=== PATIENT | male | born 1930 | race Caucasian/White ===

== ENCOUNTER 2018-01-04 09:12 | Emergency (ER) | payer OTHER ==
[2018-01-04] MEDS ORDERED: HYDROCODONE/APAP 5/325 MG TAB ONE (09:48)
[2018-01-04] MEDS ORDERED: ONDANSETRON 4 MG/2 ML VIAL ONE (09:59)
--- NOTE | 2018-01-04 10:09 | ER ---
Nurse's Notes [facility] Name: Ronny Burgess Age: 87 yrs Sex: Male : 1930 Arrival Date: 01/04/2018 Time: 09:15 Bed 15 Private MD: Diagnosis: Fall due to bumping against object;Pain in left elbow;Displaced fracture of head of left radius;Fracture of head of radius Presentation: 01/04 09:30 Presenting complaint: Patient states: was picking up sticks in the yard yesterday, fell iw forward onto outstretched left arm, now has pain to left elbow. Transition of care: patient was not received from another setting of care. Onset of symptoms was January 04, 2018. Risk Assessment: Do you want to hurt yourself or someone else? Patient reports no desire to harm self or others. Initial Sepsis Screen: Does the patient meet any 2 criteria? No. Patient's initial sepsis screen is negative. Does the patient have a suspected source of infection? No. Patient's initial sepsis screen is negative. Care prior to arrival: None. 09:30 Method Of Arrival: Ambulatory iw 09:30 Acuity: BERNARDA 4 iw Triage Assessment: 09:59 General: Appears in no apparent distress. uncomfortable, Behavior is calm, cooperative, hj appropriate for age. Pain: Denies pain. Historical: - Allergies: 09:36 isosorbide dinitrate; iw - Home Meds: 09:36 atorvastatin 80 mg oral tab 1 tab once daily [Active]; clopidogrel 75 mg oral tab 1 tab iw once daily [Active]; metoprolol succinate 50 mg oral Tb24 twice a day [Active]; nitroglycerin 0.4 mg SL subl 1 tab every 5 minutes [Active]; tamsulosin 0.4 mg oral cp24 2 caps once daily [Active]; clotrimazole 1 % topical crea 2 times per day [Active]; - PMHx: 09:36 Myocardial infarction; iw - PSHx: 09:36 Heart Surgery; knee replacement - left; iw - Immunization history:: Adult Immunizations up to date. - Social history:: Smoking status: Patient/guardian denies using tobacco. - Family history:: not pertinent. - Ebola Screening: : Patient negative for fever greater than or equal to 101.5 degrees Fahrenheit, and additional compatible Ebola Virus Disease symptoms Patient denies exposure to infectious person Patient denies travel to an Ebola-affected area in the 21 days before illness onset No symptoms or risks identified at this time. Screenin:59 Abuse screen: Denies threats or abuse. Denies injuries from another. Nutritional hj screening: No deficits noted. Tuberculosis screening: No symptoms or risk factors identified. Fall Risk None identified. Assessment: 09:35 Pain: Complains of pain in left arm and left antecubital area. iw 01/05 07:57 General: Appears in no apparent distress. Behavior is calm, cooperative. Neuro: Level iw of Consciousness is awake, alert, obeys commands, Oriented to person, place, time, situation, Moves all extremities. Full function. Cardiovascular: Patient's skin is warm and dry. Respiratory: Respiratory effort is even, unlabored, Respiratory pattern is regular. GI: No signs and/or symptoms were reported involving the gastrointestinal system. Derm: Skin is intact, is healthy with good turgor. Musculoskeletal: Range of motion: limited in left elbow Reports pain in left antecubital area. Vital Signs: 01/04 09:32 BP 180 / 69; Pulse 69; Resp 16; Temp 98.2; Pulse Ox 95% on R/A; Weight 90.72 kg; Height iw 5 ft. 9 in. (175.26 cm); Pain 5/10; 09:32 Body Mass Index 29.53 (90.72 kg, 175.26 cm) iw ED Course: 09:15 Patient arrived in ED. mr 09:27 Felix Goncalves MD is Attending Physician. yady 09:29 Anne Marie Estrada RN is Primary Nurse. iw 09:31 Triage completed. iw 09:32 Arm band placed on. iw 10:00 Patient has correct armband on for positive identification. Placed in gown. Bed in low hj position. Call light in reach. Side rails up X 1. 10:03 Elbow Left 3 View XRAY In Process Unspecified. EDMS 10:08 Raf Rodriguez MD is Referral Physician. yady 10:17 No provider procedures requiring assistance completed. Patient did not have IV access iw during this emergency room visit. Administered Medications: 09:45 Drug: Alexander 5 mg-325 mg 1 tabs Route: PO; iw 09:50 Follow up: Response: No adverse reaction hj Outcome: 10:08 Discharge ordered by . yady 10:17 Discharged to home ambulatory, with family. iw 10:17 Condition: good 10:17 Discharge instructions given to patient, family, Instructed on discharge instructions, follow up and referral plans. medication usage, Demonstrated understanding of instructions, follow-up care, medications, Prescriptions given X 1. 10:18 Patient left the ED. hj Signatures: Dispatcher [employer] EDGA Felix Goncalves MD MD cha Rivera, Reshma mr Anne Marie Estrada RN RN Feliberto Negrete RN RN hj Corrections: (The following items were deleted from the chart) 09:38 09:32 BP 180 / 69; Pulse 69bpm; Resp 16bpm; Pulse Ox 95% RA; Temp 98.2F; iw iw 01/05 07:58 01/04 10:17 Discharge instructions given to patient, family, Instructed on discharge iw instructions, follow up and referral plans. medication usage, Demonstrated understanding of instructions, follow-up care, medications, iw 01/05 07:58 01/04 09:35 Pain: Complains of pain in left arm and left antecubital area iw iw
--- NOTE | 2018-01-04 10:09 | EDPHYS ---
Physician Documentation [facility] Name: Ronny Burgess Age: 87 yrs Sex: Male : 1930 Arrival Date: 01/04/2018 Time: 09:15 Bed 15 Private MD: ED Physician Felix Goncalves HPI: 01/04 09:29 This 87 yrs old Male presents to ER via Unassigned with complaints of Fall yady Injury, Arm Injury. 09:29 Details of fall: The patient fell from an upright position, while walking. Onset: The yady symptoms/episode began/occurred yesterday. Associated injuries: The patient sustained left antecubital area, decreased range of motion. Severity of symptoms: At their worst the symptoms were moderate, in the emergency department the symptoms are unchanged. The patient has not experienced similar symptoms in the past. Historical: - Allergies: 09:36 isosorbide dinitrate; iw - Home Meds: 09:36 atorvastatin 80 mg oral tab 1 tab once daily [Active]; clopidogrel 75 mg oral tab 1 tab iw once daily [Active]; metoprolol succinate 50 mg oral Tb24 twice a day [Active]; nitroglycerin 0.4 mg SL subl 1 tab every 5 minutes [Active]; tamsulosin 0.4 mg oral cp24 2 caps once daily [Active]; clotrimazole 1 % topical crea 2 times per day [Active]; - PMHx: 09:36 Myocardial infarction; iw - PSHx: 09:36 Heart Surgery; knee replacement - left; iw - Immunization history:: Adult Immunizations up to date. - Social history:: Smoking status: Patient/guardian denies using tobacco. - Family history:: not pertinent. - Ebola Screening: : Patient negative for fever greater than or equal to 101.5 degrees Fahrenheit, and additional compatible Ebola Virus Disease symptoms Patient denies exposure to infectious person Patient denies travel to an Ebola-affected area in the 21 days before illness onset No symptoms or risks identified at this time. ROS: 09:29 Constitutional: Negative for fever, chills, and weight loss, Eyes: Negative for injury, yady pain, redness, and discharge, ENT: Negative for injury, pain, and discharge, Neck: Negative for injury, pain, and swelling, Cardiovascular: Negative for chest pain, palpitations, and edema, Respiratory: Negative for shortness of breath, cough, wheezing, and pleuritic chest pain, Abdomen/GI: Negative for abdominal pain, nausea, vomiting, diarrhea, and constipation, Back: Negative for injury and pain, : Negative for injury, bleeding, discharge, and swelling, Skin: Negative for injury, rash, and discoloration, Neuro: Negative for headache, weakness, numbness, tingling, and seizure, Psych: Negative for depression, anxiety, suicide ideation, homicidal ideation, and hallucinations, Allergy/Immunology: Negative for hives, rash, and allergies, Endocrine: Negative for neck swelling, polydipsia, polyuria, polyphagia, and marked weight changes, Hematologic/Lymphatic: Negative for swollen nodes, abnormal bleeding, and unusual bruising. 09:29 MS/extremity: Positive for injury or acute deformity, pain, swelling, tenderness, of the left antecubital area. Exam: 09:29 Constitutional: This is a well developed, well nourished patient who is awake, alert, yady and in no acute distress. Head/Face: Normocephalic, atraumatic. Eyes: Pupils equal round and reactive to light, extra-ocular motions intact. Lids and lashes normal. Conjunctiva and sclera are non-icteric and not injected. Cornea within normal limits. Periorbital areas with no swelling, redness, or edema. ENT: Nares patent. No nasal discharge, no septal abnormalities noted. Tympanic membranes are normal and external auditory canals are clear. Oropharynx with no redness, swelling, or masses, exudates, or evidence of obstruction, uvula midline. Mucous membranes moist. Neck: Trachea midline, no thyromegaly or masses palpated, and no cervical lymphadenopathy. Supple, full range of motion without nuchal rigidity, or vertebral point tenderness. No Meningismus. Chest/axilla: Normal chest wall appearance and motion. Nontender with no deformity. No lesions are appreciated. Cardiovascular: Regular rate and rhythm with a normal S1 and S2. No gallops, murmurs, or rubs. Normal PMI, no JVD. No pulse deficits. Respiratory: Lungs have equal breath sounds bilaterally, clear to auscultation and percussion. No rales, rhonchi or wheezes noted. No increased work of breathing, no retractions or nasal flaring. Abdomen/GI: Soft, non-tender, with normal bowel sounds. No distension or tympany. No guarding or rebound. No evidence of tenderness throughout. Back: No spinal tenderness. No costovertebral tenderness. Full range of motion. Male : Normal genitalia with no discharge or lesions. Skin: Warm, dry with normal turgor. Normal color with no rashes, no lesions, and no evidence of cellulitis. Neuro: Awake and alert, GCS 15, oriented to person, place, time, and situation. Cranial nerves II-XII grossly intact. Motor strength 5/5 in all extremities. Sensory grossly intact. Cerebellar exam normal. Normal gait. Psych: Awake, alert, with orientation to person, place and time. Behavior, mood, and affect are within normal limits. 09:29 Musculoskeletal/extremity: Extremities: noted in the left antecubital area: decreased ROM, pain. 09:29 Neuro: Orientation: is normal, appropriate for stated age, no acute changes, Mentation: is normal, appropriate for stated age, no acute changes, Memory: is normal, appropriate for stated age, no acute changes, Gait: not tested. Vital Signs: 09:32 BP 180 / 69; Pulse 69; Resp 16; Temp 98.2; Pulse Ox 95% on R/A; Weight 90.72 kg; Height iw 5 ft. 9 in. (175.26 cm); Pain 5/10; 09:32 Body Mass Index 29.53 (90.72 kg, 175.26 cm) MDM: 09:27 Patient medically screened. [facility] 09:32 Data reviewed: vital signs, nurses notes, radiologic studies, plain films. [facility] 01/04 09:29 Order name: Elbow Left 3 View XRAY [facility] 01/04 09:29 Order name: Ice pack; Complete Time: 10:18 [facility] 01/04 09:29 Order name: Splint - Elbow - Posterior; Complete Time: 10:18 [facility] 01/04 09:29 Order name: Sling; Complete Time: 10:18 [facility] Administered Medications: 09:45 Drug: Aurelia 5 mg-325 mg 1 tabs Route: PO; iw 09:50 Follow up: Response: No adverse reaction hj Disposition: 01/04/18 10:08 Discharged to Home. Impression: Fall due to bumping against object, Pain in left elbow, Displaced fracture of head of left radius, Fracture of head of radius. - Condition is Stable. - Discharge Instructions: Joint Pain, Fall Prevention in the Home, Joint Pain, [id number]. - Prescriptions for Tylenol- Codeine #3 300-30 mg Oral Tablet - take 2 tablets by ORAL route every 6 hours As needed; 26 tablet. - Medication Reconciliation Form, Thank You Letter, Antibiotic Education, Prescription Opioid Use form. - Follow up: Private Physician; When: 2 - 3 days; Reason: Recheck today's complaints, Continuance of care, Re-evaluation by your physician. Follow up: Raf Rodriguez MD; When: 2 - 3 days; Reason: Recheck today's complaints, Continuance of care, Re-evaluation by your physician. - Problem is new. - Symptoms have improved. Signatures: Dispatcher [employer] EDFelix Michelle MD MD cha Williams, Irene, RN RN Feliberto Negrete RN RN Corrections: (The following items were deleted from the chart) 10:08 10:08 01/04/2018 10:08 Discharged to Home. Impression: Fall due to bumping against yady object; Pain in left elbow; Displaced fracture of head of left radius; Fracture of head of radius. Condition is Stable. Discharge Instructions: Joint Pain, Fall Prevention in the Home, Joint Pain, [id number]. Prescriptions for Tylenol-Codeine #3 300-30 mg Oral Tablet - take 2 tablets by ORAL route every 6 hours As needed; 26 tablet. and Forms are Medication Reconciliation Form, Thank You Letter, Antibiotic Education, Prescription Opioid Use. Follow up: Private Physician; When: 2 - 3 days; Reason: Recheck today's complaints, Continuance of care, Re-evaluation by your physician. Problem is new. Symptoms have improved. [facility] 10:18 10:08 01/04/2018 10:08 Discharged to Home. Impression: Fall due to bumping against hj object; Pain in left elbow; Displaced fracture of head of left radius; Fracture of head of radius. Condition is Stable. Discharge Instructions: Joint Pain, Fall Prevention in the Home, Joint Pain, Eovy-ns-Acnu. Prescriptions for Tylenol-Codeine #3 300-30 mg Oral Tablet - take 2 tablets by ORAL route every 6 hours As needed; 26 tablet. and Forms are Medication Reconciliation Form, Thank You Letter, Antibiotic Education, Prescription Opioid Use. Follow up: Private Physician; When: 2 - 3 days; Reason: Recheck today's complaints, Continuance of care, Re-evaluation by your physician. Follow up: Dr. Raf Rodriguez; When: 2 - 3 days; Reason: Recheck today's complaints, Continuance of care, Re-evaluation by your physician. Problem is new. Symptoms have improved. yady
[2018-01-04 10:35] VITALS: BP 180/69; TEMP 98.2; O2SAT 95
--- NOTE | 2018-01-04 13:04 | RAD REPORT ---
EXAM DESCRIPTION: RAD - Elbow Left 3 View - 01/04/2018 10:02 am CLINICAL HISTORY: PAIN History of fall with pain COMPARISON: No comparisons FINDINGS: Moderate arthritic changes affect the elbow. A small olecranon spur is present. Mild poste rior soft tissue swelling is seen. No fracture or dislocation is evident.
== END 2018-01-04 10:18 | disposition home or self-care (01) ==
LOC: ER 09:12
DX: M25.522 Pain in left elbow (principal); W18.00XA Striking against unspecified object with subsequent fall, initial encounter; I25.2 Old myocardial infarction; Z79.899 Other long term (current) drug therapy; M79.9 Soft tissue disorder, unspecified; M77.8 Other enthesopathies, not elsewhere classified
CPT/HCPCS: 73080; 99283; J2405

== ENCOUNTER 2019-01-26 06:47 | Day surgery (SDC) | payer OTHER ==
[2019-01-22 12:07] LABS: Absolute Lymphocytes (CBC) 1.3 K/uL (0.7-4.9); Basophils % 0.6 % (0-1.3); Hematocrit 37.8 % (39.6-49.0); Lymphocytes % 20.5 % (15.3-44.8); MPV 7.5 fL (7.6-11.3); RBC Red Blood Cell Count 4.24 M/uL (4.33-5.43)
[2019-01-22 12:16] LABS: BUN Blood Urea Nitrogen 13 mg/dL (7-18); Bicarbonate 30 mmol/L (21-32); Glucose Level 106 mg/dL (74-106); Potassium 4.2 mmol/L (3.5-5.1); Protime INR 1.11; Sodium Level 141 mmol/L (136-145)
--- NOTE | 2019-01-22 12:16 | RAD REPORT ---
EXAM DESCRIPTION: RAD - Chest Pa And Lat (2 Views) - 01/22/2019 12:02 pm CLINICAL HISTORY: pre-op for heart cath COMPARISON: September 2016 chest exam TECHNIQUE: PA and lateral views of the chest were obtained. FINDINGS: The lungs are clear of an acute mass or focal infiltrate. Interstitial pattern is similar to comparison. CABG surgical changes are noted. Heart size is normal and central vasculature is wit hin normal limits. No pleural effusion or pneumothorax seen. No acute bony finding noted. Aortic c alcifications and mild tortuosity noted. No significant change from the comparison. IMPRESSION: No acute cardiopulmonary process. No significant change from comparison.
--- NOTE | 2019-01-22 15:32 | EKG ---
Test Date: 2019-01-22 Test Time: 13:02:22 Fruit Stuffer: BHAVANA MEASUREMENT RESULTS: Intervals: Rate: 60 WA: 292 QRSD: 168 QT: 478 QTc: 478 [place]: P: 67 WA: 292 QRS: -71 T: 69 INTERPRETIVE STATEMENTS: Sinus rhythm with 1st degree AV block Possible Left atrial enlargement Right bundle branch block Left anterior fascicular block Bifascicular block Left ventricular hypertrophy with repolarization abnormality Abnormal ECG Compared to ECG 12/18/2016 08:55:23 Left anterior fascicular block now present Bifascicular block now present Left ventricular hypertrophy now present Early repolarization now present Ventricular premature complex(es) no longer present Left-axis deviation no longer present Electronically Signed On 01-22-19 15:30:52 TEAM CDL DRIVER by Daniel Carrillo
[2019-01-26] MEDS ORDERED: LIDOCAINE 1% MPF 30 ML VIAL ONE (06:51)
[2019-01-26] MEDS ORDERED: HEPA 1000U/500MLS 1,000 UNIT/500 ML BAG IV ONE ×2 (06:51→07:24)
[2019-01-26] MEDS ORDERED: MIDAZOLAM HCL 2 MG/2 ML INJ ONE (06:52)
[2019-01-26] MEDS ORDERED: FENTANYL CITR 100 MCG/2 ML ONE (06:53)
[2019-01-26] MEDS ORDERED: NA CHLORIDE 0.9% 0 ML IV ONE (06:53)
[2019-01-26] MEDS ORDERED: ATROPINE SULF 1 MG/10 ML SYR IV ONE (06:53)
[2019-01-26] MEDS ORDERED: NA CHLORIDE 0.9% 500 ML ONE (06:56)
[2019-01-26] MEDS ORDERED: NA CHLORIDE 0.9% 0 ML ONE (07:35)
[2019-01-26 10:18] VITALS: BP 172/85; TEMP 97.2
[2019-01-26 10:19] VITALS: O2SAT 0
--- NOTE | 2019-01-26 18:22 | OP ---
Date of Procedure: 01/26/2019 Surgeon: Daniel Carrillo MD Supervisor [employer]: Sharon Marshall. He was admitted for left heart catheterization selective vein graft injection and LAZCANO injection. Indication: CAD and unstable angina. History Of Present Illness: Mr. Burgess is 88, had bypass surgery in 1993 with a vein graft to the OM, RCA and LAZCANO to the LAD. Had a classic unstable angina symptoms. Admitted today for catheterizatio n. Procedure In Detail: He prepped and draped in the routine sterile fashion. Given 2 mg of Versed for sedation. A 6-Chinese sheath introduced in the right common femoral artery successfully. Angio-Seal was used to close the case. A JL-4 was introduced into the left main injections. There showed comp lete occlusion of the left main distally. The RCA [place] was also occluded 100%. A JR4 catheter was used to cannulate the graft to the RCA, OM as well as the LAZCANO. The LAZCANO was widely open with good distal flow post anastomosis. The vein graft to the OM had multiple sequential lesion, the most is 5 0%, that went in OM with poor distal flow small vessel. RCA graft also had sequential lesion proxima lly was 90% very tortuous, very ectatic and distally it was completely occluded. There were no compl ications. Blood Loss: 5 mL. Postoperative Diagnosis: Severe CAD. I will plan to continue medical therapy. I am going to add Imdur to his regimen. Anesthesia: Total conscious sedation was 45 minutes. The patient will go home today and I will see him in the office in about 2 weeks. DERRELL/USHA Voice ID: [id number] Report ID: [id number]
== END 2019-01-26 10:10 | disposition home health service (06) ==
LOC: CCL 06:47
PROC: B203YZZ Plain Radiography of Multiple Coronary Artery Bypass Grafts using Other Contrast (ICD-10-PCS; principal; 2019-01-26)
PROC: B208YZZ Plain Radiography of Left Internal Mammary Bypass Graft using Other Contrast (ICD-10-PCS; 2019-01-26)
PROC: B201YZZ Plain Radiography of Multiple Coronary Arteries using Other Contrast (ICD-10-PCS; 2019-01-26)
DX: I25.110 Atherosclerotic heart disease of native coronary artery with unstable angina pectoris (principal); I25.700 Atherosclerosis of coronary artery bypass graft(s), unspecified, with unstable angina pectoris; I25.82 Chronic total occlusion of coronary artery; I65.23 Occlusion and stenosis of bilateral carotid arteries; I70.203 Unspecified atherosclerosis of native arteries of extremities, bilateral legs; I10 Essential (primary) hypertension; E78.5 Hyperlipidemia, unspecified; E11.9 Type 2 diabetes mellitus without complications; E78.6 Lipoprotein deficiency; Z95.1 Presence of aortocoronary bypass graft; Z79.82 Long term (current) use of aspirin; Z79.02 Long term (current) use of antithrombotics/antiplatelets; Z82.49 Family history of ischemic heart disease and other diseases of the circulatory system
CPT/HCPCS: 93005; 85025; 80048; 36415; 85610; 82947; 85730; 71046; 93455; C1893; C1760; J2250; J3010; J7040; 93459; J0583

== ENCOUNTER 2019-06-29 16:44 | Emergency (ER) | payer OTHER ==
--- NOTE | 2019-06-29 17:32 | RAD REPORT ---
EXAM DESCRIPTION: CT - [id number] - 06/29/2019 5:20 pm CLINICAL HISTORY: Trauma, head and neck injury. fall, head injury, no LOC;Pain COMPARISON: No comparisons TECHNIQUE: Axial 5 mm thick images of the head were obtained. Axial 2 mm thick images of the cervical spine were obtained with sagittal and coronal reconstruction images generated and reviewed. All CT scans are performed using dose optimization technique as appropriate and may include automated exposure control or mA/KV adjustment according to patient size. FINDINGS: CT HEAD WITHOUT CONTRAST: Acute subdural hematoma is seen along the right convexity measuring up to 5 mm. Acute blood is seen t o extend along the right tentorium and along the falx.Moderate atrophy is present. There is no signif icant right to left midline shift. Heavy atherosclerosis of the vertebral arteries noted. The paranasal sinuses and mastoids are clear.The calvarium is intact. CT CERVICAL SPINE WITHOUT CONTRAST: No fracture or subluxation.Mild lower cervical spondylosis.No prevertebral soft tissues swelling is i dentified. Carotid atherosclerosis. IMPRESSION: Acute right-sided subdural hematoma as detailed above. No hydrocephalus or right to midl ine shift. The findings were discussed with Dr. Yee On 06/29/2019 at 5:25 p.m. by telephone.
--- NOTE | 2019-06-29 17:43 | ER ---
Nurse's Notes [facility] Name: Ronny Burgess Age: 88 yrs Sex: Male : 1930 Arrival Date: 06/29/2019 Time: 16:46 Bed 19 Private MD: Diagnosis: Traumatic subdural hemorrhage-No LOC Presentation: 06/28 17:11 Chief complaint: Patient states: " I fell over a short brick wall and hit the back of my head." Pt denies LOC, does take Plavix, also c/o pain in R upper back near scapula, denies N/V. Coronavirus screen: Patient denies a cough. Patient denies shortness of breath or difficulty breathing. Patient denies measured and/or subjective temperature greater than 100.4F prior to today's visit. Patient denies travel on a cruise ship or to a country the [facility] currently lists as an affected area. Patient denies contact with known and/or suspected case of COVID-19. Ebola Screen: No symptoms or risks identified at this time. Initial Sepsis Screen: Does the patient meet any 2 criteria? No. Patient's initial sepsis screen is negative. Does the patient have a suspected source of infection? No. Patient's initial sepsis screen is negative. Risk Assessment: Do you want to hurt yourself or someone else? Patient reports no desire to harm self or others. Onset of symptoms was June 29, 2019. 17:11 Method Of Arrival: Ambulatory 17:11 Acuity: BERNARDA 2 ph 17:12 Care prior to arrival: None. Mechanism of Injury: Fall from standing position. Trauma hb event details: Injury occurred in the [facility], Injury occurred: at home. Injury occurred: June 29, 2019. Trauma Activation: Alert Physician: ED Physician; Name: ; Notified At: ; Arrived At: Physician: General Surgeon; Name: ; Notified At: ; Arrived At: Physician: Radiology; Name: ; Notified At: ; Arrived At: Physician: Respiratory; Name: ; Notified At: ; Arrived At: Physician: Lab; Name: ; Notified At: ; Arrived At: Historical: - Allergies: 17:14 Isosorbide Dinitrate; ph - Home Meds: 17:14 clopidogrel 75 mg Oral tab 1 tab once daily [Active]; tamsulosin 0.4 mg Oral cp24 2 ph caps once daily [Active]; nitroglycerin 0.4 mg SL subl 1 tab every 5 minutes [Active]; metoprolol succinate 50 mg Oral Tb24 twice a day [Active]; 18:19 atorvastatin 40 mg oral tab [Active]; cholecalciferol (vitamin D3) 400 unit oral cap tw2 [Active]; lisinopril 5 mg Oral tab 1 tab once daily [Active]; metformin 500 mg Oral tab 1 tab 2 times per day [Active]; - PMHx: 17:14 Myocardial infarction; Diabetes - NIDDM; Hyperlipidemia; ph - PSHx: 17:14 Heart Surgery; knee replacement - left; ph - Immunization history:: Adult Immunizations unknown. - Social history:: Smoking status: Patient denies any tobacco usage or history of. - Immunization history: Last tetanus immunization: < 10 years ago Last tetanus immunization: unknown. Screenin:50 Abuse screen: Denies threats or abuse. Denies injuries from another. Nutritional hb screening: No deficits noted. Tuberculosis screening: No symptoms or risk factors identified. Fall Risk Total Howard Fall Scale indicates Low Risk Score (25-44 pts). Fall prevention measures have been instituted. Side Rails Up X 2 Frequent Obs/Assesments occuring As available Patient and Family Educated on Fall Prevention Program and strategies. Primary Survey: 17:00 NO uncontrolled hemorrhage observed. A: The patient is alert. Airway: patent, Patient tw2 intubated prior to arrival. Breathing/Chest: Respiratory pattern: regular, Respiratory effort: spontaneous, unlabored, Breath sounds: clear, bilaterally. Chest inspection: symmetrical rise and fall of the chest. Circulation: Cardiac rhythm: Heart tones present. Pulses: palpable right radial artery and left radial artery. Skin color: pink, Skin temperature: warm, dry. Disability Alert. Exposure/Environment: All clothing and personal items were removed. Forensic evidence collection is not deemed to be indicated at this time. Items placed in patient belonging bag. There is no evidence of uncontrolled external bleeding. Obvious injury(ies) are noted at this time: pt c/o RIGHT shoulder pain A warming method has been applied: A warm blanket has been provided to the patient. 18:17 Reassessment Airway Airway Patent Breathing/Chest Respiratory pattern Regular tw2 Respiratory effort Spontaneous Unlabored Breath sounds Clear Chest inspection Symmetrical Circulation Heart tones Color [place] Temperature Warm Dry Disability Alert. Secondary Survey: 18:05 HEENT: No deficits noted. Gastrointestinal: Abdomen is soft, non-distended, Bowel tw2 sounds present in all quadrants. : No signs and/or symptoms were reported regarding the genitourinary system. Musculoskeletal: Range of motion: intact in all extremities, Reports pain in right shoulder. Assessment: 17:11 General: Appears in no apparent distress. well groomed, Behavior is calm, cooperative, tw2 appropriate for age. Pain: Complains of pain in right arm and posterior aspect of right shoulder and anterior aspect of right shoulder. Neuro: Level of Consciousness is awake, alert, obeys commands, Oriented to person, place, time, situation. EENT: No signs and/or symptoms were reported regarding the EENT system. Cardiovascular: Heart tones S1 S2 Patient's skin is warm and dry. Respiratory: Airway is patent Respiratory effort is even, unlabored, Respiratory pattern is regular, symmetrical, Breath sounds are clear bilaterally. GI: No signs and/or symptoms were reported involving the gastrointestinal system. Abdomen is round non-distended, Bowel sounds present X 4 quads. : No signs and/or symptoms were reported regarding the genitourinary system. Derm: No signs and/or symptoms reported regarding the dermatologic system. Skin is healthy with good turgor. Musculoskeletal: Circulation, motion, and sensation intact. Range of motion: limited in right shoulder. 17:45 Reassessment: Patient appears in no apparent distress at this time. No changes from tw2 previously documented assessment. Patient and/or family updated on plan of care and expected duration. Pain level reassessed. Patient is alert, oriented x 3, equal unlabored respirations, skin warm/dry/pink. 17:48 Reassessment: BP 201/76, Dr. Yee notified, Lopressor administered as ordered. hb 18:33 Reassessment: Patient appears in no apparent distress at this time. No changes from tw2 previously documented assessment. Patient and/or family updated on plan of care and expected duration. Pain level reassessed. Patient is alert, oriented x 3, equal unlabored respirations, skin warm/dry/pink. spouse is at bedside at this time, ph# of /C ER given to spouse at this time, spouse states "our daughter will come get me and cant come until about 8 tonight", encouraged pts spouse to call before they drive to [place] to check visitor policy. 18:49 Reassessment: Patient appears in no apparent distress at this time. No changes from tw2 previously documented assessment. Patient and/or family updated on plan of care and expected duration. Pain level reassessed. Patient is alert, oriented x 3, equal unlabored respirations, skin warm/dry/pink. Vital Signs: 17:11 BP 178 / 83; Pulse 66; Resp 18; Temp 97.9; Pulse Ox 97% on R/A; Weight 88.9 kg; Height ph 5 ft. 9 in. (175.26 cm); 17:45 BP 201 / 86; Pulse 77; hb 18:03 BP 171 / 90; Pulse 67; Resp 20; Temp 98.8(TE); Pulse Ox 100% on R/A; Pain 0/10; tw2 18:32 BP 168 / 85; Pulse 62; Resp 16; Pulse Ox 100% on R/A; tw2 17:11 Body Mass Index 28.94 (88.90 kg, 175.26 cm) ph 18:32 spouse at bedside at this time. tw2 Omar Coma Score: 17:00 Eye Response: spontaneous(4). Verbal Response: oriented(5). Motor Response: obeys hb commands(6). Total: 15. 18:03 Eye Response: spontaneous(4). Verbal Response: oriented(5). Motor Response: obeys tw2 commands(6). Total: 15. 18:32 Eye Response: spontaneous(4). Verbal Response: oriented(5). Motor Response: obeys tw2 commands(6). Total: 15. Trauma Score (Adult): 17:00 Eye Response: spontaneous(1); Verbal Response: oriented(1); Motor Response: obeys hb commands(2); Systolic BP: > 89 mm Hg(4); Respiratory Rate: 10 to 29 per min(4); Omar Score: 15; Trauma Score: 12 17:45 Eye Response: spontaneous(1); Verbal Response: oriented(1); Motor Response: obeys hb commands(2); Systolic BP: > 89 mm Hg(4); Respiratory Rate: 10 to 29 per min(4); [place] Score: 15; Trauma Score: 12 18:03 Eye Response: spontaneous(1); Verbal Response: oriented(1); Motor Response: obeys tw2 commands(2); Systolic BP: > 89 mm Hg(4); Respiratory Rate: 10 to 29 per min(4); [place] Score: 15; Trauma Score: 12 18:32 Eye Response: spontaneous(1); Verbal Response: oriented(1); Motor Response: obeys tw2 commands(2); Systolic BP: > 89 mm Hg(4); Respiratory Rate: 10 to 29 per min(4); [place] Score: 15; Trauma Score: 12 ED Course: 16:46 Patient arrived in ED. ag5 16:48 Chivo Yee MD is Attending Physician. kdr 17:02 Sapna Olivarez RN is Primary Nurse. tw2 17:13 Triage completed. ph 17:15 Arm band placed on Patient placed in an exam room. ph 17:21 CT Head C Spine In Process Unspecified. EDMS 17:42 Inserted saline lock: 20 gauge in left wrist, using aseptic technique. hb 17:45 Inserted saline lock: 20 gauge in right wrist, using aseptic technique. Blood collected.tw2 17:50 Patient has correct armband on for positive identification. Placed in gown. Bed in low hb position. Call light in reach. 17:50 Patient maintains SpO2 saturation greater than 95% on room air. Thermoregulation: warm hb blanket given to patient. 18:15 Shoulder Right (2 View) XRAY In Process Unspecified. EDMS 18:16 Report given to GERMAINE Virgen at [facility] ER. tw2 18:35 No provider procedures requiring assistance completed. Patient transferred, IV remains tw2 in place. Administered Medications: 17:47 Drug: Lopressor 2.5 mg Route: IVP; Site: right wrist; hb 18:35 Follow up: Response: No adverse reaction; Blood pressure is lowered tw2 Intake: 17:00 PO: 0ml; Total: 0ml. hb Output: 17:00 Urine: 0ml; Total: 0ml. hb Outcome: 17:41 ER care complete, transfer ordered by . kdr 18:49 Patient left the ED. hb 18:49 Transferred by helicopter to [facility]. tw2 18:49 critical 18:49 Instructed on the need for transfer. 18:49 Patient's length of stay was not longer than 2 hours. tw2 Signatures: Dispatcher [employer] EDMS Solo Yeein, MD MD kdr Galo, Madelyn, RN RN ph Zulma Lujan RN RN Sapna Olivarez RN RN tw2 Juliette Saleem [facility]
--- NOTE | 2019-06-29 17:44 | EDPHYS ---
Physician Documentation [facility] Name: Ronny Burgess Age: 88 yrs Sex: Male : 1930 Arrival Date: 06/29/2019 Time: 16:46 Bed 19 Private MD: ED Physician Chivo Yee HPI: 06/28 17:42 This 88 yrs old Male presents to ER via Ambulatory with complaints of Fall kdr Injury, Head Injury-Adult, Shoulder Pain. 17:42 Details of fall: The patient fell from seated position, out of a chair. Onset: The kdr symptoms/episode began/occurred suddenly, just prior to arrival. Associated injuries: The patient sustained injury to the head, abrasion, contusion, anterior aspect of right shoulder and posterior aspect of right shoulder. Severity of symptoms: At their worst the symptoms were mild, in the emergency department the symptoms are unchanged. The patient has not experienced similar symptoms in the past. The patient has not recently seen a physician. Sitting in a chair when the right arm gave way and he fell backwards hitting his right shoulder and head. he denies LOC. Historical: - Allergies: 17:14 Isosorbide Dinitrate; ph - Home Meds: 17:14 clopidogrel 75 mg Oral tab 1 tab once daily [Active]; tamsulosin 0.4 mg Oral cp24 2 ph caps once daily [Active]; nitroglycerin 0.4 mg SL subl 1 tab every 5 minutes [Active]; metoprolol succinate 50 mg Oral Tb24 twice a day [Active]; 18:19 atorvastatin 40 mg oral tab [Active]; cholecalciferol (vitamin D3) 400 unit oral cap tw2 [Active]; lisinopril 5 mg Oral tab 1 tab once daily [Active]; metformin 500 mg Oral tab 1 tab 2 times per day [Active]; - PMHx: 17:14 Myocardial infarction; Diabetes - NIDDM; Hyperlipidemia; ph - PSHx: 17:14 Heart Surgery; knee replacement - left; ph - Immunization history:: Adult Immunizations unknown. - Social history:: Smoking status: Patient denies any tobacco usage or history of. - Immunization history: Last tetanus immunization: < 10 years ago Last tetanus immunization: unknown. ROS: 17:42 Constitutional: Negative for fever, chills, and weight loss, Eyes: Negative for injury, kdr pain, redness, and discharge, ENT: Negative for injury, pain, and discharge, Neck: Negative for injury, pain, and swelling, Cardiovascular: Negative for chest pain, palpitations, and edema, Respiratory: Negative for shortness of breath, cough, wheezing, and pleuritic chest pain, Abdomen/GI: Negative for abdominal pain, nausea, vomiting, diarrhea, and constipation, Back: Negative for injury and pain, : Negative for injury, bleeding, discharge, and swelling, Skin: Negative for injury, rash, and discoloration, Neuro: Negative for headache, weakness, numbness, tingling, and seizure activity. Psych: Negative for depression, anxiety, suicide ideation, homicidal ideation, and hallucinations, Allergy/Immunology: Negative for hives, rash, and allergies. 17:42 MS/extremity: Positive for injury or acute deformity, decreased range of motion, pain, tenderness, of the anterior aspect of right shoulder, posterior aspect of right shoulder and right axilla. Exam: 17:42 Constitutional: This is a well developed, well nourished patient who is awake, alert, kdr and in no acute distress. Head/Face: Normocephalic, atraumatic. Eyes: Pupils equal round and reactive to light, extra-ocular motions intact. Lids and lashes normal. Conjunctiva and sclera are non-icteric and not injected. Cornea within normal limits. Periorbital areas with no swelling, redness, or edema. Neck: Trachea midline, no thyromegaly or masses palpated, and no cervical lymphadenopathy. Supple, full range of motion without nuchal rigidity, or vertebral point tenderness. No Meningismus. Chest/axilla: Normal chest wall appearance and motion. Nontender with no deformity. No lesions are appreciated. Cardiovascular: Regular rate and rhythm with a normal S1 and S2. No gallops, murmurs, or rubs. Normal PMI, no JVD. No pulse deficits. Respiratory: Lungs have equal breath sounds bilaterally, clear to auscultation and percussion. No rales, rhonchi or wheezes noted. No increased work of breathing, no retractions or nasal flaring. Abdomen/GI: Soft, non-tender, with normal bowel sounds. No distension or tympany. No guarding or rebound. No evidence of tenderness throughout. Back: No spinal tenderness. No costovertebral tenderness. Full range of motion. Skin: Warm, dry with normal turgor. Normal color with no rashes, no lesions, and no evidence of cellulitis. Neuro: Awake and alert, GCS 15, oriented to person, place, time, and situation. Cranial nerves II-XII grossly intact. Motor strength 5/5 in all extremities. Sensory grossly intact. Cerebellar exam normal. Normal gait. Psych: Awake, alert, with orientation to person, place and time. Behavior, mood, and affect are within normal limits. 17:42 Musculoskeletal/extremity: Extremities: grossly normal except: noted in the right scapular area, posterior aspect of right shoulder and right axilla: ROM: limited active range of motion, limited passive range of motion, in the right arm, The patient is n/v intact distal to the right shoulder. , Circulation is intact in all extremities. Sensation intact. Vital Signs: 17:11 BP 178 / 83; Pulse 66; Resp 18; Temp 97.9; Pulse Ox 97% on R/A; Weight 88.9 kg; Height ph 5 ft. 9 in. (175.26 cm); 17:45 BP 201 / 86; Pulse 77; hb 18:03 BP 171 / 90; Pulse 67; Resp 20; Temp 98.8(TE); Pulse Ox 100% on R/A; Pain 0/10; tw2 18:32 BP 168 / 85; Pulse 62; Resp 16; Pulse Ox 100% on R/A; tw2 17:11 Body Mass Index 28.94 (88.90 kg, 175.26 cm) ph 18:32 spouse at bedside at this time. tw2 [place] Coma Score: 17:00 Eye Response: spontaneous(4). Verbal Response: oriented(5). Motor Response: obeys hb commands(6). Total: 15. 18:03 Eye Response: spontaneous(4). Verbal Response: oriented(5). Motor Response: obeys tw2 commands(6). Total: 15. 18:32 Eye Response: spontaneous(4). Verbal Response: oriented(5). Motor Response: obeys tw2 commands(6). Total: 15. Trauma Score (Adult): 17:00 Eye Response: spontaneous(1); Verbal Response: oriented(1); Motor Response: obeys hb commands(2); Systolic BP: > 89 mm Hg(4); Respiratory Rate: 10 to 29 per min(4); Omar Score: 15; Trauma Score: 12 17:45 Eye Response: spontaneous(1); Verbal Response: oriented(1); Motor Response: obeys hb commands(2); Systolic BP: > 89 mm Hg(4); Respiratory Rate: 10 to 29 per min(4); Omar Score: 15; Trauma Score: 12 18:03 Eye Response: spontaneous(1); Verbal Response: oriented(1); Motor Response: obeys tw2 commands(2); Systolic BP: > 89 mm Hg(4); Respiratory Rate: 10 to 29 per min(4); Omar Score: 15; Trauma Score: 12 18:32 Eye Response: spontaneous(1); Verbal Response: oriented(1); Motor Response: obeys tw2 commands(2); Systolic BP: > 89 mm Hg(4); Respiratory Rate: 10 to 29 per min(4); Omar Score: 15; Trauma Score: 12 MDM: 17:41 Patient medically screened. kdr 17:49 Data reviewed: vital signs, nurses notes, lab test result(s), radiologic studies. kdr Counseling: I had a detailed discussion with the patient and/or guardian regarding: the historical points, exam findings, and any diagnostic results supporting the discharge/admit diagnosis, lab results, radiology results, the need to transfer to another facility. 06/28 17:36 Order name: CBC with Diff kdr 06/28 17:36 Order name: Chem 7 kdr 06/28 17:14 Order name: CT Head C Spine; Complete Time: 17:36 [facility] 06/28 17:36 Order name: Shoulder Right (2 View) XRAY kdr 06/28 17:36 Order name: PT-INR kdr Administered Medications: 17:47 Drug: Lopressor 2.5 mg Route: IVP; Site: right wrist; hb 18:35 Follow up: Response: No adverse reaction; Blood pressure is lowered tw2 Disposition: 06/29/19 17:41 Transfer ordered to [facility]. Diagnosis is Traumatic subdural hemorrhage - No LOC. - Reason for transfer: Higher level of care. - Accepting physician is H. - Condition is Serious. - Problem is new. - Symptoms are unchanged. Signatures: Dispatcher [employer] EDChivo Carter MD MD kdr Madelyn Galo, RN RN Zulma Lujan RN RN Sapna Olivarez RN RN tw2 Corrections: (The following items were deleted from the chart) 18:49 17:41 06/29/2019 17:41 Transfer ordered to [facility]. Diagnosis is hb Traumatic subdural hemorrhage - No LOC. Reason for transfer: Higher level of care. Accepting physician is . Condition is Serious. Problem is new. Symptoms are unchanged. kdr
[2019-06-29] MEDS ORDERED: METOPROLOL TARTRATE 5 MG/5 ML INJ IV ONE (17:51)
[2019-06-29 17:55] LABS: Basophils % 0.6 % (0-1.3); Hematocrit 38.7 % (39.6-49.0); Lymphocytes % 14.9 % (15.3-44.8); RBC Red Blood Cell Count 4.31 M/uL (4.33-5.43)
[2019-06-29 18:10] LABS: Potassium 4.6 mmol/L (3.5-5.1)
--- NOTE | 2019-06-29 18:27 | RAD REPORT ---
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 No fracture, dislocati on or aggressive bone lesion.
[2019-06-29 18:43] LABS: Protime INR 1.11
[2019-06-29 18:56] VITALS: TEMP 98.8; O2SAT 100
[2019-06-29 18:57] VITALS: BP 168/85
== END 2019-06-29 18:49 | disposition short-term general hospital (02) ==
LOC: ER 16:44
DX: S06.5X0A Traumatic subdural hemorrhage without loss of consciousness, initial encounter (principal); W07.XXXA Fall from chair, initial encounter; Y93.89 Activity, other specified; Y92.9 Unspecified place or not applicable; E11.9 Type 2 diabetes mellitus without complications; I25.2 Old myocardial infarction; E78.5 Hyperlipidemia, unspecified; Z88.8 Allergy status to other drugs, medicaments and biological substances
CPT/HCPCS: 36415; 70450; 72125; 80048; 85025; 85610; 96374; 99285

== ENCOUNTER 2019-12-22 13:59 | Inpatient (IN) | payer OTHER ==
--- OUTSIDE RECORDS SUMMARY | 2019-12-22 14:08 | XMS REPORT | Continuity of Care Document ---
:1930 Author Organization [email or web address] Care Team Providers Name Role Phone [email or web address] Unavailable Un available Problems Problem Status Onset Classification Date Comments Sourc e Date Reported S06.5X0A - Active [facility]ID TRAUM SUBDR [facility] HEM W/O LOSS OF C SDH Active [address] LIFE FLIGHT Active [facility] TRANSFER [address] [place] [address] TRAUM SUBDR Active [facility] HEM W LOC OF Medical UNSP Center DURATION, Medications Medication Details Route Status Patient Ordering Order Source Instructions Provider Date Levetiracetam 500 500 mg = 1 Active [facility] MG Oral Tablet tab, PO, Q12H, 2019 Co dical # 10 tab, 0 Center Refill(s) heparin Notes: porcine Inactive [facility] heparin [address] [place] [address] atorvastatin Notes: (Same No Longer [place] as: Lipitor) Active 2019 [facility] Flomax Notes: (Same No Longer [facility] As: Flomax) Active [address] [place] [address] "Do Not Crush" Center Levetiracetam 500 Notes: (Same No Longer [facility] MG Oral Tablet as:Keppra) 2019 Medica l [place] metoprolol 50 mg, 1 tab, [place] extended release Route: PO, Active 2019 Medi ann Drug form: Center ERTAB, Q12H, Start date: 06/30/19 9:00:00 CDT, Duration: 30 day, Stop date: 07/29/19 21:00:00 CDT, 0 Lisinopril Notes: (Same No Longer [facility] as as: Prinivil, 2019 [facility] Zestril) [place] Levetiracetam Notes: Same as Inactive [facility] Keppra Mix 2020 Medical with 100 mL Center NS, LR or D5W MEDICATION WASTE Product Size: 500 mg Product Wasted: ___ mg Docusate Notes: (Same No Longer [place] as: Colace) Active 2020 Medical (Do Not Crush) Center sennosides, CORRECTION Notes: (Same No Longer [place] as: Senokot) Active 2020 [facility] Center Lidocaine 0.05 Notes: Apply Inactive [place] MG/MG Transdermal only once for 2020 Medical Patch up to 12 hours Center in a 24-hour period (12 hours on and 12 hours off). (Same as: Lidoderm) "Remove old patch before application of new patch" Saline Flush 0.9% Notes: Same Inactive H [place] as: BD 2019 Medical Posiflush Center Sterile metoprolol 50 mg 50 mg = 1 tab, Active [facility] oral tablet, PO, Q12H 2019 Medical extended release Center Tamsulosin 0.4 mg = 1 Active [facility] hydrochloride 0.4 cap, PO, Daily 2019 Medical MG Oral Capsule Center [Flomax] Metformin 500 mg, PO, Active [facility] BID 2020 Medical Center atorvastatin 40 40 mg = 1 tab, Active [place] mg oral tablet PO, Bedtime 2019 Medic al Center cholecalciferol 400 IntlUnit = Active [place] 400 intl units 1 tab, PO, 2019 Medica l oral tablet Daily Center Nitroglycerin 0.4 0.4 mg = 1 Active [facility] MG Sublingual tab, SL, 2019 Medical Tablet Q5Min, PRN Center Chest pain, Give up to 3 doses. Call 911 if pain persists. clopidogrel 75 mg 75 mg = 1 tab, No Longer 06/29 [facility] oral tablet PO, Daily Active 2019 [facility] Nystatin 100 Notes: (Same [place] Longer [place] UNT/MG Topical as:Mycostatin, Active 2019 Me dical Powder Nilstat) For Center external use only. Saline Flush 0.9% Notes: Same No Longer [facility] as: Active 2019 Medical Posiflush Center Sterile Potassium Notes: (Same Inactive [facility] Chloride as: KCL) 2020 Medical Infuse no Center faster than 10 mEq/hr if given peripherally. sodium phosphate Notes: Infuse Inactive [facility] over 4 hour. 2020 Medical Do not infuse Center phosphorous concurrently in the same line as TPN or IVF that contains calcium. For double lumen central lines, phosphorous may be infused in a separate lumen from TPN. potassium Notes: (Same Inactive [place] phosphate as: K 2019 Medical Phosphate.) Center Do not infuse phosphorous concurrently in the same line as TPN or IVF that contains calcium. For double lumen central lines, phosphorous may be infused in a separate lumen from TPN. 1 mMol phoshate has 1.47 mEq potassium Infuse over 4 hours potassium Notes: (Same Inactive [place] phosphate-sodium as: Phos-NaK) 2019 M edical phosphate 250 Each 1.5 gm Center mg-280 mg-160 mg pkt has 250mg oral powder for phosphorous. reconstitution Mix w/2.5oz water and stir. Magnesium Sulfate Notes: WASTE: Inactive [place] F/P - Sink; E 2019 [facility] Trash Bin Magnesium Oxide Notes: (Same Inactive [place] as: Mag-Ox 2020 Medical 400) Magnesium Center oxide 195pc=927kg elemental magnesium Dose=____mg magnesium oxide (___mg elemental magnesium) Calcium Gluconate Notes: WASTE: Inactive [facility] F/P - Sink; E 2019 [facility] Trash Bin Calcium Carbonate Notes: (Same Inactive [place] 500 MG Chewable As: Tums) 2019 Medica l Tablet Calcium Center Carbonate 500 mg = 200 mg elemental calcium Dose = mg calcium carbonate ( mg elemental calcium) Sodium Chloride 1,000 mL, No Longer [place] 0.9% IV 1,000 mL Rate: 50 Active 2019 Medica l ml/hr, Infuse Center over: 20 hr, Route: IV, Dosing Weight 89.091 kg, Total Volume: 1,000, Start date: 06/29/19 21:52:00 CDT, Duration: 30 day, Stop date: 07/29/19 21:51:00 CDT, 2.1, m2, 0 Acetaminophen Notes: Do not No Longer [facility] exceed 4 Active 2020 Medical gm/day. (Same Center as: Tylenol) Levetiracetam 1,000 mg, [place]active [place] Route: IVPB, 2019 Medical ONCE, Dosing Center Weight 89.091, kg, Start date: 06/29/19 21:52:00 CDT, Stop date: 06/29/19 21:52:00 CDT Bisacodyl Notes: (Same No Longer s As: Dulcolax, 2019 Medical Bisco-Lax) Center Ondansetron Notes: (Same No Longer [facility] [place] as: Zofran) 2019 Medical MEDICATION Center WASTE Product Size: 4 mg Product Wasted: ___ mg Hydralazine Notes: (Same [place] as: 2019 Medical Apresoline) Center Push over 5 minutes Labetalol 10 mg, 2 mL, No Longer [facility] Route: IVP, 2019 Medical Drug form: Center INJ, Q15Min, Dosing Weight 89.091, kg, PRN Hypertension, Start date: 06/29/19 21:52:00 CDT, Duration: 30 day, Stop date: 07/29/19 21:51:00 CDT, 0 Saline Flush 0.9% Notes: Same No Longer [facility] as: BD 2019 Medical Posiflush Center Sterile Cardene 40 mg in Notes: (Same No Longer [facility] NS 200 mL as: Cardene) 2019 Medical (Titrate.) IV 40 Center mg Keppra Notes: Inactive [facility] MEDICATION 2019 Medical WASTE Center Product Size: 500 mg Product Wasted: ___ mg Acetaminophen 650 mg, 2 tab, Inactive [facility] Route: PO, 2019 Medical Drug form: Center TAB, ONCE, kg, Priority: STAT, Start date: 06/29/19 19:24:00 CDT, Stop date: 06/29/19 19:24:00 CDT, 0 Allergies, Adverse Reactions, Alerts No Known Medication Allergies Immunizations No Data Provided for This Section Results Order Name Results Value Reference Date Interpretation Comments Sakina rce Range CHEM PANEL Glucose Lvl 123 70 - 99 06/30 [facility] [address] [place] [address] CHEM PANEL BUN 19 7 - 22 06/[address] CHEM PANEL Creatinine 0.74 0.50 - 06/30 [facility] Lvl 1.40 [facility] CHEM PANEL Sodium Lvl 138 135 - 145 06/30 [facility] CHEM PANEL Potassium 4.0 3.5 - 5.1 06/30 [facility] CHEM PANEL Chloride Lvl 106 95 - 109 06/30 [facility] s [facility] CHEM PANEL CO2 24 24 - 32 06/30 [facility] CHEM PANEL Calcium Lvl 8.7 8.5 - 10.5 06/30 [facility] CHEM PANEL AGAP 12.0 10.0 - 06/30 [facility] 20.0 [facility] CHEM PANEL eGFR 82 06/30 [facility] Comment: The Medical eGFR is Center calculated using the CKD-EPI formula. In most young, healthy individuals the eGFR will be >90 mL/min/1.73m2 . The eGFR declines with age. An eGFR of 60-89 may be normal in some populations, particularly the elderly, for whom the CKD-EPI formula has not been extensively validated. Use of the eGFR is not recommended in the following populations:< br/>
Sheri viduals with unstable creatinine concentration s, including patients and those with serious co-morbid conditions.<b r/>
Patie nts with extremes in muscle mass or diet.

The data above are obtained from the National Kidney Disease Education Program (NKDEP) which additionally recommends that when the eGFR is used in patients with extremes of body mass index for purposes of drug dosing, the eGFR should be multiplied by the estimated BMI. CHEM PANEL Phosphorus 4.3 2.5 - 4.5 06/30 [facility] CHEM PANEL Magnesium 2.3 1.8 - 2.4 06/30 [facility] HEMATOLOGY WBC 5.6 3.7 - 10.4 06/30 2019 [facility] HEMATOLOGY RBC 3.94 4.70 - 06/30 [place] 6.10 [facility] HEMATOLOGY Hgb 11.8 14.0 - 06/30 [facility] 18.0 [facility] HEMATOLOGY Hct 35.4 42.0 - 06/30 [place] 54.0 [facility] HEMATOLOGY MCV 89.8 80.0 - 06/30 [place] 94.0 [facility] HEMATOLOGY MCH 30.0 27.0 - 06/30 [facility] 31.0 [facility] HEMATOLOGY MCHC 33.4 32.0 - 06/30 [facility] 36.0 [facility] HEMATOLOGY RDW 13.9 11.5 - 06/30 [facility] 14.5 [facility] HEMATOLOGY Platelet 131 133 - 450 06/[address] HEMATOLOGY MPV 8.1 7.4 - 10.4 06/[address] HEMATOLOGY RBC Morph Normal Normal 06/30 [facility] (07/01/19 4:43 AM) /2019 [facility] HEMATOLOGY Plt Morph Normal Normal 06/30 [facility] (07/01/19 4:43 AM) /2019 [facility] HEMATOLOGY Segs 62.1 45.0 - 06/30 [facility] 75.0 [facility] HEMATOLOGY Lymphocytes 24.3 20.0 - 06/30 [facility] 40.0 [facility] HEMATOLOGY Monocytes 11.1 2.0 - 12.0 06/[address] HEMATOLOGY Eosinophils 2.1 0.0 - 4.0 06/30 [facility] /2019 [facility] HEMATOLOGY Basophils 0.4 0.0 - 1.0 06/[address] HEMATOLOGY Neutrophils 3.5 1.5 - 8.1 06/30 [facility] HEMATOLOGY Lymphocytes 1.4 1.0 - 5.5 06/30 [facility] /[address] [place] [address] HEMATOLOGY Monocytes # 0.6 0.0 - 0.8 06/30 [facility] /[address] [place] [address] HEMATOLOGY Eosinophils 0.1 0.0 - 0.5 06/30 [facility] [address] [place] [address] PARATHYROID Ca Ion WB 1.16 1.05 - 06/30 [place] PROFILE 1. [facility] PARATHYROID Ca Norm WB 1.16 1.05 - 06/30 [facility] PROFILE 1. [facility] CARDIAC Troponin-I 0.02 0.00 - 06/29 [facility] ENZYMES 0.40 [facility] BACTERIAL - MRSA by PCR Negative 06/29 [facility] SEROLOGY (06/30/19 1:24 AM) /2019 [facility] CHEM PANEL Glucose Lvl 124 70 - 99 06/[address] CHEM PANEL BUN 13 7 - 22 06/[address] CHEM PANEL Creatinine 0.69 0.50 - 06/29 [facility] Lvl 1.40 [facility] CHEM PANEL Sodium Lvl 141 135 - 145 06/29 2019 [facility] CHEM PANEL Potassium 4.0 3.5 - 5.1 06/29 [facility] Lvl [facility] CHEM PANEL Chloride Lvl 106 95 - 109 06/29 [facility] CHEM PANEL CO2 26 24 - 32 06/29 /2019 [facility] CHEM PANEL Calcium Lvl 8.7 8.5 - 10.5 06/29 [facility] CHEM PANEL AGAP 13.0 10.0 - 06/29 [place] 20.0 [facility] CHEM PANEL eGFR 85 06/29 [facility] Comment: The Medical eGFR is Center calculated using the CKD-EPI formula. In most young, healthy individuals the eGFR will be >90 mL/min/1.73m2 . The eGFR declines with age. An eGFR of 60-89 may be normal in some populations, particularly the elderly, for whom the CKD-EPI formula has not been extensively validated. Use of the eGFR is not recommended in the following populations:< br/>
Sheri viduals with unstable creatinine concentration s, including patients and those with serious co-morbid conditions.<b r/>
Patie nts with extremes in muscle mass or diet.

The data above are obtained from the National Kidney Disease Education Program (NKDEP) which additionally recommends that when the eGFR is used in patients with extremes of body mass index for purposes of drug dosing, the eGFR should be multiplied by the estimated BMI. CHEM PANEL Magnesium 2.4 1.8 - 2.4 06/29 [facility] Lvl [facility] CHEM PANEL Phosphorus 3.4 2.5 - 4.5 06/29 [facility] HEMATOLOGY WBC 6.8 3.7 - 10.4 06/29 /2019 [facility] HEMATOLOGY RBC 3.95 4.70 - 06/29 [place] 6.10 [facility] HEMATOLOGY Hgb 11.9 14.0 - 06/29 [facility] 18.0 [facility] HEMATOLOGY Hct 35.7 42.0 - 06/29 [place] 54.0 [facility] HEMATOLOGY MCV 90.3 80.0 - 06/29 [place] 94.0 [facility] HEMATOLOGY MCH 30.2 27.0 - 06/29 [place] 31.0 [facility] HEMATOLOGY MCHC 33.5 32.0 - 06/29 [place] 36.0 [facility] HEMATOLOGY RDW 14.4 11.5 - 06/29 [place] 14.5 /2019 [facility] HEMATOLOGY Platelet 151 133 - 450 06/[address] HEMATOLOGY MPV 8.0 7.4 - 10.4 06/29 [place] /[address] [place] [address] HEMATOLOGY Segs 68.0 45.0 - 06/29 [place] 75.0 [facility] HEMATOLOGY Lymphocytes 21.0 20.0 - 06/29 [place] 40.0 [facility] HEMATOLOGY Monocytes 9.6 2.0 - 12.0 06/29 [facility] /[address] [place] [address] HEMATOLOGY Eosinophils 0.8 0.0 - 4.0 06/29 [place] /2019 [facility] HEMATOLOGY Basophils 0.6 0.0 - 1.0 06/[address] HEMATOLOGY Neutrophils 4.6 1.5 - 8.1 06/29 [place] # /2019 [facility] HEMATOLOGY Lymphocytes 1.4 1.0 - 5.5 06/29 [place] # /2020 [facility] HEMATOLOGY Monocytes # 0.7 0.0 - 0.8 06/29 [facility] HEMATOLOGY Eosinophils 0.1 0.0 - 0.5 06/29 [facility] /2020 [facility] PARATHYROID Ca Ion WB 1.15 1.05 - 06/29 [place] PROFILE 1. [facility] PARATHYROID Ca Norm WB 1.13 1.05 - 06/29 [facility] PROFILE 1.25 [facility] BLOOD BANK ABO/Rh O POS 06/29 [facility] RESULTS /2019 [facility] BLOOD BANK Antibody Negative 06/29 [facility] RESULTS Scrn (06/29/19 11:21 PM) /2019 [facility] CARDIAC Troponin-I 0.02 0.00 - 06/29 [facility] ENZYMES 0.40 [facility] HEMATOLOGY Plav Effect 190 06/29 [facility] Plt /2019 [facility] CARDIAC Troponin-I <0.02 0.00 - 06/29 [facility] ENZYMES 0.40 [facility] CHEM PANEL Glucose Lvl 131 70 - 99 06/[address] [place] [address] CHEM PANEL BUN 13 7 - 22 06/[address] [place] [address] CHEM PANEL Creatinine 0.81 0.50 - 06/29 [facility] Lvl 1.40 [facility] CHEM PANEL Sodium Lvl 138 135 - 145 06/29 [facility] CHEM PANEL Potassium 4.1 3.5 - 5.1 06/29 [facility] l [facility] CHEM PANEL Chloride Lvl 107 95 - 109 06/29 [facility] CHEM PANEL CO2 27 24 - 32 06/29 [facility] CHEM PANEL Calcium Lvl 8.9 8.5 - 10.5 06/29 as [facility] CHEM PANEL AGAP 8.1 10.0 - 06/29 [facility] 20.0 [facility] CHEM PANEL eGFR 79 06/29 [facility] Comment: The Medical eGFR is Center calculated using the CKD-EPI formula. In most young, healthy individuals the eGFR will be >90 mL/min/1.73m2 . The eGFR declines with age. An eGFR of 60-89 may be normal in some populations, particularly the elderly, for whom the CKD-EPI formula has not been extensively validated. Use of the eGFR is not recommended in the following populations:< br/>
Sheri viduals with unstable creatinine concentration s, including patients and those with serious co-morbid conditions.<b r/>
Patie nts with extremes in muscle mass or diet.

The data above are obtained from the National Kidney Disease Education Program (NKDEP) which additionally recommends that when the eGFR is used in patients with extremes of body mass index for purposes of drug dosing, the eGFR should be multiplied by the estimated BMI. CHEM PANEL Lactic Acid 1.6 0.5 - 2.2 06/29 [facility] HEMATOLOGY WBC X 10x3 6.7 3.7 - 10.4 06/29 [facility] HEMATOLOGY RBC X 10x6 4.15 4.70 - 06/29 [facility] 6.10 [facility] HEMATOLOGY Hgb 12.5 14.0 - 06/29 [facility] 18.0 [facility] HEMATOLOGY Hct 37.5 42.0 - 06/29 [facility] 54.0 [facility] HEMATOLOGY MCV 90.4 80.0 - 06/29 [place] 94.0 [facility] HEMATOLOGY MCH 30.1 27.0 - 06/29 [facility] 31.0 [facility] HEMATOLOGY MCHC 33.2 32.0 - 06/29 [facility] 36.0 [facility] HEMATOLOGY RDW 14.0 11.5 - 06/29 [facility] 14.5 [facility] HEMATOLOGY Platelet 151 133 - 450 06/[address] HEMATOLOGY MPV 7.2 7.4 - 10.4 06/[address] HEMATOLOGY ACT (TEG) 105 86 - 118 06/29 [facility] HEMATOLOGY [place] 0.5 06/29 [facility] HEMATOLOGY R-time Rapid 0.6 0.4 - 0.7 06/29 [facility] /2019 [facility] HEMATOLOGY K-time Rapid 1.0 0.6 - 2.3 06/[address] HEMATOLOGY Angle Rapid 78 64 - 80 06/[address] HEMATOLOGY Max 67 52 - 71 06/29 [facility]2019 [facility] HEMATOLOGY G-value 10.2 5.0 - 11.6 06/[address] HEMATOLOGY Estimated % 1.2 0.0 - 7.5 06/29 [facility] s [facility] /2019 [facility] HEMATOLOGY Segs 76.9 45.0 - 06/29 [facility] 75.0 [facility] HEMATOLOGY Lymphocytes 14.0 20.0 - 06/29 [facility] 40.0 [facility] HEMATOLOGY Monocytes 8.1 2.0 - 12.0 06/[address] HEMATOLOGY Eosinophils 0.5 0.0 - 4.0 06/29 [facility] s /2020 [facility] HEMATOLOGY Basophils 0.5 0.0 - 1.0 06/[address] HEMATOLOGY Neutrophils 5.2 1.5 - 8.1 06/29 [facility] s # /2019 [facility] HEMATOLOGY Lymphocytes 0.9 1.0 - 5.5 06/29 [place] # /2020 [facility] HEMATOLOGY Monocytes # 0.5 0.0 - 0.8 06/29 [facility] s /2020 [facility] Pathology Reports No Data Provided for This Section Diagnostic Reports Report Value Date Source Brain wo contrast CT Radiation Dose CTDIVOL = 0 (mGy): DLP = 564.57 (mGy-cm) 07/14/2019 MATTIE Rodriguez PROCEDURE INFORMATION: Exam: CT Head Without Contrast Exam date and time: 07/14/2019 10:06 AM Age: 88 years old Clinical indication: Traumatic subdural hemorrha ge without loss of consciousness, initial encou nter; Additional info: /[id number] traumatic subdural hemorrhage without loss of consciousness, initia l encounter TECHNIQUE: Imaging protocol: Computed tomography of the hea d without contrast. Radiation optimization: All CT scans at this facility use at least one of these dose optimization techniques: automated exposure control; mA and/or kV adjustment per patient size (includes targeted e xams where dose is matched to clinical indication); or iterative reconstructio n. COMPARISON: BRAIN WO CONTRAST CT 06/29/2019 10:16 PM RADIATION DOSE METRICS: Total DLP: 564.57 mGy-cm FINDINGS: Brain: Interval near complete resolution of righ t parasagittal subdural hematoma. Interval decrease in size and density of the subdural hemorrhage in the right frontal convexity, a residual subacute to chronic collection noted on the current study measuring 7 mm. Stable moderate volume loss and chronic small vessel ischemic changes. Ventricles: Unremarkable for age Bones/joints: Unremarkable. No acute fracture. Sinuses: Visualized sinuses are unremarkable. No fluid levels. Mastoid air cells: Visualized mastoid air cells are well aerated. Soft tissues: Unremarkable. IMPRESSION: 1. Interval near complete resolution of right pa rafalcine subdural hematoma. 2. A small subacute to chronic right frontal sub dural hematoma, decreased in size and density compared to prior study. 3. Stable moderate volume loss and chronic smal l vessel ischemic changes. COMMENTS: If there is a persistent concern for acute intra cranial process, further assessment with MRI or CTA is recommended. Denisa Seo MD On 07/15/2019 16:15 :43; [id number] Brain wo contrast CT EXAM: CT BRAIN WITHOUT CONTRAST 06/29/2019 [facility] DATE: 06/29/2019 at 2216 hours Ce nter INDICATION: Headache, fall; hemorrhage, follow-u p COMPARISON: Outside head CT 06/29/2019 1722 hour s TECHNIQUE: Axial CT images o f the brain were obtained. Sagittal and coronal reformats. IV contrast: None DLP: 975 mGy-cm FINDINGS: Subdural hematoma is again s een along the falx cerebri and right tentorial leaflet, unchanged in volume from the prior exam. Right frontotemporal convexity subdural hematoma measures up to 4 mm in thick ness, unchanged. No new focus of intracranial he morrhage is identified. There is no significant mass effect, midline felix ft, or herniation. The ventricles, sulci, and b gustavo cisterns are prominent. There are patchy white matter changes of microangiopathy. There is no fracture of the skull, skull base, o r visible facial bones. IMPRESSION: Subdural hemato ma along the right cerebral convexity, falx, and right tentorium appears unchanged from prior exam. No new hemorrhage identified [place] SECTION: Neuro Shoulder series DX EXAM: XR RIGHT SHOULDER 3 VIEWS 06/29/2019 [facility] DATE: 06/29/2019 20:16 CDT Center INDICATION: - severe R shoulder pain S/P fall COMPARISON: None. [place] SECTION: ER TECHNIQUE: AP views in inter nal and external rotation, and an axillary view of the shoulder FINDINGS: No acute fracture or malalignment is identified. There are degenerative changes of the glenohumeral and acromial clavicular joints. No soft tissue abnormality is identified. IMPRESSION: No acute abnormality. Torso-Outside Consult EXAM: CT CERVICAL SPINE WITHOUT CONTRAST 0 06/29/2019 [facility] CT DATE: 06/29/2019 19:58 CDT Center INDICATION: Fall and pain, second interpretation requested COMPARISON: None available TECHNIQUE: Noncontrast CT im ages of the cervical spine, obtained at [facility] . Axial, sagittal and coronal images provided. [place] SECTION: ER FINDINGS: The spine is image d from the skull base to the level of T1-T2. There is no skull base fracture. The visualized paranasal sinuses and mastoid air cells are clear. No acute fracture or malalig nment is identified. 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 Degenerative changes include multilevel facet arthropathy. Right cerebral convexity sub dural hematoma is partially imaged, better seen on head CT. IMPRESSION: 1. No acute abnormality of the cervical spine. 2. Intracranial hemorrhage better evaluated on head CT. Agree with outside report. Chest 1view DX EXAM: XR CHEST 1 VIEW 06/29/2019 [facility] edical DATE: 06/29/2019 19:24 CDT Center INDICATION: - fall, right shoulder pain COMPARISON: None. TECHNIQUE: AP chest. FINDINGS: Lines, tubes and hardware: P ostsurgical changes of CABG. Median sternotomy wires x4. Lungs and pleura: Prominent pulmonary vasculature and interstitial opacities are present. Slight blunting of the left costophrenic sulci is present. Heart and mediastinum: The h eart size is enlarged. Vascular calcifications are present at the aortic arch. Bones, soft tissues: No acute abnormality. IMPRESSION: 1. Mild cardiomegaly and pr ominent pulmonary vasculature and interstitial opacities favoring pulmonary edema. Superimposed infection is not excluded. Consultation Notes No Data Provided for This Section Discharge Summaries No Data Provided for This Section History and Physicals No Data Provided for This Section Vital Signs Vital Sign Value Date Comments Source Temperature Oral (F) 98.4 F 07/01/2019 [facility] Heart Rate 62 07/01/2019 [facility] Resp[facility] Rate 18 07/01/2019 [facility] Systolic (mm Hg) 120 07/01/2019 [facility] Diastolic (mm Hg) 60 07/01/2019 [facility] Temperature Oral (F) 98.3 F 07/01/2019 [facility] Heart Rate 65 07/01/2019 [facility] Respitory Rate 18 07/01/2019 [facility] Systolic (mm Hg) 121 07/01/2019 [facility] Diastolic (mm Hg) 64 07/01/2019 [facility] Temperature Oral (F) 98 F 07/01/2019 [facility] Respitory Rate 18 07/01/2019 [facility] Systolic (mm Hg) 112 07/01/2019 [facility] Diastolic (mm Hg) 67 07/01/2019 [facility] Heart Rate 60 07/01/2019 [facility] Height 175.26 cm 06/30/2019 [facility] Weight 89.1 06/30/2019 [facility] BMI Calculated 29.01 06/30/2019 [facility] Height 175.26 cm 06/30/2019 [facility] BMI Calculated 29 06/30/2019 [facility] Weight 89.091 06/30/2019 [facility] Encounters Location Location Encounter Encounter Reason Attending ADM [place] Source Details Type Number For Provider Date Date Visit [facility] [id number] Yang 06/29 06/30 [facility] Edi Aguirre /2019 [facility] Procedures No Data Provided for This Section Assessment and Plan No Data Provided for This Section Plan of Care No Data Provided for This Section Social History Social History Date Source Social History TypeResponse 06/30/2019 [facility] Smoking Status Never smoker; Exposure to Tobacco Smoke None; Cigarette Smoking Last 365 Days No; Reg Smoking Cessation Counseling No entered on: 06/29/19 Family History No Data Provided for This Section Advance Directives No Data Provided for This Section Functional Status No Data Provided for This Section
[2019-12-22 15:06] LABS: Absolute Lymphocytes (CBC) 0.9 K/uL (0.7-4.9); Basophils % 0.6 % (0-1.3); Hematocrit 37.7 % (39.6-49.0); Lymphocytes % 18.5 % (15.3-44.8); RBC Red Blood Cell Count 4.17 M/uL (4.33-5.43)
[2019-12-22 15:13] LABS: Protime INR 1.08
[2019-12-22 15:28] LABS: Albumin 3.6 g/dL (3.4-5.0); Bilirubin Direct 0.1 mg/dL (0-0.2); Bilirubin Total 0.5 mg/dL (0.2-1.0); Magnesium 2.3 mg/dL (1.8-2.4); Potassium 4.5 mmol/L (3.5-5.1); Protein, Total 7.3 g/dL (6.4-8.2); Troponin (Emerg Dept Use Only) 0.1 ng/mL (0.0-0.045)
--- NOTE | 2019-12-22 15:28 | RAD REPORT ---
EXAM DESCRIPTION: CT - [id number] - 12/22/2019 3:20 pm CLINICAL HISTORY: PAIN COMPARISON: Head C Spine Mpr Wo Con dated 06/29/2019 TECHNIQUE: Axial 5 mm thick images of the head were obtained. Axial 2 mm thick images of the cervic al spine were obtained with sagittal and coronal reconstruction images generated and reviewed. All CT scans are performed using dose optimization technique as appropriate and may include automated exposure control or mA/KV adjustment according to patient size. FINDINGS: No intracranial hemorrhage, mass, edema or acute intracranial finding. The right-side subd ural hematoma seen June 2019 has fully resolved. No suspicion for acute infarction. No extra-axial flu id collections. Mastoid air cells and paranasal sinuses are clear. No globe or orbit abnormality seen . Moderate severity atrophy and chronic ischemic changes are present. Ventricles remain in proportion to the volume loss. Dense arterial tree calcifications seen. Cervical body height and alignment are normal. No disk space narrowing. No fracture or acute bony abn ormality. Patient has prominent facet joint degenerative change. Central canal detail is inherently l imited. No paraspinal mass or hematoma. Dense calcifications of the carotid vasculature are present. IMPRESSION: Moderate atrophy and chronic ischemic changes are present with no acute intracranial fin ding. Subdural hematoma seen June 2019 has fully resolved. Prominent cervical spine degenerative change similar to comparison. No acute finding.
--- NOTE | 2019-12-22 15:29 | RAD REPORT ---
EXAM DESCRIPTION: RAD - Pelvis - 12/22/2019 3:19 pm CLINICAL HISTORY: PAIN COMPARISON: No comparisons TECHNIQUE: AP imaging of the pelvis was obtained. FINDINGS: No fracture of the bony pelvis seen. Lower lumbar degenerative change seen along with SI j oint degenerative change. Sacral ala appear intact. Bilateral hip joint degenerative change seen with out an acute component seen at the joint. Vascular calcifications are present. IMPRESSION: No fracture or acute pelvis finding. Right hip findings are separately detailed.
--- NOTE | 2019-12-22 15:31 | RAD REPORT ---
EXAM DESCRIPTION: RAD - Femur Right - 12/22/2019 3:19 pm CLINICAL HISTORY: PAINfall COMPARISON: No comparisons FINDINGS: Fracture changes are present in the greater trochanter extending into the intertrochanteri c region. Lesser trochanter remains intact. No fracture of the femoral neck. No acute femoral head fi nding. Hip joint degenerative changes are present. Remainder the femur shows no acute finding. Right knee prosthesis in place. The femoral component maya ws no loosening. Tibial component is not adequately visualized. Dense arterial tree calcifications are present. No air or foreign body in the soft tissues. IMPRESSION: Right femur intertrochanteric fracture without distraction or angulation deformity.
--- NOTE | 2019-12-22 15:32 | RAD REPORT ---
EXAM DESCRIPTION: RAD - Hip Right 2 View - 12/22/2019 3:19 pm CLINICAL HISTORY: PAIN, fall COMPARISON: No comparisons FINDINGS: AP and frog-leg views of the right hip were obtained. Fracture lines traverse the greater trochanter extending into the intertrochanteric region. Lesser tr ochanter remains intact. No femoral neck fractures seen. Degenerative change seen at the hip joint wi th no AVN or focal femoral head abnormality. Imaged portions of the right hemipelvis show degenerativ e change but no fracture. No suspicious soft tissue finding. Arterial tree calcifications are present . IMPRESSION: Right femur intertrochanteric fracture.
--- NOTE | 2019-12-22 15:34 | RAD REPORT ---
EXAM DESCRIPTION: RAD - Chest Single View - 12/22/2019 3:20 pm CLINICAL HISTORY: COUGH, hip fracture COMPARISON: January 2019 TECHNIQUE: AP portable chest image was obtained 12/22/2019 3:20 pm . FINDINGS: Lung volumes are low accentuating the interstitial pattern accentuating heart size. CABG s urgical changes are noted. Heart size is prominent but no significant failure or volume overload. No measurable pleural effusion and no pneumothorax. No acute bony abnormality seen. No acute aortic find ings suspected. IMPRESSION: No acute cardiopulmonary process. No significant change from comparison.
[2019-12-22] MEDS ORDERED: NA CHLORIDE 0.9% 1,000 ML ONE ×2 (15:43→22:21)
--- NOTE | 2019-12-22 15:43 | EDPHYS ---
Physician Documentation [facility] Name: Ronny Burgess Age: 89 yrs Sex: Male : 1930 Arrival Date: 12/22/2019 Time: 14:08 Bed 5 Private MD: ED Physician Felix Goncalves HPI: 12/21 14:35 This 89 yrs old Male presents to ER via EMS with complaints of Hip Pain. yady 14:35 The patient or guardian reports decreased range of motion, pain. that occurred at home, yady sustained from a fall. The complaints affect the right hip. Onset: The symptoms/episode began/occurred just prior to arrival. Modifying factors: The symptoms are alleviated by remaining still, the symptoms are aggravated by any movement, weight bearing. Associated signs and symptoms: Loss of consciousness: the patient experienced no loss of consciousness. Severity of symptoms: At their worst the symptoms were mild, in the emergency department the symptoms are unchanged. The patient has not experienced similar symptoms in the past. Historical: - Allergies: 14:27 Isosorbide Dinitrate; zb - Home Meds: 14:27 atorvastatin 80 mg oral tab 1 tab once daily [Active]; cholecalciferol (vitamin D3) 400 zb unit Oral cap [Active]; nitroglycerin 0.4 mg SL subl 1 tab every 5 minutes [Active]; tamsulosin 0.4 mg Oral cp24 2 caps once daily [Active]; metoprolol succinate 50 mg Oral Tb24 1 tab twice a day [Active]; Multiple Vitamins oral tab twice a day [Active]; metformin 500 mg Oral tab 1 tab 2 times per day [Active]; aspirin 81 mg Oral chew 1 tab once daily [Active]; - PMHx: 14:27 Diabetes - NIDDM; Hyperlipidemia; Myocardial infarction; zb - Immunization history:: Adult Immunizations unknown. - Social history:: Smoking status: unknown. - Family history:: not pertinent. ROS: 14:35 Constitutional: Negative for fever, chills, and weight loss, Eyes: Negative for injury, yady pain, redness, and discharge, ENT: Negative for injury, pain, and discharge, Neck: Negative for injury, pain, and swelling, Cardiovascular: Negative for chest pain, palpitations, and edema, Respiratory: Negative for shortness of breath, cough, wheezing, and pleuritic chest pain, Abdomen/GI: Negative for abdominal pain, nausea, vomiting, diarrhea, and constipation, Back: Negative for injury and pain, : Negative for injury, bleeding, discharge, and swelling, Skin: Negative for injury, rash, and discoloration, Neuro: Negative for headache, weakness, numbness, tingling, and seizure, Psych: Negative for depression, anxiety, suicide ideation, homicidal ideation, and hallucinations, Allergy/Immunology: Negative for hives, rash, and allergies, Endocrine: Negative for neck swelling, polydipsia, polyuria, polyphagia, and marked weight changes, Hematologic/Lymphatic: Negative for swollen nodes, abnormal bleeding, and unusual bruising. 14:35 MS/extremity: Positive for decreased range of motion, pain, tenderness, of the right hip. Exam: 14:35 Constitutional: This is a well developed, well nourished patient who is awake, alert, yady and in no acute distress. Head/Face: Normocephalic, atraumatic. Eyes: Pupils equal round and reactive to light, extra-ocular motions intact. Lids and lashes normal. Conjunctiva and sclera are non-icteric and not injected. Cornea within normal limits. Periorbital areas with no swelling, redness, or edema. ENT: Nares patent. No nasal discharge, no septal abnormalities noted. Tympanic membranes are normal and external auditory canals are clear. Oropharynx with no redness, swelling, or masses, exudates, or evidence of obstruction, uvula midline. Mucous membranes moist. Neck: Trachea midline, no thyromegaly or masses palpated, and no cervical lymphadenopathy. Supple, full range of motion without nuchal rigidity, or vertebral point tenderness. No Meningismus. Chest/axilla: Normal chest wall appearance and motion. Nontender with no deformity. No lesions are appreciated. Cardiovascular: Regular rate and rhythm with a normal S1 and S2. No gallops, murmurs, or rubs. Normal PMI, no JVD. No pulse deficits. Respiratory: Lungs have equal breath sounds bilaterally, clear to auscultation and percussion. No rales, rhonchi or wheezes noted. No increased work of breathing, no retractions or nasal flaring. Abdomen/GI: Soft, non-tender, with normal bowel sounds. No distension or tympany. No guarding or rebound. No evidence of tenderness throughout. Back: No spinal tenderness. No costovertebral tenderness. Full range of motion. Skin: Warm, dry with normal turgor. Normal color with no rashes, no lesions, and no evidence of cellulitis. Neuro: Awake and alert, GCS 15, oriented to person, place, time, and situation. Cranial nerves II-XII grossly intact. Motor strength 5/5 in all extremities. Sensory grossly intact. Cerebellar exam normal. Normal gait. Psych: Awake, alert, with orientation to person, place and time. Behavior, mood, and affect are within normal limits. 14:35 Musculoskeletal/extremity: ROM: limited active range of motion due to pain, limited passive range of motion due to pain, Circulation is intact in all extremities. Sensation intact. Compartment Syndrome exam of affected extremity: is normal. DVT Exam: negative Homans' sign noted on exam, no appreciated bluish discoloration, no erythema, no increased warmth, pain, swelling, tenderness. 15:47 ECG was reviewed by the Attending Physician. [facility] Vital Signs: 14:18 BP 158 / 84; Pulse 69; Resp 16; Temp 97.9(O); Pulse Ox 98% on R/A; Weight 87.09 kg; zb Height 5 ft. 9 in. (175.26 cm); 16:10 BP 156 / 74; Pulse 71; Resp 18; Pulse Ox 100% on R/A; ph 17:10 BP 149 / 80; Pulse 76; Resp 18; Pulse Ox 100% on R/A; Pain 0/10; zb 18:10 BP 150 / 85; Pulse 74; Resp 16; Pulse Ox 100% on R/A; Pain 8/10; zb 14:18 Body Mass Index 28.35 (87.09 kg, 175.26 cm) zb MDM: 14:10 Patient medically screened. yady 14:42 Differential diagnosis: hip fracture, intertrochanteric fracture, femoral neck yady fracture, femoral shaft fracture, bursitis, arthritis, strain. Data reviewed: vital signs, nurses notes, lab test result(s), EKG, radiologic studies, plain films. Data interpreted: monitoring and evaluation advisor: rate is 69 beats/min, rhythm is Pulse oximetry: on room air is 98 %. Test interpretation: by ED physician or midlevel provider: ECG, plain radiologic studies. Counseling: I had a detailed discussion with the patient and/or guardian regarding: the historical points, exam findings, and any diagnostic results supporting the discharge/admit diagnosis, lab results, radiology results. 15:40 Physician consultation: Stevie Maynard MD. [facility] 12/21 14:35 Order name: Basic Metabolic Panel [facility] 12/21 14:35 Order name: CBC with Diff [facility] 12/21 14:35 Order name: LFT's [facility] 12/21 14:35 Order name: Magnesium [facility] 12/21 14:35 Order name: NT PRO-BNP [facility] 12/21 14:35 Order name: PT-INR [facility] 12/21 14:35 Order name: Pelvis XRAY [facility] 12/21 14:35 Order name: Hip Right 2 View XRAY [facility] 12/21 14:35 Order name: Femur Right XRAY [facility] 12/21 14:35 Order name: CT Head C Spine [facility] 12/21 14:35 Order name: Troponin (emerg Dept Use Only) [facility] 12/21 14:35 Order name: XRAY Chest (1 view) [facility] 12/21 15:22 Order name: Hip Right Wo Con EDPA 12/21 14:35 Order name: EKG; Complete Time: 14:36 [facility] 12/21 14:35 Order name: Cardiac monitoring; Complete Time: 15:09 [facility] 12/21 14:35 Order name: EKG - Nurse/Tech; Complete Time: 16:05 [facility] 12/21 14:35 Order name: IV Saline Lock; Complete Time: 14:53 [facility] 12/21 14:35 Order name: Labs collected and sent; Complete Time: 14:53 [facility] 12/21 14:35 Order name: O2 Per Protocol; Complete Time: 14:53 [facility] 12/21 14:35 Order name: O2 Sat Monitoring; Complete Time: 14:53 [facility] EC:47 Rate is 70 beats/min. Rhythm is regular. QRS [place] is Normal. LA interval is normal. QRS yady interval is normal. QT interval is normal. No Q waves. T waves are Normal. No ST changes noted. Clinical impression: NSR w/ Non-specific ST/T Changes and No evidence of ischemia. Interpreted by me. Reviewed by me. Administered Medications: 15:00 Drug: morphine 2 mg Route: IVP; Site: right forearm; ph 16:15 Follow up: Response: No adverse reaction; RASS: Alert and Calm (0) ph 15:00 Drug: Zofran (Ondansetron) 4 mg Route: IVP; Site: right forearm; ph 16:14 Follow up: Response: No adverse reaction ph 15:31 Drug: NS 0.9% 500 ml Route: IV; Rate: bolus; Site: right forearm; zb 15:45 Follow up: Response: No adverse reaction; IV Status: Completed infusion; IV Intake: ph 500ml 15:31 Drug: NS 0.9% 1000 ml Route: IV; Rate: 125 ml/hr; Site: right forearm; zb 19:38 Follow up: Response: No adverse reaction; IV Status: Infusion continued upon admission zb 18:00 Drug: morphine 2 mg Route: IVP; Site: right forearm; zb 18:51 Follow up: Response: No adverse reaction; Pain is decreased; RASS: Alert and Calm (0) zb Disposition: 12/22/19 15:43 Hospitalization ordered by Kar Main for Inpatient Admission. Preliminary diagnosis are Fall due to bumping against object, Pain in right hip, Nondisplaced intertrochanteric fracture of right femur, Type 2 diabetes mellitus. - Bed requested for Telemetry/MedSurg (Inpatient). - Status is Inpatient Admission. bb - Condition is Stable. - Problem is new. - Symptoms have improved. Signatures: Dispatcher [employer] EDMS Felix Goncalves MD MD cha Ballard, Brenda, RN RN Madelyn Greene RN RN ph Brown, Zipporah, RN RN zsergio Corrections: (The following items were deleted from the chart) 19:53 15:43 Hospitalization Ordered by Kar Main DO for Inpatient Admission. Preliminary bb diagnosis is Fall due to bumping against object; Pain in right hip; Nondisplaced intertrochanteric fracture of right femur; Type 2 diabetes mellitus. Bed requested for Telemetry/MedSurg (Inpatient). Status is Inpatient Admission. Condition is Stable. Problem is new. Symptoms have improved. yady
--- NOTE | 2019-12-22 15:43 | ER ---
Nurse's Notes [facility] Name: Ronny Burgess Age: 89 yrs Sex: Male : 1930 Arrival Date: 12/22/2019 Time: 14:08 Bed 5 Private MD: Diagnosis: Fall due to bumping against object;Pain in right hip;Nondisplaced intertrochanteric fracture of right femur;Type 2 diabetes mellitus Presentation: 12/21 14:18 Chief complaint: EMS states: patient fell on his left hip attempting to get out of zb truck. negative LOC, he was able to ambulated to pouch but reports pain and discomfort. Coronavirus screen: Client denies travel out of the [place] in the last 14 days. At this time, the client does not indicate any symptoms associated with coronavirus-19. Ebola Screen: No symptoms or risks identified at this time. Initial Sepsis Screen: Does the patient meet any 2 criteria? No. Patient's initial sepsis screen is negative. Does the patient have a suspected source of infection? No. Patient's initial sepsis screen is negative. Risk Assessment: Do you want to hurt yourself or someone else? Patient reports no desire to harm self or others. Onset of symptoms was December 22, 2019. 14:18 Method Of Arrival: EMS: [facility] zb 14:18 Acuity: BERNARDA 3 zb Triage Assessment: 14:27 General: Appears in no apparent distress. uncomfortable, obese, Behavior is calm, zb cooperative, appropriate for age. Pain: Complains of pain in right hip Pain does not radiate. Pain currently is 0 out of 10 on a pain scale. Quality of pain is described as aching, sharp, Pain began suddenly, 1 hour ago. Is intermittent, Alleviated by rest, Aggravated by weight bearing. EENT: No signs and/or symptoms were reported regarding the EENT system. Neuro: Level of Consciousness is awake, alert, obeys commands, Oriented to person, place, time, Freight Elevator Operator are equal bilaterally. Cardiovascular: Capillary refill < 3 seconds in bilateral. Respiratory: Airway is patent Trachea midline Respiratory effort is even, unlabored. GI: Abdomen is round non-distended, obese. : No signs and/or symptoms were reported regarding the genitourinary system. Derm: Skin is intact, is healthy with good turgor. Musculoskeletal: Swelling present in right hip Tenderness present in right hip. Historical: - Allergies: 14:27 Isosorbide Dinitrate; zb - Home Meds: 14:27 atorvastatin 80 mg oral tab 1 tab once daily [Active]; cholecalciferol (vitamin D3) 400 zb unit Oral cap [Active]; nitroglycerin 0.4 mg SL subl 1 tab every 5 minutes [Active]; tamsulosin 0.4 mg Oral cp24 2 caps once daily [Active]; metoprolol succinate 50 mg Oral Tb24 1 tab twice a day [Active]; Multiple Vitamins oral tab twice a day [Active]; metformin 500 mg Oral tab 1 tab 2 times per day [Active]; aspirin 81 mg Oral chew 1 tab once daily [Active]; - PMHx: 14:27 Diabetes - NIDDM; Hyperlipidemia; Myocardial infarction; zb - Immunization history:: Adult Immunizations unknown. - Social history:: Smoking status: unknown. - Family history:: not pertinent. Screenin:31 Abuse screen: Denies threats or abuse. Denies injuries from another. Nutritional zb screening: No deficits noted. Tuberculosis screening: No symptoms or risk factors identified. Fall Risk Fall in past 12 months (25 points). Secondary diagnosis (15 points) CVA, IV access (20 points). Ambulatory Aid- None/Bed Rest/Nurse Assist (0 pts). Gait- Impaired (20 pts.). Mental Status- Oriented to own ability (0 pts). Total Howard Fall Scale indicates High Risk Score (45 or more points). Fall prevention measures have been instituted. Side Rails Up X 2 Placed Close to Nursing Station Frequent Obs/Assessments Occuring Family Present and informed to notify staff if the need to leave the bedside As available patient and family educated on Fall Prevention Program and Strategies. Assessment: 14:30 General: See triage note . ph 15:30 Reassessment: Patient appears in no apparent distress at this time. Patient and/or ph family updated on plan of care and expected duration. Pain level reassessed. Patient is alert, oriented x 3, equal unlabored respirations, skin warm/dry/pink. Patient denies pain at this time. 16:30 Reassessment: Patient appears in no apparent distress at this time. Patient and/or zb family updated on plan of care and expected duration. Pain level reassessed. Patient is alert, oriented x 3, equal unlabored respirations, skin warm/dry/pink. 17:30 Reassessment: Patient appears in no apparent distress at this time. Patient and/or zb family updated on plan of care and expected duration. Pain level reassessed. Patient is alert, oriented x 3, equal unlabored respirations, skin warm/dry/pink. 18:50 Reassessment: PA at bedside to discuss POC with patient. Reassessment: Patient appears zb in no apparent distress at this time. Patient and/or family updated on plan of care and expected duration. Pain level reassessed. Patient is alert, oriented x 3, equal unlabored respirations, skin warm/dry/pink. Vital Signs: 14:18 BP 158 / 84; Pulse 69; Resp 16; Temp 97.9(O); Pulse Ox 98% on R/A; Weight 87.09 kg; zb Height 5 ft. 9 in. (175.26 cm); 16:10 BP 156 / 74; Pulse 71; Resp 18; Pulse Ox 100% on R/A; ph 17:10 BP 149 / 80; Pulse 76; Resp 18; Pulse Ox 100% on R/A; Pain 0/10; zb 18:10 BP 150 / 85; Pulse 74; Resp 16; Pulse Ox 100% on R/A; Pain 8/10; zb 14:18 Body Mass Index 28.35 (87.09 kg, 175.26 cm) zb ED Course: 14:08 Patient arrived in ED. ds1 14:10 Felix Goncalves MD is Attending Physician. yady 14:18 Charmaine Evans RN is Primary Nurse. zb 14:22 Triage completed. zb 14:30 No provider procedures requiring assistance completed. Inserted saline lock: 20 gauge ph in right forearm, using aseptic technique. 14:32 Arm band placed on left wrist. zb 14:32 Patient has correct armband on for positive identification. Bed in low position. Call zb light in reach. Side rails up X 1. front desk monitor on. Pulse ox on. NIBP on. Door closed. Noise minimized. Warm blanket given. 15:22 Pelvis XRAY In Process Unspecified. EDMS 15:22 Hip Right 2 View XRAY In Process Unspecified. EDMS 15:22 Femur Right XRAY In Process Unspecified. EDMS 15:22 CT Head C Spine In Process Unspecified. EDMS 15:22 XRAY Chest (1 view) In Process Unspecified. EDMS 15:41 Kar Main DO is Hospitalizing Provider. yady Administered Medications: 15:00 Drug: morphine 2 mg Route: IVP; Site: right forearm; ph 16:15 Follow up: Response: No adverse reaction; RASS: Alert and Calm (0) ph 15:00 Drug: Zofran (Ondansetron) 4 mg Route: IVP; Site: right forearm; ph 16:14 Follow up: Response: No adverse reaction ph 15:31 Drug: NS 0.9% 500 ml Route: IV; Rate: bolus; Site: right forearm; zb 15:45 Follow up: Response: No adverse reaction; IV Status: Completed infusion; IV Intake: ph 500ml 15:31 Drug: NS 0.9% 1000 ml Route: IV; Rate: 125 ml/hr; Site: right forearm; zb 19:38 Follow up: Response: No adverse reaction; IV Status: Infusion continued upon admission zb 18:00 Drug: morphine 2 mg Route: IVP; Site: right forearm; zb 18:51 Follow up: Response: No adverse reaction; Pain is decreased; RASS: Alert and Calm (0) zb Intake: 15:45 IV: 500ml; Total: 500ml. ph Outcome: 15:43 Decision to Hospitalize by Provider. [facility] 19:53 Patient left the ED. bb Signatures: Dispatcher [employer] [facility] Felix Goncalves MD MD cha Sanford, Demi ds1 Glo Galan RN RN bb Madelyn Galo RN RN ph Brown, Zipporah, RN RN zb
[2019-12-22] MEDS ORDERED: NA CHLORIDE 0.9% 500 ML ONE (15:44)
[2019-12-22] MEDS ORDERED: MORPHINE 2 MG/ML SYR ONE ×2 (15:50→18:27)
[2019-12-22] MEDS ORDERED: ONDANSETRON 4 MG/2 ML VIAL ONE (15:51)
--- NOTE | 2019-12-22 16:06 | P.HP ---
Certification for Inpatient Patient admitted to: Inpatient With expected LOS: >2 Midnights Patient will require the following post-hospital care: Rehabilitation Practitioner: I am a practitioner with admitting privileges, knowledge of patient current condition, hospital course, and medical plan of care. Services: Services provided to patient in accordance with Admission requirements found in Title 42 Section 412.3 of the Code of Federal Regulations Patient History Date of Service: 12/22/19 [facility]; [facility]-Dr. Carrillo; Orthopedics-Dr. Taylor Reason for admission: Fall History of Present Illness: 89-year-old male with history of hypertension, hyperlipidemia, CAD with prior CABG. Patient presented after a fall. This occurred after he was getting out of his truck. Patient had pain to the right hip region. He denied any syncope, chest pain, shortness of breath. Patient came to the ER for further evaluation. In the ER patient was found to have a right intertrochanteric femur fracture. CT head shows no acute bleed. Previous subdural hematoma seen June 2019 resolved. White count 5.0, hemoglobin 12.5. Sodium 144, potassium 4.5. BUN of 21, creatinine 1.04 with a GFR 67. Blood sugar 160. Troponin 0.1. BNP 853. Patient stable at this time. Patient admitted for further evaluation and treat. When I saw the patient ER, at bedside. Pain under control. Allergies No Known Allergies Allergy (Unverified 12/17/16 10:52) Home medications list reviewed: Yes Home Medications: Clopidogrel Bisulfate [Plavix*] 75 mg PO DAILY 10/16/13 Metoprolol Succinate [Toprol Xl*] 0.5 tab PO DAILY 10/16/13 Multivitamin [Multivitamins] 1 tab PO DAILY 10/16/13 Nitroglycerin 1 tab SL PRN PRN 10/16/13 Aspirin [Aspirin EC 81 MG] 1 tab PO DAILY 12/17/16 Atorvastatin Calcium [Lipitor] 80 mg PO BEDTIME 12/17/16 Cholecalciferol (Vitamin D3) [Vitamin D3] 1,000 unit PO DAILY 12/17/16 Cyanocobalamin (Vitamin B-12) [Vitamin B-12] 1 tab PO DAILY 12/17/16 Tamsulosin [Flomax*] 0.4 mg PO BEDTIME 12/17/16 - Past Medical/Surgical History Diabetic: No -: Hypertension -: Hyperlipidemia -: CAD with prior CABG -: BPH -: Diabetes mellitus type 2 [id number] -: History of subdural hematoma -: BYPASS -: HEART CATH Psychosocial/ Personal History: Patient is - Family History Family History: Reviewed- Non-Contributory - Social History Smoking Status: Never smoker Alcohol use: Yes CD- Drugs: No Caffeine use: Yes Place of Residence: Home Review of Systems General: As per HPI Eyes: Unremarkable ENT: Unremarkable Respiratory: Unremarkable Cardiovascular: Unremarkable Gastrointestinal: Unremarkable Genitourinary: Unremarkable Musculoskeletal: As per HPI Integumentary: Unremarkable Neurological: Unremarkable Lymphatics: Unremarkable Physical Examination - Physical Exam General: Alert, In no apparent distress, Oriented x3, Cooperative HEENT: Atraumatic, Normocephalic, Mucous membr. moist/pink Neck: Supple Respiratory: Clear to auscultation bilaterally, Normal air movement Cardiovascular: Normal pulses, Regular rate/rhythm Gastrointestinal: Normal bowel sounds, Soft and benign, Non-distended, No tenderness, No masses, No rebound, No guarding Musculoskeletal: No warmth, Tenderness (Pain to the right hip) Integumentary: No tenderness/swelling, No erythema, No warmth, No cyanosis Neurological: Normal speech, Normal strength at 5/5 x4 extr, Normal tone, Normal affect - Studies Laboratory Data (last 24 hrs) 12/22/19 14:50: PT 12.7 H, INR 1.08 12/22/19 14:50: WBC 5.0, Hgb 12.5 L, Hct 37.7 L, Plt Count 152 12/22/19 14:50: Sodium 144, Potassium 4.5, BUN 21 H, Creatinine 1.04, Glucose 160 H, Magnesium 2.3, Total Bilirubin 0.5, AST 27, ALT 33, Alkaline Phosphatase 102 Assessment and Plan - Plan Impression: Fall now with right intertrochanteric femur fracture Hypertension CAD with prior CABG Hyperlipidemia BPH Diabetes mellitus type 2 [id number] Plan: Fall now with right intertrochanteric femur fracture: Patient will be admitted for further evaluation and treatment. Will place on DVT prophylaxis. Continue home medications including aspirin, Lipitor, and metoprolol. Patient with underlying diabetes. Will provide insulin sliding scale and Accu-Cheks. Case discussed with Cardiology in preparation for surgery by orthopedics. Cardiology reports patient had been recently seen. Prior studies reviewed. Cardiology recommends to proceed with surgery. Patient medically stable for surgery. Will discuss with Orthopedics. Keep the patient NPO after midnight in preparation for surgery. Will provide medication for pain. Will provide some IV fluids. Will continue to monitor and reassess. Will consider rehab after surgery. Advanced care planning address in detail-30 min. Will need to consider rehab after surgery. Patient full code. Hypertension: Continue metoprolol. CAD with prior CABG: Continue aspirin. Patient takes nitroglycerin for chest pain as needed. Hyperlipidemia: Continue Lipitor BPH: Continue Flomax Diabetes mellitus type 2 [id number]-[id number]: Continue with Accu-Cheks and sliding scale. Hold metformin at this time. Discharge Plan: Other (Inpatient rehab) Plan to discharge in: Greater than 2 days - Advance Directives Does patient have a Living Will: No Does patient have a Durable POA for Healthcare: Yes - Code Status/Comfort Care Code Status Assessed: Yes (Patient is full code.) Time Spent Managing Pts Care (In Minutes): 55
--- NOTE | 2019-12-22 16:43 | RAD REPORT ---
EXAM DESCRIPTION: CT - Hip Right Wo Con - 12/22/2019 4:22 pm CLINICAL HISTORY: fall, right hip pain COMPARISON: Hip Right 2 View dated 12/22/2019; Pelvis dated 12/22/2019 TECHNIQUE: Axial 2 millimeter noncontrast images of the right hip were obtained. Sagittal and mendosa l reformatted images were generated and reviewed. The CT scan was performed using dose optimization techniques as appropriate to a performed exam incl uding one or more of the following: Automated exposure control, adjustment of the mA and/or kV accord ing to patient size (this includes techniques or standardized protocols for targeted exams where dose is matched to indication/reason for exam) and use of iterative reconstruction technique. FINDINGS: Fracture lines are present traversing the superior to posterior aspects of the greater tro chanter. Fracture lines do not extend deeper into the intertrochanteric trabecula. No femoral neck in volvement. Lesser trochanter and medial cortical margin of the proximal femur remain intact. No patho logic component seen. The superior posterior greater trochanter fracture fragments are distracted elisha roximately 2 mm. No AVN or focal femoral head abnormality. Hip joint degenerative changes are mild for age. Right sacr al ala and right hemipelvis are intact. Minimal hemorrhagic change present at the superior margin of the greater trochanter. No significant s keletal muscle abnormality. Fat only right inguinal hernia is present. Dense arterial tree calcifications are present. IMPRESSION: Patient has a fracture involving the superior-posterior aspect of the greater trochanter with 2 mm of distraction. Fracture does not extend into the intertrochanteric region and does not involve the right femoral nec k.
[2019-12-22] MEDS ORDERED: MORPHINE 2 MG/ML SYR IV PRN (20:17)
[2019-12-22] MEDS ORDERED: ACETAMINOPHEN 500 MG TAB PO PRN (20:17)
[2019-12-22] MEDS ORDERED: ONDANSETRON 4 MG/2 ML VIAL IV PRN (20:17)
[2019-12-22] MEDS ORDERED: NA CHLORIDE 0.9% 1,000 ML IV SCH (20:17)
[2019-12-22] MEDS ORDERED: HYDROCODONE/APAP 7.5/325 MG TAB PO PRN (20:17)
[2019-12-22] MEDS: INSULIN -REGULAR HUMAN 50 UNIT/0.5 ML ML SQ SCH ×2 (20:17→21:00)
[2019-12-22] MEDS ORDERED: NITROGLYCERIN 0.4 MG/TAB SL PRN (20:17)
[2019-12-22] MEDS ORDERED: TRAMADOL HCL 50 MG TAB PO PRN (20:17)
[2019-12-22] MEDS ORDERED: ATORVASTATIN 80 MG TAB PO SCH (21:00)
[2019-12-22] MEDS ORDERED: METOPROLOL XL 50 MG TAB PO ONE (22:00)
[2019-12-22] MEDS ORDERED: TAMSULOSIN 0.4 MG SR CAP ONE (22:01)
[2019-12-22] MEDS ORDERED: ATORVASTATIN 20 MG TAB ONE (22:01)
[2019-12-22] MEDS: METOPROLOL XL 50 MG TAB PO SCH (22:04)
[2019-12-22] MEDS: TAMSULOSIN 0.4 MG SR CAP PO SCH (22:06)
[2019-12-23 02:29] VITALS: BMI 28.3
[2019-12-23 03:47] LABS: Basophils % 0.3 % (0-1.3); Hematocrit 32.8 % (39.6-49.0); Lymphocytes % 17.2 % (15.3-44.8); MPV 7.9 fL (7.6-11.3); RBC Red Blood Cell Count 3.66 M/uL (4.33-5.43)
[2019-12-23 03:56] LABS: BUN Blood Urea Nitrogen 17 mg/dL (7-18); Bicarbonate 31 mmol/L (21-32); Glucose Level 121 mg/dL (74-106); Magnesium 2.1 mg/dL (1.8-2.4); Potassium 4.6 mmol/L (3.5-5.1); Sodium Level 145 mmol/L (136-145)
[2019-12-23] MEDS: METOPROLOL XL 50 MG TAB PO SCH ×2 (06:39→18:00)
[2019-12-23] MEDS ORDERED: METOPROLOL XL 50 MG TAB PO ONE (06:47)
[2019-12-23] MEDS: INSULIN -REGULAR HUMAN 50 UNIT/0.5 ML ML SQ SCH ×4 (07:30→21:00)
[2019-12-23] MEDS: ASPIRIN EC 81 MG TAB PO SCH (07:50)
--- NOTE | 2019-12-23 08:59 | P.PN ---
Subjective Date of Service: 12/23/19 Primary Care Provider[facility]; Cardiology-Dr. Carrillo; Orthopedics-Dr. Taylor Chief Complaint: Fall Subjective: Doing well Physical Examination - Vital Signs Temperature: 98.4 F Blood Pressure: 144/86 Pulse: 66 Respirations: 18 Pulse Ox (%): 94 - Physical Exam General: Alert, In no apparent distress, Oriented x3, Cooperative HEENT: Atraumatic Neck: Supple Respiratory: Clear to auscultation bilaterally, Normal air movement Cardiovascular: Normal pulses, Regular rate/rhythm Gastrointestinal: Normal bowel sounds, No tenderness, No masses, No rebound, No guarding Musculoskeletal: No erythema, No tenderness, No warmth Integumentary: No erythema, No warmth, No cyanosis Neurological: Normal speech, Normal strength at 5/5 x4 extr, Normal tone, Normal affect - Studies Laboratory Data (last 24 hrs) 12/22/19 14:50: PT 12.7 H, INR 1.08 12/22/19 14:50: WBC 5.0, Hgb 12.5 L, Hct 37.7 L, Plt Count 152 12/22/19 14:50: Sodium 144, Potassium 4.5, BUN 21 H, Creatinine 1.04, Glucose 160 H, Magnesium 2.3, Total Bilirubin 0.5, AST 27, ALT 33, Alkaline Phosphatase 102 Medications List Reviewed: Yes Assessment & Plan Discharge Plan: Other (Inpatient rehab) Plan to discharge in: Greater than 2 days Physician Review Additional Text: Impression: Fall now with right intertrochanteric femur fracture Hypertension CAD with prior CABG Hyperlipidemia BPH Diabetes mellitus type 2 [id number]-yldnihrif Plan: Fall now with right intertrochanteric femur fracture: Patient doing well this time. Continue with home medications. Patient seen and evaluated by Card iology. Patient is cleared by Cardiology to proceed with surgery. Await Orthopedics. Patient NPO in preparation for surgery. Continue to provide medication for pain. Anticipate possible rehab after surgery. Will discuss with patient, family and social services director. Hypertension: Continue metoprolol. CAD with prior CABG: Continue aspirin. Patient takes nitroglycerin for chest pain as needed. Hyperlipidemia: Continue Lipitor BPH: Continue Flomax Diabetes mellitus type 2 [id number]: Continue with Accu-Cheks and sliding scale. Hold metformin at this time. Time Spent Managing Pts Care (In Minutes): 55
[2019-12-23] MEDS ORDERED: ENOXAPARIN 40 MG/0.4 ML SQ SCH (09:00)
[2019-12-23] MEDS ORDERED: TRANEXAMIC ACID 1,000 MG in NA CHLORIDE 0.9% 50 ML IV ONE (10:00)
--- NOTE | 2019-12-23 11:39 | P.CNS ---
Date of Consult: 12/22/19 Reason for Consult: hip pain Primary Care Provider: [facility]; Cardiology-Dr. Carrillo; Orthopedics-Dr. Taylor Chief Complaint: Fall History of Present Illness: s/p fall 12/22/2019, right hip pain, seen in ED. he is not able to bare any weight in his right leg. admitted to hospitalist. cleared for surgery by Dr. Pratt cardiology Allergies No Known Allergies Allergy (Unverified 12/17/16 10:52) Home Medications: Metoprolol Succinate [Toprol Xl*] 0.5 tab PO BID 10/16/13 Nitroglycerin 1 tab SL PRN PRN 10/16/13 Atorvastatin Calcium [Lipitor] 80 mg PO BEDTIME 12/17/16 Cholecalciferol (Vitamin D3) [Vitamin D3] 1,000 unit PO DAILY 12/17/16 Tamsulosin [Flomax*] 0.4 mg PO BEDTIME 12/17/16 Metformin HCl [Glucophage*] 250 mg PO BIDWM 12/22/19 - Past Medical/Surgical History Diabetic: Yes -: Hypertension -: Hyperlipidemia -: CAD with prior CABG -: BPH -: Diabetes mellitus type 2 [id number] -: History of subdural hematoma -: BYPASS -: HEART CATH Psychosocial/ Personal History: Patient is - Social History Smoking Status: Unknown if ever smoked Alcohol use: Yes CD- Drugs: No Caffeine use: Yes Place of Residence: Home Review of Systems 10-point ROS is otherwise unremarkable Physical Examination Temp Pulse Resp BP Pulse Ox 98.4 F 66 18 144/86 H 94 12/23/19 08:59 12/23/19 08:59 12/23/19 08:59 12/23/19 08:59 12/23/19 08:59 General: In no apparent distress, Oriented x3, Cooperative HEENT: Normocephalic Neck: Supple Respiratory: Normal air movement Musculoskeletal: Tenderness (localizes pain to right hip) Laboratory Data (last 24 hrs) 12/22/19 14:50: PT 12.7 H, INR 1.08 12/22/19 14:50: WBC 5.0, Hgb 12.5 L, Hct 37.7 L, Plt Count 152 12/22/19 14:50: Sodium 144, Potassium 4.5, BUN 21 H, Creatinine 1.04, Glucose 160 H, Magnesium 2.3, Total Bilirubin 0.5, AST 27, ALT 33, Alkaline Phosphatase 102 - Problems (1) Intertrochanteric fracture of right hip Onset Date: ~12/22/19 Current Visit: Yes Status: Acute Plan: he will have a right hip intramedullary rodding today. risks and benefits discussed, touchdown weight baring only for 6 weeks post op. Qualifiers: Encounter type: initial encounter Fracture type: closed Fracture alignment: nondisplaced Qualified Code(s): S72.144A - Nondisplaced intertrochanteric fracture of right femur, initial encounter for closed fracture
[2019-12-23] MEDS ORDERED: NA CHLORIDE 0.9% 1,000 ML ONE (11:42)
[2019-12-23] MEDS ORDERED: CEFAZOLIN/SWI 1gm 1 GM/10 ML SYR ONE (11:53)
[2019-12-23] MEDS ORDERED: FENTANYL CITR 100 MCG/2 ML ONE (12:05)
[2019-12-23] MEDS ORDERED: propofoL 200 MG/20 ML VIAL IV ONE (12:05)
[2019-12-23] MEDS ORDERED: LIDOCAINE 1% MPF 5 ML VIAL ONE (12:06)
[2019-12-23] MEDS: CEFAZOLIN/SWI 1gm 1 GM/10 ML SYR ONE ×2 (12:15→12:30)
[2019-12-23] MEDS ORDERED: NS 0.9% VIAL 10 ML ONE (12:37)
[2019-12-23] MEDS ORDERED: EPHEDRINE SULF 50 MG/ML VIAL ONE (12:37)
[2019-12-23] MEDS ORDERED: ONDANSETRON 4 MG/2 ML VIAL ONE (13:09)
[2019-12-23] MEDS ORDERED: KETOROLAC 30 MG/ML INJ ONE (13:10)
--- NOTE | 2019-12-23 13:15 | RAD REPORT ---
EXAM DESCRIPTION: RAD - Hip In Or - 12/23/2019 1:05 pm CLINICAL HISTORY: Femoral fracture FINDINGS: Fluoroscopy time 1 minutes. Thirty-seven fluoroscopic spot images obtained Surgery performed by Dr. Taylor Compression screw and intramedullary arianne affix a femoral fracture
--- NOTE | 2019-12-23 13:25 | OP ---
Surgeon: Stevie Taylor MD Preoperative Diagnosis: Nondisplaced right intertrochanteric hip fracture. Postoperative Diagnosis: Nondisplaced right intertrochanteric hip fracture. Procedure Performed: IM rodding right hip fracture. Infection Control Nurse: Lacey. Complications: None. Estimated Blood Loss: 60 cc. Disposition: To recovery in stable. Operative Report In Detail: The patient was taken to the operative suite, placed in supine position, induced anesthesia. Right hip was prepped and draped in usual sterile fashion after suspending on t he fracture table. Biplane radiography revealed the anatomic reduction. The fracture line was visua lized exiting the medial cortex. A single stage entry portal created. A guidewire passed. A 12 x 1 25 nail was then passed. A 95 lag screw was then measured and then tapped and drilled. A 34 distal interlock screw was placed. A layered closure was performed and the patient is being reversed anesth esia at this time. GUALBERTO/USHA Voice ID: [id number] Report ID: [id number]
[2019-12-23] MEDS ORDERED: HYDROCODONE/APAP 5/325 MG TAB PO PRN ×2 (14:03→14:04)
[2019-12-23] MEDS ORDERED: MORPHINE 2 MG/ML SYR IV PRN (14:07)
[2019-12-23] MEDS ORDERED: NACHLORIDE 0.45% 1,000 ML IV ONE (14:19)
--- NOTE | 2019-12-23 14:50 | RAD REPORT ---
EXAM DESCRIPTION: RAD - Pelvis - 12/23/2019 2:05 pm CLINICAL HISTORY: Right femoral fracture FINDINGS: Compression screw and intramedullary arianne affix a femoral fracture in good alignment
[2019-12-23] MEDS: NACHLORIDE 0.45% 1,000 ML IV SCH (15:00)
[2019-12-23] MEDS: TAMSULOSIN 0.4 MG SR CAP PO SCH (21:57)
[2019-12-23] MEDS: ATORVASTATIN 20 MG TAB PO SCH (21:58)
[2019-12-23] MEDS: CEFAZOLIN/SWI 1gm 1 GM/10 ML SYR IV SCH (22:01)
[2019-12-24] MEDS: NACHLORIDE 0.45% 1,000 ML IV SCH ×2 (02:46→16:22)
[2019-12-24 04:58] LABS: Absolute Lymphocytes (CBC) 0.9 K/uL (0.7-4.9); Basophils % 0.3 % (0-1.3); Hematocrit 28.6 % (39.6-49.0); Lymphocytes % 10.8 % (15.3-44.8); MPV 8.3 fL (7.6-11.3)
[2019-12-24] MEDS: CEFAZOLIN/SWI 1gm 1 GM/10 ML SYR IV SCH (05:02)
[2019-12-24 05:09] LABS: BUN Blood Urea Nitrogen 17 mg/dL (7-18); Bicarbonate 27 mmol/L (21-32); Glucose Level 133 mg/dL (74-106); Magnesium 2.1 mg/dL (1.8-2.4); Potassium 4.3 mmol/L (3.5-5.1); Sodium Level 141 mmol/L (136-145)
[2019-12-24] MEDS: METOPROLOL XL 50 MG TAB PO SCH ×2 (05:22→16:22)
[2019-12-24] MEDS: INSULIN -REGULAR HUMAN 50 UNIT/0.5 ML ML SQ SCH ×5 (07:30→20:22)
[2019-12-24] MEDS: ENOXAPARIN 30 MG/0.3 ML SQ SCH ×2 (08:31→20:13)
[2019-12-24] MEDS: ASPIRIN EC 81 MG TAB PO SCH (08:31)
[2019-12-24] MEDS ORDERED: VITAMIN D 1000 UNIT TAB PO SCH (09:00)
--- NOTE | 2019-12-24 09:08 | P.PN ---
Subjective Date of Service: 12/24/19 Primary Care Provider: [facility]; Cardiology-Dr. Carrillo; Orthopedics-Dr. Taylor Chief Complaint: Fall Subjective: Improving Physical Examination - Vital Signs Temperature: 98.1 F Blood Pressure: 133/78 Pulse: 89 Respirations: 18 Pulse Ox (%): 96 - Physical Exam General: Alert, In no apparent distress, Oriented x3, Cooperative HEENT: Atraumatic Neck: Supple Respiratory: Clear to auscultation bilaterally, Normal air movement Cardiovascular: Normal pulses, Regular rate/rhythm Gastrointestinal: Normal bowel sounds, Soft and benign, Non-distended, No tenderness, No masses, No rebound, No guarding Musculoskeletal: No erythema, No tenderness, No warmth Integumentary: No tenderness/swelling, No erythema, No warmth, No cyanosis Neurological: Normal speech, Normal strength at 5/5 x4 extr, Normal tone, Normal affect - Studies Medications List Reviewed: Yes Assessment & Plan Discharge Plan: Other (Inpatient rehab) Plan to discharge in: 72 Hours Physician Review Additional Text: Impression: Fall now with right intertrochanteric femur fracture status post IM rodding of fracture Hypertension CAD with prior CABG Hyperlipidemia BPH Diabetes mellitus type 2 asz-[id number]-mpqazeiyb Postoperative anemia Plan: Fall now with right intertrochanteric femur fracture status post IM rodding of fracture: Patient doing well post operatively. Pain under control. Physical therapy to assess ambulation. Continue DVT prophylaxis. Will provide medication for pain. Anticipate possible discharge to inpatient rehab after recommendation by physical therapy. Patient in agreement to go to inpatient rehab if available. Hypertension: Continue metoprolol. CAD with prior CABG: Continue aspirin. Patient takes nitroglycerin for chest pain as needed. Hyperlipidemia: Continue Lipitor BPH: Continue Flomax Diabetes mellitus type 2 mwq-fxtresf-vprjooypz: Continue with Accu-Cheks and sliding scale. Hold metformin at this time. Postoperative anemia: Overall stable. Will monitor this closely. Time Spent Managing Pts Care (In Minutes): 55
--- NOTE | 2019-12-24 09:12 | P.PN ---
Subjective Date of Service: 12/24/19 Primary Care Provider: [facility]; Cardiology-Dr. Carrillo; Orthopedics-Dr. Taylor Chief Complaint: Fall Subjective: Other (Rapid response called for the patient. Patient apparently was choking on food. By the time I arrived patient was stable.) Physical Examination - Vital Signs Temperature: 98.1 F Blood Pressure: 133/78 Pulse: 89 Respirations: 18 Pulse Ox (%): 96 - Physical Exam General: Alert, In no apparent distress, Oriented x3, Cooperative HEENT: Atraumatic, Other (Poor dentition) Neck: Supple Respiratory: Clear to auscultation bilaterally, Normal air movement Cardiovascular: Normal pulses, Regular rate/rhythm Gastrointestinal: Normal bowel sounds, Soft and benign, Non-distended, No lilliam s, No rebound, No guarding Integumentary: No erythema, No warmth, No cyanosis Neurological: Normal speech, Normal strength at 5/5 x4 extr, Normal tone, Normal affect - Studies Medications List Reviewed: Yes Assessment & Plan Discharge Plan: Other (Inpatient rehab) Plan to discharge in: 72 Hours Physician Review Additional Text: Rapid response due to choking on food Patient was eating breakfast this morning. He apparently choked on some sausage that he was eating. Episode resolved. Patient with poor dentition. Patient was assessed. Patient breathing appropriately. Spoke with patient in detail concerning the importance of showing his food for at least 30 seconds. Also adjusted patient in his bed. Patient will need to remain upright for at least 30 min when the eating and after eating. Will continue to monitor closely. If this persists will need to have speech evaluate for dysphagia. Patient with reflux. Will continue with his medication. This was also address with family who was present. Critical care 30 min. Time Spent Managing Pts Care (In Minutes): 30 (Critical care/rapid response)
--- NOTE | 2019-12-24 15:02 | P.DS ---
Admission Date: 12/22/19 Discharge Date: 12/24/19 Primary Care Provider: [facility]; Cardiology-Dr. Carrillo; Orthopedics-Dr. Taylor Disposition: TRANSFER TO INPATIENT REHAB Discharge Condition: GOOD Reason for Admission: Fall Consultations: Orthopedics-Dr. Taylor Procedures: Surgery: Surgeon: Stevie Taylor MD Preoperative Diagnosis: Nondisplaced right intertrochanteric hip fracture. Postoperative Diagnosis: Nondisplaced right intertrochanteric hip fracture. Procedure Performed: IM rodding right hip fracture. Mds Rn: Lacey. Complications: None. Estimated Blood Loss: 60 cc. Medical Problem List: Fall now with right intertrochanteric femur fracture status post IM rodding of fracture Hypertension CAD with prior CABG Hyperlipidemia BPH Diabetes mellitus type 2 [id number] Postoperative anemia Brief History of Present Illness: 89-year-old male with history of hypertension, hyperlipidemia, CAD with prior CABG. Patient presented after a fall. This occurred after he was getting out of his truck. Patient had pain to the right hip region. He denied any syncope, chest pain, shortness of breath. Patient came to the ER for further evaluation. In the ER patient was found to have a right intertrochanteric femur fracture. CT head shows no acute bleed. Previous subdural hematoma seen June 2019 resolved. White count 5.0, hemoglobin 12.5. Sodium 144, potassium 4.5. BUN of 21, creatinine 1.04 with a GFR 67. Blood sugar 160. Troponin 0.1. BNP 853. Patient stable at this time. Patient admitted for further evaluation and treat. When I saw the patient ER, at bedside. Pain under control. Hospital Course: Patient suffered a fall with subsequent right intertrochanteric femur fracture. Patient was admitted for further evaluation and treatment. Patient was seen by Cardiology and cleared for surgery. Orthopedics performed IM rodding of the fracture. Patient has done well post operatively. Patient was seen and evaluated by physical therapy. Patient has been approved to go to inpatient rehab. Patient will continue with physical therapy at inpatient rehab. Patient will continue with DVT prophylaxis-Lovenox. Continue with pain control. Fall precautions in place. Continue with orthopedic recommendations and follow up. Patient with hypertension. This is remained stable. At discharge he will continue with his current medication. Patient with CAD and prior CABG. This has remained stable. At discharge she will continue with aspirin. Patient with hyperlipidemia. At discharge patient will continue with Lipitor. Patient with BPH. This has remained stable. Patient will continue with Flomax. Patient with diabetes mellitus type 2 non-insulin dependent. This has remained stable. At discharge patient will continue with metformin. Patient with mild postoperative anemia. This appears stable this time. This can be recheck in 1 week. Patient had an episode of choking on sausage. Recommend to chew food for at least 30 seconds. Recommend to remain upright for at least 30 min before and after eating. This can be monitored in rehab. Vital Signs/Physical Exam: Temp Pulse Resp BP Pulse Ox 99.6 F 70 18 123/59 L 97 12/24/19 11:46 12/24/19 11:46 12/24/19 11:46 12/24/19 11:46 12/24/19 11:46 General: Alert, In no apparent distress, Oriented x3, Cooperative HEENT: Atraumatic Neck: Supple Respiratory: Clear to auscultation bilaterally, Normal air movement Cardiovascular: Normal pulses, Regular rate/rhythm Gastrointestinal: Normal bowel sounds, Soft and benign, Non-distended, No tenderness, No masses, No rebound, No guarding Musculoskeletal: No erythema, No tenderness, No warmth Integumentary: No erythema, No warmth, No cyanosis Neurological: Normal speech, Normal strength at 5/5 x4 extr, Normal tone, Normal affect Laboratory Data at Discharge: WBC 7.9 K/uL (4.3-10.9) D 12/24/19 04:29 Hgb 9.6 g/dL (13.6-17.9) L 12/24/19 04:29 Hct 28.6 % (39.6-49.0) L 12/24/19 04:29 Plt Count 122 K/uL (152-406) L 12/24/19 04:29 PT 12.7 SECONDS (9.5-12.5) H 12/22/19 14:50 INR 1.08 12/22/19 14:50 Sodium 141 mmol/L (136-145) 12/24/19 04:29 Potassium 4.3 mmol/L (3.5-5.1) 12/24/19 04:29 BUN 17 mg/dL (7-18) 12/24/19 04:29 Creatinine 0.76 mg/dL (0.55-1.3) 12/24/19 04:29 Glucose 133 mg/dL (74-106) H 12/24/19 04:29 Magnesium 2.1 mg/dL (1.8-2.4) 12/24/19 04:29 Total Bilirubin 0.5 mg/dL (0.2-1.0) 12/22/19 14:50 AST 27 U/L (15-37) 12/22/19 14:50 ALT 33 U/L (12-78) 12/22/19 14:50 Alkaline Phosphatase 102 U/L (45-117) 12/22/19 14:50 Home Medications: Metoprolol Succinate [Toprol Xl*] 0.5 tab PO BID 10/16/13 Nitroglycerin 1 tab SL PRN PRN 10/16/13 Atorvastatin Calcium [Lipitor] 80 mg PO BEDTIME 12/17/16 Cholecalciferol (Vitamin D3) [Vitamin D3] 1,000 unit PO DAILY 12/17/16 Tamsulosin [Flomax*] 0.4 mg PO BEDTIME 12/17/16 Metformin HCl [Glucophage*] 250 mg PO BIDWM 12/22/19 Patient Discharge Instructions: 1. Patient will be transferred to inpatient rehab to continue therapy. 2. Patient suffered a fall with subsequent right intertrochanteric femur fracture. Patient was admitted for further evaluation and treatment. Patient was seen by Cardiology and cleared for surgery. Orthopedics performed IM rodding of the fracture. Patient has done well post operatively. Patient was seen and evaluated by physical therapy. Patient has been approved to go to inpatient rehab. Patient will continue with physical therapy at inpatient rehab. Patient will continue with DVT prophylaxis-Lovenox. Continue with pain control. Fall precautions in place. Continue with orthopedic recommendations and follow up. 3. Patient with hypertension. This is remained stable. At discharge he will continue with his current medication. 4. Patient with CAD and prior CABG. This has remained stable. At discharge she will continue with aspirin. 5. Patient with hyperlipidemia. At discharge patient will continue with Lipitor. 6. Patient with BPH. This has remained stable. Patient will continue with Flomax. 7. Patient with diabetes mellitus type 2 non-insulin dependent. This has remained stable. At discharge patient will continue with metformin. 8. Patient with mild postoperative anemia. This appears stable this time. This can be recheck in 1 week. 9. Patient had an episode of choking on sausage. Recommend to chew food for at least 30 seconds. Recommend to remain upright for at least 30 min before and after eating. This can be monitored in rehab. Diet: ADA Activity: Fall precautions Followup: YISSEL DEY [Primary Care Provider] - Time spent managing pt's care (in minutes): 55
[2019-12-24 16:24] VITALS: BP 128/69
[2019-12-24 16:54] VITALS: TEMP 98.8
[2019-12-24] MEDS: ATORVASTATIN 20 MG TAB PO SCH (20:13)
[2019-12-24] MEDS: TAMSULOSIN 0.4 MG SR CAP PO SCH (20:13)
[2019-12-24 20:37] VITALS: O2SAT 92
--- NOTE | 2019-12-25 22:54 | CON ---
Date of Consultation: 12/22/2019 Reason For Consultation: Cardiac clearance for hip surgery. History Of Present Illness: Mr. Burgess is an 89-year-old male. He is known to me from many years of hospital and office visits and followup. He has a history of diabetes, hypertension, and CAD as well as dyslipidemia. He has a history of benign prostatic hypertrophy. He has done very well from a ca rdiovascular standpoint with recent cardiac workup in the office that was negative. He denied any ch est pain, shortness of breath, nausea, vomiting, diaphoresis, PND, orthopnea, pedal edema, palpitatio ns, or syncope. He tripped and fell, and broke his hip. Past Medical History: Otherwise as stated above. Allergies: HE IS ALLERGIC TO ISOSORBIDE DINITRATE. Review of Systems: Negative. Social History: Negative. Family History: Noncontributory. Medications: At home include Lipitor, Flomax, metoprolol, metformin, and aspirin. Physical Examination: Vital Signs: Stable. He is afebrile. HEENT: Negative. Neck: Supple. No bruit. Chest: Clear to auscultation and percussion. Cardiac: Regular rhythm and rate. No murmurs, gallops, or rubs. Abdomen: Benign. Extremities: No clubbing, cyanosis, or edema. Diagnostic Data: Unremarkable. EKG was normal. Chest x-ray was negative. Troponin was negative. Impression And Plan: I think Mr. Burgess despite his history of coronary artery disease, hypertension, diabetes, and dyslipidemia is very stable. He does not have any cardiac symptoms. His EKG, chest x -ray, troponin, and BNP are unremarkable. I think he is at low risk for perioperative mortality. I will continue to follow him. Continue his home medication as is for now. DERRELL/USHA Voice ID: [id number] Report ID: [id number]
--- NOTE | 2019-12-26 | PN ---
Date of Progress Note: 12/23/2019 Subjective: Mr. Burgess is an 89-year-old male with history of CAD, hypertension, dyslipidemia, and di abetes, who broke his hip, underwent surgery yesterday without any difficulties. We had been asked t o follow him for cardiac clearance. The patient tolerated the procedure well. There was no arrhythm ia. No congestive heart failure. No chest pain. Objective: Vital Signs: Stable. Chest: Clear. Cardiac: Normal. Diagnostic Data: Unremarkable except for an anemia with a hemoglobin of 9. His creatinine is stable . His troponin remained stable. Plan: We will continue his present regimen including Lipitor, metoprolol, aspirin, and metformin. W e will be available for questions if the need arises. DERRELL/USHA Voice ID: [id number] Report ID: [id number]
--- NOTE | 2019-12-26 07:54 | EKG ---
Test Date: 2019-12-22 Test Time: 15:45:02 Aircraft Structural Fitter: ESTRELLA MEASUREMENT RESULTS: Intervals: Rate: 70 LA: 286 QRSD: 166 QT: 454 QTc: 490 [place]: P: 63 LA: 286 QRS: -64 T: 96 INTERPRETIVE STATEMENTS: Sinus rhythm with 1st degree AV block Right bundle branch block Left anterior fascicular block Bifascicular block Left ventricular hypertrophy with repolarization abnormality Abnormal ECG Compared to ECG 01/22/2019 13:02:22 No significant changes Electronically Signed On 12-26-19 07:42:41 BEVERAGE SALES CONSULTANT by Daniel Carrillo
== END 2019-12-24 22:34 | DRG 482 ==
LOC: ER 13:59 → ERHOLD 16:15 → 4TH 12-23 10:54
PROVIDERS: ATTEND Family Medicine
PROC: 0QS Lower Bones, Reposition (ICD-10-PCS; principal; 2019-12-23 12:00)
DX: S72.144A Nondisplaced intertrochanteric fracture of right femur, initial encounter for closed fracture (principal); E78.5 Hyperlipidemia, unspecified; E11.9 Type 2 diabetes mellitus without complications; I25.10 Atherosclerotic heart disease of native coronary artery without angina pectoris; N40.0 Benign prostatic hyperplasia without lower urinary tract symptoms; I10 Essential (primary) hypertension; K21.9 Gastro-esophageal reflux disease without esophagitis; D64.9 Anemia, unspecified; R13.10 Dysphagia, unspecified; I25.2 Old myocardial infarction; W18.00XA Striking against unspecified object with subsequent fall, initial encounter; Z88.8 Allergy status to other drugs, medicaments and biological substances; Z79.84 Long term (current) use of oral hypoglycemic drugs; Z79.82 Long term (current) use of aspirin; Z79.899 Other long term (current) drug therapy; Z79.02 Long term (current) use of antithrombotics/antiplatelets; Z95.1 Presence of aortocoronary bypass graft; Z20.828 Contact with and (suspected) exposure to other viral communicable diseases
CPT/HCPCS: 36415; 70450; 71045; 72125; 72170; 73530; 73700; 80048; 80076; 82947; 83735; 83880; 84484; 85025; 85610; 93005; 96361; 96374; 96375; 97110; 97116; 97161; 97530; 99284; J0690; J1650; J2270; J2405; J2704; J3010; J7030; J7040; U0002; U0003

== ENCOUNTER 2019-12-24 08:41 | Inpatient (IN) | payer OTHER ==
--- NOTE | 2019-12-24 15:28 | R.PREADM ---
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 ACUTE KENNEL STAFF MEMBER/DC BUSINESS OBJECTS CONSULTANT Leslie ATTENDING PHYSICIAN REFERRING PHYSICIAN REHAB FACILITY [facility] CLINICAL LIAISON Sahara Latif PHYSICIAN REVIEWER Dr. Gordon David M.D. MR# [id number] NAME SHABNAM GAYLEPH ADDRESS [address] [facility] [address] PH[address] [facility] [id number] DATE OF 1930 AGE 89 SSN# [id number] GENDER male MARITAL STATUS RACE unknown race ADMIT FROM 02 - [facility] PRE-HOSPITAL LIVING SETTING 01 - Home (private home/apt. board/care, assisted living, fci, transitional living) HOME TYPE AND DETAILS Type of home: single family house # of levels in the residence: 1 # of steps within the residence: 0 # of steps to enter the residence: 0 PRE-HOSPITAL LIVING WITH Family/Relatives FAMILY SUPPORT Yes PRIMARY FAMILY CONTACT NAME FACUNDO GAYLE PRIMARY FAMILY CONTACT PHONE PRIMARY FAMILY CONTACT RELATIONSHIP Spouse PHONE PRIMARY FAMILY CONTACT ON ADM.? no IS PRIMARY FAMILY CONTACT AUTH. REP.? no 1ST EMERGENCY CONTACT FACUNDO GYALE 1ST CONTACT PHONE 1ST CONTACT RELATIONSHIP Spouse PHONE 1ST CONTACT ON ADM. no IS 1ST CONTACT AUTH. REP.? no PHONE 2ND CONTACT ON ADM.? no PATIENT EMPLOYMENT STATUS Retired (for age) PATIENT EMPLOYER No Employer PAYOR INFORMATION: 1ST PAYOR NAME MEDICARE 1ST PAYOR PHONE 1ST PAYOR INJURY/ILLNESS DUE TO ACCIDENT? No ANOTHER [employer] RESPONSIBLE? No PRIMARY REHAB/ACUTE DIAGNOSIS: RIGHT FEMUR FRACTURE ONSET DATE 12/22/2019 REHAB IMPAIRMENT CATEGORY (JAVIER): 07 Fracture of LE (FracLE) MEETS 60% rule AFFECTED EXTREMITIES: RLE PRIMARY DIAGNOSIS-RELATED SURGERIES: SUMMARY OF ACUTE HOSPITALIZATION: Pt. is a 89 yo Right-handed male of unknown race. On 12/22/2019 he was admitted to [facility] with diagnosis RIGHT FEMUR FRACTURE. His impairment category is Orthopaedic Disorders 08 - Unilateral Hip Fracture (08.11). Pre-morbidly, Pt. was independent/mod-I in Endurance, Communication, Safety Awareness, Balance, Trans fers Control, and Self-Care; and he had good Social Cognition. Currently, he has deficits of Locomotion, Balance, Transfers Control, Self-Care, Sphincter Control, a nd Endurance. Pt. is now referred to [facility] for acute in-patient rehabilitation in order to maximize patient's functional independence in activities of daily living, strength, ROM, and mobi lity. Patient has realistic goal of being discharged at assistance level 7-Ind to reside at Home with Fami ly/Relatives. MEDICATION ALLERGIES: No Known Drug Allergies (NKDA) ENVIRONMENTAL ALLERGIES: - Substance Allergies None Known - Other Allergies None Known CODE STATUS: Full code WEIGHT/HEIGHT/BMI: WEIGHT 192 lbs HEIGHT 5' 9" BMI 28.4 DIET: - Diet Type Regular - Diet - Solid Texture Regular - Diet - Liquid Texture Regular - Tube Feed N/A REVIEW OF SYSTEMS: - Gen Alert and awake Lying in bed No apparent distress Oriented to: person, time, and place - Vital Signs Temperature: 98.1 F SBP/DBP: 133/78 Pulse: 89 Resp: 18 Vital signs stable, afebrile - CVS RRR VITAL SIGNS Temperature: 98.1 F SBP/DBP: 133/78 Pulse: 89 Resp: 18 Vital signs stable, afebrile MEDICATIONS/TREATMENT: Other- See attached MAR (Medication Administration Record). CURRENT SPHINCTER CONTROL: Pre-hospital bladder status: unspecified # of bladder accidents in the last 7 days prior to screenin Pre-hospital bowel status: unspecified # of bowel accidents in the last 7 days prior to screenin Last Bowel Movement Date: 12/24/2019 CURRENT LOCOMOTION STATUS: distance walked 3 feet DETAILED CURRENT FUNCTIONAL STATUS: - Bladder accident frequency: Ind - No accidents in the past 7 days - Bowel accident frequency: Ind - No accidents in the past 7 days - Walking score based on distance walked: 0(N/A) - Wheelchair score based on distance traveled: 0(N/A) QI SCORES: - Self-Care A. Eating 04-Supervision or touching assistance B. Oral hygiene 04-Supervision or touching assistance C. Toileting hygiene 02-Substantial/maximal assistance E. Shower/bathe self 02-Substantial/maximal assistance F. Upper body dressing 03-Partial/moderate assistance G. Lower body dressing 02-Substantial/maximal assistance H. Putting on/taking off footwear 88-Not attempted due to medical condition or safety concerns - Mobility A. Roll left and right 03-Partial/moderate assistance B. Sit to lying 02-Substantial/maximal assistance C. Lying to sitting on side of bed 02-Substantial/maximal assistance D. Sit to stand 02-Substantial/maximal assistance E. Chair/mfu-rz-vadnr transfer 02-Substantial/maximal assistance F. Toilet transfer 02-Substantial/maximal assistance G. Car transfer 88-Not attempted due to medical condition or safety concerns I. Walk 10 feet 88-Not attempted due to medical condition or safety concerns J. Walk 50 feet with two turns 88-Not attempted due to medical condition or safety concerns K. Walk 150 feet 88-Not attempted due to medical condition or safety concerns L. Walking 10 feet on uneven surfaces 88-Not attempted due to medical condition or safety concerns M. 1 step (curb) 88-Not attempted due to medical condition or safety concerns N. 4 steps 88-Not attempted due to medical condition or safety concerns O. 12 steps 88-Not attempted due to medical condition or safety concerns P. Picking up object 88-Not attempted due to medical condition or safety concerns R. Wheel 50 feet with two turns 88-Not attempted due to medical condition or safety concerns S. Wheel 150 feet 88-Not attempted due to medical condition or safety concerns - Bladder and Bowel Bladder continence Bowel continence - Endurance Poor - Balance Poor - Safety Awareness Fair CURRENT FUNC. DEFICITS: Self-Care, Mobility, Endurance, Balance, and Safety Awareness HISTORY OF FALLS. HAS THE PATIENT HAD TWO OR MORE FALLS IN THE PAST YEAR OR ANY FALL WITH INJURY IN T HE PAST YEAR?: No PRIOR SURGERY. DID THE PATIENT HAVE MAJOR SURGERY DURING THE 100 DAYS PRIOR TO ADMISSION?: No THERAPY NOTES FROM ACUTE CARE: Attached. SPECIAL NEEDS: - Safety Concerns Skin breakdown precautions needed due to skin breakdown risk PATIENT NEEDS ACTIVE AND ONGOING THERAPEUTIC INTERVENTION OF MULTIPLE THERAPY DISCIPLINES, INCLUDING: - Dietary and Nutrition Adequate Nutrition. Nutritional Education. Nutritional Supplements. PATIENT NEEDS CLOSE MEDICAL SUPERVISION BY A REHABILITATION PHYSICIAN FOR: Coordination of Treatment Team PATIENT REQUIRES 24X7 REHAB NURSING FOR MEDICAL AND FUNCTIONAL MGT. OF THE FOLLOWING DEFICITS: Disease Management Medication Management Patient/Family Education Providing Safe Environment PATIENT REQUIRES INTENSIVE, COORDINATED INTERDISCIPLINARY APPROACH TO REHAB: Arranging Home Equipment/Services Discharge Planning Family Intervention/Training Economic Forecaster/Case Management PATIENT REHAB POTENTIAL: Roe GAYLE is able and expected to receive 3 hours of individualized therapy daily on at least 5 of elza ry 7 days Roe VELASCOs prognosis for significant practical improvement within a reasonable period of time appears Good Expected level of measurable improvement will be of a practical value to Roe GAYLE's functional capaci ty or adaptations to impairments Has a viable Discharge Plan Medically appropriate; condition is sufficiently stable to participate in intensive rehab program DISCHARGE PLAN: - Estimated Length of Stay (days) 14. - Consensus on plan Discharge plan has been discussed with primary caregiver. Patient/Family is in agreement with the jacquelyn n. Primary caregiver is in agreement with the plan. - Patient/Family Goals Return home independently. - Planned Living Setting Upon Discharge Home, to live with Family/Relatives. Transitional Living. RECOMMENDED CARE LEVEL: IRF RECOMMENDATION DETAILS: Recommended Admission to Comprehensive Rehabilitation Program to Increase Functional [place] SCREENER'S COMPLETENESS CONFIRMATION: - Screening Confirmation The patient data collection on this preadmission screening form is finished PHYSICIANS REVIEW AND ADMISSION DETERMINATION Admit - Based on my review of the Pre-Admission Screening results, in my medical judgment and experie nce, I concur with the findings and recommend admission to [facility], as this patient requires an IRF level of care. SIGNATURE PANEL: Rf Test Technician - [electronically] signed by Sahara Latif on 12/24/2019 at 14:59 (SWITCHBOARD OPERATOR SUPERVISOR) Rf Test Technician - [electronically] signed by Jayme Orantes PT on 12/24/2019 at 15:05 (SWITCHBOARD OPERATOR SUPERVISOR) Physician Reviewer - [electronically] signed by Dr. Gordon David M.D. on 12/24/2019 at 15:28 (SWITCHBOARD OPERATOR SUPERVISOR )
--- OUTSIDE RECORDS SUMMARY | 2019-12-24 21:36 | XMS REPORT | Continuity of Care Document ---
:1930 Author Organization [employer] Information Travel Appeal Care Team Providers Name Role Phone [employer] Unavailable Un available Problems Problem Status Onset Classification Date Comments Sourc e Date Reported S06.5X0A - Active [facility]ID TRAUM SUBDR 0 [facility] HEM W/O LOSS OF C SDH Active [address] LIFE FLIGHT Active [facility] TRANSFER [address] [place] [address] TRAUM SUBDR Active [facility] HEM W LOC OF Medical UNSP Center DURATION, Medications Medication Details Route Status Patient Ordering Order Source Instructions Provider Date Levetiracetam 500 500 mg = 1 Active [facility] MG Oral Tablet tab, PO, Q12H, 2019 Ma dical # 10 tab, 0 Center Refill(s) heparin Notes: porcine Inactive [facility] heparin [address] [place] [address] atorvastatin Notes: (Same No Longer [place] as: Lipitor) Active 2019 [facility] Flomax Notes: (Same No Longer [facility] As: Flomax) Active [address] [place] [address] "Do Not Crush" Center Levetiracetam 500 Notes: (Same No Longer [facility] MG Oral Tablet as:Keppra) 2019 Medica l [place] metoprolol 50 mg, 1 tab, [place] extended release Route: PO, Active 2019 Medi ann Drug form: Center ERTAB, Q12H, Start date: 06/30/19 9:00:00 CDT, Duration: 30 day, Stop date: 07/29/19 21:00:00 CDT, 0 Lisinopril Notes: (Same No Longer [facility] as as: Prinivil, 2019 [facility] Zestril) [place] Levetiracetam Notes: Same as Inactive [facility] Keppra Mix 2020 Medical with 100 mL Center NS, LR or D5W MEDICATION WASTE Product Size: 500 mg Product Wasted: ___ mg Docusate Notes: (Same No Longer [place] as: Colace) Active 2020 Medical (Do Not Crush) Center sennosides, SHELTER Notes: (Same No Longer [place] as: Senokot) [...] mg 50 mg = 1 tab, Active [facility] oral tablet, PO, Q12H 2019 Medical extended release Center Tamsulosin 0.4 mg = 1 Active [facility] hydrochloride 0.4 cap, PO, Daily 2019 Medical MG Oral Capsule Center [Flomax] Metformin 500 mg, PO, Active [facility] BID 2020 Medical Center atorvastatin 40 40 mg = 1 tab, Active [place] mg oral tablet PO, Bedtime 2019 Medic al Center cholecalciferol 400 IntlUnit = Active [place] 400 intl units 1 tab, PO, 2019 Medica l oral tablet Daily Center Nitroglycerin 0.4 0.4 mg = 1 Active [facility] MG Sublingual tab, SL, 2019 Medical Tablet Q5Min, PRN Center Chest pain, Give up to 3 doses. Call 911 if pain persists. clopidogrel 75 mg 75 mg = 1 tab, No Longer 06/29 [facility] oral tablet PO, Daily Active 2019 [facility] Nystatin 100 Notes: (Same [place] Longer [place] UNT/MG Topical as:Mycostatin, Active 2019 Me dical Powder Nilstat) For Center external use only. Saline Flush 0.9% Notes: Same No Longer [facility] as: Active 2019 Medical Posiflush Center Sterile Potassium Notes: (Same Inactive [facility] Chloride as: KCL) 2020 Medical Infuse no Center faster than 10 mEq/hr if given peripherally. sodium phosphate Notes: Infuse Inactive [facility] over 4 hour. 2020 Medical Do not infuse Center phosphorous concurrently in the same line as TPN or IVF that contains calcium. For double lumen central lines, phosphorous may be infused in a separate lumen from TPN. potassium Notes: (Same Inactive [place] phosphate as: K 2019 Medical Phosphate.) Center Do not infuse phosphorous concurrently in the same line as TPN or IVF that contains calcium. For double lumen central lines, phosphorous may be infused in a separate lumen from TPN. 1 mMol phoshate has 1.47 mEq potassium Infuse over 4 hours potassium Notes: (Same Inactive [place] phosphate-sodium as: Phos-NaK) 2019 M edical phosphate 250 Each 1.5 gm Center mg-280 mg-160 mg pkt has 250mg oral powder for phosphorous. reconstitution Mix w/2.5oz water and stir. Magnesium Sulfate Notes: WASTE: Inactive [place] F/P - Sink; E 2019 [facility] Trash Bin Magnesium Oxide Notes: (Same Inactive [place] as: Mag-Ox 2020 Medical 400) Magnesium Center oxide [id number] elemental magnesium Dose=____mg magnesium oxide (___mg elemental magnesium) Calcium Gluconate Notes: WASTE: Inactive [facility] F/P - Sink; E 2019 [facility] Trash Bin Calcium Carbonate Notes: (Same Inactive [place] 500 MG Chewable As: Tums) 2019 Medica [...] 0 Acetaminophen Notes: Do not No Longer [facility] exceed 4 Active 2020 Medical gm/day. (Same Center as: Tylenol) Levetiracetam 1,000 mg, [place] Route: IVPB, 2019 Medical ONCE, Dosing Center Weight 89.091, kg, Start date: 06/29/19 21:52:00 CDT, Stop date: 06/29/19 21:52:00 CDT Bisacodyl Notes: (Same No Longer s As: Dulcolax, 2019 Medical Bisco-Lax) Center Ondansetron Notes: (Same No Longer [facility] [place] as: Zofran) 2019 Medical MEDICATION Center WASTE Product Size: 4 mg Product Wasted: ___ mg Hydralazine Notes: ([place] as: 2019 Medical Apresoline) Center Push over 5 minutes Labetalol 10 mg, 2 mL, No Longer [facility] Route: IVP, 2019 Medical Drug form: Center INJ, Q15Min, Dosing Weight 89.091, kg, PRN Hypertension, Start date: 06/29/19 21:52:00 CDT, Duration: 30 day, Stop date: 07/29/19 21:51:00 CDT, 0 Saline Flush 0.9% Notes: Same No Longer [facility] as: BD 2019 Medical Posiflush Center Sterile Cardene 40 mg in Notes: (Same No Longer [facility] NS 200 mL as: Cardene) 2019 Medical (Titrate.) IV 40 Center mg Keppra Notes: Inactive [facility] MEDICATION 2019 Medical WASTE Center Product Size: 500 mg Product Wasted: ___ mg Acetaminophen 650 mg, 2 tab, Inactive [facility] Route: PO, 2019 Medical Drug form: Center TAB, ONCE, kg, Priority: STAT, Start date: 06/29/19 19:24:00 CDT, Stop date: 06/29/19 19:24:00 CDT, 0 Allergies, Adverse Reactions, Alerts No Known Medication Allergies Immunizations No Data Provided for This Section Results Order Name Results Value Reference Date Interpretation Comments Sakina rce Range CHEM PANEL Glucose Lvl 123 70 - 99 06/30 [facility] [address] [place] [address] CHEM PANEL BUN 19 7 - 22 06/[address] CHEM PANEL Creatinine 0.74 0.50 - 06/30 [facility] Lvl 1.40 [facility] CHEM PANEL Sodium Lvl 138 135 - 145 06/30 [facility] CHEM PANEL Potassium 4.0 3.5 - 5.1 06/30 [facility] CHEM PANEL Chloride Lvl 106 95 - 109 06/30 [facility] s [facility] CHEM PANEL CO2 24 24 - 32 06/30 [facility] CHEM PANEL Calcium Lvl 8.7 8.5 - 10.5 06/30 [facility] CHEM PANEL AGAP 12.0 10.0 - 06/30 [facility] 20.0 [facility] CHEM PANEL eGFR 82 06/30 [facility] Comment: The Medical eGFR is Center [...] PANEL Phosphorus 4.3 2.5 - 4.5 06/30 [facility] CHEM PANEL Magnesium 2.3 1.8 - 2.4 06/30 [facility] HEMATOLOGY WBC 5.6 3.7 - 10.4 06/30 2019 [facility] HEMATOLOGY RBC 3.94 4.70 - 06/30 [place] 6.10 [facility] HEMATOLOGY Hgb 11.8 14.0 - 06/30 [facility] 18.0 [facility] HEMATOLOGY Hct 35.4 42.0 - 06/30 [place] 54.0 [facility] HEMATOLOGY MCV 89.8 80.0 - 06/30 [place] 94.0 [facility] HEMATOLOGY MCH 30.0 27.0 - 06/30 [facility] 31.0 [facility] HEMATOLOGY MCHC 33.4 32.0 - 06/30 [facility] 36.0 [facility] HEMATOLOGY RDW 13.9 11.5 - 06/30 [facility] 14.5 [facility] HEMATOLOGY Platelet 131 133 - 450 06/[address] HEMATOLOGY MPV 8.1 7.4 - 10.4 06/[address] HEMATOLOGY RBC Morph Normal Normal 06/30 [facility] (07/01/19 4:43 AM) /2019 [facility] HEMATOLOGY Plt Morph Normal Normal 06/30 [facility] (07/01/19 4:43 AM) /2019 [facility] HEMATOLOGY Segs 62.1 45.0 - 06/30 [facility] 75.0 [facility] HEMATOLOGY Lymphocytes 24.3 20.0 - 06/30 [facility] 40.0 [facility] HEMATOLOGY Monocytes 11.1 2.0 - 12.0 06/[address] HEMATOLOGY Eosinophils 2.1 0.0 - 4.0 06/30 [facility] /2019 [facility] HEMATOLOGY Basophils 0.4 0.0 - 1.0 06/[address] HEMATOLOGY Neutrophils 3.5 1.5 - 8.1 06/[address] [facility] HEMATOLOGY Lymphocytes 1.4 1.0 - 5.5 06/[address] [facility] /[address] [place] [address] HEMATOLOGY Monocytes # 0.6 0.0 - 0.8 06/30 [facility] /[address] [place] [address] HEMATOLOGY Eosinophils 0.1 0.0 - 0.5 06/[address] [facility] [address] [place] [address] PARATHYROID Ca Ion WB 1.16 1.05 - 06/30 [place] PROFILE 1. [facility] PARATHYROID Ca Norm WB 1.16 1.05 - 06/30 [facility] PROFILE 1. [facility] CARDIAC Troponin-I 0.02 0.00 - 06/29 [facility] ENZYMES 0.40 [facility] BACTERIAL - MRSA by PCR Negative 06/29 [facility] SEROLOGY (06/30/19 1:24 AM) /2019 [facility] CHEM PANEL Glucose Lvl 124 70 - 99 06/[address] CHEM PANEL BUN 13 7 - 22 06/[address] CHEM PANEL Creatinine 0.69 0.50 - 06/29 [facility] Lvl 1.40 [facility] CHEM PANEL Sodium Lvl 141 135 - 145 06/29 2019 [facility] CHEM PANEL Potassium 4.0 3.5 - 5.1 06/29 [facility] Lvl [facility] CHEM PANEL Chloride Lvl 106 95 - 109 06/29 [facility] CHEM PANEL CO2 26 24 - 32 06/29 /2019 [facility] CHEM PANEL Calcium Lvl 8.7 8.5 - 10.5 06/29 [facility] CHEM PANEL AGAP 13.0 10.0 - 06/29 [place] 20.0 [facility] CHEM PANEL eGFR 85 06/29 [facility] Comment: The Medical eGFR is Center [...] PANEL Magnesium 2.4 1.8 - 2.4 06/29 [facility] Lvl [facility] CHEM PANEL Phosphorus 3.4 2.5 - 4.5 06/29 [facility] HEMATOLOGY WBC 6.8 3.7 - 10.4 06/29 /2019 [facility] HEMATOLOGY RBC 3.95 4.70 - 06/29 [place] 6.10 [facility] HEMATOLOGY Hgb 11.9 14.0 - 06/29 [facility] 18.0 [facility] HEMATOLOGY Hct 35.7 42.0 - 06/29 [place] 54.0 [facility] HEMATOLOGY MCV 90.3 80.0 - 06/29 [place] 94.0 [facility] HEMATOLOGY MCH 30.2 27.0 - 06/29 [place] 31.0 [facility] HEMATOLOGY MCHC 33.5 32.0 - 06/29 [place] 36.0 [facility] HEMATOLOGY RDW 14.4 11.5 - 06/29 [place] 14.5 /2019 [facility] HEMATOLOGY Platelet 151 133 - 450 06/[address] HEMATOLOGY MPV 8.0 7.4 - 10.4 06/29 [place] /[address] [place] [address] HEMATOLOGY Segs 68.0 45.0 - 06/29 [place] 75.0 [facility] HEMATOLOGY Lymphocytes 21.0 20.0 - 06/29 [place] 40.0 [facility] HEMATOLOGY Monocytes 9.6 2.0 - 12.0 06/29 [facility] /[address] [place] [address] HEMATOLOGY Eosinophils 0.8 0.0 - 4.0 06/[place] /2019 [facility] HEMATOLOGY Basophils 0.6 0.0 - 1.0 06/[address] HEMATOLOGY Neutrophils 4.6 1.5 - 8.1 06/[place] # /2019 [facility] HEMATOLOGY Lymphocytes 1.4 1.0 - 5.5 06/29 [place] # /2020 [facility] HEMATOLOGY Monocytes # 0.7 0.0 - 0.8 06/29 [facility] /[facility] HEMATOLOGY Eosinophils 0.1 0.0 - 0.5 06/[address] [facility] /2020 [facility] PARATHYROID Ca Ion WB 1.15 1.05 - 06/29 [place] PROFILE 1. [facility] PARATHYROID Ca Norm WB 1.13 1.05 - 06/29 [facility] PROFILE 1.25 [facility] BLOOD BANK ABO/Rh O POS 06/29 [facility] RESULTS /2019 [facility] BLOOD BANK Antibody Negative 06/29 [facility] RESULTS Scrn (06/29/19 11:21 PM) /2019 [facility] Center CARDIAC Troponin-I 0.02 0.00 - 06/29 [facility] ENZYMES 0.40 [facility] HEMATOLOGY Plav Effect 190 06/29 [facility] Plt /2019 [facility] CARDIAC Troponin-I <0.02 0.00 - 06/29 [facility] ENZYMES 0.40 [facility] CHEM PANEL Glucose Lvl 131 70 - 99 06/[address] [place] [address] CHEM PANEL BUN 13 7 - 22 06/[address] [place] [address] CHEM PANEL Creatinine 0.81 0.50 - 06/29 [facility] Lvl 1.40 [facility] CHEM PANEL Sodium Lvl 138 135 - 145 06/29 [facility] CHEM PANEL Potassium 4.1 3.5 - 5.1 06/29 [facility] l [facility] CHEM PANEL Chloride Lvl 107 95 - 109 06/29 [facility] CHEM PANEL CO2 27 24 - 32 06/29 [facility] CHEM PANEL Calcium Lvl 8.9 8.5 - 10.5 06/29 as [facility] CHEM PANEL AGAP 8.1 10.0 - 06/29 [facility] 20.0 [facility] CHEM PANEL eGFR 79 06/29 [facility] Comment: The Medical eGFR is Center [...] Lactic Acid 1.6 0.5 - 2.2 06/29 [facility] s [facility] HEMATOLOGY WBC X 10x3 6.7 3.7 - 10.4 06/29 [facility] s [facility] HEMATOLOGY RBC X 10x6 4.15 4.70 - 06/29 [facility] 6.10 [facility] HEMATOLOGY Hgb 12.5 14.0 - 06/29 [facility] 18.0 [facility] HEMATOLOGY Hct 37.5 42.0 - 06/29 [facility] 54.0 [facility] HEMATOLOGY MCV 90.4 80.0 - 06/29 [place] 94.0 [facility] HEMATOLOGY MCH 30.1 27.0 - 06/29 [facility] 31.0 [facility] HEMATOLOGY MCHC 33.2 32.0 - 06/29 [facility] 36.0 [facility] HEMATOLOGY RDW 14.0 11.5 - 06/29 [facility] 14.5 [facility] HEMATOLOGY Platelet 151 133 - 450 06/[address] HEMATOLOGY MPV 7.2 7.4 - 10.4 06/[address] HEMATOLOGY ACT (TEG) 105 86 - 118 06/29 [facility]2020 [facility] HEMATOLOGY [place] 0.5 06/29 [facility]2020 [facility] HEMATOLOGY R-time Rapid 0.6 0.4 - 0.7 06/29 [facility] /2019 [facility] HEMATOLOGY K-time Rapid 1.0 0.6 - 2.3 06/[address] HEMATOLOGY Angle Rapid 78 64 - 80 06/[address] HEMATOLOGY Max 67 52 - 71 06/29 [facility]2019 [facility] HEMATOLOGY G-value 10.2 5.0 - 11.6 06/[address] HEMATOLOGY Estimated % 1.2 0.0 - 7.5 06/29 [facility] Lysis Rapid /2019 [facility] HEMATOLOGY Segs 76.9 45.0 - 06/29 [facility] 75.0 [facility] HEMATOLOGY Lymphocytes 14.0 20.0 - 06/29 [facility] 40.0 [facility] HEMATOLOGY Monocytes 8.1 2.0 - 12.0 06/[address] HEMATOLOGY Eosinophils 0.5 0.0 - 4.0 06/29 [facility] s /2020 [facility] HEMATOLOGY Basophils 0.5 0.0 - 1.0 06/[address] HEMATOLOGY Neutrophils 5.2 1.5 - 8.1 06/29 [facility] s # /2019 [facility] Center HEMATOLOGY Lymphocytes 0.9 1.0 - 5.5 06[place] # /2020 [facility] Center HEMATOLOGY Monocytes # 0.5 0.0 - 0.8 06/29 [facility] s /2020 [facility] Pathology Reports No Data Provided for This [...] Denisa Seo MD On 07/15/2019 16:15 :43; [id number] Brain wo contrast CT EXAM: CT BRAIN WITHOUT CONTRAST 06/29/2019 [facility] [place] [facility] DATE: 06/29/2019 at 2216 hours Ce nter [...] EXAM: XR RIGHT SHOULDER 3 VIEWS 06/29/2019 [facility] [place] [facility] DATE: 06/29/2019 20:16 CDT Center INDICATION: - [...] CT CERVICAL SPINE WITHOUT CONTRAST 0 06/29/2019 [facility] [place] [facility] CT DATE: 06/29/2019 19:58 CDT Center INDICATION: Fall and pain, second interpretation requested COMPARISON: None available TECHNIQUE: Noncontrast CT im ages of the cervical spine, obtained at [facility] . Axial, sagittal and coronal images provided. [...] DX EXAM: XR CHEST 1 VIEW 06/29/2019 [facility] edical DATE: 06/29/2019 19:24 CDT Center INDICATION: [...] Source Temperature Oral (F) 98.4 F 07/01/2019 [facility] Heart Rate 62 07/01/2019 [facility] Respitory Rate 18 07/01/2019 [facility] ann Center Systolic (mm Hg) 120 07/01/2019 [facility] dical Center Diastolic (mm Hg) 60 07/01/2019 [facility] Temperature Oral (F) 98.3 F 07/01/2019 [facility] Heart Rate 65 07/01/2019 [facility] Respitory Rate 18 07/01/2019 [facility] ann Center Systolic (mm Hg) 121 07/01/2019 [facility] dical Center Diastolic (mm Hg) 64 07/01/2019 [facility] Temperature Oral (F) 98 F 07/01/2019 [facility] Respitory Rate 18 07/01/2019 [facility] ann Center Systolic (mm Hg) 112 07/01/2019 [facility] dical Center Diastolic (mm Hg) 67 07/01/2019 [facility] Heart Rate 60 07/01/2019 [facility] Height 175.26 cm 06/30/2019 [facility] Weight 89.1 06/30/2019 [facility] BMI Calculated 29.01 06/30/2019 [facility] ann Center Height 175.26 cm 06/30/2019 [facility] BMI Calculated 29 06/30/2019 [facility] ann Center Weight 89.091 06/30/2019 [facility] Encounters Location Location Encounter Encounter Reason Attending ADM CT Stat us Source Details Type Number For Provider Date Date Visit [facility] [id number] Yang 06/29 06/30 [facility] Edi Aguirre /2019 [facility] Procedures No Data Provided for This Section Assessment and Plan No Data Provided for This Section Plan of Care No Data Provided for This Section Social History Social History Date Source Social History TypeResponse 06/30/2019 [facility] Smoking Status Never smoker; Exposure to Tobacco Smoke None; Cigarette Smoking Last 365 Days No; Reg Smoking Cessation Counseling No entered on: 06/29/19 Family History No Data Provided for This Section Advance Directives No Data Provided for This Section Functional Status No Data Provided for This Section
[2019-12-24] MEDS ORDERED: NITROGLYCERIN 0.4 MG/TAB SL PRN (22:37)
[2019-12-24] MEDS ORDERED: ACETAMINOPHEN 325 MG TABLET PO PRN (22:39)
[2019-12-24 23:33] VITALS: BMI 29.1
[2019-12-25] MEDS ORDERED: D50W 25 GM/50 ML SYRINGE IV PRN (00:34)
[2019-12-25] MEDS ORDERED: GLUCAGON 1 MG/VIAL IM PRN (00:34)
[2019-12-25 01:19] LABS: Urine Appearance CLEAR; Urine Bilirubin NEGATIVE (NEG); Urine Blood 1+ (NEG); Urine Color YELLOW; Urine Glucose NEGATIVE (NEG); Urine Protein TRACE (NEG)
[2019-12-25 01:25] LABS: Urine Bacteria 20-50 /HPF (NONE SEEN); Urine Mucus 2+ /HPF (NONE SEEN)
[2019-12-25] MEDS: METOPROLOL XL 50 MG TAB PO SCH ×2 (05:07→17:18)
[2019-12-25 06:31] LABS: Absolute Lymphocytes (CBC) 0.8 K/uL (0.7-4.9); Basophils % 0.4 % (0-1.3); Hematocrit 26.6 % (39.6-49.0); Lymphocytes % 13.2 % (15.3-44.8); MPV 7.8 fL (7.6-11.3)
[2019-12-25] MEDS ORDERED: ACETAMINOPHEN 325 MG TABLET PO PRN (06:46)
[2019-12-25 06:54] LABS: Albumin 2.8 g/dL (3.4-5.0); BUN Blood Urea Nitrogen 11 mg/dL (7-18); Bicarbonate 28 mmol/L (21-32); Glucose Level 136 mg/dL (74-106); Magnesium 2.2 mg/dL (1.8-2.4); Potassium 3.9 mmol/L (3.5-5.1); Prealbumin 11.4 mg/dL (20-40); Sodium Level 140 mmol/L (136-145)
[2019-12-25] MEDS: INSULIN -REGULAR HUMAN 50 UNIT/0.5 ML ML SQ SCH ×4 (07:30→21:00)
[2019-12-25] MEDS: ENOXAPARIN 40 MG/0.4 ML SQ SCH ×3 (08:00→21:32)
[2019-12-25] MEDS ORDERED: PROMOD 30 ML DOSE PO SCH (08:00)
[2019-12-25] MEDS: FE SULF/FA/VIT B COMP & C TAB PO SCH (08:54)
[2019-12-25] MEDS: VITAMIN D 1000 UNIT TAB PO SCH (08:54)
[2019-12-25] MEDS: FERROUS SULFATE 325 MG TAB PO SCH (08:54)
[2019-12-25] MEDS: METFORMIN HCL 500 MG TAB PO SCH ×2 (08:55→17:19)
--- NOTE | 2019-12-25 16:57 | R.HP ---
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 board/care, assisted living, care home, transitional living) PRE-HOSPITAL LIVING WITH Family/Relatives ENCOUNTER PHYSICIAN: Dr. Gordon David M.D. 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 is a 89 yo Right-handed male of unknown race. On 12/22/2019 he was admitted to [facility] with diagnosis RIGHT FEMUR FRACTURE. His impairment category is Orthopaedic Disorders 08 - Unilateral Hip Fracture (08.11). Pre-morbidly, Pt. was independent/mod-I in Endurance, Communication, Safety Awareness, Balance, Trans fers Control, and Self-Care; and he had good Social Cognition. Currently, he has deficits of Locomotion, Balance, Transfers Control, Self-Care, Sphincter Control, a nd Endurance. Pt. is now referred to [facility] for acute in-patient rehabilitation in order to maximize patient's functional independence in activities of daily living, strength, ROM, and mobi lity. Patient has realistic goal of being discharged at assistance level 7-Ind to reside at Home with Fami ly/Relatives. MEDICATION ALLERGIES: No Known Drug Allergies (NKDA) ENVIRONMENTAL ALLERGIES: - Substance Allergies None Known - Other Allergies None Known SOCIAL HISTORY: - Home Living Family/Relatives REVIEW OF SYSTEMS: - Gen No Chills Fatigue No Fever - Eyes No Double Vision No itchiness - ENMT No Difficulty Swallowing - CVS Chest Discomfort No Chest Pain Fatigue No Weight Gain - Resp No Cough No Shortness of Breath - GI Continent No Abdominal Pain No Constipation No Diarrhea - Continent No Kidney Pain No Painful Urination No Urinary Urgency - MSK Joint Pain Muscle Cramps No Stiffness - Skin No Itching No Rash No Suspicious Lesions - Neuro No Coordination Difficulty No Difficulty with Concentration No Memory Loss No Seizures Weakness - Psych No Anxiety No Depression No HIV Exposure No Persistent Infections No Seasonal Allergies - Endo No Cold/Heat Intolerance No Excessive Hunger No Excessive Thirst No Excessive Urination PHYSICAL EXAM - Gen Alert and awake Lying in bed No apparent distress Oriented to: person, time, and place - Skin No skin breakdown. Normacephalic - Eyes No abnormalities - ENMT No abnormalities - Neck No abnormalities No cervical adenopathy - CVS RRR - Chest Clear - Resp No wheezing - Abd Soft - GI nondistended Deferred - No abnormalities - Ext Right hip surgical site has good hemostasis. - MSK 4+/5 weakness in right lower extremity - Neuro 4/5 strength right lower extremity. - Psych No abnormalities VITAL SIGNS Temperature: 98.1 F SBP/DBP: 135/82 Pulse: 85 Resp: 16 NURSING: - Shower allowing shower - Skin care per protocol PRECAUTIONS: - Anterior Hip Precaution No abduction No active extension No adduction across midline No external rotation No hip flexion >90 degrees No internal rotation - Posterior Hip Precaution No adduction across midline No external rotation No hip flexion >90 degrees No internal rotation No wheel chair propulsion - Weight Bearing Precaution TTWB right LE ACTIVITIES OOB only with supervision QI SCORES: - Self-Care A. Eating 04-Supervision or touching assistance B. Oral hygiene 04-Supervision or touching assistance C. Toileting hygiene 02-Substantial/maximal assistance E. Shower/bathe self 02-Substantial/maximal assistance F. Upper body dressing 03-Partial/moderate assistance G. Lower body dressing 02-Substantial/maximal assistance H. Putting on/taking off footwear 88-Not attempted due to medical condition or safety concerns - Mobility A. Roll left and right 03-Partial/moderate assistance B. Sit to lying 02-Substantial/maximal assistance C. Lying to sitting on side of bed 02-Substantial/maximal assistance D. Sit to stand 02-Substantial/maximal assistance E. Chair/rnz-ks-ophpr transfer 02-Substantial/maximal assistance F. Toilet transfer 02-Substantial/maximal assistance G. Car transfer 88-Not attempted due to medical condition or safety concerns I. Walk 10 feet 88-Not attempted due to medical condition or safety concerns J. Walk 50 feet with two turns 88-Not attempted due to medical condition or safety concerns K. Walk 150 feet 88-Not attempted due to medical condition or safety concerns L. Walking 10 feet on uneven surfaces 88-Not attempted due to medical condition or safety concerns M. 1 step (curb) 88-Not attempted due to medical condition or safety concerns N. 4 steps 88-Not attempted due to medical condition or safety concerns O. 12 steps 88-Not attempted due to medical condition or safety concerns P. Picking up object 88-Not attempted due to medical condition or safety concerns R. Wheel 50 feet with two turns 88-Not attempted due to medical condition or safety concerns S. Wheel 150 feet 88-Not attempted due to medical condition or safety concerns - Bladder and Bowel Bladder continence Bowel continence - Endurance Poor - Balance Poor - Safety Awareness Fair CURRENT FUNC. DEFICITS: Self-Care, Mobility, Endurance, Balance, and Safety Awareness MEDICATIONS: - Other See attached MAR (Medication Administration Record) ASSESSMENT: Pt. is a 89 yo Right-handed male of unknown race.On 12/22/2019 he was admitted to [facility] with diagnosis RIGHT FEMUR FRACTURE.His impairment category is Orthopaedic Disorders 08 - Unila teral Hip Fracture (09.20).Pre-morbidly, Pt. was independent/mod-I in Endurance, Communication, Safet y Awareness, Balance, Transfers Control, and Self-Care; and he had good Social Cognition.Currently, h angel luis has deficits of Locomotion, Balance, Transfers Control, Self-Care, Sphincter Control, and Endurance .Pt. is now referred to [facility] for acute in-patient rehabilitation in [facility] to maximize patient's functional independence in activities of daily living, strength, ROM, and mob ility.- Rehab Goal Patient has realistic goal of being discharged at assistance level 7-Ind to reside at Home with Fami ly/Relatives. - Physical Therapy Decreased range of motion - to improve, our physical therapists will perform initial evaluation of pt 's status upon admission and devise an individualized program for increasing patient's Range of Motio n. Gait dysfunction - to improve, our physical therapists will perform initial evaluation of pt's status upon admission and devise an individualized program for Gait Training, and Wheel Chair mobility Inability to transfer - to improve, our physical therapists will perform initial evaluation of pt's s tatus upon admission and devise an individualized program for Bed mobility Need for home safety evaluation - to improve, our physical therapists will perform initial evaluation of pt's status upon admission and devise an individualized program for Home Evaluation Need in caregiver upon discharge - to improve, our physical therapists will perform initial evaluatio n of pt's status upon admission and devise an individualized program for Caregiver Training New precaution - to improve, our physical therapists will perform initial evaluation of pt's status u victorina admission and devise an individualized program for Patient precaution education Poor balance - to improve, our physical therapists will perform initial evaluation of pt's status upo n admission and devise an individualized program for Balance Training Poor endurance - to improve, our physical therapists will perform initial evaluation of pt's status u victorina admission and devise an individualized program for Endurance Training Weakness - to improve, our physical therapists will perform initial evaluation of pt's status upon ad mission and devise an individualized program for Aquatic Therapy, Neuromuscular Reeducation, and Stre ngthening Achieving independence - to improve, our physical therapists will perform initial evaluation of pt's status upon admission and devise an individualized program for Community Reintegration Activities - Occupational Therapy ADL deficits - to improve, our occupation therapists will perform initial evaluation of pt's status u victorina admission and devise an individualized program for Bathing, Bed mobility, Community Reintegration , Cooking, Dressing, Eating, Fine Motor Skills, Grooming, Homemaking, Kitchen Mobility, Laundry, Christal ent Education, Safety Awareness, Splinting - Positioning, Transfers(Toilet, Tub, Shower), and Wheel C hair Management Need for gericare aide teacher - to improve, our occupation therapists will perform initial evaluation of pt's s tatus upon admission and devise an individualized program for Caregiver Training Weakness - to improve, our occupation therapists will perform initial evaluation of pt's status upon admission and devise an individualized program for Aquatic Therapy, Balance, Endurance, UE ROM, and U E strengthening MEDICAL PLAN: - Anterior Hip Precaution No abduction No active extension No adduction across midline No external rotation No hip flexion >90 degrees No internal rotation - Diet - Liquid Texture Start Regular - Tube Feed Start N/A - Diet Type Start Regular - Posterior Hip Precaution No adduction across midline No external rotation No hip flexion >90 degrees No internal rotation No wheel chair propulsion - Weight Bearing Precaution TTWB right LE - Skin care per protocol - Other See attached MAR (Medication Administration Record) - Diet - Solid Texture Regular - Shower shower DISCHARGE PLAN: - Estimated Length of Stay (days) 14. - Consensus on plan Discharge plan has been discussed with primary caregiver. Patient/Family is in agreement with the jacquelyn n. Primary caregiver is in agreement with the plan. - Patient/Family Goals Return home independently. - Planned Living Setting Upon Discharge Home, to live with Family/Relatives. Transitional Living. 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
--- NOTE | 2019-12-25 16:59 | PAPE ---
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 Gordon David M.D. ADMISSION DIAGNOSIS: RIGHT FEMUR FRACTURE ONSET DATE 12/22/2019 POST-ADMISSION FUNCTIONAL/MEDICAL STATUS: - Bladder Same accident frequency: Ind - No accidents in the past 7 days - Bowel Same accident frequency: Ind - No accidents in the past 7 days - Walking Same score based on distance walked: 0(N/A) - Wheelchair Same score based on distance traveled: 0(N/A) STATUS CHANGE EVALUATION: No change in Functional or Medical Status is identified compared with Pre-Admission screening. PATIENT NEEDS CLOSE MEDICAL SUPERVISION BY A REHABILITATION PHYSICIAN FOR: Coordination of Treatment Team PATIENT REQUIRES 24X7 REHAB NURSING FOR MEDICAL AND FUNCTIONAL MGT. OF THE FOLLOWING DEFICITS: Disease Management Medication Management Patient/Family Education Providing Safe Environment PATIENT REQUIRES INTENSIVE, COORDINATED INTERDISCIPLINARY APPROACH TO REHAB: Arranging Home Equipment/Services Discharge Planning Family Intervention/Training Mill Work/Case Management LIST OF IDENTIFIED AND POTENTIAL PROBLEMS: Alteration in leisure activities Bladder, Incontinence Bowel, Incontinence Infection, Actual or Potential Mobility Impaired Pain, Alteration in Comfort Self Care Deficit Skin Integrity, Actual or Potential Urinary Tract Infection (UTI), Actual or Potential PATIENT COULD BE AT RISK FOR COMPLICATIONS FROM ADVERSE MEDICAL CONDITIONS DUE TO HIS/HER COMORBIDITI ES AND THE RIGORS OF THE INTENSIVE REHABILLITATION PROGRAM. METHODS OR INTERVENTIONS TO AVOID COMPLIC ATIONS INCLUDE: - Infection Clinical staff to assess and manage the signs and symptoms of infection including fever, redness, war mth, etc. - Urinary Tract Infection - Falls Patient will be evaluated for Fall Precautions and will be placed on Fall Precautions as indicated pe r protocol. - Skin Breakdown Nursing will assess skin daily using assessment tool and will place on Skin Breakdown Precautions as indicated per protocol. - Pain Clinical staff may employ non-medication methods such as massage, distraction, decrease stimulus, etc . as needed. Clinical staff will assess patient's pain level every shift per protocol to assess and e nsure pain management effectiveness. Medications will be given and the pain level re-assessed. PRELIMINARY PLAN OF CARE: - Physical Therapy Patient needs Physical Therapy for a daily minimum of 1.5 hours at least 5 out of 7 days, to improve: Mobility, Strengthening, Transfers, Stretching, ROM, Endurance, Ability to manage stairs, Gait, and Balance. - Speech Therapy Patient needs Speech Therapy for a daily minimum of 0.5 hours at least 5 out of 7 days, to improve: S wallowing, Cognition, Language Skills, and Compensatory Strategies. - Rehabilitation Nursing Patient requires 24x7 Rehabilitation Nursing for: Pain Issues, Identifying and preventing risk factor s, Monitoring and reporting current medical conditions, Assisting with ambulation and transfer, Alex ting with all ADL-s, Teaching patients about disease process and medications, Family teaching, Provid ing safe environment, Bowel and Bladder Issues, Skin Integrity, and Medication Management. Patient needs Mill Work and/or Case Management for: Discharge Planning, Arranging Home Equipmen t or Services, and Family Interventions. - Dietary and Nutrition Services Patient needs Dietary and Nutrition Services for: Adequate Nutrition, Nutritional Supplements, and Nu tritional Education. - Occupational Therapy Patient needs Occupational Therapy for a daily minimum of 1.5 hours at least 5 out of 7 days, to impr ove Activities of Daily Living, including: Eating, Grooming, Bathing, Dressing, Toileting, Toilet Tra nsfers, Community Reintegration, Higher functional activities, Adaptive Equipment, Splinting, Househo ld Tasks, and Other activities as determined. QI SCORES: - Self-Care A. Eating 04-Supervision or touching assistance B. Oral hygiene 04-Supervision or touching assistance C. Toileting hygiene 02-Substantial/maximal assistance E. Shower/bathe self 02-Substantial/maximal assistance F. Upper body dressing 03-Partial/moderate assistance G. Lower body dressing 02-Substantial/maximal assistance H. Putting on/taking off footwear 88-Not attempted due to medical condition or safety concerns - Mobility A. Roll left and right 03-Partial/moderate assistance B. Sit to lying 02-Substantial/maximal assistance C. Lying to sitting on side of bed 02-Substantial/maximal assistance D. Sit to stand 02-Substantial/maximal assistance E. Chair/zay-dq-lqlyd transfer 02-Substantial/maximal assistance F. Toilet transfer 02-Substantial/maximal assistance G. Car transfer 88-Not attempted due to medical condition or safety concerns I. Walk 10 feet 88-Not attempted due to medical condition or safety concerns J. Walk 50 feet with two turns 88-Not attempted due to medical condition or safety concerns K. Walk 150 feet 88-Not attempted due to medical condition or safety concerns L. Walking 10 feet on uneven surfaces 88-Not attempted due to medical condition or safety concerns M. 1 step (curb) 88-Not attempted due to medical condition or safety concerns N. 4 steps 88-Not attempted due to medical condition or safety concerns O. 12 steps 88-Not attempted due to medical condition or safety concerns P. Picking up object 88-Not attempted due to medical condition or safety concerns R. Wheel 50 feet with two turns 88-Not attempted due to medical condition or safety concerns S. Wheel 150 feet 88-Not attempted due to medical condition or safety concerns - Bladder and Bowel Bladder continence Bowel continence - Endurance Poor - Balance Poor - Safety Awareness Fair POTENTIAL FUNCTIONAL GOALS FOR PATIENT TO ACHIEVE BY DISCHARGE: - Safety Precaution Patient will remain free from falls or injury at time of discharge. - Bed Mobility Patient will perform bed mobility at 4-Aviva level of assistance. - Transfers Patient will complete transfers from bed to chair at 4-Aviva level of assistance. - Mobility Patient will ambulate 150 ft with 4-Aviva level of assistance with RW. PATIENT REHAB POTENTIAL Roe GAYLE is able and expected to receive 3 hours of individualized therapy daily on at least 5 of elza ry 7 days Roe VELASCOs prognosis for significant practical improvement within a reasonable period of time appears Good Expected level of measurable improvement will be of a practical value to Roe GAYLE's functional capaci ty or adaptations to impairments Has a viable Discharge Plan Medically appropriate; condition is sufficiently stable to participate in intensive rehab program DISCHARGE PLAN: - Estimated Length of Stay (days) 14. - Consensus on plan Discharge plan has been discussed with primary caregiver. Patient/Family is in agreement with the jacquelyn n. Primary caregiver is in agreement with the plan. - Patient/Family Goals Return home independently. - Planned Living Setting Upon Discharge Home, to live with Family/Relatives. Transitional Living. CONCLUSION ON REHABILITATION NECESSITY: I have evaluated patient's pre-admission functional status and, comparing it to the patient's post-ad mission functional status now, I conclude that the pre-admission assessment was accurate. Patient's c ondition on admission supports the medical necessity of admission to IR[facility]. It is safe to proceed with patient's therapy program. 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
[2019-12-25] MEDS: JUVEN PACKET PO SCH (20:00)
[2019-12-25] MEDS: CRANBERRY FRUIT EXTRACT 200 MG CAP PO SCH (21:32)
[2019-12-25] MEDS: ATORVASTATIN 80 MG TAB PO SCH (21:32)
[2019-12-25] MEDS: TAMSULOSIN 0.4 MG SR CAP PO SCH (21:32)
[2019-12-25] MEDS: MELATONIN 3 MG TABLET PO PRN (23:21)
[2019-12-26] MEDS: METOPROLOL XL 50 MG TAB PO SCH ×2 (05:06→17:23)
[2019-12-26] MEDS: INSULIN -REGULAR HUMAN 50 UNIT/0.5 ML ML SQ SCH ×4 (07:30→19:51)
[2019-12-26] MEDS: CRANBERRY FRUIT EXTRACT 200 MG CAP PO SCH ×2 (08:21→19:51)
[2019-12-26] MEDS: VITAMIN D 1000 UNIT TAB PO SCH (08:21)
[2019-12-26] MEDS: METFORMIN HCL 500 MG TAB PO SCH ×2 (08:22→17:23)
[2019-12-26] MEDS: FE SULF/FA/VIT B COMP & C TAB PO SCH (08:23)
[2019-12-26] MEDS: FERROUS SULFATE 325 MG TAB PO SCH (08:25)
[2019-12-26] MEDS: LIDOCAINE 4% PATCH TOP SCH (08:27)
[2019-12-26] MEDS: JUVEN PACKET PO SCH ×2 (08:27→19:51)
[2019-12-26] MEDS: ACETAMINOPHEN 500 MG TAB PO PRN (13:00)
[2019-12-26] MEDS: ENOXAPARIN 40 MG/0.4 ML SQ SCH (19:50)
[2019-12-26] MEDS: ATORVASTATIN 80 MG TAB PO SCH (19:51)
[2019-12-26] MEDS: TAMSULOSIN 0.4 MG SR CAP PO SCH (19:51)
[2019-12-26] MEDS: MELATONIN 3 MG TABLET PO PRN (19:52)
[2019-12-27] MEDS: METOPROLOL XL 50 MG TAB PO SCH ×2 (05:10→17:15)
[2019-12-27] MEDS: INSULIN -REGULAR HUMAN 50 UNIT/0.5 ML ML SQ SCH ×4 (07:30→20:05)
[2019-12-27] MEDS: ACETAMINOPHEN 500 MG TAB PO PRN ×2 (07:56→12:11)
[2019-12-27] MEDS: LIDOCAINE 4% PATCH TOP SCH (07:56)
[2019-12-27] MEDS: VITAMIN D 1000 UNIT TAB PO SCH (07:57)
[2019-12-27] MEDS: FERROUS SULFATE 325 MG TAB PO SCH (07:57)
[2019-12-27] MEDS: CRANBERRY FRUIT EXTRACT 200 MG CAP PO SCH ×2 (07:57→20:04)
[2019-12-27] MEDS: FE SULF/FA/VIT B COMP & C TAB PO SCH (07:57)
[2019-12-27] MEDS: JUVEN PACKET PO SCH ×2 (07:58→20:04)
[2019-12-27] MEDS: METFORMIN HCL 500 MG TAB PO SCH ×2 (07:58→17:16)
[2019-12-27 09:11] LABS: Absolute Lymphocytes (CBC) 1.1 K/uL (0.7-4.9); Basophils % 0.6 % (0-1.3); Hematocrit 28.7 % (39.6-49.0); Lymphocytes % 18.5 % (15.3-44.8); MPV 8.4 fL (7.6-11.3); RBC Red Blood Cell Count 3.22 M/uL (4.33-5.43)
--- NOTE | 2019-12-27 19:11 | R.PN ---
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 SUBJECTIVE: Pt denied any Shortness of Breath. Pt denied any depression. WBC 6.1, Hgb 9.6, glucose 114 to 136, creatinine 0.71, prealbumin 11.4, UA 1+ esterase, bacteria 20-5 0, WBC 10-20. Posterior propelled wheelchair 250' with minimum assistance. VITAL SIGNS Temperature: 99.2 F SBP/DBP: 134/67 Pulse: 69 Resp: 16 MEDICATION ALLERGIES: No Known Drug Allergies (NKDA) ENVIRONMENTAL ALLERGIES: - Substance Allergies None Known - Other Allergies None Known NURSING: - Shower allowing shower - Skin care per protocol PRECAUTIONS: - Anterior Hip Precaution No abduction No active extension No adduction across midline No external rotation No hip flexion >90 degrees No internal rotation - Posterior Hip Precaution No adduction across midline No external rotation No hip flexion >90 degrees No internal rotation No wheel chair propulsion - Weight Bearing Precaution TTWB right LE ACTIVITIES OOB only with supervision THERAPIES: - Dietary and Nutrition Adequate Nutrition. Nutritional Education. Nutritional Supplements. PHYSICAL EXAM - Gen Alert and awake Lying in bed No apparent distress Oriented to: person, time, and place - Skin No skin breakdown. Normacephalic - Eyes No abnormalities - ENMT No abnormalities - Neck No abnormalities No cervical adenopathy - CVS RRR - Chest Clear - Resp No wheezing - Abd Soft - GI nondistended Deferred - No abnormalities - Ext Right hip surgical site has good hemostasis. - MSK 4+/5 weakness in right lower extremity - Neuro 4/5 strength right lower extremity. - Psych No abnormalities ASSESSMENT: Pt. is a 89 yo Right-handed male of unknown race.On 12/22/2019 he was admitted to [facility] with diagnosis RIGHT FEMUR FRACTURE.His impairment category is Orthopaedic Disorders 08 - Unila teral Hip Fracture (09.20).Pre-morbidly, Pt. was independent/mod-I in Endurance, Communication, Safet y Awareness, Balance, Transfers Control, and Self-Care; and he had good Social Cognition.Currently, h e has deficits of Locomotion, Balance, Transfers Control, Self-Care, Sphincter Control, and Endurance .Pt. is now referred to [facility] for acute in-patient rehabilitation in [facility] r to maximize patient's functional independence in activities of daily living, strength, ROM, and mob ility.- Rehab Goal Patient has realistic goal of being discharged at assistance level 7-Ind to reside at Home with Fami ly/Relatives. MDM/PLAN: - Physical Therapy Decreased range of motion - to improve, our physical therapists will perform initial evaluation of p t's status upon admission and devise an individualized program for increasing patient's Range of Wade on. Gait dysfunction - to improve, our physical therapists will perform initial evaluation of pt's statu s upon admission and devise an individualized program for Gait Training, and Wheel Chair mobility Inability to transfer - to improve, our physical therapists will perform initial evaluation of pt's status upon admission and devise an individualized program for Bed mobility Need for home safety evaluation - to improve, our physical therapists will perform initial evaluatio n of pt's status upon admission and devise an individualized program for Home Evaluation Need in caregiver upon discharge - to improve, our physical therapists will perform initial evaluati on of pt's status upon admission and devise an individualized program for Caregiver Training New precaution - to improve, our physical therapists will perform initial evaluation of pt's status upon admission and devise an individualized program for Patient precaution education Poor balance - to improve, our physical therapists will perform initial evaluation of pt's status up on admission and devise an individualized program for Balance Training Poor endurance - to improve, our physical therapists will perform initial evaluation of pt's status upon admission and devise an individualized program for Endurance Training Weakness - to improve, our physical therapists will perform initial evaluation of pt's status upon a dmission and devise an individualized program for Aquatic Therapy, Neuromuscular Reeducation, and Str engthening Achieving independence - to improve, our physical therapists will perform initial evaluation of pt's status upon admission and devise an individualized program for Community Reintegration Activities - Occupational Therapy ADL deficits - to improve, our occupation therapists will perform initial evaluation of pt's status upon admission and devise an individualized program for Bathing, Bed mobility, Community Reintegratio n, Cooking, Dressing, Eating, Fine Motor Skills, Grooming, Homemaking, Kitchen Mobility, Laundry, Pat ient Education, Safety Awareness, Splinting - Positioning, Transfers(Toilet, Tub, Shower), and Wheel Chair Management Need for child care provider - to improve, our occupation therapists will perform initial evaluation of pt's status upon admission and devise an individualized program for Caregiver Training Weakness - to improve, our occupation therapists will perform initial evaluation of pt's status upon admission and devise an individualized program for Aquatic Therapy, Balance, Endurance, UE ROM, and UE strengthening - Other See attached MAR (Medication Administration Record) - Anterior Hip Precaution No abduction No active extension No adduction across midline No external rotation No hip flexion >90 degrees No internal rotation - Diet - Liquid Texture Continue Regular - Tube Feed Continue N/A - Diet Type Continue Regular - Posterior Hip Precaution No adduction across midline No external rotation No hip flexion >90 degrees No internal rotation No wheel chair propulsion - Weight Bearing Precaution TTWB right LE - Skin care per protocol - Diet - Solid Texture Continue Regular - Shower allowing shower FUNCTIONAL STATUS: UPDATED AT WEEKLY TEAM CONFERENCE - Bladder Same accident frequency: 7-Ind - No accidents in the past 7 days - Bowel Same accident frequency: 7-Ind - No accidents in the past 7 days - Walking Same score based on distance walked: 0(N/A) - Wheelchair Same score based on distance traveled: 0(N/A) FUNCTIONAL STATUS: - Self-Care A. Eating Paola B. Grooming Paola C. Bathing modA D. Dressing - Upper Aviva E. Dressing - Lower modA F. Toileting Aviva - Sphincter Control G. Bladder control Aviva H. Bowel control Aviva - Transfers Control I. Bed/Chair/Wheelchair Aviva J. Toilet Aviva K. Tub/Shower modA - Locomotion L. Walk/Wheelchair (B) sup M. Stairs ADNO - Communication N. Comprehension (B) Paola O. Expression (B) Paola - Social Cognition P. Social Interaction Paola Q. Problem Solving Paola R. Memory Paola - Endurance Fair - Balance Fair - Safety Awareness Fair QI SCORES: - Self-Care A. Eating 04-Supervision or touching assistance B. Oral hygiene 04-Supervision or touching assistance C. Toileting hygiene 02-Substantial/maximal assistance E. Shower/bathe self 02-Substantial/maximal assistance F. Upper body dressing 03-Partial/moderate assistance G. Lower body dressing 02-Substantial/maximal assistance H. Putting on/taking off footwear 88-Not attempted due to medical condition or safety concerns - Mobility A. Roll left and right 03-Partial/moderate assistance B. Sit to lying 02-Substantial/maximal assistance C. Lying to sitting on side of bed 02-Substantial/maximal assistance D. Sit to stand 02-Substantial/maximal assistance E. Chair/[id number] transfer 02-Substantial/maximal assistance F. Toilet transfer 02-Substantial/maximal assistance G. Car transfer 88-Not attempted due to medical condition or safety concerns I. Walk 10 feet 88-Not attempted due to medical condition or safety concerns J. Walk 50 feet with two turns 88-Not attempted due to medical condition or safety concerns K. Walk 150 feet 88-Not attempted due to medical condition or safety concerns L. Walking 10 feet on uneven surfaces 88-Not attempted due to medical condition or safety concerns M. 1 step (curb) 88-Not attempted due to medical condition or safety concerns N. 4 steps 88-Not attempted due to medical condition or safety concerns O. 12 steps 88-Not attempted due to medical condition or safety concerns P. Picking up object 88-Not attempted due to medical condition or safety concerns R. Wheel 50 feet with two turns 88-Not attempted due to medical condition or safety concerns S. Wheel 150 feet 88-Not attempted due to medical condition or safety concerns - Bladder and Bowel Bladder continence Bowel continence - Endurance Poor - Balance Poor - Safety Awareness Fair CURRENT FUNC. 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
[2019-12-27] MEDS: TAMSULOSIN 0.4 MG SR CAP PO SCH (20:04)
[2019-12-27] MEDS: ENOXAPARIN 40 MG/0.4 ML SQ SCH (20:04)
[2019-12-27] MEDS: ATORVASTATIN 80 MG TAB PO SCH (20:04)
[2019-12-27] MEDS: MELATONIN 3 MG TABLET PO PRN (20:05)
[2019-12-27] MEDS: DOCUSATE NA/SENNA CONC 1 TAB PO PRN (20:05)
--- NOTE | 2019-12-28 02:05 | FAST ---
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 Gordon David M.D. ADMISSION DIAGNOSIS: - Orthopaedic Disorders 08 - Unilateral Hip Fracture (08.11) RIGHT FEMUR FRACTURE. EATING: Not assessed/no information CODE: - ORAL HYGIENE: Not attempted due to medical condition or safety concerns CODE: 88 TOILETING HYGIENE: TOILETING HYGIENE - STEP 1: Does the patient complete the activity by him/herself with no assistance (physical, verbal/nonverbal cueing, setup/clean-up)? No. TOILETING HYGIENE - STEP 2: Does the patient need only setup/clean-up assistance from one helper? No. TOILETING HYGIENE - STEP 3: Does the patient need only verbal/nonverbal cueing or touching/steadying/contact guard assistance fro m one helper? Yes. 1. [id number] ADMISSION PERFORMANCE: Supervision or touching assistance CODE: 04 BATHING: Not assessed/no information CODE: - DRESSING - UPPER BODY: Not assessed/no information CODE: - DRESSING - LOWER BODY: Not assessed/no information CODE: - PUTTING ON/TAKING OFF FOOTWEAR: Not assessed/no information CODE: - ROLL LEFT AND RIGHT: ROLL LEFT AND RIGHT - STEP 1: Does the patient complete the activity by him/herself with no assistance (physical, verbal/nonverbal cueing, setup/clean-up)? No. ROLL LEFT AND RIGHT - STEP 2: Does the patient need only setup/clean-up assistance from one helper? No. ROLL LEFT AND RIGHT - STEP 3: Does the patient need only verbal/nonverbal cueing or touching/steadying/contact guard assistance fro m one helper? Yes. 1. [id number] ADMISSION PERFORMANCE: Supervision or touching assistance CODE: 04 SIT TO LYING: Not assessed/no information CODE: - LYING TO SITTING: Not assessed/no information CODE: - SIT TO STAND: Not assessed/no information CODE: - TRANSFERS: BED, CHAIR: Not assessed/no information CODE: - TRANSFER TOILET: Not assessed/no information CODE: - TRANSFERS: CAR: Not assessed/no information CODE: - WALK 10 FEET: Not assessed/no information CODE: - 1 STEP (CURB): Not assessed/no information CODE: - PICKING UP OBJECT: Not assessed/no information CODE: - DOES THE PATIENT USE A WHEELCHAIR/SCOOTER? CODE: EXPR WHEEL 50 FEET WITH TWO TURNS: Not assessed/no information CODE: - INDICATE THE TYPE OF WHEELCHAIR/SCOOTER USED: CODE: EXPR WHEEL 150 FEET: Not assessed/no information CODE: - INDICATE THE TYPE OF WHEELCHAIR/SCOOTER USED: CODE: EXPR BLADDER AND BOWEL: H350. BLADDER CONTINENCE (3-DAY ASSESSMENT PERIOD): Always continent (no documented incontinence) CODE: 0 H400. BOWEL CONTINENCE (3-DAY ASSESSMENT PERIOD): Always continent CODE: 0
[2019-12-28] MEDS: METOPROLOL XL 50 MG TAB PO SCH ×2 (05:04→17:30)
[2019-12-28] MEDS: INSULIN -REGULAR HUMAN 50 UNIT/0.5 ML ML SQ SCH ×4 (07:30→20:59)
[2019-12-28] MEDS: METFORMIN HCL 500 MG TAB PO SCH ×2 (07:59→17:30)
[2019-12-28] MEDS: FERROUS SULFATE 325 MG TAB PO SCH (08:00)
[2019-12-28] MEDS: CRANBERRY FRUIT EXTRACT 200 MG CAP PO SCH ×2 (08:00→20:58)
[2019-12-28] MEDS: VITAMIN D 1000 UNIT TAB PO SCH (08:00)
[2019-12-28] MEDS: FE SULF/FA/VIT B COMP & C TAB PO SCH (08:00)
[2019-12-28] MEDS: JUVEN PACKET PO SCH ×2 (08:01→21:02)
[2019-12-28] MEDS: ACETAMINOPHEN 500 MG TAB PO PRN ×2 (08:02→13:02)
[2019-12-28] MEDS: LIDOCAINE 4% PATCH TOP SCH (09:32)
[2019-12-28] MEDS: TRAMADOL HCL 50 MG TAB PO PRN (10:53)
--- NOTE | 2019-12-28 17:23 | R.PN ---
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 SUBJECTIVE: Pt denied any Shortness of Breath. Pt denied any depression. WBC 6.1, Hgb 9.6, glucose 111 to 137, creatinine 0.71, prealbumin 11.4, UA 1+ esterase, bacteria 20-5 0, WBC 10-20. Ambulated 95' with minimum to moderate assistance using a rolling walker. Posterior propelled wheelc hair 250' with standby assistance. VITAL SIGNS Temperature: 98.5 F SBP/DBP: 127/73 Pulse: 78 Resp: 16 MEDICATION ALLERGIES: No Known Drug Allergies (NKDA) ENVIRONMENTAL ALLERGIES: - Substance Allergies None Known - Other Allergies None Known NURSING: - Shower allowing shower - Skin care per protocol PRECAUTIONS: - Anterior Hip Precaution No abduction No active extension No adduction across midline No external rotation No hip flexion >90 degrees No internal rotation - Posterior Hip Precaution No adduction across midline No external rotation No hip flexion >90 degrees No internal rotation No wheel chair propulsion - Weight Bearing Precaution TTWB right LE ACTIVITIES OOB only with supervision THERAPIES: - Dietary and Nutrition Adequate Nutrition. Nutritional Education. Nutritional Supplements. PHYSICAL EXAM - Gen Alert and awake Lying in bed No apparent distress Oriented to: person, time, and place - Skin No skin breakdown. Normacephalic - Eyes No abnormalities - ENMT No abnormalities - Neck No abnormalities No cervical adenopathy - CVS RRR - Chest Clear - Resp No wheezing - Abd Soft - GI nondistended Deferred - No abnormalities - Ext Right hip surgical site has good hemostasis. - MSK 4+/5 weakness in right lower extremity - Neuro 4/5 strength right lower extremity. - Psych No abnormalities ASSESSMENT: Pt. is a 89 yo Right-handed male of unknown race.On 12/22/2019 he was admitted to [facility] with diagnosis RIGHT FEMUR FRACTURE.His impairment category is Orthopaedic Disorders 08 - Unila teral Hip Fracture (09.20).Pre-morbidly, Pt. was independent/mod-I in Endurance, Communication, Safet y Awareness, Balance, Transfers Control, and Self-Care; and he had good Social Cognition.Currently, h e has deficits of Locomotion, Balance, Transfers Control, Self-Care, Sphincter Control, and Endurance .Pt. is now referred to [facility] for acute in-patient rehabilitation in [place] to maximize patient's functional independence in activities of daily living, strength, ROM, and mob ility.- Rehab Goal Patient has realistic goal of being discharged at assistance level 7-Ind to reside at Home with Fami ly/Relatives. MDM/PLAN: - Physical Therapy Decreased range of motion - to improve, our physical therapists will perform initial evaluation of p t's status upon admission and devise an individualized program for increasing patient's Range of Wade on. Gait dysfunction - to improve, our physical therapists will perform initial evaluation of pt's statu s upon admission and devise an individualized program for Gait Training, and Wheel Chair mobility Inability to transfer - to improve, our physical therapists will perform initial evaluation of pt's status upon admission and devise an individualized program for Bed mobility Need for home safety evaluation - to improve, our physical therapists will perform initial evaluatio n of pt's status upon admission and devise an individualized program for Home Evaluation Need in caregiver upon discharge - to improve, our physical therapists will perform initial evaluati on of pt's status upon admission and devise an individualized program for Caregiver Training New precaution - to improve, our physical therapists will perform initial evaluation of pt's status upon admission and devise an individualized program for Patient precaution education Poor balance - to improve, our physical therapists will perform initial evaluation of pt's status up on admission and devise an individualized program for Balance Training Poor endurance - to improve, our physical therapists will perform initial evaluation of pt's status upon admission and devise an individualized program for Endurance Training Weakness - to improve, our physical therapists will perform initial evaluation of pt's status upon a dmission and devise an individualized program for Aquatic Therapy, Neuromuscular Reeducation, and Str engthening Achieving independence - to improve, our physical therapists will perform initial evaluation of pt's status upon admission and devise an individualized program for Community Reintegration Activities - Occupational Therapy ADL deficits - to improve, our occupation therapists will perform initial evaluation of pt's status upon admission and devise an individualized program for Bathing, Bed mobility, Community Reintegratio n, Cooking, Dressing, Eating, Fine Motor Skills, Grooming, Homemaking, Kitchen Mobility, Laundry, Pat ient Education, Safety Awareness, Splinting - Positioning, Transfers(Toilet, Tub, Shower), and Wheel Chair Management Need for animal care service worker - to improve, our occupation therapists will perform initial evaluation of pt's status upon admission and devise an individualized program for Caregiver Training Weakness - to improve, our occupation therapists will perform initial evaluation of pt's status upon admission and devise an individualized program for Aquatic Therapy, Balance, Endurance, UE ROM, and UE strengthening - Other See attached MAR (Medication Administration Record) - Anterior Hip Precaution No abduction No active extension No adduction across midline No external rotation No hip flexion >90 degrees No internal rotation - Diet - Liquid Texture Continue Regular - Tube Feed Continue N/A - Diet Type Continue Regular - Posterior Hip Precaution No adduction across midline No external rotation No hip flexion >90 degrees No internal rotation No wheel chair propulsion - Weight Bearing Precaution TTWB right LE - Skin care per protocol - Diet - Solid Texture Continue Regular - Shower allowing shower FUNCTIONAL STATUS: UPDATED AT WEEKLY TEAM CONFERENCE - Bladder Same accident frequency: 7-Ind - No accidents in the past 7 days - Bowel Same accident frequency: 7-Ind - No accidents in the past 7 days - Walking Same score based on distance walked: 0(N/A) - Wheelchair Same score based on distance traveled: 0(N/A) FUNCTIONAL STATUS: - Self-Care A. Eating Paola B. Grooming Paola C. Bathing modA D. Dressing - Upper Aviva E. Dressing - Lower modA F. Toileting Aviva - Sphincter Control G. Bladder control Aviva H. Bowel control Aviva - Transfers Control I. Bed/Chair/Wheelchair Aviva J. Toilet Aviva K. Tub/Shower modA - Locomotion L. Walk/Wheelchair (B) sup M. Stairs ADNO - Communication N. Comprehension (B) Paola O. Expression (B) Paola - Social Cognition P. Social Interaction Paola Q. Problem Solving Paola R. Memory Paola - Endurance Fair - Balance Fair - Safety Awareness Fair QI SCORES: - Self-Care A. Eating 04-Supervision or touching assistance B. Oral hygiene 04-Supervision or touching assistance C. Toileting hygiene 02-Substantial/maximal assistance E. Shower/bathe self 02-Substantial/maximal assistance F. Upper body dressing 03-Partial/moderate assistance G. Lower body dressing 02-Substantial/maximal assistance H. Putting on/taking off footwear 88-Not attempted due to medical condition or safety concerns - Mobility A. Roll left and right 03-Partial/moderate assistance B. Sit to lying 02-Substantial/maximal assistance C. Lying to sitting on side of bed 02-Substantial/maximal assistance D. Sit to stand 02-Substantial/maximal assistance E. Chair/[id number] transfer 02-Substantial/maximal assistance F. Toilet transfer 02-Substantial/maximal assistance G. Car transfer 88-Not attempted due to medical condition or safety concerns I. Walk 10 feet 88-Not attempted due to medical condition or safety concerns J. Walk 50 feet with two turns 88-Not attempted due to medical condition or safety concerns K. Walk 150 feet 88-Not attempted due to medical condition or safety concerns L. Walking 10 feet on uneven surfaces 88-Not attempted due to medical condition or safety concerns M. 1 step (curb) 88-Not attempted due to medical condition or safety concerns N. 4 steps 88-Not attempted due to medical condition or safety concerns O. 12 steps 88-Not attempted due to medical condition or safety concerns P. Picking up object 88-Not attempted due to medical condition or safety concerns R. Wheel 50 feet with two turns 88-Not attempted due to medical condition or safety concerns S. Wheel 150 feet 88-Not attempted due to medical condition or safety concerns - Bladder and Bowel Bladder continence Bowel continence - Endurance Poor - Balance Poor - Safety Awareness Fair CURRENT FUNC. 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
[2019-12-28] MEDS: ATORVASTATIN 80 MG TAB PO SCH (20:58)
[2019-12-28] MEDS: DOCUSATE NA/SENNA CONC 1 TAB PO PRN (20:58)
[2019-12-28] MEDS: MELATONIN 3 MG TABLET PO PRN (20:59)
[2019-12-28] MEDS: ENOXAPARIN 40 MG/0.4 ML SQ SCH (20:59)
[2019-12-28] MEDS: TAMSULOSIN 0.4 MG SR CAP PO SCH (21:02)
[2019-12-29] MEDS: METOPROLOL XL 50 MG TAB PO SCH ×2 (05:31→16:59)
[2019-12-29] MEDS: INSULIN -REGULAR HUMAN 50 UNIT/0.5 ML ML SQ SCH ×4 (07:30→20:08)
[2019-12-29] MEDS: TRAMADOL HCL 50 MG TAB PO PRN ×2 (08:29→13:08)
[2019-12-29] MEDS: JUVEN PACKET PO SCH ×2 (08:31→20:00)
[2019-12-29] MEDS: FERROUS SULFATE 325 MG TAB PO SCH (08:31)
[2019-12-29] MEDS: CRANBERRY FRUIT EXTRACT 200 MG CAP PO SCH ×2 (08:31→20:07)
[2019-12-29] MEDS: METFORMIN HCL 500 MG TAB PO SCH ×2 (08:31→16:59)
[2019-12-29] MEDS: FE SULF/FA/VIT B COMP & C TAB PO SCH (08:31)
[2019-12-29] MEDS: VITAMIN D 1000 UNIT TAB PO SCH (08:32)
[2019-12-29] MEDS: LIDOCAINE 4% PATCH TOP SCH (09:46)
[2019-12-29] MEDS ORDERED: LIDOCAINE 4% PATCH TOP ONE (13:45)
--- NOTE | 2019-12-29 17:24 | R.PN ---
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 SUBJECTIVE: Pt denied any Shortness of Breath. Pt denied any depression. WBC 6.1, Hgb 9.6, glucose 111 to 137, creatinine 0.71, prealbumin 11.4, UA 1+ esterase, bacteria 20-5 0, WBC 10-20. Ambulated 45' with minimum to moderate assistance using a rolling walker. Posterior propelled wheelc hair 250' with standby assistance. VITAL SIGNS Temperature: 98.0 F SBP/DBP: 128/72 Pulse: 80 Resp: 16 MEDICATION ALLERGIES: No Known Drug Allergies (NKDA) ENVIRONMENTAL ALLERGIES: - Substance Allergies None Known - Other Allergies None Known NURSING: - Shower allowing shower - Skin care per protocol PRECAUTIONS: - Anterior Hip Precaution No abduction No active extension No adduction across midline No external rotation No hip flexion >90 degrees No internal rotation - Posterior Hip Precaution No adduction across midline No external rotation No hip flexion >90 degrees No internal rotation No wheel chair propulsion - Weight Bearing Precaution TTWB right LE ACTIVITIES OOB only with supervision THERAPIES: - Dietary and Nutrition Adequate Nutrition. Nutritional Education. Nutritional Supplements. PHYSICAL EXAM - Gen Alert and awake Lying in bed No apparent distress Oriented to: person, time, and place - Skin No skin breakdown. Normacephalic - Eyes No abnormalities - ENMT No abnormalities - Neck No abnormalities No cervical adenopathy - CVS RRR - Chest Clear - Resp No wheezing - Abd Soft - GI nondistended Deferred - No abnormalities - Ext Right hip surgical site has good hemostasis. - MSK 4+/5 weakness in right lower extremity - Neuro 4/5 strength right lower extremity. - Psych No abnormalities ASSESSMENT: Pt. is a 89 yo Right-handed male of unknown race.On 12/22/2019 he was admitted to [facility] with diagnosis RIGHT FEMUR FRACTURE.His impairment category is Orthopaedic Disorders 08 - Unila teral Hip Fracture (09.20).Pre-morbidly, Pt. was independent/mod-I in Endurance, Communication, Safet y Awareness, Balance, Transfers Control, and Self-Care; and he had good Social Cognition.Currently, h e has deficits of Locomotion, Balance, Transfers Control, Self-Care, Sphincter Control, and Endurance .Pt. is now referred to [facility] for acute in-patient rehabilitation in [place] to maximize patient's functional independence in activities of daily living, strength, ROM, and mob ility.- Rehab Goal Patient has realistic goal of being discharged at assistance level 7-Ind to reside at Home with Fami ly/Relatives. MDM/PLAN: - Physical Therapy Decreased range of motion - to improve, our physical therapists will perform initial evaluation of p t's status upon admission and devise an individualized program for increasing patient's Range of Wade on. Gait dysfunction - to improve, our physical therapists will perform initial evaluation of pt's statu s upon admission and devise an individualized program for Gait Training, and Wheel Chair mobility Inability to transfer - to improve, our physical therapists will perform initial evaluation of pt's status upon admission and devise an individualized program for Bed mobility Need for home safety evaluation - to improve, our physical therapists will perform initial evaluatio n of pt's status upon admission and devise an individualized program for Home Evaluation Need in caregiver upon discharge - to improve, our physical therapists will perform initial evaluati on of pt's status upon admission and devise an individualized program for Caregiver Training New precaution - to improve, our physical therapists will perform initial evaluation of pt's status upon admission and devise an individualized program for Patient precaution education Poor balance - to improve, our physical therapists will perform initial evaluation of pt's status up on admission and devise an individualized program for Balance Training Poor endurance - to improve, our physical therapists will perform initial evaluation of pt's status upon admission and devise an individualized program for Endurance Training Weakness - to improve, our physical therapists will perform initial evaluation of pt's status upon a dmission and devise an individualized program for Aquatic Therapy, Neuromuscular Reeducation, and Str engthening Achieving independence - to improve, our physical therapists will perform initial evaluation of pt's status upon admission and devise an individualized program for Community Reintegration Activities - Occupational Therapy ADL deficits - to improve, our occupation therapists will perform initial evaluation of pt's status upon admission and devise an individualized program for Bathing, Bed mobility, Community Reintegratio n, Cooking, Dressing, Eating, Fine Motor Skills, Grooming, Homemaking, Kitchen Mobility, Laundry, Pat ient Education, Safety Awareness, Splinting - Positioning, Transfers(Toilet, Tub, Shower), and Wheel Chair Management Need for anesthesiologist and critical care - to improve, our occupation therapists will perform initial evaluation of pt's status upon admission and devise an individualized program for Caregiver Training Weakness - to improve, our occupation therapists will perform initial evaluation of pt's status upon admission and devise an individualized program for Aquatic Therapy, Balance, Endurance, UE ROM, and UE strengthening - Other See attached MAR (Medication Administration Record) - Anterior Hip Precaution No abduction No active extension No adduction across midline No external rotation No hip flexion >90 degrees No internal rotation - Diet - Liquid Texture Continue Regular - Tube Feed Continue N/A - Diet Type Continue Regular - Posterior Hip Precaution No adduction across midline No external rotation No hip flexion >90 degrees No internal rotation No wheel chair propulsion - Weight Bearing Precaution TTWB right LE - Skin care per protocol - Diet - Solid Texture Continue Regular - Shower allowing shower FUNCTIONAL STATUS: UPDATED AT WEEKLY TEAM CONFERENCE - Bladder Same accident frequency: 7-Ind - No accidents in the past 7 days - Bowel Same accident frequency: 7-Ind - No accidents in the past 7 days - Walking Same score based on distance walked: 0(N/A) - Wheelchair Same score based on distance traveled: 0(N/A) FUNCTIONAL STATUS: - Self-Care A. Eating Paola B. Grooming Paola C. Bathing modA D. Dressing - Upper Aviva E. Dressing - Lower modA F. Toileting Aviva - Sphincter Control G. Bladder control Aviva H. Bowel control Aviva - Transfers Control I. Bed/Chair/Wheelchair Aviva J. Toilet Aviva K. Tub/Shower modA - Locomotion L. Walk/Wheelchair (B) sup M. Stairs ADNO - Communication N. Comprehension (B) Paola O. Expression (B) Paola - Social Cognition P. Social Interaction Paola Q. Problem Solving Paola R. Memory Paola - Endurance Fair - Balance Fair - Safety Awareness Fair QI SCORES: - Self-Care A. Eating 04-Supervision or touching assistance B. Oral hygiene 04-Supervision or touching assistance C. Toileting hygiene 02-Substantial/maximal assistance E. Shower/bathe self 02-Substantial/maximal assistance F. Upper body dressing 03-Partial/moderate assistance G. Lower body dressing 02-Substantial/maximal assistance H. Putting on/taking off footwear 88-Not attempted due to medical condition or safety concerns - Mobility A. Roll left and right 03-Partial/moderate assistance B. Sit to lying 02-Substantial/maximal assistance C. Lying to sitting on side of bed 02-Substantial/maximal assistance D. Sit to stand 02-Substantial/maximal assistance E. Chair/[id number] transfer 02-Substantial/maximal assistance F. Toilet transfer 02-Substantial/maximal assistance G. Car transfer 88-Not attempted due to medical condition or safety concerns I. Walk 10 feet 88-Not attempted due to medical condition or safety concerns J. Walk 50 feet with two turns 88-Not attempted due to medical condition or safety concerns K. Walk 150 feet 88-Not attempted due to medical condition or safety concerns L. Walking 10 feet on uneven surfaces 88-Not attempted due to medical condition or safety concerns M. 1 step (curb) 88-Not attempted due to medical condition or safety concerns N. 4 steps 88-Not attempted due to medical condition or safety concerns O. 12 steps 88-Not attempted due to medical condition or safety concerns P. Picking up object 88-Not attempted due to medical condition or safety concerns R. Wheel 50 feet with two turns 88-Not attempted due to medical condition or safety concerns S. Wheel 150 feet 88-Not attempted due to medical condition or safety concerns - Bladder and Bowel Bladder continence Bowel continence - Endurance Poor - Balance Poor - Safety Awareness Fair CURRENT FUNC. 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
[2019-12-29] MEDS: ATORVASTATIN 80 MG TAB PO SCH (20:07)
[2019-12-29] MEDS: ENOXAPARIN 40 MG/0.4 ML SQ SCH (20:07)
[2019-12-29] MEDS: MELATONIN 3 MG TABLET PO PRN (20:08)
[2019-12-29] MEDS: TAMSULOSIN 0.4 MG SR CAP PO SCH (20:08)
[2019-12-30] MEDS: METOPROLOL XL 50 MG TAB PO SCH ×2 (05:14→17:50)
[2019-12-30 06:43] LABS: Absolute Lymphocytes (CBC) 0.7 K/uL (0.7-4.9); Basophils % 0.3 % (0-1.3); Hematocrit 25.5 % (39.6-49.0); Lymphocytes % 10.3 % (15.3-44.8); MPV 7.9 fL (7.6-11.3); RBC Red Blood Cell Count 2.89 M/uL (4.33-5.43)
[2019-12-30 06:54] LABS: Albumin 2.6 g/dL (3.4-5.0); Potassium 3.6 mmol/L (3.5-5.1); Prealbumin 10.9 mg/dL (20-40)
[2019-12-30] MEDS: TRAMADOL HCL 50 MG TAB PO PRN (06:55)
[2019-12-30] MEDS: INSULIN -REGULAR HUMAN 50 UNIT/0.5 ML ML SQ SCH ×4 (07:30→20:29)
[2019-12-30] MEDS: LIDOCAINE 4% PATCH TOP SCH (09:18)
[2019-12-30] MEDS: FERROUS SULFATE 325 MG TAB PO SCH (09:19)
[2019-12-30] MEDS: METFORMIN HCL 500 MG TAB PO SCH ×2 (09:19→17:50)
[2019-12-30] MEDS: CRANBERRY FRUIT EXTRACT 200 MG CAP PO SCH ×2 (09:19→20:28)
[2019-12-30] MEDS: JUVEN PACKET PO SCH ×2 (09:20→20:29)
[2019-12-30] MEDS: FE SULF/FA/VIT B COMP & C TAB PO SCH (09:20)
[2019-12-30] MEDS: VITAMIN D 1000 UNIT TAB PO SCH (09:22)
[2019-12-30] MEDS: ENOXAPARIN 40 MG/0.4 ML SQ SCH (20:28)
[2019-12-30] MEDS: ACETAMINOPHEN 500 MG TAB PO PRN (20:28)
[2019-12-30] MEDS: MELATONIN 3 MG TABLET PO PRN (20:29)
[2019-12-30] MEDS: ATORVASTATIN 80 MG TAB PO SCH (20:29)
[2019-12-30] MEDS: TAMSULOSIN 0.4 MG SR CAP PO SCH (20:29)
[2019-12-31] MEDS: METOPROLOL XL 50 MG TAB PO SCH ×2 (05:43→16:53)
[2019-12-31] MEDS: INSULIN -REGULAR HUMAN 50 UNIT/0.5 ML ML SQ SCH ×4 (07:30→20:27)
[2019-12-31] MEDS: JUVEN PACKET PO SCH ×2 (08:34→20:26)
[2019-12-31] MEDS: TRAMADOL HCL 50 MG TAB PO PRN ×2 (08:34→12:48)
[2019-12-31] MEDS: CRANBERRY FRUIT EXTRACT 200 MG CAP PO SCH ×2 (08:35→20:26)
[2019-12-31] MEDS: VITAMIN D 1000 UNIT TAB PO SCH (08:35)
[2019-12-31] MEDS: METFORMIN HCL 500 MG TAB PO SCH ×2 (08:35→16:52)
[2019-12-31] MEDS: FERROUS SULFATE 325 MG TAB PO SCH (08:35)
[2019-12-31] MEDS: FE SULF/FA/VIT B COMP & C TAB PO SCH (08:36)
[2019-12-31] MEDS: LIDOCAINE 4% PATCH TOP SCH (09:56)
--- NOTE | 2019-12-31 10:03 | P.RH.PN ---
Estimated Length of Stay: 16 Expected Discharge Date: 01/08/20 Discharge Disposition Plan: Home Family Support: Yes Detention Goal: Mobility, Transfers, Self Care Vital Signs: Last Vital Signs Temp 98.7 F 12/31/19 07:54 Pulse 70 12/31/19 07:54 Resp 18 12/31/19 08:34 BP 117/66 12/31/19 07:54 Pulse Ox 95 12/31/19 08:34 Laboratory: Laboratory Last Values WBC 6.6 K/uL (4.3-10.9) 12/30/19 06:14 RBC 2.89 M/uL (4.33-5.43) L 12/30/19 06:14 Hgb 8.7 g/dL (13.6-17.9) L 12/30/19 06:14 Hct 25.5 % (39.6-49.0) L 12/30/19 06:14 MCV 88.3 fL (80-100) 12/30/19 06:14 MCH 30.3 pg (27.0-35.0) 12/30/19 06:14 MCHC 34.3 g/dL (32.0-36.0) 12/30/19 06:14 RDW 13.7 % (12.1-15.2) 12/30/19 06:14 Plt Count 178 K/uL (152-406) 12/30/19 06:14 MPV 7.9 fL (7.6-11.3) 12/30/19 06:14 Neutrophils % 79.2 % (41.7-73.7) H 12/30/19 06:14 Lymphocytes % 10.3 % (15.3-44.8) L 12/30/19 06:14 Monocytes % 9.4 % (3.3-12.3) 12/30/19 06:14 Eosinophils % 0.8 % (0-4.4) 12/30/19 06:14 Basophils % 0.3 % (0-1.3) 12/30/19 06:14 Absolute Neutrophils 5.2 K/uL (1.8-8.0) 12/30/19 06:14 Absolute Lymphocytes 0.7 K/uL (0.7-4.9) 12/30/19 06:14 Absolute Monocytes 0.6 K/uL (0.1-1.3) 12/30/19 06:14 Absolute Eosinophils 0.1 K/uL (0-0.5) 12/30/19 06:14 Absolute Basophils 0.0 K/uL (0-0.5) 12/30/19 06:14 Sodium 142 mmol/L (136-145) 12/30/19 06:14 Potassium 3.6 mmol/L (3.5-5.1) 12/30/19 06:14 Chloride 108 mmol/L (98-107) H 12/30/19 06:14 Carbon Dioxide 28 mmol/L (21-32) 12/30/19 06:14 BUN 19 mg/dL (7-18) H 12/30/19 06:14 Creatinine 0.81 mg/dL (0.55-1.3) 12/30/19 06:14 Estimated GFR 90 mL/min (=/>90) 12/30/19 06:14 Glucose 141 mg/dL (74-106) H 12/30/19 06:14 POC Glucose 119 mg/dL (65-120) 12/30/19 19:44 Calcium 8.5 mg/dL (8.5-10.1) 12/30/19 06:14 Magnesium 2.0 mg/dL (1.8-2.4) 12/30/19 06:14 Albumin 2.6 g/dL (3.4-5.0) L 12/30/19 06:14 Prealbumin 10.9 mg/dL (20-40) L 12/30/19 06:14 Urine Color Yellow 12/25/19 00:48 Urine Appearance Clear 12/25/19 00:48 Urine pH 6.0 (5.0-7.0) 12/25/19 00:48 Ur Specific [place] 1.020 (1.005-1.030) 12/25/19 00:48 Glucose (UA)(Auto) Negative (NEG) 12/25/19 00:48 Urine Ketones Negative (NEG) 12/25/19 00:48 Urine Blood 1+ (NEG) H 12/25/19 00:48 Urine Nitrite Negative (NEG) 12/25/19 00:48 Urine Bilirubin Negative (NEG) 12/25/19 00:48 Urine Urobilinogen 1.0 mg/dL (0.2-1.0) 12/25/19 00:48 Ur Leukocyte Esterase 1+ (NEG) H 12/25/19 00:48 Urine RBC 10-20 /HPF (NONE SEEN) H 12/25/19 00:48 Urine WBC 10-20 /HPF (<5) H 12/25/19 00:48 Ur Squamous Epith Cells 5-10 /HPF (NONE SEEN) H 12/25/19 00:48 Urine Bacteria 20-50 /HPF (NONE SEEN) H 12/25/19 00:48 Urine Mucus 2+ /HPF (NONE SEEN) 12/25/19 00:48 Urine Culture Reflexed Not needed 12/25/19 00:48 Urine Total Protein Trace (NEG) 12/25/19 00:48 Weight: 197 lb 4.8 oz Wound Present: No Closed Surgical Incision Present: Yes Negative Pressure Wound Therapy Present: No Physician Update: Labs are stable. He requires reminders to keep his TDWB status. Walking 40' min assistance. Transfers are min to contact guard assistance. Functional Improvement: pt has demonstrated progress throughout the week. He is improving with his tolerance to ambulation; however, he does require close monitoring reharding his ability to maintain TDWB. pt continues to require skilled PT services to enhance his functional ability and overall safety. 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 Please see the Rehabilitation Signature page for all necessary signatures.
[2019-12-31] MEDS: TAMSULOSIN 0.4 MG SR CAP PO SCH (20:26)
[2019-12-31] MEDS: ENOXAPARIN 40 MG/0.4 ML SQ SCH (20:26)
[2019-12-31] MEDS: ATORVASTATIN 80 MG TAB PO SCH (20:26)
[2020-01-01] MEDS: METOPROLOL XL 50 MG TAB PO SCH ×4 (05:07→20:53)
[2020-01-01] MEDS: INSULIN -REGULAR HUMAN 50 UNIT/0.5 ML ML SQ SCH ×4 (07:30→20:53)
[2020-01-01] MEDS: JUVEN PACKET PO SCH ×2 (08:00→20:54)
[2020-01-01] MEDS: LIDOCAINE 4% PATCH TOP SCH (08:49)
[2020-01-01] MEDS: METFORMIN HCL 500 MG TAB PO SCH ×2 (08:50→17:17)
[2020-01-01] MEDS: CRANBERRY FRUIT EXTRACT 200 MG CAP PO SCH ×2 (08:50→20:52)
[2020-01-01] MEDS: FERROUS SULFATE 325 MG TAB PO SCH (08:50)
[2020-01-01] MEDS: VITAMIN D 1000 UNIT TAB PO SCH (08:50)
[2020-01-01] MEDS: FE SULF/FA/VIT B COMP & C TAB PO SCH (08:51)
[2020-01-01] MEDS: ACETAMINOPHEN 500 MG TAB PO PRN (08:54)
--- NOTE | 2020-01-01 10:04 | EKG ---
Test Date: 2020-01-01 Test Time: 07:36:43 [employer] Clerk: DANIA MEASUREMENT RESULTS: Intervals: Rate: 79 NM: QRSD: 158 QT: 450 QTc: 516 Raymond: P: 42 NM: QRS: -79 T: 70 INTERPRETIVE STATEMENTS: Atrial flutter with 4:1 AV conduction Left axis deviation Right bundle branch block Abnormal ECG Compared to ECG 12/22/2019 15:45:02 Left-axis deviation now present Sinus rhythm no longer present First degree AV block no longer present Left anterior fascicular block no longer present Bifascicular block no longer present Left ventricular hypertrophy no longer present Early repolarization no longer present Electronically Signed On 01-01-20 10:03:31 VULCANIZER by Daniel Carrillo
[2020-01-01] MEDS: ISOSORBIDE MONO SR 30 MG TAB PO SCH (10:42)
[2020-01-01] MEDS: DOCUSATE NA/SENNA CONC 1 TAB PO PRN (15:56)
[2020-01-01] MEDS ORDERED: MAGNESIUM HYDROXIDE 8% 30 ML PO PRN (17:34)
[2020-01-01 18:09] LABS: Urine Appearance CLOUDY; Urine Bilirubin NEGATIVE (NEG); Urine Blood NEGATIVE (NEG); Urine Color DK YELLOW; Urine Glucose NEGATIVE (NEG); Urine Protein 1+ (NEG); Urine Specific Gravity 1.025 (1.005-1.030); Urine pH 5.5 (5.0-7.0)
[2020-01-01 18:36] LABS: Urine Microscopic Reflex ORDER UMIC
[2020-01-01 18:55] LABS: Urine Bacteria >50 /HPF (NONE SEEN); Urine RBC <5 /HPF (NONE SEEN)
[2020-01-01] MEDS: ATORVASTATIN 80 MG TAB PO SCH (20:52)
[2020-01-01] MEDS: TAMSULOSIN 0.4 MG SR CAP PO SCH (20:53)
[2020-01-01] MEDS: ENOXAPARIN 40 MG/0.4 ML SQ SCH (20:54)
[2020-01-01] MEDS: MELATONIN 3 MG TABLET PO PRN (20:55)
[2020-01-02] MEDS: INSULIN -REGULAR HUMAN 50 UNIT/0.5 ML ML SQ SCH ×4 (07:30→20:51)
[2020-01-02] MEDS: LIDOCAINE 4% PATCH TOP SCH (08:32)
[2020-01-02] MEDS: CRANBERRY FRUIT EXTRACT 200 MG CAP PO SCH ×2 (08:33→20:57)
[2020-01-02] MEDS: FERROUS SULFATE 325 MG TAB PO SCH (08:33)
[2020-01-02] MEDS: ISOSORBIDE MONO SR 30 MG TAB PO SCH (08:33)
[2020-01-02] MEDS: VITAMIN D 1000 UNIT TAB PO SCH (08:33)
[2020-01-02] MEDS: FE SULF/FA/VIT B COMP & C TAB PO SCH (08:34)
[2020-01-02] MEDS: METFORMIN HCL 500 MG TAB PO SCH ×2 (08:35→17:20)
[2020-01-02] MEDS: ACETAMINOPHEN 500 MG TAB PO PRN (08:37)
--- NOTE | 2020-01-02 09:08 | PN ---
Date of Progress Note: 01/01/2020 Patient was seen on 01/01/2020 because of angina. Mr. Burgess was seen by me on 12/25/2019 initially f or preop clearance for hip surgery after a right femur fracture. He actually did very well periopera tively and has been in rehab on the fifth floor, getting physical therapy and has done well, but llamas adrian, on 01/01/2020, he had some substernal chest pressure relieved with one nitroglycerin. When I sa w him, he did not really have any further symptoms. His troponin did bump up, however, to 2.75. He has had catheterizations in the past. He is really inoperable at this point, and he has been treated with medical therapy. I will start Imdur 30 mg daily. I will increase his metoprolol from 50 b.i.d . to 50 mg 3 times a day. I do not plan to do any further heart catheterization on Mr. Burgess at this point. We will see how he does with this regimen. DERRELL/USHA Voice ID: [id number] Report ID: [id number]
--- NOTE | 2020-01-02 09:47 | PN ---
Date of Progress Note: 01/02/2020 Mr. Burgess is an 89-year-old, came in with hip fracture, underwent surgery, went up to rehab, did well perioperatively yesterday, however, he had some chest pain, relieved with nitroglycerin. Had positi ve troponin. I increased his metoprolol to 50 three times a day. I put him on Imdur 30 mg daily. H e has done better on that regimen. His last vital signs were stable, afebrile, sinus rhythm. No fur ther chest pain. Mr. Burgess has known coronary artery disease. He has had diabetes, hypertension, be nign prostatic hypertrophy. We will see how he does on this regimen. He has done well on the metopr olol and Imdur. His last heart catheterization was in January of 2019. He has had bypass surgery. He was treated medically. No plans for repeat catheterization at this point. I will continue to fo llow as needed. DERRELL/USHA Voice ID: [id number] Report ID: [id number]
[2020-01-02] MEDS: METOPROLOL XL 50 MG TAB PO SCH ×3 (10:30→20:52)
[2020-01-02] MEDS: JUVEN PACKET PO SCH ×2 (10:30→20:00)
--- NOTE | 2020-01-02 10:47 | RAD REPORT ---
EXAM DESCRIPTION: RAD - Chest Single View - 01/02/2020 9:14 am CLINICAL HISTORY: wheezing Chest pain. COMPARISON: Chest Single View dated 12/22/2019; Chest Pa And Lat (2 Views) dated 01/22/2019; Chest P a And Lat (2 Views) dated 09/20/2016; CHEST SINGLE VIEW dated 10/16/2013 FINDINGS: Portable technique limits examination quality. Moderate bilateral pulmonary opacities are present, greatest in the right lung base. The heart is mod erately enlarged in size with changes of a prior CABG seen. Trace pleural fluid bilaterally. IMPRESSION: Mild to moderate CHF pattern suspected. Superimposed infiltrate in the right base is a p ossibility.
[2020-01-02] MEDS: DOCUSATE NA/SENNA CONC 1 TAB PO PRN (20:56)
[2020-01-02] MEDS: MELATONIN 3 MG TABLET PO PRN (20:56)
[2020-01-02] MEDS: ENOXAPARIN 40 MG/0.4 ML SQ SCH (20:57)
[2020-01-02] MEDS: TAMSULOSIN 0.4 MG SR CAP PO SCH (20:57)
[2020-01-02] MEDS: ATORVASTATIN 80 MG TAB PO SCH (20:57)
--- NOTE | 2020-01-03 02:23 | FAST ---
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 Gordon David M.D. ADMISSION DIAGNOSIS: - Orthopaedic Disorders 08 - Unilateral Hip Fracture (08.11) RIGHT FEMUR FRACTURE. EATING: Not assessed/no information CODE: - ORAL HYGIENE: Not assessed/no information CODE: - TOILETING HYGIENE: TOILETING HYGIENE - STEP 1: Does the patient complete the activity by him/herself with no assistance (physical, verbal/nonverbal cueing, setup/clean-up)? No. TOILETING HYGIENE - STEP 2: Does the patient need only setup/clean-up assistance from one helper? No. TOILETING HYGIENE - STEP 3: Does the patient need only verbal/nonverbal cueing or touching/steadying/contact guard assistance fro m one helper? Yes. 1. [id number] ADMISSION PERFORMANCE: Supervision or touching assistance CODE: 04 BATHING: Not assessed/no information CODE: - DRESSING - UPPER BODY: Not assessed/no information CODE: - DRESSING - LOWER BODY: Not assessed/no information CODE: - PUTTING ON/TAKING OFF FOOTWEAR: Not assessed/no information CODE: - ROLL LEFT AND RIGHT: ROLL LEFT AND RIGHT - STEP 1: Does the patient complete the activity by him/herself with no assistance (physical, verbal/nonverbal cueing, setup/clean-up)? No. ROLL LEFT AND RIGHT - STEP 2: Does the patient need only setup/clean-up assistance from one helper? No. ROLL LEFT AND RIGHT - STEP 3: Does the patient need only verbal/nonverbal cueing or touching/steadying/contact guard assistance fro m one helper? Yes. 1. [id number] ADMISSION PERFORMANCE: Supervision or touching assistance CODE: 04 SIT TO LYING: SIT TO LYING - STEP 1: Does the patient complete the activity by him/herself with no assistance (physical, verbal/nonverbal cueing, setup/clean-up)? No. SIT TO LYING - STEP 2: Does the patient need only setup/clean-up assistance from one helper? No. SIT TO LYING - STEP 3: Does the patient need only verbal/nonverbal cueing or touching/steadying/contact guard assistance fro m one helper? Yes. 1. [id number] ADMISSION PERFORMANCE: Supervision or touching assistance CODE: 04 LYING TO SITTING: LYING TO SITTING ON SIDE OF BED - STEP 1: Does the patient complete the activity by him/herself with no assistance (physical, verbal/nonverbal cueing, setup/clean-up)? No. LYING TO SITTING ON SIDE OF BED - STEP 2: Does the patient need only setup/clean-up assistance from one helper? No. LYING TO SITTING ON SIDE OF BED - STEP 3: Does the patient need only verbal/nonverbal cueing or touching/steadying/contact guard assistance fro m one helper? Yes. 1. [id number] ADMISSION PERFORMANCE: Supervision or touching assistance CODE: 04 SIT TO STAND: SIT TO STAND - STEP 1: Does the patient complete the activity by him/herself with no assistance (physical, verbal/nonverbal cueing, setup/clean-up)? No. SIT TO STAND - STEP 2: Does the patient need only setup/clean-up assistance from one helper? No. SIT TO STAND - STEP 3: Does the patient need only verbal/nonverbal cueing or touching/steadying/contact guard assistance fro m one helper? Yes. 1. [id number] ADMISSION PERFORMANCE: Supervision or touching assistance CODE: 04 TRANSFERS: BED, CHAIR: CHAIR/[id number] TRANSFER - STEP 1: Does the patient complete the activity by him/herself with no assistance (physical, verbal/nonverbal cueing, setup/clean-up)? No. CHAIR/[id number] TRANSFER - STEP 2: Does the patient need only setup/clean-up assistance from one helper? No. CHAIR/[id number] TRANSFER - STEP 3: Does the patient need only verbal/nonverbal cueing or touching/steadying/contact guard assistance fro m one helper? No. CHAIR/[id number] TRANSFER - STEP 4: Does the patient need physical assistance - for example lifting or trunk support from one helper - wi th the helper providing less than half of the effort? Yes. 1. [id number] ADMISSION PERFORMANCE: Partial/moderate assistance CODE: 03 TRANSFER TOILET: Not assessed/no information CODE: - TRANSFERS: CAR: Not assessed/no information CODE: - WALK 10 FEET: Not assessed/no information CODE: - 1 STEP (CURB): Not assessed/no information CODE: - PICKING UP OBJECT: Not assessed/no information CODE: - DOES THE PATIENT USE A WHEELCHAIR/SCOOTER? CODE: EXPR WHEEL 50 FEET WITH TWO TURNS: Not assessed/no information CODE: - INDICATE THE TYPE OF WHEELCHAIR/SCOOTER USED: CODE: EXPR WHEEL 150 FEET: Not assessed/no information CODE: - INDICATE THE TYPE OF WHEELCHAIR/SCOOTER USED: CODE: EXPR BLADDER AND BOWEL: H350. BLADDER CONTINENCE (3-DAY ASSESSMENT PERIOD): Always continent (no documented incontinence) CODE: 0 H400. BOWEL CONTINENCE (3-DAY ASSESSMENT PERIOD): Always continent CODE: 0
[2020-01-03] MEDS: INSULIN -REGULAR HUMAN 50 UNIT/0.5 ML ML SQ SCH ×4 (07:30→19:54)
[2020-01-03] MEDS ORDERED: FUROSEMIDE 20 MG TABLET PO SCH ×2 (08:00→13:59)
[2020-01-03] MEDS: TRAMADOL HCL 50 MG TAB PO PRN ×2 (08:31→12:06)
[2020-01-03] MEDS: JUVEN PACKET PO SCH ×2 (08:31→19:46)
[2020-01-03] MEDS: FERROUS SULFATE 325 MG TAB PO SCH (08:33)
[2020-01-03] MEDS: CRANBERRY FRUIT EXTRACT 200 MG CAP PO SCH ×2 (08:33→19:45)
[2020-01-03] MEDS: VITAMIN D 1000 UNIT TAB PO SCH (08:33)
[2020-01-03] MEDS: ISOSORBIDE MONO SR 30 MG TAB PO SCH (08:34)
[2020-01-03] MEDS: FE SULF/FA/VIT B COMP & C TAB PO SCH (08:34)
[2020-01-03] MEDS: METOPROLOL XL 50 MG TAB PO SCH ×3 (08:34→19:44)
[2020-01-03] MEDS: METFORMIN HCL 500 MG TAB PO SCH ×2 (08:34→17:01)
[2020-01-03] MEDS: LIDOCAINE 4% PATCH TOP SCH (10:42)
[2020-01-03] MEDS ORDERED: FUROSEMIDE 20 MG TABLET PO ONE (12:00)
[2020-01-03] MEDS ORDERED: clonazePAM 0.5 MG TAB PO PRN (15:40)
[2020-01-03] MEDS: TAMSULOSIN 0.4 MG SR CAP PO SCH (19:43)
[2020-01-03] MEDS: ATORVASTATIN 80 MG TAB PO SCH (19:44)
[2020-01-03] MEDS: ENOXAPARIN 40 MG/0.4 ML SQ SCH (19:46)
[2020-01-03] MEDS: TRAZODONE 50 MG TABLET PO PRN (19:47)
--- NOTE | 2020-01-04 07:02 | RAD REPORT ---
EXAM DESCRIPTION: RAD - Chest Single View - 01/04/2020 5:10 am CLINICAL HISTORY: to compare with previous xray, wheezing, chest pain COMPARISON: January 01 TECHNIQUE: AP portable chest image was obtained 01/04/2020 5:10 am . FINDINGS: Lungs are slightly underinflated. Bilateral airspace opacification is present slightly imp roved from comparison. Differential is minimal. CABG surgical changes are noted. Heart size is upper normal, accentuated by the exam limitations. No pneumothorax is present. Small pleural effusions are suspected. No acute bony abnormality seen. No acute aortic findings suspected. IMPRESSION: Patient may have slight improvement in the bibasilar lung parenchymal opacification. Dif ferential from January 01 is minimal.
[2020-01-04] MEDS: INSULIN -REGULAR HUMAN 50 UNIT/0.5 ML ML SQ SCH ×4 (07:30→21:00)
[2020-01-04] MEDS: JUVEN PACKET PO SCH ×2 (07:52→21:28)
[2020-01-04] MEDS: TRAMADOL HCL 50 MG TAB PO PRN ×2 (07:52→12:04)
[2020-01-04] MEDS: METFORMIN HCL 500 MG TAB PO SCH ×2 (07:53→16:53)
[2020-01-04] MEDS: ISOSORBIDE MONO SR 30 MG TAB PO SCH (07:53)
[2020-01-04] MEDS: FERROUS SULFATE 325 MG TAB PO SCH (07:53)
[2020-01-04] MEDS: FUROSEMIDE 20 MG TABLET PO SCH (07:53)
[2020-01-04] MEDS: CRANBERRY FRUIT EXTRACT 200 MG CAP PO SCH ×2 (07:54→21:27)
[2020-01-04] MEDS: FE SULF/FA/VIT B COMP & C TAB PO SCH (07:54)
[2020-01-04] MEDS: VITAMIN D 1000 UNIT TAB PO SCH (07:56)
[2020-01-04] MEDS: METOPROLOL XL 50 MG TAB PO SCH ×3 (07:57→21:27)
[2020-01-04] MEDS: LIDOCAINE 4% PATCH TOP SCH (10:01)
[2020-01-04] MEDS: ENOXAPARIN 40 MG/0.4 ML SQ SCH (21:27)
[2020-01-04] MEDS: TAMSULOSIN 0.4 MG SR CAP PO SCH (21:27)
[2020-01-04] MEDS: ATORVASTATIN 80 MG TAB PO SCH (21:27)
[2020-01-04] MEDS: TRAZODONE 50 MG TABLET PO PRN (21:28)
[2020-01-05] MEDS: INSULIN -REGULAR HUMAN 50 UNIT/0.5 ML ML SQ SCH ×4 (07:30→20:19)
[2020-01-05] MEDS: LIDOCAINE 4% PATCH TOP SCH (07:55)
[2020-01-05] MEDS: VITAMIN D 1000 UNIT TAB PO SCH (07:55)
[2020-01-05] MEDS: CRANBERRY FRUIT EXTRACT 200 MG CAP PO SCH ×2 (07:55→20:16)
[2020-01-05] MEDS: METFORMIN HCL 500 MG TAB PO SCH ×2 (07:56→16:28)
[2020-01-05] MEDS: FERROUS SULFATE 325 MG TAB PO SCH (07:56)
[2020-01-05] MEDS: FE SULF/FA/VIT B COMP & C TAB PO SCH (07:56)
[2020-01-05] MEDS: METOPROLOL XL 50 MG TAB PO SCH ×3 (07:56→20:18)
[2020-01-05] MEDS: FUROSEMIDE 20 MG TABLET PO SCH (07:57)
[2020-01-05] MEDS: ACETAMINOPHEN 500 MG TAB PO PRN (07:58)
[2020-01-05] MEDS: JUVEN PACKET PO SCH ×2 (08:00→20:19)
[2020-01-05] MEDS: ISOSORBIDE MONO SR 30 MG TAB PO SCH (08:00)
--- NOTE | 2020-01-05 15:59 | R.PN ---
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 SUBJECTIVE: Pt denied any Shortness of Breath. Pt denied any depression. WBC 6.6. Hgb 8.7, glucose 128 to 170, creatinine 0.71, prealbumin 11.4, UA 1+ esterase, bacteria 20-5 0, WBC 10-20. Ambulated 30' with minimum to moderate assistance using a rolling walker. Self-propelled wheelchair 150' with standby assistance. VITAL SIGNS Temperature: 98.2 F SBP/DBP: 116/65 Pulse: 70 Resp: 16 MEDICATION ALLERGIES: No Known Drug Allergies (NKDA) ENVIRONMENTAL ALLERGIES: - Substance Allergies None Known - Other Allergies None Known NURSING: - Shower allowing shower - Skin care per protocol PRECAUTIONS: - Anterior Hip Precaution No abduction No active extension No adduction across midline No external rotation No hip flexion >90 degrees No internal rotation - Posterior Hip Precaution No adduction across midline No external rotation No hip flexion >90 degrees No internal rotation No wheel chair propulsion - Weight Bearing Precaution TTWB right LE ACTIVITIES OOB only with supervision THERAPIES: - Dietary and Nutrition Adequate Nutrition. Nutritional Education. Nutritional Supplements. PHYSICAL EXAM - Gen Alert and awake Lying in bed No apparent distress Oriented to: person, time, and place - Skin No skin breakdown. Normacephalic - Eyes No abnormalities - ENMT No abnormalities - Neck No abnormalities No cervical adenopathy - CVS RRR - Chest Clear - Resp No wheezing - Abd Soft - GI nondistended Deferred - No abnormalities - Ext Right hip surgical site has good hemostasis. - MSK 4+/5 weakness in right lower extremity - Neuro 4/5 strength right lower extremity. - Psych No abnormalities ASSESSMENT: Pt. is a 89 yo Right-handed male of unknown race.On 12/22/2019 he was admitted to [facility] with diagnosis RIGHT FEMUR FRACTURE.His impairment category is Orthopaedic Disorders 08 - Unila teral Hip Fracture (09.20).Pre-morbidly, Pt. was independent/mod-I in Endurance, Communication, Safet y Awareness, Balance, Transfers Control, and Self-Care; and he had good Social Cognition.Currently, h e has deficits of Locomotion, Balance, Transfers Control, Self-Care, Sphincter Control, and Endurance .Pt. is now referred to [facility] for acute in-patient rehabilitation [place] to maximize patient's functional independence in activities of daily living, strength, ROM, and mob ility.- Rehab Goal Patient has realistic goal of being discharged at assistance level 7-Ind to reside at Home with Fami ly/Relatives. MDM/PLAN: - Physical Therapy Decreased range of motion - to improve, our physical therapists will perform initial evaluation of p t's status upon admission and devise an individualized program for increasing patient's Range of Wade on. Gait dysfunction - to improve, our physical therapists will perform initial evaluation of pt's statu s upon admission and devise an individualized program for Gait Training, and Wheel Chair mobility Inability to transfer - to improve, our physical therapists will perform initial evaluation of pt's status upon admission and devise an individualized program for Bed mobility Need for home safety evaluation - to improve, our physical therapists will perform initial evaluatio n of pt's status upon admission and devise an individualized program for Home Evaluation Need in caregiver upon discharge - to improve, our physical therapists will perform initial evaluati on of pt's status upon admission and devise an individualized program for Caregiver Training New precaution - to improve, our physical therapists will perform initial evaluation of pt's status upon admission and devise an individualized program for Patient precaution education Poor balance - to improve, our physical therapists will perform initial evaluation of pt's status up on admission and devise an individualized program for Balance Training Poor endurance - to improve, our physical therapists will perform initial evaluation of pt's status upon admission and devise an individualized program for Endurance Training Weakness - to improve, our physical therapists will perform initial evaluation of pt's status upon a dmission and devise an individualized program for Aquatic Therapy, Neuromuscular Reeducation, and Str engthening Achieving independence - to improve, our physical therapists will perform initial evaluation of pt's status upon admission and devise an individualized program for Community Reintegration Activities - Occupational Therapy ADL deficits - to improve, our occupation therapists will perform initial evaluation of pt's status upon admission and devise an individualized program for Bathing, Bed mobility, Community Reintegratio n, Cooking, Dressing, Eating, Fine Motor Skills, Grooming, Homemaking, Kitchen Mobility, Laundry, Pat ient Education, Safety Awareness, Splinting - Positioning, Transfers(Toilet, Tub, Shower), and Wheel Chair Management Need for health care consultant - to improve, our occupation therapists will perform initial evaluation of pt's status upon admission and devise an individualized program for Caregiver Training Weakness - to improve, our occupation therapists will perform initial evaluation of pt's status upon admission and devise an individualized program for Aquatic Therapy, Balance, Endurance, UE ROM, and UE strengthening - Other See attached MAR (Medication Administration Record) - Anterior Hip Precaution No abduction No active extension No adduction across midline No external rotation No hip flexion >90 degrees No internal rotation - Diet - Liquid Texture Continue Regular - Tube Feed Continue N/A - Diet Type Continue Regular - Posterior Hip Precaution No adduction across midline No external rotation No hip flexion >90 degrees No internal rotation No wheel chair propulsion - Weight Bearing Precaution TTWB right LE - Skin care per protocol - Diet - Solid Texture Continue Regular - Shower allowing shower FUNCTIONAL STATUS: UPDATED AT WEEKLY TEAM CONFERENCE - Bladder Same accident frequency: 7-Ind - No accidents in the past 7 days - Bowel Same accident frequency: 7-Ind - No accidents in the past 7 days - Walking Same score based on distance walked: 0(N/A) - Wheelchair Same score based on distance traveled: 0(N/A) FUNCTIONAL STATUS: - Self-Care A. Eating Paola B. Grooming Paola C. Bathing modA D. Dressing - Upper Aviva E. Dressing - Lower modA F. Toileting Aviva - Sphincter Control G. Bladder control Aviva H. Bowel control vAiva - Transfers Control I. Bed/Chair/Wheelchair Aviva J. Toilet Aviva K. Tub/Shower modA - Locomotion L. Walk/Wheelchair (B) sup M. Stairs ADNO - Communication N. Comprehension (B) Paola O. Expression (B) Paola - Social Cognition P. Social Interaction Paola Q. Problem Solving Paola R. Memory Paola - Endurance Fair - Balance Fair - Safety Awareness Fair QI SCORES: - Self-Care A. Eating 04-Supervision or touching assistance B. Oral hygiene 04-Supervision or touching assistance C. Toileting hygiene 02-Substantial/maximal assistance E. Shower/bathe self 02-Substantial/maximal assistance F. Upper body dressing 03-Partial/moderate assistance G. Lower body dressing 02-Substantial/maximal assistance H. Putting on/taking off footwear 88-Not attempted due to medical condition or safety concerns - Mobility A. Roll left and right 03-Partial/moderate assistance B. Sit to lying 02-Substantial/maximal assistance C. Lying to sitting on side of bed 02-Substantial/maximal assistance D. Sit to stand 02-Substantial/maximal assistance E. Chair/[id number] transfer 02-Substantial/maximal assistance F. Toilet transfer 02-Substantial/maximal assistance G. Car transfer 88-Not attempted due to medical condition or safety concerns I. Walk 10 feet 88-Not attempted due to medical condition or safety concerns J. Walk 50 feet with two turns 88-Not attempted due to medical condition or safety concerns K. Walk 150 feet 88-Not attempted due to medical condition or safety concerns L. Walking 10 feet on uneven surfaces 88-Not attempted due to medical condition or safety concerns M. 1 step (curb) 88-Not attempted due to medical condition or safety concerns N. 4 steps 88-Not attempted due to medical condition or safety concerns O. 12 steps 88-Not attempted due to medical condition or safety concerns P. Picking up object 88-Not attempted due to medical condition or safety concerns R. Wheel 50 feet with two turns 88-Not attempted due to medical condition or safety concerns S. Wheel 150 feet 88-Not attempted due to medical condition or safety concerns - Bladder and Bowel Bladder continence Bowel continence - Endurance Poor - Balance Poor - Safety Awareness Fair CURRENT FUNC. 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
[2020-01-05] MEDS: ENOXAPARIN 40 MG/0.4 ML SQ SCH (20:16)
[2020-01-05] MEDS: TAMSULOSIN 0.4 MG SR CAP PO SCH (20:17)
[2020-01-05] MEDS: ATORVASTATIN 80 MG TAB PO SCH (20:17)
[2020-01-06] MEDS: TRAZODONE 50 MG TABLET PO PRN ×2 (01:21→20:31)
[2020-01-06] MEDS: MELATONIN 3 MG TABLET PO PRN ×2 (01:22→20:31)
[2020-01-06 06:21] LABS: Basophils % 0.3 % (0-1.3); Hematocrit 28.2 % (39.6-49.0); Lymphocytes % 13.9 % (15.3-44.8); MPV 7.8 fL (7.6-11.3); RBC Red Blood Cell Count 3.14 M/uL (4.33-5.43)
[2020-01-06] MEDS: ACETAMINOPHEN 500 MG TAB PO PRN (06:42)
[2020-01-06 06:43] LABS: Albumin 2.7 g/dL (3.4-5.0); Magnesium 2.4 mg/dL (1.8-2.4); Potassium 4.3 mmol/L (3.5-5.1); Prealbumin 15.2 mg/dL (20-40)
[2020-01-06] MEDS: LIDOCAINE 4% PATCH TOP SCH (06:43)
[2020-01-06] MEDS: INSULIN -REGULAR HUMAN 50 UNIT/0.5 ML ML SQ SCH ×4 (07:30→20:32)
[2020-01-06] MEDS: VITAMIN D 1000 UNIT TAB PO SCH (08:32)
[2020-01-06] MEDS: METOPROLOL XL 50 MG TAB PO SCH ×3 (08:33→20:32)
[2020-01-06] MEDS: FERROUS SULFATE 325 MG TAB PO SCH (08:33)
[2020-01-06] MEDS: CRANBERRY FRUIT EXTRACT 200 MG CAP PO SCH ×2 (08:33→20:32)
[2020-01-06] MEDS: METFORMIN HCL 500 MG TAB PO SCH ×2 (08:34→16:39)
[2020-01-06] MEDS: FE SULF/FA/VIT B COMP & C TAB PO SCH (08:36)
[2020-01-06] MEDS: FUROSEMIDE 20 MG TABLET PO SCH (08:37)
[2020-01-06] MEDS: ISOSORBIDE MONO SR 30 MG TAB PO SCH (08:44)
[2020-01-06] MEDS: JUVEN PACKET PO SCH ×2 (09:49→20:33)
[2020-01-06] MEDS: DOCUSATE NA/SENNA CONC 1 TAB PO PRN (14:30)
[2020-01-06] MEDS ORDERED: DOCUSATE NA 100 MG CAP PO PRN (14:31)
[2020-01-06] MEDS: ENOXAPARIN 40 MG/0.4 ML SQ SCH (20:31)
[2020-01-06] MEDS: TAMSULOSIN 0.4 MG SR CAP PO SCH (20:31)
[2020-01-06] MEDS: ATORVASTATIN 80 MG TAB PO SCH (20:31)
[2020-01-07] MEDS: INSULIN -REGULAR HUMAN 50 UNIT/0.5 ML ML SQ SCH ×4 (07:11→20:26)
[2020-01-07] MEDS: ACETAMINOPHEN 500 MG TAB PO PRN (07:55)
[2020-01-07] MEDS: LIDOCAINE 4% PATCH TOP SCH (07:56)
[2020-01-07] MEDS: CRANBERRY FRUIT EXTRACT 200 MG CAP PO SCH ×2 (07:57→20:22)
[2020-01-07] MEDS: METOPROLOL XL 50 MG TAB PO SCH ×3 (07:58→20:22)
[2020-01-07] MEDS: FE SULF/FA/VIT B COMP & C TAB PO SCH (07:58)
[2020-01-07] MEDS: VITAMIN D 1000 UNIT TAB PO SCH (07:58)
[2020-01-07] MEDS: FUROSEMIDE 20 MG TABLET PO SCH ×2 (07:59→15:32)
[2020-01-07] MEDS: FERROUS SULFATE 325 MG TAB PO SCH (07:59)
[2020-01-07] MEDS: METFORMIN HCL 500 MG TAB PO SCH ×2 (07:59→17:29)
[2020-01-07] MEDS: DOCUSATE NA 100 MG CAP PO SCH (08:00)
[2020-01-07] MEDS: POLYETHYL GLY 3350 17 GM/DOSE PO PRN (08:04)
[2020-01-07] MEDS: ISOSORBIDE MONO SR 30 MG TAB PO SCH (08:04)
[2020-01-07] MEDS: JUVEN PACKET PO SCH ×2 (09:00→20:00)
--- NOTE | 2020-01-07 10:07 | P.RH.PN ---
Estimated Length of Stay: 16 Expected Discharge Date: 01/14/20 Discharge Disposition Plan: Home Family Support: Yes Detention Goal: Mobility, Transfers, Self Care Vital Signs: Last Vital Signs Temp 97.2 F 01/07/20 07:23 Pulse 70 01/07/20 07:59 Resp 16 01/07/20 07:23 BP 125/72 01/07/20 07:59 Pulse Ox 98 01/07/20 07:23 Laboratory: Laboratory Last Values WBC 7.1 K/uL (4.3-10.9) 01/06/20 05:44 RBC 3.14 M/uL (4.33-5.43) L 01/06/20 05:44 Hgb 9.4 g/dL (13.6-17.9) L 01/06/20 05:44 Hct 28.2 % (39.6-49.0) L 01/06/20 05:44 MCV 90.1 fL (80-100) 01/06/20 05:44 MCH 29.9 pg (27.0-35.0) 01/06/20 05:44 MCHC 33.2 g/dL (32.0-36.0) 01/06/20 05:44 RDW 14.5 % (12.1-15.2) 01/06/20 05:44 Plt Count 312 K/uL (152-406) D 01/06/20 05:44 MPV 7.8 fL (7.6-11.3) 01/06/20 05:44 Neutrophils % 76.7 % (41.7-73.7) H 01/06/20 05:44 Lymphocytes % 13.9 % (15.3-44.8) L 01/06/20 05:44 Monocytes % 8.1 % (3.3-12.3) 01/06/20 05:44 Eosinophils % 1.0 % (0-4.4) 01/06/20 05:44 Basophils % 0.3 % (0-1.3) 01/06/20 05:44 Absolute Neutrophils 5.4 K/uL (1.8-8.0) 01/06/20 05:44 Absolute Lymphocytes 1.0 K/uL (0.7-4.9) 01/06/20 05:44 Absolute Monocytes 0.6 K/uL (0.1-1.3) 01/06/20 05:44 Absolute Eosinophils 0.1 K/uL (0-0.5) 01/06/20 05:44 Absolute Basophils 0.0 K/uL (0-0.5) 01/06/20 05:44 Sodium 139 mmol/L (136-145) 01/06/20 05:44 Potassium 4.3 mmol/L (3.5-5.1) 01/06/20 05:44 Chloride 104 mmol/L (98-107) 01/06/20 05:44 Carbon Dioxide 30 mmol/L (21-32) 01/06/20 05:44 BUN 33 mg/dL (7-18) H 01/06/20 05:44 Creatinine 0.95 mg/dL (0.55-1.3) 01/06/20 05:44 Estimated GFR 75 mL/min (=/>90) L 01/06/20 05:44 Glucose 130 mg/dL (74-106) H 01/06/20 05:44 POC Glucose 144 mg/dL (65-120) H 01/07/20 06:26 Calcium 9.0 mg/dL (8.5-10.1) 01/06/20 05:44 Magnesium 2.4 mg/dL (1.8-2.4) 01/06/20 05:44 Creatine Kinase 152 U/L (39-308) 01/01/20 07:44 CK-MB (CK-2) 7.9 ng/mL (0.3-3.6) H 01/01/20 07:44 Troponin I 2.75 ng/mL (0.0-0.045) H* 01/01/20 07:44 Albumin 2.7 g/dL (3.4-5.0) L 01/06/20 05:44 Prealbumin 15.2 mg/dL (20-40) L 01/06/20 05:44 Urine Color Dk yellow 01/01/20 17:00 Urine Appearance Cloudy 01/01/20 17:00 Urine pH 5.5 (5.0-7.0) 01/01/20 17:00 Ur Specific Industry 1.025 (1.005-1.030) 01/01/20 17:00 Glucose (UA)(Auto) Negative (NEG) 01/01/20 17:00 Urine Ketones Negative (NEG) 01/01/20 17:00 Urine Blood Negative (NEG) 01/01/20 17:00 Urine Nitrite Negative (NEG) 01/01/20 17:00 Urine Bilirubin Negative (NEG) 01/01/20 17:00 Urine Urobilinogen 1.0 mg/dL (0.2-1.0) 01/01/20 17:00 Ur Leukocyte Esterase 3+ (NEG) H 01/01/20 17:00 Urine RBC <5 /HPF (NONE SEEN) 01/01/20 17:00 Urine WBC >50 /HPF (<5) H 01/01/20 17:00 Ur Squamous Epith Cells <5 /HPF (NONE SEEN) 01/01/20 17:00 Urine Bacteria >50 /HPF (NONE SEEN) H 01/01/20 17:00 Urine Mucus 2+ /HPF (NONE SEEN) 12/25/19 00:48 Urine Culture Reflexed Not needed 01/01/20 17:00 Urine Total Protein 1+ (NEG) H 01/01/20 17:00 Weight: 205 lb 4 oz Wound Present: No Closed Surgical Incision Present: Yes Negative Pressure Wound Therapy Present: No Physician Update: Labs reviewed and are stable. He is very stressed about chest pain and taking a lot of nitro tabs. His treating plant operator is following. He is making fair progress overall with therapy. Will increase anxiety medication to BID prn. Functional Improvement: pt has demonstrated progress throughout the week. He is improving with his tolerance to ambulation; however, he does require close monitoring reharding his ability to maintain TDWB. pt continues to require skilled PT services to enhance his functional ability and overall safety. Speech Therapy Update: Patient cont. to present with mild (min) cognitive deficits which are further compounded by his hearing and visual deficits. Patient's delayed recall for novel information is approx. 80% for up to 6 items. It appears patient would benefit from contiued speech therapy once discharged. 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 Please see the Rehabilitation Signature page for all necessary signatures.
[2020-01-07] MEDS ORDERED: BISACODYL 10 MG RECTAL SUPP PR PRN (13:23)
[2020-01-07] MEDS: ENOXAPARIN 40 MG/0.4 ML SQ SCH (20:21)
[2020-01-07] MEDS: clonazePAM 0.5 MG TAB PO SCH (20:21)
[2020-01-07] MEDS: TAMSULOSIN 0.4 MG SR CAP PO SCH (20:22)
[2020-01-07] MEDS: ATORVASTATIN 80 MG TAB PO SCH (20:22)
[2020-01-08] MEDS: INSULIN -REGULAR HUMAN 50 UNIT/0.5 ML ML SQ SCH ×4 (07:30→21:00)
[2020-01-08] MEDS: TRAMADOL HCL 50 MG TAB PO PRN (08:38)
[2020-01-08] MEDS: FERROUS SULFATE 325 MG TAB PO SCH (08:39)
[2020-01-08] MEDS: CRANBERRY FRUIT EXTRACT 200 MG CAP PO SCH ×2 (08:39→21:12)
[2020-01-08] MEDS: clonazePAM 0.5 MG TAB PO SCH ×2 (08:39→21:11)
[2020-01-08] MEDS: METOPROLOL XL 50 MG TAB PO SCH ×3 (08:39→21:12)
[2020-01-08] MEDS: ISOSORBIDE MONO SR 30 MG TAB PO SCH (08:40)
[2020-01-08] MEDS: JUVEN PACKET PO SCH ×2 (08:40→21:12)
[2020-01-08] MEDS: VITAMIN D 1000 UNIT TAB PO SCH (08:40)
[2020-01-08] MEDS: METFORMIN HCL 500 MG TAB PO SCH ×2 (08:40→17:07)
[2020-01-08] MEDS: FE SULF/FA/VIT B COMP & C TAB PO SCH (08:41)
[2020-01-08] MEDS: FUROSEMIDE 20 MG TABLET PO SCH ×2 (08:41→17:07)
[2020-01-08] MEDS: DOCUSATE NA 100 MG CAP PO SCH (08:41)
[2020-01-08] MEDS: LIDOCAINE 4% PATCH TOP SCH (08:42)
--- NOTE | 2020-01-08 16:01 | RAD REPORT ---
EXAM DESCRIPTION: RAD - Femur Right - 01/08/2020 3:51 pm CLINICAL HISTORY: TO check if patient can put weight on right leg Pain and swelling COMPARISON: Femur Right dated 12/22/2019 FINDINGS: Hardware is present in the proximal right femur without complication evident. 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 No hardware abnormality. Athe rosclerosis is present.
--- NOTE | 2020-01-08 19:27 | RAD REPORT ---
EXAM DESCRIPTION: US - Extremity Venous Uni Ltd - 01/08/2020 7:03 pm CLINICAL HISTORY: increase swelling Leg swelling and edema. COMPARISON: EXT VENOUS UNI LTD dated 02/28/2015 FINDINGS: Right lower extremity venous system was interrogated with Doppler technique. Normal flow, compressibility and augmentation was noted. There is no DVT present. IMPRESSION: No evidence of right lower extremity deep venous thrombosis.
[2020-01-08] MEDS: ENOXAPARIN 40 MG/0.4 ML SQ SCH (21:11)
[2020-01-08] MEDS: ATORVASTATIN 80 MG TAB PO SCH (21:12)
[2020-01-08] MEDS: TAMSULOSIN 0.4 MG SR CAP PO SCH (21:12)
--- NOTE | 2020-01-08 21:32 | R.PN ---
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 SUBJECTIVE: Pt denied any Shortness of Breath. Pt denied any depression. WBC 7.1 Hgb 9.4, glucose 137 to 160, creatinine 0.95, prealbumin 15.2, UA 3+ esterase, bacteria > 50, WBC > 50. However, cultures X 2 showed enterococcus faecalis. He is on cranberry pills plus extra fl uids. Will give nitrofurantoin for 5 days. Ambulated 20' x 2 with contact guard assistance using a rolling walker. Right femur x-ray show hardware is in place without complication. VITAL SIGNS Temperature: 97.2 F SBP/DBP: 132/74 Pulse: 64 Resp: 16 MEDICATION ALLERGIES: No Known Drug Allergies (NKDA) ENVIRONMENTAL ALLERGIES: - Substance Allergies None Known - Other Allergies None Known NURSING: - Shower allowing shower - Skin care per protocol PRECAUTIONS: - Anterior Hip Precaution No abduction No active extension No adduction across midline No external rotation No hip flexion >90 degrees No internal rotation - Posterior Hip Precaution No adduction across midline No external rotation No hip flexion >90 degrees No internal rotation No wheel chair propulsion - Weight Bearing Precaution TTWB right LE ACTIVITIES OOB only with supervision THERAPIES: - Dietary and Nutrition Adequate Nutrition. Nutritional Education. Nutritional Supplements. PHYSICAL EXAM - Gen Alert and awake Lying in bed No apparent distress Oriented to: person, time, and place - Skin No skin breakdown. Normacephalic - Eyes No abnormalities - ENMT No abnormalities - Neck No abnormalities No cervical adenopathy - CVS RRR - Chest Clear - Resp No wheezing - Abd Soft - GI nondistended Deferred - No abnormalities - Ext Right hip surgical site has good hemostasis. - MSK 4+/5 weakness in right lower extremity - Neuro 4/5 strength right lower extremity. - Psych No abnormalities ASSESSMENT: Pt. is a 89 yo Right-handed male of unknown race.On 12/22/2019 he was admitted to [facility] with diagnosis RIGHT FEMUR FRACTURE.His impairment category is Orthopaedic Disorders 08 - Unila teral Hip Fracture (.11).Pre-morbidly, Pt. was independent/mod-I in Endurance, Communication, Safet y Awareness, Balance, Transfers Control, and Self-Care; and he had good Social Cognition.Currently, mao hein has deficits of Locomotion, Balance, Transfers Control, Self-Care, Sphincter Control, and Endurance .Pt. is now referred [facility] to maximize patient's functional independence in activities of daily living, strength, ROM, and mob ility.- Rehab Goal Patient has realistic goal of being discharged at assistance level 7-Ind to reside at Home with Fami ly/Relatives. MDM/PLAN: - Physical Therapy Decreased range of motion - to improve, our physical therapists will perform initial evaluation of p t's status upon admission and devise an individualized program for increasing patient's Range of Wade on. Gait dysfunction - to improve, our physical therapists will perform initial evaluation of pt's statu s upon admission and devise an individualized program for Gait Training, and Wheel Chair mobility Inability to transfer - to improve, our physical therapists will perform initial evaluation of pt's status upon admission and devise an individualized program for Bed mobility Need for home safety evaluation - to improve, our physical therapists will perform initial evaluatio n of pt's status upon admission and devise an individualized program for Home Evaluation Need in caregiver upon discharge - to improve, our physical therapists will perform initial evaluati on of pt's status upon admission and devise an individualized program for Caregiver Training New precaution - to improve, our physical therapists will perform initial evaluation of pt's status upon admission and devise an individualized program for Patient precaution education Poor balance - to improve, our physical therapists will perform initial evaluation of pt's status up on admission and devise an individualized program for Balance Training Poor endurance - to improve, our physical therapists will perform initial evaluation of pt's status upon admission and devise an individualized program for Endurance Training Weakness - to improve, our physical therapists will perform initial evaluation of pt's status upon a dmission and devise an individualized program for Aquatic Therapy, Neuromuscular Reeducation, and Str engthening Achieving independence - to improve, our physical therapists will perform initial evaluation of pt's status upon admission and devise an individualized program for Community Reintegration Activities - Occupational Therapy ADL deficits - to improve, our occupation therapists will perform initial evaluation of pt's status upon admission and devise an individualized program for Bathing, Bed mobility, Community Reintegratio n, Cooking, Dressing, Eating, Fine Motor Skills, Grooming, Homemaking, Kitchen Mobility, Laundry, Pat ient Education, Safety Awareness, Splinting - Positioning, Transfers(Toilet, Tub, Shower), and Wheel Chair Management Need for health care legal assistant - to improve, our occupation therapists will perform initial evaluation of pt's status upon admission and devise an individualized program for Caregiver Training Weakness - to improve, our occupation therapists will perform initial evaluation of pt's status upon admission and devise an individualized program for Aquatic Therapy, Balance, Endurance, UE ROM, and UE strengthening - Other See attached MAR (Medication Administration Record) - Anterior Hip Precaution No abduction No active extension No adduction across midline No external rotation No hip flexion >90 degrees No internal rotation - Diet - Liquid Texture Continue Regular - Tube Feed Continue N/A - Diet Type Continue Regular - Posterior Hip Precaution No adduction across midline No external rotation No hip flexion >90 degrees No internal rotation No wheel chair propulsion - Weight Bearing Precaution TTWB right LE - Skin care per protocol - Diet - Solid Texture Continue Regular - Shower allowing shower FUNCTIONAL STATUS: UPDATED AT WEEKLY TEAM CONFERENCE - Bladder Same accident frequency: 7-Ind - No accidents in the past 7 days - Bowel Same accident frequency: 7-Ind - No accidents in the past 7 days - Walking Same score based on distance walked: 0(N/A) - Wheelchair Same score based on distance traveled: 0(N/A) FUNCTIONAL STATUS: - Self-Care A. Eating Paola B. Grooming Paola C. Bathing modA D. Dressing - Upper Aviva E. Dressing - Lower modA F. Toileting Aviva - Sphincter Control G. Bladder control Aviva H. Bowel control Aviva - Transfers Control I. Bed/Chair/Wheelchair Aviva J. Toilet Aviva K. Tub/Shower modA - Locomotion L. Walk/Wheelchair (B) sup M. Stairs ADNO - Communication N. Comprehension (B) Paola O. Expression (B) Paola - Social Cognition P. Social Interaction Paola Q. Problem Solving Paola R. Memory Paola - Endurance Fair - Balance Fair - Safety Awareness Fair QI SCORES: - Self-Care A. Eating 04-Supervision or touching assistance B. Oral hygiene 04-Supervision or touching assistance C. Toileting hygiene 02-Substantial/maximal assistance E. Shower/bathe self 02-Substantial/maximal assistance F. Upper body dressing 03-Partial/moderate assistance G. Lower body dressing 02-Substantial/maximal assistance H. Putting on/taking off footwear 88-Not attempted due to medical condition or safety concerns - Mobility A. Roll left and right 03-Partial/moderate assistance B. Sit to lying 02-Substantial/maximal assistance C. Lying to sitting on side of bed 02-Substantial/maximal assistance D. Sit to stand 02-Substantial/maximal assistance E. Chair/[id number] transfer 02-Substantial/maximal assistance F. Toilet transfer 02-Substantial/maximal assistance G. Car transfer 88-Not attempted due to medical condition or safety concerns I. Walk 10 feet 88-Not attempted due to medical condition or safety concerns J. Walk 50 feet with two turns 88-Not attempted due to medical condition or safety concerns K. Walk 150 feet 88-Not attempted due to medical condition or safety concerns L. Walking 10 feet on uneven surfaces 88-Not attempted due to medical condition or safety concerns M. 1 step (curb) 88-Not attempted due to medical condition or safety concerns N. 4 steps 88-Not attempted due to medical condition or safety concerns O. 12 steps 88-Not attempted due to medical condition or safety concerns P. Picking up object 88-Not attempted due to medical condition or safety concerns R. Wheel 50 feet with two turns 88-Not attempted due to medical condition or safety concerns S. Wheel 150 feet 88-Not attempted due to medical condition or safety concerns - Bladder and Bowel Bladder continence Bowel continence - Endurance Poor - Balance Poor - Safety Awareness Fair 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
[2020-01-09] MEDS: INSULIN -REGULAR HUMAN 50 UNIT/0.5 ML ML SQ SCH ×4 (07:30→20:27)
[2020-01-09] MEDS: CRANBERRY FRUIT EXTRACT 200 MG CAP PO SCH ×2 (09:22→20:25)
[2020-01-09] MEDS: LIDOCAINE 4% PATCH TOP SCH (09:22)
[2020-01-09] MEDS: NITROFURAN MACRO 100 MG CAP PO SCH ×2 (09:23→20:25)
[2020-01-09] MEDS: clonazePAM 0.5 MG TAB PO SCH ×2 (09:23→20:25)
[2020-01-09] MEDS: METOPROLOL XL 50 MG TAB PO SCH ×3 (09:24→20:26)
[2020-01-09] MEDS: DOCUSATE NA 100 MG CAP PO SCH (09:24)
[2020-01-09] MEDS: ISOSORBIDE MONO SR 30 MG TAB PO SCH (09:25)
[2020-01-09] MEDS: METFORMIN HCL 500 MG TAB PO SCH ×2 (09:25→16:40)
[2020-01-09] MEDS: FUROSEMIDE 20 MG TABLET PO SCH ×2 (09:25→16:42)
[2020-01-09] MEDS: VITAMIN D 1000 UNIT TAB PO SCH (09:26)
[2020-01-09] MEDS: FERROUS SULFATE 325 MG TAB PO SCH (11:27)
[2020-01-09] MEDS: FE SULF/FA/VIT B COMP & C TAB PO SCH (11:27)
[2020-01-09] MEDS: JUVEN PACKET PO SCH ×2 (11:27→20:00)
[2020-01-09] MEDS: ENOXAPARIN 40 MG/0.4 ML SQ SCH (20:25)
[2020-01-09] MEDS: ATORVASTATIN 80 MG TAB PO SCH (20:26)
[2020-01-09] MEDS: TAMSULOSIN 0.4 MG SR CAP PO SCH (20:26)
[2020-01-10 06:49] LABS: Potassium 4.2 mmol/L (3.5-5.1)
[2020-01-10] MEDS: INSULIN -REGULAR HUMAN 50 UNIT/0.5 ML ML SQ SCH ×4 (07:30→20:01)
[2020-01-10 07:42] LABS: Absolute Lymphocytes (CBC) 0.9 K/uL (0.7-4.9); Basophils % 0.8 % (0-1.3); Hematocrit 31.9 % (39.6-49.0); Lymphocytes % 14.6 % (15.3-44.8); MPV 8.2 fL (7.6-11.3); RBC Red Blood Cell Count 3.49 M/uL (4.33-5.43)
[2020-01-10] MEDS: JUVEN PACKET PO SCH ×3 (08:00→20:00)
[2020-01-10] MEDS: clonazePAM 0.5 MG TAB PO SCH ×5 (08:00→21:00)
[2020-01-10] MEDS: METOPROLOL XL 50 MG TAB PO SCH ×3 (08:46→20:02)
[2020-01-10] MEDS: METFORMIN HCL 500 MG TAB PO SCH ×2 (08:47→17:03)
[2020-01-10] MEDS: DOCUSATE NA 100 MG CAP PO SCH (08:47)
[2020-01-10] MEDS: VITAMIN D 1000 UNIT TAB PO SCH (08:47)
[2020-01-10] MEDS: NITROFURAN MACRO 100 MG CAP PO SCH ×2 (08:47→20:01)
[2020-01-10] MEDS: CRANBERRY FRUIT EXTRACT 200 MG CAP PO SCH ×2 (08:48→20:00)
[2020-01-10] MEDS: FUROSEMIDE 20 MG TABLET PO SCH ×2 (08:48→17:03)
[2020-01-10] MEDS: ISOSORBIDE MONO SR 30 MG TAB PO SCH (08:48)
[2020-01-10] MEDS: LIDOCAINE 4% PATCH TOP SCH (08:48)
[2020-01-10] MEDS: FE SULF/FA/VIT B COMP & C TAB PO SCH (12:00)
[2020-01-10] MEDS: FERROUS SULFATE 325 MG TAB PO SCH (12:25)
--- NOTE | 2020-01-10 18:24 | R.PN ---
PROGRESS NOTES ENCOUNTER DATE AND TIME: 01/10/2020 18:21 (GLOVE FORMER) NAME SHABNAM GAYLE DATE OF : 1930 DATE OF ADMISSION: 12/24/2019 19:33 (GLOVE FORMER) RIGHT FEMUR FRACTURECHIEF COMPLAINT: Right femur fracture. SUBJECTIVE: Pt denied any Shortness of Breath. Pt denied any depression. WBC 6.0 Hgb 10.3, glucose 100 to 132, creatinine 0.97, prealbumin 15.2, UA 3+ esterase, bacteria > 50 , WBC > 50. However, cultures X 2 showed enterococcus faecalis. He is on cranberry pills plus extra f luids. Will give nitrofurantoin for 5 days. Ambulated 200' with standby assistance using a rolling walker. Right femur x-ray show hardware is in place without complication. VITAL SIGNS Temperature: 99.2 F SBP/DBP: 130/78 Pulse: 71 Resp: 15 MEDICATION ALLERGIES: No Known Drug Allergies (NKDA) ENVIRONMENTAL ALLERGIES: - Substance Allergies None Known - Other Allergies None Known NURSING: - Shower allowing shower - Skin care per protocol PRECAUTIONS: - Anterior Hip Precaution No abduction No active extension No adduction across midline No external rotation No hip flexion >90 degrees No internal rotation - Posterior Hip Precaution No adduction across midline No external rotation No hip flexion >90 degrees No internal rotation No wheel chair propulsion - Weight Bearing Precaution TTWB right LE ACTIVITIES OOB only with supervision THERAPIES: - Dietary and Nutrition Adequate Nutrition. Nutritional Education. Nutritional Supplements. PHYSICAL EXAM - Gen Alert and awake Lying in bed No apparent distress Oriented to: person, time, and place - Skin No skin breakdown. Normacephalic - Eyes No abnormalities - ENMT No abnormalities - Neck No abnormalities No cervical adenopathy - CVS RRR - Chest Clear - Resp No wheezing - Abd Soft - GI nondistended Deferred - No abnormalities - Ext Right hip surgical site has good hemostasis. - MSK 4+/5 weakness in right lower extremity - Neuro 4/5 strength right lower extremity. - Psych No abnormalities ASSESSMENT: Pt. is a 89 yo Right-handed male of unknown race.On 12/22/2019 he was admitted to [facility] with diagnosis RIGHT FEMUR FRACTURE.His impairment category is Orthopaedic Disorders 08 - Unila teral Hip Fracture (08.11).Pre-morbidly, Pt. was independent/mod-I in Endurance, Communication, Safet y Awareness, Balance, Transfers Control, and Self-Care; and he had good Social Cognition.Currently, mao hein has deficits of Locomotion, Balance, Transfers Control, Self-Care, Sphincter Control, and Endurance .Pt. is now referred to [facility] for acute in-patient rehabilitation in [facility] to maximize patient's functional independence in activities of daily living, strength, ROM, and mob ility.- Rehab Goal Patient has realistic goal of being discharged at assistance level 7-Ind to reside at Home with Fami ly/Relatives. MDM/PLAN: - Physical Therapy Decreased range of motion - to improve, our physical therapists will perform initial evaluation of p t's status upon admission and devise an individualized program for increasing patient's Range of Wade on. Gait dysfunction - to improve, our physical therapists will perform initial evaluation of pt's statu s upon admission and devise an individualized program for Gait Training, and Wheel Chair mobility Inability to transfer - to improve, our physical therapists will perform initial evaluation of pt's status upon admission and devise an individualized program for Bed mobility Need for home safety evaluation - to improve, our physical therapists will perform initial evaluatio n of pt's status upon admission and devise an individualized program for Home Evaluation Need in caregiver upon discharge - to improve, our physical therapists will perform initial evaluati on of pt's status upon admission and devise an individualized program for Caregiver Training New precaution - to improve, our physical therapists will perform initial evaluation of pt's status upon admission and devise an individualized program for Patient precaution education Poor balance - to improve, our physical therapists will perform initial evaluation of pt's status up on admission and devise an individualized program for Balance Training Poor endurance - to improve, our physical therapists will perform initial evaluation of pt's status upon admission and devise an individualized program for Endurance Training Weakness - to improve, our physical therapists will perform initial evaluation of pt's status upon a dmission and devise an individualized program for Aquatic Therapy, Neuromuscular Reeducation, and Str engthening Achieving independence - to improve, our physical therapists will perform initial evaluation of pt's status upon admission and devise an individualized program for Community Reintegration Activities - Occupational Therapy ADL deficits - to improve, our occupation therapists will perform initial evaluation of pt's status upon admission and devise an individualized program for Bathing, Bed mobility, Community Reintegratio n, Cooking, Dressing, Eating, Fine Motor Skills, Grooming, Homemaking, Kitchen Mobility, Laundry, Pat ient Education, Safety Awareness, Splinting - Positioning, Transfers(Toilet, Tub, Shower), and Wheel Chair Management Need for healthcare business analyst - to improve, our occupation therapists will perform initial evaluation of pt's status upon admission and devise an individualized program for Caregiver Training Weakness - to improve, our occupation therapists will perform initial evaluation of pt's status upon admission and devise an individualized program for Aquatic Therapy, Balance, Endurance, UE ROM, and UE strengthening - Other See attached MAR (Medication Administration Record) - Anterior Hip Precaution No abduction No active extension No adduction across midline No external rotation No hip flexion >90 degrees No internal rotation - Diet - Liquid Texture Continue Regular - Tube Feed Continue N/A - Diet Type Continue Regular - Posterior Hip Precaution No adduction across midline No external rotation No hip flexion >90 degrees No internal rotation No wheel chair propulsion - Weight Bearing Precaution TTWB right LE - Skin care per protocol - Diet - Solid Texture Continue Regular - Shower allowing shower FUNCTIONAL STATUS: UPDATED AT WEEKLY TEAM CONFERENCE - Bladder Same accident frequency: 7-Ind - No accidents in the past 7 days - Bowel Same accident frequency: 7-Ind - No accidents in the past 7 days - Walking Same score based on distance walked: 0(N/A) - Wheelchair Same score based on distance traveled: 0(N/A) FUNCTIONAL STATUS: - Self-Care A. Eating Paola B. Grooming Paola C. Bathing modA D. Dressing - Upper Aviva E. Dressing - Lower modA F. Toileting Aviva - Sphincter Control G. Bladder control Aviva H. Bowel control Aviva - Transfers Control I. Bed/Chair/Wheelchair Aviva J. Toilet Aviva K. Tub/Shower modA - Locomotion L. Walk/Wheelchair (B) sup M. Stairs ADNO - Communication N. Comprehension (B) Paola O. Expression (B) Paola - Social Cognition P. Social Interaction Paola Q. Problem Solving Paola R. Memory Paola - Endurance Fair - Balance Fair - Safety Awareness Fair QI SCORES: - Self-Care A. Eating 04-Supervision or touching assistance B. Oral hygiene 04-Supervision or touching assistance C. Toileting hygiene 02-Substantial/maximal assistance E. Shower/bathe self 02-Substantial/maximal assistance F. Upper body dressing 03-Partial/moderate assistance G. Lower body dressing 02-Substantial/maximal assistance H. Putting on/taking off footwear 88-Not attempted due to medical condition or safety concerns - Mobility A. Roll left and right 03-Partial/moderate assistance B. Sit to lying 02-Substantial/maximal assistance C. Lying to sitting on side of bed 02-Substantial/maximal assistance D. Sit to stand 02-Substantial/maximal assistance E. Chair/[id number] transfer 02-Substantial/maximal assistance F. Toilet transfer 02-Substantial/maximal assistance G. Car transfer 88-Not attempted due to medical condition or safety concerns I. Walk 10 feet 88-Not attempted due to medical condition or safety concerns J. Walk 50 feet with two turns 88-Not attempted due to medical condition or safety concerns K. Walk 150 feet 88-Not attempted due to medical condition or safety concerns L. Walking 10 feet on uneven surfaces 88-Not attempted due to medical condition or safety concerns M. 1 step (curb) 88-Not attempted due to medical condition or safety concerns N. 4 steps 88-Not attempted due to medical condition or safety concerns O. 12 steps 88-Not attempted due to medical condition or safety concerns P. Picking up object 88-Not attempted due to medical condition or safety concerns R. Wheel 50 feet with two turns 88-Not attempted due to medical condition or safety concerns S. Wheel 150 feet 88-Not attempted due to medical condition or safety concerns - Bladder and Bowel Bladder continence Bowel continence - Endurance Poor - Balance Poor - Safety Awareness Fair [facility] DEFICITS: Self-Care, Mobility, Endurance, Balance, and Safety Awareness SIGNATURE PANEL: (GLOVE FORMER)
[2020-01-10] MEDS: ATORVASTATIN 80 MG TAB PO SCH (20:01)
[2020-01-10] MEDS: TAMSULOSIN 0.4 MG SR CAP PO SCH (20:01)
[2020-01-10] MEDS: ENOXAPARIN 40 MG/0.4 ML SQ SCH (20:01)
--- NOTE | 2020-01-11 02:41 | FAST ---
[employer] FORM SHIFT START DATE/TIME: 01/10/2020 19:00 (FITTER ARMAMENT) SHIFT END DATE/TIME: 01/11/2020 07:00 (FITTER ARMAMENT) NAME SHABNAM GAYLE DATE OF : 1930 DATE OF ADMISSION: 12/24/2019 19:33 (FITTER ARMAMENT) PHONE: AGE: 89 N# [id number] GENDER: Male ENCOUNTER PHYSICIAN: Dr. Gordon David M.D. ADMISSION DIAGNOSIS: - Orthopaedic Disorders 08 - Unilateral Hip Fracture (08.11) RIGHT FEMUR FRACTURE. EATING: Not assessed/no information CODE: - ORAL HYGIENE: Not assessed/no information CODE: - TOILETING HYGIENE: TOILETING HYGIENE - STEP 1: Does the patient complete the activity by him/herself with no assistance (physical, verbal/nonverbal cueing, setup/clean-up)? No. TOILETING HYGIENE - STEP 2: Does the patient need only setup/clean-up assistance from one helper? No. TOILETING HYGIENE - STEP 3: Does the patient need only verbal/nonverbal cueing or touching/steadying/contact guard assistance fro m one helper? Yes. 1. [id number] ADMISSION PERFORMANCE: Supervision or touching assistance CODE: 04 BATHING: Not assessed/no information CODE: - DRESSING - UPPER BODY: Not assessed/no information CODE: - DRESSING - LOWER BODY: Not assessed/no information CODE: - PUTTING ON/TAKING OFF FOOTWEAR: Not assessed/no information CODE: - ROLL LEFT AND RIGHT: ROLL LEFT AND RIGHT - STEP 1: Does the patient complete the activity by him/herself with no assistance (physical, verbal/nonverbal cueing, setup/clean-up)? No. ROLL LEFT AND RIGHT - STEP 2: Does the patient need only setup/clean-up assistance from one helper? No. ROLL LEFT AND RIGHT - STEP 3: Does the patient need only verbal/nonverbal cueing or touching/steadying/contact guard assistance fro m one helper? Yes. 1. [id number] ADMISSION PERFORMANCE: Supervision or touching assistance CODE: 04 SIT TO LYING: Not assessed/no information CODE: - LYING TO SITTING: Not assessed/no information CODE: - SIT TO STAND: Not assessed/no information CODE: - TRANSFERS: BED, CHAIR: Not assessed/no information CODE: - TRANSFER TOILET: Not assessed/no information CODE: - TRANSFERS: CAR: Not assessed/no information CODE: - WALK 10 FEET: Not assessed/no information CODE: - 1 STEP (CURB): Not assessed/no information CODE: - PICKING UP OBJECT: Not assessed/no information CODE: - DOES THE PATIENT USE A WHEELCHAIR/SCOOTER? CODE: EXPR WHEEL 50 FEET WITH TWO TURNS: Not assessed/no information CODE: - INDICATE THE TYPE OF WHEELCHAIR/SCOOTER USED: CODE: EXPR WHEEL 150 FEET: Not assessed/no information CODE: - INDICATE THE TYPE OF WHEELCHAIR/SCOOTER USED: CODE: EXPR BLADDER AND BOWEL: H350. BLADDER CONTINENCE (3-DAY ASSESSMENT PERIOD): Always continent (no documented incontinence) CODE: 0 H400. BOWEL CONTINENCE (3-DAY ASSESSMENT PERIOD): Always continent CODE: 0
[2020-01-11] MEDS: TRAMADOL HCL 50 MG TAB PO PRN (03:11)
[2020-01-11] MEDS: INSULIN -REGULAR HUMAN 50 UNIT/0.5 ML ML SQ SCH ×4 (07:30→19:54)
[2020-01-11] MEDS: METOPROLOL XL 50 MG TAB PO SCH ×3 (07:59→19:52)
[2020-01-11] MEDS: FUROSEMIDE 20 MG TABLET PO SCH ×2 (07:59→16:50)
[2020-01-11] MEDS: CRANBERRY FRUIT EXTRACT 200 MG CAP PO SCH ×2 (07:59→19:52)
[2020-01-11] MEDS: METFORMIN HCL 500 MG TAB PO SCH ×2 (07:59→16:50)
[2020-01-11] MEDS: VITAMIN D 1000 UNIT TAB PO SCH (07:59)
[2020-01-11] MEDS: LIDOCAINE 4% PATCH TOP SCH (07:59)
[2020-01-11] MEDS: NITROFURAN MACRO 100 MG CAP PO SCH ×2 (08:00→19:53)
[2020-01-11] MEDS: JUVEN PACKET PO SCH ×2 (08:00→19:54)
[2020-01-11] MEDS: DOCUSATE NA 100 MG CAP PO SCH (08:00)
[2020-01-11] MEDS: ISOSORBIDE MONO SR 30 MG TAB PO SCH (08:00)
[2020-01-11] MEDS: FE SULF/FA/VIT B COMP & C TAB PO SCH (12:00)
[2020-01-11] MEDS: FERROUS SULFATE 325 MG TAB PO SCH (12:18)
[2020-01-11] MEDS: ENOXAPARIN 40 MG/0.4 ML SQ SCH (19:52)
[2020-01-11] MEDS: TAMSULOSIN 0.4 MG SR CAP PO SCH (19:53)
[2020-01-11] MEDS: ATORVASTATIN 80 MG TAB PO SCH (19:53)
[2020-01-11] MEDS: clonazePAM 0.5 MG TAB PO SCH (19:53)
[2020-01-11] MEDS: MELATONIN 3 MG TABLET PO PRN (19:53)
[2020-01-12] MEDS: INSULIN -REGULAR HUMAN 50 UNIT/0.5 ML ML SQ SCH ×4 (07:30→20:11)
[2020-01-12] MEDS: TRAMADOL HCL 50 MG TAB PO PRN ×2 (08:09→11:59)
[2020-01-12] MEDS: CRANBERRY FRUIT EXTRACT 200 MG CAP PO SCH ×2 (08:11→20:11)
[2020-01-12] MEDS: NITROFURAN MACRO 100 MG CAP PO SCH ×2 (08:11→20:10)
[2020-01-12] MEDS: VITAMIN D 1000 UNIT TAB PO SCH (08:11)
[2020-01-12] MEDS: METFORMIN HCL 500 MG TAB PO SCH ×2 (08:12→16:46)
[2020-01-12] MEDS: JUVEN PACKET PO SCH ×2 (08:12→20:00)
[2020-01-12] MEDS: DOCUSATE NA 100 MG CAP PO SCH (08:13)
[2020-01-12] MEDS: METOPROLOL XL 50 MG TAB PO SCH ×3 (08:55→20:12)
[2020-01-12] MEDS: ISOSORBIDE MONO SR 30 MG TAB PO SCH (08:55)
[2020-01-12] MEDS: FUROSEMIDE 20 MG TABLET PO SCH ×2 (08:55→16:46)
[2020-01-12] MEDS: LIDOCAINE 4% PATCH TOP SCH (11:04)
[2020-01-12] MEDS: FE SULF/FA/VIT B COMP & C TAB PO SCH (11:48)
[2020-01-12] MEDS: FERROUS SULFATE 325 MG TAB PO SCH (11:48)
--- NOTE | 2020-01-12 18:05 | R.PN ---
PROGRESS NOTES ENCOUNTER DATE AND TIME: 01/12/2020 18:02 (CHARRER) NAME SHABNAM GAYLE DATE OF : 1930 DATE OF ADMISSION: 12/24/2019 19:33 (CHARRER) RIGHT FEMUR FRACTURECHIEF COMPLAINT: Right femur fracture. SUBJECTIVE: Pt denied any Shortness of Breath. Pt denied any depression. WBC 6.0 Hgb 10.3, glucose 104 to 148, creatinine 0.97, prealbumin 15.2, UA 3+ esterase, bacteria > 50 , WBC > 50. However, cultures X 2 showed enterococcus faecalis. He is on cranberry pills plus extra f luids. Will give nitrofurantoin for 5 days. Ambulated 150'' with standby assistance using a rolling walker. Right femur x-ray show hardware is in place without complication. VITAL SIGNS Temperature: 97.3 F SBP/DBP: 117/64 Pulse: 70 Resp: 15 MEDICATION ALLERGIES: No Known Drug Allergies (NKDA) ENVIRONMENTAL ALLERGIES: - Substance Allergies None Known - Other Allergies None Known NURSING: - Shower allowing shower - Skin care per protocol PRECAUTIONS: - Anterior Hip Precaution No abduction No active extension No adduction across midline No external rotation No hip flexion >90 degrees No internal rotation - Posterior Hip Precaution No adduction across midline No external rotation No hip flexion >90 degrees No internal rotation No wheel chair propulsion - Weight Bearing Precaution TTWB right LE ACTIVITIES OOB only with supervision THERAPIES: - Dietary and Nutrition Adequate Nutrition. Nutritional Education. Nutritional Supplements. PHYSICAL EXAM - Gen Alert and awake Lying in bed No apparent distress Oriented to: person, time, and place - Skin No skin breakdown. Normacephalic - Eyes No abnormalities - ENMT No abnormalities - Neck No abnormalities No cervical adenopathy - CVS RRR - Chest Clear - Resp No wheezing - Abd Soft - GI nondistended Deferred - No abnormalities - Ext Right hip surgical site has good hemostasis. - MSK 4+/5 weakness in right lower extremity - Neuro 4/5 strength right lower extremity. - Psych No abnormalities ASSESSMENT: Pt. is a 89 yo Right-handed male of unknown race.On 12/22/2019 he was admitted to [facility] with diagnosis RIGHT FEMUR FRACTURE.His impairment category is Orthopaedic Disorders 08 - Unila teral Hip Fracture (08.11).Pre-morbidly, Pt. was independent/mod-I in Endurance, Communication, Safet y Awareness, Balance, Transfers Control, and Self-Care; and he had good Social Cognition.Currently, mao hein has deficits of Locomotion, Balance, Transfers Control, Self-Care, Sphincter Control, and Endurance .Pt. is now referred to [facility] for acute in-patient rehabilitation in [facility] to maximize patient's functional independence in activities of daily living, strength, ROM, and mob ility.- Rehab Goal Patient has realistic goal of being discharged at assistance level 7-Ind to reside at Home with Fami ly/Relatives. MDM/PLAN: - Physical Therapy Decreased range of motion - to improve, our physical therapists will perform initial evaluation of p t's status upon admission and devise an individualized program for increasing patient's Range of Wade on. Gait dysfunction - to improve, our physical therapists will perform initial evaluation of pt's statu s upon admission and devise an individualized program for Gait Training, and Wheel Chair mobility Inability to transfer - to improve, our physical therapists will perform initial evaluation of pt's status upon admission and devise an individualized program for Bed mobility Need for home safety evaluation - to improve, our physical therapists will perform initial evaluatio n of pt's status upon admission and devise an individualized program for Home Evaluation Need in caregiver upon discharge - to improve, our physical therapists will perform initial evaluati on of pt's status upon admission and devise an individualized program for Caregiver Training New precaution - to improve, our physical therapists will perform initial evaluation of pt's status upon admission and devise an individualized program for Patient precaution education Poor balance - to improve, our physical therapists will perform initial evaluation of pt's status up on admission and devise an individualized program for Balance Training Poor endurance - to improve, our physical therapists will perform initial evaluation of pt's status upon admission and devise an individualized program for Endurance Training Weakness - to improve, our physical therapists will perform initial evaluation of pt's status upon a dmission and devise an individualized program for Aquatic Therapy, Neuromuscular Reeducation, and Str engthening Achieving independence - to improve, our physical therapists will perform initial evaluation of pt's status upon admission and devise an individualized program for Community Reintegration Activities - Occupational Therapy ADL deficits - to improve, our occupation therapists will perform initial evaluation of pt's status upon admission and devise an individualized program for Bathing, Bed mobility, Community Reintegratio n, Cooking, Dressing, Eating, Fine Motor Skills, Grooming, Homemaking, Kitchen Mobility, Laundry, Pat ient Education, Safety Awareness, Splinting - Positioning, Transfers(Toilet, Tub, Shower), and Wheel Chair Management Need for customer care agent - to improve, our occupation therapists will perform initial evaluation of pt's status upon admission and devise an individualized program for Caregiver Training Weakness - to improve, our occupation therapists will perform initial evaluation of pt's status upon admission and devise an individualized program for Aquatic Therapy, Balance, Endurance, UE ROM, and UE strengthening - Other See attached MAR (Medication Administration Record) - Anterior Hip Precaution No abduction No active extension No adduction across midline No external rotation No hip flexion >90 degrees No internal rotation - Diet - Liquid Texture Continue Regular - Tube Feed Continue N/A - Diet Type Continue Regular - Posterior Hip Precaution No adduction across midline No external rotation No hip flexion >90 degrees No internal rotation No wheel chair propulsion - Weight Bearing Precaution TTWB right LE - Skin care per protocol - Diet - Solid Texture Continue Regular - Shower allowing shower FUNCTIONAL STATUS: UPDATED AT WEEKLY TEAM CONFERENCE - Bladder Same accident frequency: 7-Ind - No accidents in the past 7 days - Bowel Same accident frequency: 7-Ind - No accidents in the past 7 days - Walking Same score based on distance walked: 0(N/A) - Wheelchair Same score based on distance traveled: 0(N/A) FUNCTIONAL STATUS: - Self-Care A. Eating Paola B. Grooming Paola C. Bathing modA D. Dressing - Upper Aviva E. Dressing - Lower modA F. Toileting Aviva - Sphincter Control G. Bladder control Aviva H. Bowel control Aviva - Transfers Control I. Bed/Chair/Wheelchair Aviva J. Toilet Aviva K. Tub/Shower modA - Locomotion L. Walk/Wheelchair (B) sup M. Stairs ADNO - Communication N. Comprehension (B) Paola O. Expression (B) Paola - Social Cognition P. Social Interaction Paola Q. Problem Solving Paola R. Memory Paola - Endurance Fair - Balance Fair - Safety Awareness Fair QI SCORES: - Self-Care A. Eating 04-Supervision or touching assistance B. Oral hygiene 04-Supervision or touching assistance C. Toileting hygiene 02-Substantial/maximal assistance E. Shower/bathe self 02-Substantial/maximal assistance F. Upper body dressing 03-Partial/moderate assistance G. Lower body dressing 02-Substantial/maximal assistance H. Putting on/taking off footwear 88-Not attempted due to medical condition or safety concerns - Mobility A. Roll left and right 03-Partial/moderate assistance B. Sit to lying 02-Substantial/maximal assistance C. Lying to sitting on side of bed 02-Substantial/maximal assistance D. Sit to stand 02-Substantial/maximal assistance E. Chair/[id number] transfer 02-Substantial/maximal assistance F. Toilet transfer 02-Substantial/maximal assistance G. Car transfer 88-Not attempted due to medical condition or safety concerns I. Walk 10 feet 88-Not attempted due to medical condition or safety concerns J. Walk 50 feet with two turns 88-Not attempted due to medical condition or safety concerns K. Walk 150 feet 88-Not attempted due to medical condition or safety concerns L. Walking 10 feet on uneven surfaces 88-Not attempted due to medical condition or safety concerns M. 1 step (curb) 88-Not attempted due to medical condition or safety concerns N. 4 steps 88-Not attempted due to medical condition or safety concerns O. 12 steps 88-Not attempted due to medical condition or safety concerns P. Picking up object 88-Not attempted due to medical condition or safety concerns R. Wheel 50 feet with two turns 88-Not attempted due to medical condition or safety concerns S. Wheel 150 feet 88-Not attempted due to medical condition or safety concerns - Bladder and Bowel Bladder continence Bowel continence - Endurance Poor - Balance Poor - Safety Awareness Fair [facility] DEFICITS: Self-Care, Mobility, Endurance, Balance, and Safety Awareness SIGNATURE PANEL: (CHARRER)
[2020-01-12] MEDS: clonazePAM 0.5 MG TAB PO SCH (20:10)
[2020-01-12] MEDS: ENOXAPARIN 40 MG/0.4 ML SQ SCH (20:10)
[2020-01-12] MEDS: TAMSULOSIN 0.4 MG SR CAP PO SCH (20:11)
[2020-01-12] MEDS: ATORVASTATIN 80 MG TAB PO SCH (20:11)
[2020-01-13] MEDS: TRAMADOL HCL 50 MG TAB PO PRN (03:25)
[2020-01-13 06:44] LABS: Absolute Lymphocytes (CBC) 0.9 K/uL (0.7-4.9); Basophils % 0.8 % (0-1.3); Hematocrit 32.2 % (39.6-49.0); Lymphocytes % 15.1 % (15.3-44.8); MPV 8.1 fL (7.6-11.3); RBC Red Blood Cell Count 3.51 M/uL (4.33-5.43)
[2020-01-13 06:58] LABS: Albumin 2.9 g/dL (3.4-5.0); Magnesium 2.2 mg/dL (1.8-2.4); Potassium 3.5 mmol/L (3.5-5.1); Prealbumin 13.7 mg/dL (20-40)
[2020-01-13] MEDS: INSULIN -REGULAR HUMAN 50 UNIT/0.5 ML ML SQ SCH ×4 (07:30→20:21)
[2020-01-13] MEDS: FUROSEMIDE 20 MG TABLET PO SCH ×2 (08:14→17:48)
[2020-01-13] MEDS: METOPROLOL XL 50 MG TAB PO SCH ×3 (08:14→20:21)
[2020-01-13] MEDS: CRANBERRY FRUIT EXTRACT 200 MG CAP PO SCH ×2 (08:14→20:20)
[2020-01-13] MEDS: VITAMIN D 1000 UNIT TAB PO SCH (08:14)
[2020-01-13] MEDS: DOCUSATE NA 100 MG CAP PO SCH (08:14)
[2020-01-13] MEDS: NITROFURAN MACRO 100 MG CAP PO SCH ×2 (08:14→20:00)
[2020-01-13] MEDS: ISOSORBIDE MONO SR 30 MG TAB PO SCH (08:15)
[2020-01-13] MEDS: METFORMIN HCL 500 MG TAB PO SCH ×2 (08:15→17:49)
[2020-01-13] MEDS: LIDOCAINE 4% PATCH TOP SCH (08:15)
[2020-01-13] MEDS: JUVEN PACKET PO SCH ×2 (08:16→20:00)
[2020-01-13] MEDS: FERROUS SULFATE 325 MG TAB PO SCH (12:44)
[2020-01-13] MEDS: FE SULF/FA/VIT B COMP & C TAB PO SCH (12:44)
[2020-01-13] MEDS: POLYETHYL GLY 3350 17 GM/DOSE PO PRN (14:52)
[2020-01-13] MEDS: clonazePAM 0.5 MG TAB PO SCH (20:20)
[2020-01-13] MEDS: TAMSULOSIN 0.4 MG SR CAP PO SCH (20:20)
[2020-01-13] MEDS: ENOXAPARIN 40 MG/0.4 ML SQ SCH (20:20)
[2020-01-13] MEDS: ATORVASTATIN 80 MG TAB PO SCH (20:20)
[2020-01-13] MEDS: MELATONIN 3 MG TABLET PO PRN (20:57)
[2020-01-14] MEDS: INSULIN -REGULAR HUMAN 50 UNIT/0.5 ML ML SQ SCH ×2 (07:13→11:30)
[2020-01-14] MEDS: JUVEN PACKET PO SCH (07:54)
[2020-01-14] MEDS: METFORMIN HCL 500 MG TAB PO SCH (07:55)
[2020-01-14] MEDS: NITROFURAN MACRO 100 MG CAP PO SCH (07:55)
[2020-01-14 07:56] VITALS: BP 118/70; TEMP 97.9
[2020-01-14] MEDS: DOCUSATE NA 100 MG CAP PO SCH (07:56)
[2020-01-14] MEDS: CRANBERRY FRUIT EXTRACT 200 MG CAP PO SCH (07:56)
[2020-01-14] MEDS: ISOSORBIDE MONO SR 30 MG TAB PO SCH (07:57)
[2020-01-14] MEDS: FUROSEMIDE 20 MG TABLET PO SCH (07:57)
[2020-01-14] MEDS: METOPROLOL XL 50 MG TAB PO SCH (07:57)
[2020-01-14] MEDS: VITAMIN D 1000 UNIT TAB PO SCH (07:57)
[2020-01-14] MEDS: TRAMADOL HCL 50 MG TAB PO PRN ×2 (07:58→12:02)
--- NOTE | 2020-01-14 09:57 | P.RH.PN ---
Estimated Length of Stay: 21 Expected Discharge Date: 01/14/20 Discharge Disposition Plan: Home Family Support: Yes Prison Goal: Mobility, Transfers, Self Care Vital Signs: Last Vital Signs Temp 97.9 F 01/14/20 07:54 Pulse 66 01/14/20 07:57 Resp 18 01/14/20 08:47 BP 118/70 01/14/20 07:57 Pulse Ox 96 01/14/20 08:47 Laboratory: Laboratory Last Values WBC 5.7 K/uL (4.3-10.9) 01/13/20 06:10 RBC 3.51 M/uL (4.33-5.43) L 01/13/20 06:10 Hgb 10.6 g/dL (13.6-17.9) L 01/13/20 06:10 Hct 32.2 % (39.6-49.0) L 01/13/20 06:10 MCV 91.8 fL (80-100) 01/13/20 06:10 MCH 30.3 pg (27.0-35.0) 01/13/20 06:10 MCHC 33.0 g/dL (32.0-36.0) 01/13/20 06:10 RDW 16.2 % (12.1-15.2) H 01/13/20 06:10 Plt Count 219 K/uL (152-406) D 01/13/20 06:10 MPV 8.1 fL (7.6-11.3) 01/13/20 06:10 Neutrophils % 73.5 % (41.7-73.7) 01/13/20 06:10 Lymphocytes % 15.1 % (15.3-44.8) L 01/13/20 06:10 Monocytes % 8.8 % (3.3-12.3) 01/13/20 06:10 Eosinophils % 1.8 % (0-4.4) 01/13/20 06:10 Basophils % 0.8 % (0-1.3) 01/13/20 06:10 Absolute Neutrophils 4.2 K/uL (1.8-8.0) 01/13/20 06:10 Absolute Lymphocytes 0.9 K/uL (0.7-4.9) 01/13/20 06:10 Absolute Monocytes 0.5 K/uL (0.1-1.3) 01/13/20 06:10 Absolute Eosinophils 0.1 K/uL (0-0.5) 01/13/20 06:10 Absolute Basophils 0.0 K/uL (0-0.5) 01/13/20 06:10 Sodium 142 mmol/L (136-145) 01/13/20 06:10 Potassium 3.5 mmol/L (3.5-5.1) 01/13/20 06:10 Chloride 104 mmol/L (98-107) 01/13/20 06:10 Carbon Dioxide 33 mmol/L (21-32) H 01/13/20 06:10 BUN 18 mg/dL (7-18) 01/13/20 06:10 Creatinine 0.94 mg/dL (0.55-1.3) 01/13/20 06:10 Estimated GFR 76 mL/min (=/>90) L 01/13/20 06:10 Glucose 121 mg/dL (74-106) H 01/13/20 06:10 POC Glucose 121 mg/dL (65-120) H 01/14/20 06:59 Calcium 8.6 mg/dL (8.5-10.1) 01/13/20 06:10 Magnesium 2.2 mg/dL (1.8-2.4) 01/13/20 06:10 Creatine Kinase 152 U/L (39-308) 01/01/20 07:44 CK-MB (CK-2) 7.9 ng/mL (0.3-3.6) H 01/01/20 07:44 Troponin I 2.75 ng/mL (0.0-0.045) H* 01/01/20 07:44 Albumin 2.9 g/dL (3.4-5.0) L 01/13/20 06:10 Prealbumin 13.7 mg/dL (20-40) L 01/13/20 06:10 Urine Color Dk yellow 01/01/20 17:00 Urine Appearance Cloudy 01/01/20 17:00 Urine pH 5.5 (5.0-7.0) 01/01/20 17:00 Ur Specific Mitchell 1.025 (1.005-1.030) 01/01/20 17:00 Glucose (UA)(Auto) Negative (NEG) 01/01/20 17:00 Urine Ketones Negative (NEG) 01/01/20 17:00 Urine Blood Negative (NEG) 01/01/20 17:00 Urine Nitrite Negative (NEG) 01/01/20 17:00 Urine Bilirubin Negative (NEG) 01/01/20 17:00 Urine Urobilinogen 1.0 mg/dL (0.2-1.0) 01/01/20 17:00 Ur Leukocyte Esterase 3+ (NEG) H 01/01/20 17:00 Urine RBC <5 /HPF (NONE SEEN) 01/01/20 17:00 Urine WBC >50 /HPF (<5) H 01/01/20 17:00 Ur Squamous Epith Cells <5 /HPF (NONE SEEN) 01/01/20 17:00 Urine Bacteria >50 /HPF (NONE SEEN) H 01/01/20 17:00 Urine Mucus 2+ /HPF (NONE SEEN) 12/25/19 00:48 Urine Culture Reflexed Not needed 01/01/20 17:00 Urine Total Protein 1+ (NEG) H 01/01/20 17:00 Weight: 204 lb 6.4 oz Wound Present: No Closed Surgical Incision Present: Yes Negative Pressure Wound Therapy Present: No Physician Update: Labs reviewed and are stable. He did very well with physical therapy and is ready for discharge home today with home health to continue t herapy. Functional Improvement: pt has demonstrated consistent improvement throughout the week. His anxiety has been diminished and his ability to ambulate further distances is improved. Speech Therapy Update: Patient cont. to present with mild (min) cognitive deficits which are further compounded by his hearing and visual deficits. Patient's delayed recall for novel information is approx. 80% for up to 6 items. It appears patient would benefit from contiued speech therapy once discharged. 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 Please see the Rehabilitation Signature page for all necessary signatures.
[2020-01-14] MEDS: LIDOCAINE 4% PATCH TOP SCH (10:06)
[2020-01-14] MEDS: FERROUS SULFATE 325 MG TAB PO SCH (12:03)
[2020-01-14] MEDS: FE SULF/FA/VIT B COMP & C TAB PO SCH (12:03)
--- NOTE | 2020-02-15 17:58 | R.PN ---
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 SUBJECTIVE: Pt denied any Shortness of Breath. Pt denied any depression. WBC 6.1, Hgb 9.6, glucose 111 to 137, creatinine 0.71, prealbumin 11.4, UA 1+ esterase, bacteria 20-5 0, WBC 10-20. Ambulated 45' with minimum to moderate assistance using a rolling walker. Posterior propelled wheelc hair 250' with standby assistance. VITAL SIGNS Temperature: 98.0 F SBP/DBP: 128/72 Pulse: 80 Resp: 16 MEDICATION ALLERGIES: No Known Drug Allergies (NKDA) ENVIRONMENTAL ALLERGIES: - Substance Allergies None Known - Other Allergies None Known NURSING: - Shower allowing shower - Skin care per protocol PRECAUTIONS: - Anterior Hip Precaution No abduction No active extension No adduction across midline No external rotation No hip flexion >90 degrees No internal rotation - Posterior Hip Precaution No adduction across midline No external rotation No hip flexion >90 degrees No internal rotation No wheel chair propulsion - Weight Bearing Precaution TTWB right LE ACTIVITIES OOB only with supervision THERAPIES: - Dietary and Nutrition Adequate Nutrition. Nutritional Education. Nutritional Supplements. PHYSICAL EXAM - Gen Alert and awake Lying in bed No apparent distress Oriented to: person, time, and place - Skin No skin breakdown. Normacephalic - Eyes No abnormalities - ENMT No abnormalities - Neck No abnormalities No cervical adenopathy - CVS RRR - Chest Clear - Resp No wheezing - Abd Soft - GI nondistended Deferred - No abnormalities - Ext Right hip surgical site has good hemostasis. - MSK 4+/5 weakness in right lower extremity - Neuro 4/5 strength right lower extremity. - Psych No abnormalities ASSESSMENT: Pt. is a 89 yo Right-handed male of unknown race.On 12/22/2019 he was admitted to [facility] with diagnosis RIGHT FEMUR FRACTURE.His impairment category is Orthopaedic Disorders 08 - Unila teral Hip Fracture (09.20).Pre-morbidly, Pt. was independent/mod-I in Endurance, Communication, Safet y Awareness, Balance, Transfers Control, and Self-Care; and he had good Social Cognition.Currently, h e has deficits of Locomotion, Balance, Transfers Control, Self-Care, Sphincter Control, and Endurance .Pt. is now referred to [facility] for acute in-patient rehabilitation [place] to maximize patient's functional independence in activities of daily living, strength, ROM, and mob ility.- Rehab Goal Patient has realistic goal of being discharged at assistance level 7-Ind to reside at Home with Fami ly/Relatives. MDM/PLAN: - Physical Therapy Decreased range of motion - to improve, our physical therapists will perform initial evaluation of p t's status upon admission and devise an individualized program for increasing patient's Range of Wade on. Gait dysfunction - to improve, our physical therapists will perform initial evaluation of pt's statu s upon admission and devise an individualized program for Gait Training, and Wheel Chair mobility Inability to transfer - to improve, our physical therapists will perform initial evaluation of pt's status upon admission and devise an individualized program for Bed mobility Need for home safety evaluation - to improve, our physical therapists will perform initial evaluatio n of pt's status upon admission and devise an individualized program for Home Evaluation Need in caregiver upon discharge - to improve, our physical therapists will perform initial evaluati on of pt's status upon admission and devise an individualized program for Caregiver Training New precaution - to improve, our physical therapists will perform initial evaluation of pt's status upon admission and devise an individualized program for Patient precaution education Poor balance - to improve, our physical therapists will perform initial evaluation of pt's status up on admission and devise an individualized program for Balance Training Poor endurance - to improve, our physical therapists will perform initial evaluation of pt's status upon admission and devise an individualized program for Endurance Training Weakness - to improve, our physical therapists will perform initial evaluation of pt's status upon a dmission and devise an individualized program for Aquatic Therapy, Neuromuscular Reeducation, and Str engthening Achieving independence - to improve, our physical therapists will perform initial evaluation of pt's status upon admission and devise an individualized program for Community Reintegration Activities - Occupational Therapy ADL deficits - to improve, our occupation therapists will perform initial evaluation of pt's status upon admission and devise an individualized program for Bathing, Bed mobility, Community Reintegratio n, Cooking, Dressing, Eating, Fine Motor Skills, Grooming, Homemaking, Kitchen Mobility, Laundry, Pat ient Education, Safety Awareness, Splinting - Positioning, Transfers(Toilet, Tub, Shower), and Wheel Chair Management Need for hourly caregiver - to improve, our occupation therapists will perform initial evaluation of pt's status upon admission and devise an individualized program for Caregiver Training Weakness - to improve, our occupation therapists will perform initial evaluation of pt's status upon admission and devise an individualized program for Aquatic Therapy, Balance, Endurance, UE ROM, and UE strengthening - Other See attached MAR (Medication Administration Record) - Anterior Hip Precaution No abduction No active extension No adduction across midline No external rotation No hip flexion >90 degrees No internal rotation - Diet - Liquid Texture Continue Regular - Tube Feed Continue N/A - Diet Type Continue Regular - Posterior Hip Precaution No adduction across midline No external rotation No hip flexion >90 degrees No internal rotation No wheel chair propulsion - Weight Bearing Precaution TTWB right LE - Skin care per protocol - Diet - Solid Texture Continue Regular - Shower allowing shower FUNCTIONAL STATUS: UPDATED AT WEEKLY TEAM CONFERENCE - Bladder Same accident frequency: 7-Ind - No accidents in the past 7 days - Bowel Same accident frequency: 7-Ind - No accidents in the past 7 days - Walking Same score based on distance walked: 0(N/A) - Wheelchair Same score based on distance traveled: 0(N/A) FUNCTIONAL STATUS: - Self-Care A. Eating Paola B. Grooming Paola C. Bathing modA D. Dressing - Upper Aviva E. Dressing - Lower modA F. Toileting Aviva - Sphincter Control G. Bladder control Aviva H. Bowel control Aviva - Transfers Control I. Bed/Chair/Wheelchair Aviva J. Toilet Aviva K. Tub/Shower modA - Locomotion L. Walk/Wheelchair (B) sup M. Stairs ADNO - Communication N. Comprehension (B) Paola O. Expression (B) Paola - Social Cognition P. Social Interaction Paola Q. Problem Solving Paola R. Memory Paola - Endurance Fair - Balance Fair - Safety Awareness Fair QI SCORES: - Self-Care A. Eating 04-Supervision or touching assistance B. Oral hygiene 04-Supervision or touching assistance C. Toileting hygiene 02-Substantial/maximal assistance E. Shower/bathe self 02-Substantial/maximal assistance F. Upper body dressing 03-Partial/moderate assistance G. Lower body dressing 02-Substantial/maximal assistance H. Putting on/taking off footwear 88-Not attempted due to medical condition or safety concerns - Mobility A. Roll left and right 03-Partial/moderate assistance B. Sit to lying 02-Substantial/maximal assistance C. Lying to sitting on side of bed 02-Substantial/maximal assistance D. Sit to stand 02-Substantial/maximal assistance E. Chair/ffi-ls-kjtwd transfer 02-Substantial/maximal assistance F. Toilet transfer 02-Substantial/maximal assistance G. Car transfer 88-Not attempted due to medical condition or safety concerns I. Walk 10 feet 88-Not attempted due to medical condition or safety concerns J. Walk 50 feet with two turns 88-Not attempted due to medical condition or safety concerns K. Walk 150 feet 88-Not attempted due to medical condition or safety concerns L. Walking 10 feet on uneven surfaces 88-Not attempted due to medical condition or safety concerns M. 1 step (curb) 88-Not attempted due to medical condition or safety concerns N. 4 steps 88-Not attempted due to medical condition or safety concerns O. 12 steps 88-Not attempted due to medical condition or safety concerns P. Picking up object 88-Not attempted due to medical condition or safety concerns R. Wheel 50 feet with two turns 88-Not attempted due to medical condition or safety concerns S. Wheel 150 feet 88-Not attempted due to medical condition or safety concerns - Bladder and Bowel Bladder continence Bowel continence - Endurance Poor - Balance Poor - Safety Awareness Fair CURRENT FUNC. 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
--- NOTE | 2020-02-15 17:59 | R.DS ---
DISCHARGE SUMMARY FACILITY [facility] MR# [id number] NAME SHABNAM GAYLE ADDRESS [address] [facility] [place] [address] PHONE DATE OF 1930 AGE 89 SSN# [id number] GENDER Male DEXTERITY Right-handed MARITAL STATUS RACE Unknown race ENCOUNTER PHYSICIAN Dr. Gordon David M.D. REFERRING DOCTOR REFERRING FACILITY [facility] DISCHARGE DIAGNOSIS: - Orthopaedic Disorders 08 - Unilateral Hip Fracture (08.11) RIGHT FEMUR FRACTURE. 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 NURSING: - Shower allowing shower - Skin care per protocol PRECAUTIONS: - Anterior Hip Precaution No abduction No active extension No adduction across midline No external rotation No hip flexion >90 degrees No internal rotation - Posterior Hip Precaution No adduction across midline No external rotation No hip flexion >90 degrees No internal rotation No wheel chair propulsion - Weight Bearing Precaution TTWB right LE ACTIVITIES OOB only with supervision THERAPIES: - Dietary and Nutrition Adequate Nutrition Nutritional Education Nutritional Supplements HISTORY OF PRESENT ILLNESS: Pt. is a 89 yo Right-handed male of unknown race.On 12/22/2019 he was admitted to [facility] with diagnosis RIGHT FEMUR FRACTURE.His impairment category is Orthopaedic Disorders 08 - Unila teral Hip Fracture (08.11).Pre-morbidly, Pt. was independent/mod-I in Endurance, Communication, Safet y Awareness, Balance, Transfers Control, and Self-Care; and he had good Social Cognition.Currently, h angel luis has deficits of Locomotion, Balance, Transfers Control, Self-Care, Sphincter Control, and Endurance .Pt. is now referred to [facility] for acute in-patient rehabilitation in [place] to maximize patient's functional independence in activities of daily living, strength, ROM, and mob ility.- Rehab Goal Patient has realistic goal of being discharged at assistance level 7-Ind to reside at Home with Fami ly/Relatives. ANTERIOR HIP PRECAUTION: On 12/25/2019 the following precautions were added for the patient: Anterior Hip Precaution - No abdu ction, Anterior Hip Precaution - No active extension, Anterior Hip Precaution - No adduction across m idline, Anterior Hip Precaution - No external rotation, Anterior Hip Precaution - No hip flexion >90 degrees, and Anterior Hip Precaution - No internal rotation. On 12/27/2019 the following precautions were added for the patient: Anterior Hip Precaution - No abd uction, Anterior Hip Precaution - No active extension, Anterior Hip Precaution - No adduction acros s midline, Anterior Hip Precaution - No external rotation, Anterior Hip Precaution - No hip flexion >90 degrees, and Anterior Hip Precaution - No internal rotation. The following precautions were removed for the patient: Anterior Hip Precaution - No abduction, Anter ior Hip Precaution - No active extension, Anterior Hip Precaution - No adduction across midline, Ante rior Hip Precaution - No external rotation, Anterior Hip Precaution - No hip flexion >90 degrees, Ant erior Hip Precaution - No internal rotation, Anterior Hip Precaution - No abduction, Anterior Hip Pr ecaution - No active extension, Anterior Hip Precaution - No adduction across midline, Anterior Hip Precaution - No external rotation, Anterior Hip Precaution - No hip flexion >90 degrees, and Anter ior Hip Precaution - No internal rotation. On 12/25/2019 the following precautions were added for the patient: Posterior Hip Precaution - No add uction across midline, Posterior Hip Precaution - No external rotation, Posterior Hip Precaution - No hip flexion >90 degrees, Posterior Hip Precaution - No internal rotation, and Posterior Hip Precauti on - No wheel chair propulsion. On 12/27/2019 the following precautions were added for the patient: Posterior Hip Precaution - No ad duction across midline, Posterior Hip Precaution - No external rotation, Posterior Hip Precaution - No hip flexion >90 degrees, Posterior Hip Precaution - No internal rotation, and Posterior Hip Prec aution - No wheel chair propulsion. The following precautions were removed for the patient: Posterior Hip Precaution - No adduction acros s midline, Posterior Hip Precaution - No external rotation, Posterior Hip Precaution - No hip flexion >90 degrees, Posterior Hip Precaution - No internal rotation, Posterior Hip Precaution - No wheel ch air propulsion, Posterior Hip Precaution - No adduction across midline, Posterior Hip Precaution - No external rotation, Posterior Hip Precaution - No hip flexion >90 degrees, Posterior Hip Precautio n - No internal rotation, and Posterior Hip Precaution - No wheel chair propulsion. On 12/25/2019 the following precautions were added for the patient: Weight Bearing Precaution - TTWB right LE, and Weight Bearing Precaution - TTWB right LE. On 12/27/2019 the following precautions were removed for the patient: Weight Bearing Precaution - TT WB right LE. On 12/28/2019 the following precautions were added for the patient: Weight Bearing Precaution - TTWB right LE. DIET - LIQUID TEXTURE: On 12/24/2019 Pt was upgraded to Regular Diet - Liquid Texture. DIET - SOLID TEXTURE: On 12/24/2019 Pt was upgraded to Regular Diet - Solid Texture. DIET TYPE: On 12/24/2019 Pt was upgraded to Regular Diet Type. POSTERIOR HIP PRECAUTION: TUBE FEED: On 12/24/2019 Pt was changed to N/A Tube Feed. WEIGHT BEARING PRECAUTION: DISCHARGE PHYSICAL EXAM - Gen Alert and awake Lying in bed No apparent distress Oriented to: person, time, and place - Skin No skin breakdown. Normacephalic - Eyes No abnormalities - ENMT No abnormalities - Neck No abnormalities No cervical adenopathy - CVS RRR - Chest Clear - Resp No wheezing - Abd Soft - GI nondistended Deferred - No abnormalities - Ext Right hip surgical site has good hemostasis. - MSK 4+/5 weakness in right lower extremity - Neuro 4/5 strength right lower extremity. - Psych No abnormalities FUNCTIONAL STATUS: - Self-Care A. Eating 6-Paola B. Grooming 6-Paola C. Bathing 5-sup D. Dressing - Upper 6-Paola E. Dressing - Lower 5-sup F. Toileting 5-sup - Sphincter Control G. Bladder control 6-Paola H. Bowel control 6-Paola - Transfers Control I. Bed/Chair/Wheelchair 6-Paola J. Toilet 6-Paola K. Tub/Shower 3-modA - Locomotion L. Walk/Wheelchair (B) 6-Paola M. Stairs 0-ADNO - Communication N. Comprehension (B) 6-Paola O. Expression (B) 6-Paola - Social Cognition P. Social Interaction 6-Paola Q. Problem Solving 6-Paola R. Memory 6-Paola - Endurance Fair - Balance Fair - Safety Awareness Fair QI SCORES: - Self-Care A. Eating 04-Supervision or touching assistance B. Oral hygiene 04-Supervision or touching assistance C. Toileting hygiene 02-Substantial/maximal assistance E. Shower/bathe self 02-Substantial/maximal assistance F. Upper body dressing 03-Partial/moderate assistance G. Lower body dressing 02-Substantial/maximal assistance H. Putting on/taking off footwear 88-Not attempted due to medical condition or safety concerns - Mobility A. Roll left and right 03-Partial/moderate assistance B. Sit to lying 02-Substantial/maximal assistance C. Lying to sitting on side of bed 02-Substantial/maximal assistance D. Sit to stand 02-Substantial/maximal assistance E. Chair/cef-av-rwlrt transfer 02-Substantial/maximal assistance F. Toilet transfer 02-Substantial/maximal assistance G. Car transfer 88-Not attempted due to medical condition or safety concerns I. Walk 10 feet 88-Not attempted due to medical condition or safety concerns J. Walk 50 feet with two turns 88-Not attempted due to medical condition or safety concerns K. Walk 150 feet 88-Not attempted due to medical condition or safety concerns L. Walking 10 feet on uneven surfaces 88-Not attempted due to medical condition or safety concerns M. 1 step (curb) 88-Not attempted due to medical condition or safety concerns N. 4 steps 88-Not attempted due to medical condition or safety concerns O. 12 steps 88-Not attempted due to medical condition or safety concerns P. Picking up object 88-Not attempted due to medical condition or safety concerns R. Wheel 50 feet with two turns 88-Not attempted due to medical condition or safety concerns S. Wheel 150 feet 88-Not attempted due to medical condition or safety concerns - Bladder and Bowel Bladder continence Bowel continence - Endurance Poor - Balance Poor - Safety Awareness Fair DISCHARGE INSTRUCTIONS: - N/A Eliquis 2.5 mg twice daily and Aspirin 81 mg daily. DISCHARGE PLAN, FOLLOW UP CARE PROVISIONS: - Estimated Length of Stay (days) 14. - Consensus on plan Discharge plan has been discussed with primary caregiver. Patient/Family is in agreement with the jacquelyn n. Primary caregiver is in agreement with the plan. - Patient/Family Goals Return home independently. - Planned Living Setting Upon Discharge Home, to live with Family/Relatives. Transitional Living. 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
== END 2020-01-14 12:50 | disposition home health service (06) | DRG 561 ==
LOC: 5TH 21:33
PROVIDERS: ADMIT Psychiatry & Neurology Neurology with Special Qualifications in Child Neurology; ATTEND Psychiatry & Neurology Neurology with Special Qualifications in Child Neurology
DX: S72.91XD Unspecified fracture of right femur, subsequent encounter for closed fracture with routine healing (principal); I10 Essential (primary) hypertension; I25.119 Atherosclerotic heart disease of native coronary artery with unspecified angina pectoris; B95.2 Enterococcus as the cause of diseases classified elsewhere; Z95.1 Presence of aortocoronary bypass graft; Z20.828 Contact with and (suspected) exposure to other viral communicable diseases
CPT/HCPCS: 36415; 71045; 80048; 81001; 81003; 81015; 82040; 82550; 82553; 82947; 83735; 84134; 84484; 85025; 87077; 87086; 87088; 87186; 92523; 93005; 93971; 94010; 97110; 97116; 97127; 97163; 97530; 97542; J1650; U0002

== ENCOUNTER 2020-01-19 13:02 | Emergency (ER) | payer OTHER ==
--- NOTE | 2020-01-19 15:47 | RAD REPORT ---
EXAM DESCRIPTION: RAD - Chest Single View - 01/19/2020 3:34 pm CLINICAL HISTORY: SOB Chest pain. COMPARISON: Chest Single View dated 01/04/2020; Chest Single View dated 01/02/2020; Chest Single Vie w dated 12/22/2019; Chest Pa And Lat (2 Views) dated 01/22/2019 FINDINGS: Portable technique limits examination quality. Mild to moderate pulmonary edema is seen with small bilateral pleural effusions. The heart is moderat fely enlarged with changes of prior CABG. Sternotomy wires. IMPRESSION: Mild to moderate CHF.
[2020-01-19 15:57] LABS: Absolute Lymphocytes (CBC) 0.9 K/uL (0.7-4.9); Basophils % 0.5 % (0-1.3); Lymphocytes % 16.2 % (15.3-44.8); MPV 8.4 fL (7.6-11.3); Protime INR 1.38
[2020-01-19 16:04] LABS: Albumin 3.1 g/dL (3.4-5.0); Bilirubin Direct 0.3 mg/dL (0-0.2); Bilirubin Total 0.8 mg/dL (0.2-1.0); Potassium 4.3 mmol/L (3.5-5.1)
--- NOTE | 2020-01-19 16:06 | RAD REPORT ---
EXAM DESCRIPTION: CT - Chest For Pe Angio - 01/19/2020 3:52 pm CLINICAL HISTORY: Chest pain. sob, s/p right hip ORIF COMPARISON: Thorax Wo Con dated 09/20/2016 TECHNIQUE: CT angiogram of the pulmonary arteries was performed with MIP. All CT scans are performed using dose optimization technique as appropriate and may include automated exposure control or mA/KV adjustment according to patient size. FINDINGS: No evidence of pulmonary thromboembolism. Aorta is suboptimally visualized and grossly unremarkable. Atherosclerosis is present. Mild interstitial pulmonary edema is seen. Moderate bilateral pleural effusions. No concerning bony finding. IMPRESSION: No evidence of pulmonary thromboembolism. Moderate CHF suspected.
[2020-01-19 16:50] LABS: Magnesium 2.5 mg/dL (1.8-2.4)
--- NOTE | 2020-01-19 17:57 | ER ---
Nurse's Notes [facility] Name: Ronny Burgess Age: 89 yrs Sex: Male : 1930 Arrival Date: 01/19/2020 Time: 13:04 Bed 20 Private MD: Diagnosis: Unspecified systolic (congestive) heart failure-Mild Presentation: 01/18 13:32 Chief complaint: Patient states: SOB on exertion since he was discharged from rehab iw after hip surgery last week, also has difficulty breathing at night , is having to sleep sitting up , noticed that his O2 dropped to 85% on exertion when he was seen by PT today. Ebola Screen: Patient negative for fever greater than or equal to 101.5 degrees Fahrenheit, and additional compatible Ebola Virus Disease symptoms Patient denies exposure to infectious person. Patient denies travel to an Ebola-affected area in the 21 days before illness onset. No symptoms or risks identified at this time. Initial Sepsis Screen: Does the patient meet any 2 criteria? No. Patient's initial sepsis screen is negative. Does the patient have a suspected source of infection? No. Patient's initial sepsis screen is negative. Risk Assessment: Do you want to hurt yourself or someone else? Patient reports no desire to harm self or others. Onset of symptoms was January 15, 2020. 13:32 Method Of Arrival: Wheelchair iw 13:32 Acuity: BERNARDA 3 iw 13:32 Coronavirus screen: At this time, the client does not indicate any symptoms associated iw with coronavirus-19. Historical: - Allergies: 13:36 Isosorbide Dinitrate; iw - Home Meds: 13:36 aspirin 81 mg Oral chew 1 tab once daily [Active]; atorvastatin 80 mg Oral tab 1 tab iw once daily [Active]; cholecalciferol (vitamin D3) 400 unit Oral cap [Active]; metformin 500 mg Oral tab 1 tab 2 times per day [Active]; metoprolol succinate 50 mg Oral Tb24 1 tab twice a day [Active]; Multiple Vitamins Oral tab twice a day [Active]; nitroglycerin 0.4 mg SL subl 1 tab every 5 minutes [Active]; tamsulosin 0.4 mg Oral cp24 2 caps once daily [Active]; Eliquis 2.5 mg oral tab 1 tab 2 times per day [Active]; - PMHx: 13:36 Diabetes - NIDDM; Hyperlipidemia; Myocardial infarction; iw - PSHx: 13:37 CABG; Heart stents; hip; Knee surgery; iw - Immunization history:: Adult Immunizations up to date. - Social history:: Smoking status: Patient denies any tobacco usage or history of. Patient/guardian denies using alcohol, street drugs, The patient lives with family. - Family history:: not pertinent. Screenin:55 Abuse screen: Denies threats or abuse. Denies injuries from another. Nutritional ph screening: No deficits noted. Tuberculosis screening: No symptoms or risk factors identified. Fall Risk No fall in past 12 months (0 pts). Secondary diagnosis (15 points) impaired mobility, IV access (20 points). Ambulatory Aid- Crutches/Cane/Walker (15 pts). Gait- Impaired (20 pts.). Mental Status- Oriented to own ability (0 pts). Total Howard Fall Scale indicates High Risk Score (45 or more points). Fall prevention measures have been instituted. Side Rails Up X 2 Placed Close to Nursing Station Frequent Obs/Assessments Occuring Family Present and informed to notify staff if the need to leave the bedside As available patient and family educated on Fall Prevention Program and Strategies. Assessment: 15:36 General: Appears in no apparent distress. comfortable, well groomed, Behavior is calm, ph cooperative, appropriate for age, Reports chills for fever for. Pain: Denies pain. Neuro: Level of Consciousness is awake, alert, obeys commands, Oriented to person, place, time, situation. Cardiovascular: Reports shortness of breath, Denies chest pain, nausea, palpitations, Capillary refill < 3 seconds in bilateral fingers Patient's skin is warm and dry. Respiratory: Reports shortness of breath on exertion Airway is patent Respiratory effort is even, labored, Respiratory pattern is tachypnea. GI: No signs and/or symptoms were reported involving the gastrointestinal system. Derm: Skin is intact, is healthy with good turgor, Skin is pink, warm \T\ dry. Musculoskeletal: Circulation, motion, and sensation intact. Range of motion: intact in all extremities. 16:30 Reassessment: Patient appears in no apparent distress at this time. Patient and/or ph family updated on plan of care and expected duration. Pain level reassessed. Patient is alert, oriented x 3, equal unlabored respirations, skin warm/dry/pink. 17:30 Reassessment: Patient appears in no apparent distress at this time. Patient and/or ph family updated on plan of care and expected duration. Pain level reassessed. Patient is alert, oriented x 3, equal unlabored respirations, skin warm/dry/pink. Patient denies pain at this time. Vital Signs: 13:32 BP 111 / 67; Pulse 69; Resp 20 S; Temp 97.8; Pulse Ox 96% on R/A; Weight 90.72 kg; iw Height 5 ft. 9 in. (175.26 cm); Pain 0/10; 16:20 BP 122 / 75; Pulse 89; Resp 22; Pulse Ox 99% ; ph 17:30 BP 118 / 78; Pulse 84; Resp 18; Temp 97.8; Pulse Ox 99% on R/A; ph 13:32 Body Mass Index 29.53 (90.72 kg, 175.26 cm) iw ED Course: 13:04 Patient arrived in ED. rg4 13:35 Triage completed. iw 13:37 Arm band placed on. iw 14:54 Madelyn Galo, RN is Primary Nurse. ph 14:56 Patient has correct armband on for positive identification. Placed in gown. Bed in low ph position. Call light in reach. Side rails up X2. Pulse ox on. NIBP on. Door closed. Noise minimized. Warm blanket given. Head of bed elevated. 15:04 Charla Tate MD is Attending Physician. ma2 15:24 EKG done, by ED staff, reviewed by Charla Tate MD. 3 15:32 Initial lab(s) drawn, by me, sent to lab. Inserted saline lock: 20 gauge in right 3 antecubital area, using aseptic technique. Blood collected. 15:34 CXR XRAY In Process Unspecified. EDMS 15:52 CT Chest For PE Angio In Process Unspecified. EDMS 17:23 Repeat lab(s) drawn. by me, sent to lab. 3 18:12 No provider procedures requiring assistance completed. IV discontinued, intact, iw bleeding controlled, No redness/swelling at site. Pressure dressing applied. Administered Medications: 18:05 Drug: Lasix 20 mg Route: IVP; Site: right antecubital; iw 18:12 Follow up: Response: No adverse reaction iw Outcome: 17:56 Discharge ordered by MD. stern 18:12 Discharged to home via wheelchair, with family. iw 18:12 Condition: good 18:12 Discharge instructions given to patient, family, Instructed on discharge instructions, follow up and referral plans. medication usage, Demonstrated understanding of instructions, follow-up care, medications, Prescriptions given X 1. 18:13 Patient left the ED. Signatures: Dispatcher [employer] EDAnne Marie Chanel RN RN Madelyn Galo RN RN Tung, Viri 4 Gauri Dial 3 Charla Tate MD MD ma2 Corrections: (The following items were deleted from the chart) 13:44 13:32 Chief complaint: Patient states: SOB on exertion since he was discharged from rehab after hip surgery last week, also has difficulty breathing at night , is having to sleep sitting up iw
--- NOTE | 2020-01-19 17:57 | EDPHYS ---
Physician Documentation [facility] Name: Ronny Burgess Age: 89 yrs Sex: Male : 1930 Arrival Date: 01/19/2020 Time: 13:04 Bed 20 Private MD: ED Physician Charla Tate HPI: 01/18 17:53 This 89 yrs old Male presents to ER via Wheelchair with complaints of Low O2. ma2 17:53 The patient has shortness of breath at rest. Onset: The symptoms/episode began/occurred ma2 gradually, 2 day(s) ago. Associated signs and symptoms: Pertinent negatives: non-productive cough, hemoptysis, nausea, numbness in extremities. Severity of symptoms: At their worst the symptoms were mild in the emergency department the symptoms are unchanged. The patient has not experienced similar symptoms in the past. s/p hip ORIF, here with sob on exertion, no chest pain now no sob, no le edema . Historical: - Allergies: 13:36 Isosorbide Dinitrate; iw - Home Meds: 13:36 aspirin 81 mg Oral chew 1 tab once daily [Active]; atorvastatin 80 mg Oral tab 1 tab iw once daily [Active]; cholecalciferol (vitamin D3) 400 unit Oral cap [Active]; metformin 500 mg Oral tab 1 tab 2 times per day [Active]; metoprolol succinate 50 mg Oral Tb24 1 tab twice a day [Active]; Multiple Vitamins Oral tab twice a day [Active]; nitroglycerin 0.4 mg SL subl 1 tab every 5 minutes [Active]; tamsulosin 0.4 mg Oral cp24 2 caps once daily [Active]; Eliquis 2.5 mg oral tab 1 tab 2 times per day [Active]; - PMHx: 13:36 Diabetes - NIDDM; Hyperlipidemia; Myocardial infarction; iw - PSHx: 13:37 CABG; Heart stents; hip; Knee surgery; iw - Immunization history:: Adult Immunizations up to date. - Social history:: Smoking status: Patient denies any tobacco usage or history of. Patient/guardian denies using alcohol, street drugs, The patient lives with family. - Family history:: not pertinent. ROS: 17:53 Constitutional: Negative for fever, chills, and weight loss. ma2 17:53 All other systems are negative. Exam: 17:53 Constitutional: This is a well developed, well nourished patient who is awake, alert, ma2 and in no acute distress. Head/Face: Normocephalic, atraumatic. Eyes: Pupils equal round and reactive to light, extra-ocular motions intact. Lids and lashes normal. Conjunctiva and sclera are non-icteric and not injected. Cornea within normal limits. Periorbital areas with no swelling, redness, or edema. ENT: Nares patent. No nasal discharge, no septal abnormalities noted. Tympanic membranes are normal and external auditory canals are clear. Oropharynx with no redness, swelling, or masses, exudates, or evidence of obstruction, uvula midline. Mucous membranes moist. Neck: Trachea midline, no thyromegaly or masses palpated, and no cervical lymphadenopathy. Supple, full range of motion without nuchal rigidity, or vertebral point tenderness. No Meningismus. Chest/axilla: Normal chest wall appearance and motion. Nontender with no deformity. No lesions are appreciated. Cardiovascular: Regular rate and rhythm with a normal S1 and S2. No gallops, murmurs, or rubs. Normal PMI, no JVD. No pulse deficits. Respiratory: Lungs have equal breath sounds bilaterally, clear to auscultation and percussion. No rales, rhonchi or wheezes noted. No increased work of breathing, no retractions or nasal flaring. Abdomen/GI: Soft, non-tender, with normal bowel sounds. No distension or tympany. No guarding or rebound. No evidence of tenderness throughout. Back: No spinal tenderness. No costovertebral tenderness. Full range of motion. Skin: Warm, dry with normal turgor. Normal color with no rashes, no lesions, and no evidence of cellulitis. MS/ Extremity: Pulses equal, no cyanosis. Neurovascular intact. Full, normal range of motion. Neuro: Awake and alert, GCS 15, oriented to person, place, time, and situation. Cranial nerves II-XII grossly intact. Motor strength 5/5 in all extremities. Sensory grossly intact. Cerebellar exam normal. Normal gait. Psych: Awake, alert, with orientation to person, place and time. Behavior, mood, and affect are within normal limits. Vital Signs: 13:32 BP 111 / 67; Pulse 69; Resp 20 S; Temp 97.8; Pulse Ox 96% on R/A; Weight 90.72 kg; iw Height 5 ft. 9 in. (175.26 cm); Pain 0/10; 16:20 BP 122 / 75; Pulse 89; Resp 22; Pulse Ox 99% ; ph 17:30 BP 118 / 78; Pulse 84; Resp 18; Temp 97.8; Pulse Ox 99% on R/A; ph 13:32 Body Mass Index 29.53 (90.72 kg, 175.26 cm) iw MDM: 15:04 Patient medically screened. ma2 17:53 Differential diagnosis: Anemia Pneumothorax pulmonary edema, Pulmonary Embolism. Data ma2 reviewed: vital signs, nurses notes. Counseling: I had a detailed discussion with the patient and/or guardian regarding: the historical points, exam findings, and any diagnostic results supporting the discharge/admit diagnosis, the presence of at least one elevated blood pressure reading (>120/80) during this emergency department visit, the need for outpatient follow up. ED course: troponin is not changed from baseline, patient has mild chf, however he want to go home, i discussed with dr. swift an dhe agrees with discharge home and he will see him in the clinic on Friday morning. patient did not had any chest pain, i gave him return precaution. . 01/18 15:06 Order name: Basic Metabolic Panel; Complete Time: 16:26 [facility] 01/18 15:06 Order name: CBC with Diff; Complete Time: 17:50 [facility] 01/18 15:06 Order name: Hepatic Function [facility] 01/18 15:06 Order name: Magnesium [facility] 01/18 15:06 Order name: NT PRO-BNP [facility] 01/18 15:06 Order name: Protime (+inr) [facility] 01/18 15:06 Order name: Troponin (emerg Dept Use Only) [facility] 01/18 16:04 Order name: Liver (Hepatic) Function; Complete Time: 16:26 EDMS 01/18 16:36 Order name: Protime (+INR); Complete Time: 16:46 EDMS 01/18 16:42 Order name: Troponin (Emerg Dept Use Only); Complete Time: 16:46 EDMS 01/18 16:50 Order name: NT PRO-BNP; Complete Time: 16:59 EDMS 01/18 16:50 Order name: Magnesium; Complete Time: 16:59 EDMS 01/18 17:02 Order name: Troponin I ma2 01/18 17:53 Order name: Troponin I; Complete Time: 17:58 EDMS 01/18 13:44 Order name: CXR XRAY; Complete Time: 16:02 iw 01/18 15:06 Order name: EKG; Complete Time: 15:07 ma2 01/18 15:06 Order name: Cardiac monitoring; Complete Time: 15:43 ma2 01/18 15:06 Order name: EKG - Nurse/Tech; Complete Time: 15:43 ma2 01/18 15:06 Order name: IV Saline Lock; Complete Time: 15:43 ma2 01/18 15:06 Order name: Labs collected and sent; Complete Time: 15:43 ma2 01/18 15:06 Order name: O2 Per Protocol; Complete Time: 15:43 ma2 01/18 15:06 Order name: O2 Sat Monitoring; Complete Time: 15:43 ma2 01/18 15:15 Order name: CT Chest For PE Angio; Complete Time: 16:26 ma2 Administered Medications: 18:05 Drug: Lasix 20 mg Route: IVP; Site: right antecubital; iw 18:12 Follow up: Response: No adverse reaction iw Disposition: 01/19/20 17:56 Discharged to Home. Impression: Unspecified systolic (congestive) heart failure - Mild. - Condition is Stable. - Discharge Instructions: Heart Failure, [id number]. - Prescriptions for Lasix 20 mg Oral Tablet - take 1 tablet by ORAL route once daily; 20 tablet. - Medication Reconciliation Form, Thank You Letter, Antibiotic Education, Prescription Opioid Use form. - Follow up: Private Physician; When: Tomorrow; Reason: Continuance of care. Signatures: Dispatcher [employer] Anne Marie Natarajan RN RN iw Charla Tate MD MD ma2 Corrections: (The following items were deleted from the chart) 17:56 17:56 01/19/2020 17:56 Discharged to Home. Impression: Unspecified systolic ma2 (congestive) heart failure. Condition is Stable. Prescriptions for Lasix 20 mg Oral Tablet - take 1 tablet by ORAL route once daily; 20 tablet. and Forms are Medication Reconciliation Form, Thank You Letter, Antibiotic Education, Prescription Opioid Use. Follow up: Private Physician; When: Tomorrow; Reason: Continuance of care. ma2 18:13 17:56 01/19/2020 17:56 Discharged to Home. Impression: Unspecified systolic iw (congestive) heart failure - Mild. Condition is Stable. Prescriptions for Lasix 20 mg Oral Tablet - take 1 tablet by ORAL route once daily; 20 tablet. and Forms are Medication Reconciliation Form, Thank You Letter, Antibiotic Education, Prescription Opioid Use. Follow up: Private Physician; When: Tomorrow; Reason: Continuance of care. ma2
[2020-01-19] MEDS ORDERED: FUROSEMIDE 20 MG/ 2ML VIAL ONE (18:20)
--- OUTSIDE RECORDS SUMMARY | 2020-01-19 20:13 | XMS REPORT | Continuity of Care Document ---
:1930 Author Organization [facility] Care Team Providers Name Role Phone [facility] Unavailable Un available Problems Problem Status Onset Classification Date Comments Sourc e Date Reported S06.5X0A - Active [facility] TRAUM SUBDR 0 [place] HEM W/O LOSS OF C SDH Active [address] LIFE FLIGHT Active [facility] TRANSFER [address] [place] [address] TRAUM SUBDR Active [facility] HEM W LOC OF Medical UNSP Center DURATION, Medications Medication Details Route Status Patient Ordering Order Source Instructions Provider Date Levetiracetam 500 500 mg = 1 Active [facility] MG Oral Tablet tab, PO, Q12H, 2019 Ms dical # 10 tab, 0 Center Refill(s) heparin Notes: porcine Inactive [facility] heparin [address] [place] [address] atorvastatin Notes: (Same No Longer [place] as: Lipitor) Active 2019 [facility] Flomax Notes: (Same No Longer [facility] As: Flomax) Active [address] [place] [address] "Do Not Crush" Center Levetiracetam 500 Notes: (Same No Longer [facility] MG Oral Tablet as:Keppra) 2019 Medica [place] metoprolol 50 mg, 1 tab, [place] Long[place] extended release Route: PO, Active 2019 Medi ann Drug form: Center ERTAB, Q12H, Start date: 06/30/19 9:00:00 CDT, Duration: 30 day, Stop date: 07/29/19 21:00:00 CDT, 0 Lisinopril Notes: (Same No Longer [facility] as as: Prinivil, 2019 [facility] Zestril) [place] Levetiracetam Notes: Same as Inactive [facility] Keppra Mix 2020 Medical with 100 mL Center NS, LR or D5W MEDICATION WASTE Product Size: 500 mg Product Wasted: ___ mg Docusate Notes: (Same No Longer [place] as: Colace) Active 2020 Medical (Do Not Crush) Center sennosides, ALF Notes: (Same No Longer [place] as: Senokot) [...] mg 50 mg = 1 tab, Active [facility] oral tablet, PO, Q12H 2019 Medical extended release Center Tamsulosin 0.4 mg = 1 Active [facility] hydrochloride 0.4 cap, PO, Daily 2019 Medical MG Oral Capsule Center [Flomax] Metformin 500 mg, PO, Active [facility] BID 2020 Medical Center atorvastatin 40 40 mg = 1 tab, Active [place] mg oral tablet PO, Bedtime 2019 Medic al Center cholecalciferol 400 IntlUnit = Active [place] 400 intl units 1 tab, PO, 2019 Medica l oral tablet Daily Center Nitroglycerin 0.4 0.4 mg = 1 Active [facility] MG Sublingual tab, SL, 2019 Medical Tablet Q5Min, PRN Center Chest pain, Give up to 3 doses. Call 911 if pain persists. clopidogrel 75 mg 75 mg = 1 tab, No Longer 06/29 [facility] oral tablet PO, Daily Active 2019 [facility] Nystatin 100 Notes: (Same No Longer [place] UNT/MG Topical as:Mycostatin, Active 2019 Me dical Powder Nilstat) For Center external use only. Saline Flush 0.9% Notes: Same No Longer [facility] as: Active 2019 Medical Posiflush Center Sterile Potassium Notes: (Same Inactive [facility] Chloride as: KCL) 2020 Medical Infuse no Center faster than 10 mEq/hr if given peripherally. sodium phosphate Notes: Infuse Inactive [facility] over 4 hour. 2020 Medical Do not infuse Center phosphorous concurrently in the same line as TPN or IVF that contains calcium. For double lumen central lines, phosphorous may be infused in a separate lumen from TPN. potassium Notes: (Same Inactive [place] phosphate as: K 2019 Medical Phosphate.) Center Do not infuse phosphorous concurrently in the same line as TPN or IVF that contains calcium. For double lumen central lines, phosphorous may be infused in a separate lumen from TPN. 1 mMol phoshate has 1.47 mEq potassium Infuse over 4 hours potassium Notes: (Same Inactive [place] phosphate-sodium as: Phos-NaK) 2019 M edical phosphate 250 Each 1.5 gm Center mg-280 mg-160 mg pkt has 250mg oral powder for phosphorous. reconstitution Mix w/2.5oz water and stir. Magnesium Sulfate Notes: WASTE: Inactive [place] F/P - Sink; E 2019 [facility] Trash Bin Magnesium Oxide Notes: (Same Inactive [place] as: Mag-Ox 2020 Medical 400) Magnesium Center oxide [id number] elemental magnesium Dose=____mg magnesium oxide (___mg elemental magnesium) Calcium Gluconate Notes: WASTE: Inactive [facility] F/P - Sink; E 2019 [facility] Trash Bin Calcium Carbonate Notes: (Same Inactive [place] 500 MG Chewable As: Tums) 2019 Medica [...] 0 Acetaminophen Notes: Do not No Longer [facility] exceed 4 Active 2020 Medical gm/day. (Same Center as: Tylenol) Levetiracetam 1,000 mg, [place] Route: IVPB, 2019 Medical ONCE, Dosing Center Weight 89.091, kg, Start date: 06/29/19 21:52:00 CDT, Stop date: 06/29/19 21:52:00 CDT Bisacodyl Notes: (Same No Longer s As: Dulcolax, 2019 Medical Bisco-Lax) Center Ondansetron Notes: (Same No Longer [facility] [place] as: Zofran) 2019 Medical MEDICATION Center WASTE Product Size: 4 mg Product Wasted: ___ mg Hydralazine Notes: (Same [place] Long[place] as: 2019 Medical Apresoline) Center Push over 5 minutes Labetalol 10 mg, 2 mL, No Longer [facility] Route: IVP, 2019 Medical Drug form: Center INJ, Q15Min, Dosing Weight 89.091, kg, PRN Hypertension, Start date: 06/29/19 21:52:00 CDT, Duration: 30 day, Stop date: 07/29/19 21:51:00 CDT, 0 Saline Flush 0.9% Notes: Same No Longer [facility] as: BD 2019 Medical Posiflush Center Sterile Cardene 40 mg in Notes: (Same No Longer [facility] NS 200 mL as: Cardene) 2019 Medical (Titrate.) IV 40 Center mg Keppra Notes: Inactive [facility] MEDICATION 2019 Medical WASTE Center Product Size: 500 mg Product Wasted: ___ mg Acetaminophen 650 mg, 2 tab, Inactive [facility] Route: PO, 2019 Medical Drug form: Center TAB, ONCE, kg, Priority: STAT, Start date: 06/29/19 19:24:00 CDT, Stop date: 06/29/19 19:24:00 CDT, 0 Allergies, Adverse Reactions, Alerts No Known Medication Allergies Immunizations No Data Provided for This Section Results Order Name Results Value Reference Date Interpretation Comments Sakina rce Range CHEM PANEL Glucose Lvl 123 70 - 99 06/30 [facility] [address] [place] [address] CHEM PANEL BUN 19 7 - 22 06/[address] CHEM PANEL Creatinine 0.74 0.50 - 06/30 [facility] Lvl 1.40 [facility] CHEM PANEL Sodium Lvl 138 135 - 145 06/30 [facility] CHEM PANEL Potassium 4.0 3.5 - 5.1 06/30 [facility] CHEM PANEL Chloride Lvl 106 95 - 109 06/30 [facility] CHEM PANEL CO2 24 24 - 32 06/30 [facility] CHEM PANEL Calcium Lvl 8.7 8.5 - 10.5 06/30 [place] as [facility] CHEM PANEL AGAP 12.0 10.0 - 06/30 [facility] 20.0 [facility] CHEM PANEL eGFR 82 06/30 [facility] Comment: The Medical eGFR is Center calculated [...] PANEL Phosphorus 4.3 2.5 - 4.5 06/30 [facility] CHEM PANEL Magnesium 2.3 1.8 - 2.4 06/30 [facility] HEMATOLOGY WBC 5.6 3.7 - 10.4 06/30 2019 [facility] HEMATOLOGY RBC 3.94 4.70 - 06/30 [place] 6.10 [facility] HEMATOLOGY Hgb 11.8 14.0 - 06/30 [facility] 18.0 [facility] HEMATOLOGY Hct 35.4 42.0 - 06/30 [place] 54.0 [facility] HEMATOLOGY MCV 89.8 80.0 - 06/30 [place] 94.0 [facility] HEMATOLOGY MCH 30.0 27.0 - 06/30 [facility] 31.0 [facility] HEMATOLOGY MCHC 33.4 32.0 - 06/30 [facility] 36.0 [facility] HEMATOLOGY RDW 13.9 11.5 - 06/30 [facility] 14.5 [facility] HEMATOLOGY Platelet 131 133 - 450 06/[address] HEMATOLOGY MPV 8.1 7.4 - 10.4 06/[address] HEMATOLOGY RBC Morph Normal Normal 06/30 [facility] (07/01/19 4:43 AM) /2019 [facility] HEMATOLOGY Plt Morph Normal Normal 06/30 [facility] (07/01/19 4:43 AM) /2019 [facility] HEMATOLOGY Segs 62.1 45.0 - 06/30 [facility] 75.0 [facility] HEMATOLOGY Lymphocytes 24.3 20.0 - 06/30 [facility] 40.0 [facility] HEMATOLOGY Monocytes 11.1 2.0 - 12.0 06/[address] HEMATOLOGY Eosinophils 2.1 0.0 - 4.0 06/30 [facility] /2019 [facility] HEMATOLOGY Basophils 0.4 0.0 - 1.0 06/[address] HEMATOLOGY Neutrophils 3.5 1.5 - 8.1 06/30 [facility] HEMATOLOGY Lymphocytes 1.4 1.0 - 5.5 06/30 [facility] /[address] [place] [address] HEMATOLOGY Monocytes # 0.6 0.0 - 0.8 06/30 [facility] /[address] [place] [address] HEMATOLOGY Eosinophils 0.1 0.0 - 0.5 06/30 [facility] [address] [place] [address] PARATHYROID Ca Ion WB 1.16 1.05 - 06/30 [place] PROFILE 1. [facility] PARATHYROID Ca Norm WB 1.16 1.05 - 06/30 [facility] PROFILE 1. [facility] CARDIAC Troponin-I 0.02 0.00 - 06/29 [facility] ENZYMES 0.40 [facility] BACTERIAL - MRSA by PCR Negative 06/29 [facility] SEROLOGY (06/30/19 1:24 AM) /2019 [facility] CHEM PANEL Glucose Lvl 124 70 - 99 06/[address] CHEM PANEL BUN 13 7 - 22 06/[address] CHEM PANEL Creatinine 0.69 0.50 - 06/29 [facility] Lvl 1.40 [facility] CHEM PANEL Sodium Lvl 141 135 - 145 06/29 2019 [facility] CHEM PANEL Potassium 4.0 3.5 - 5.1 06/29 [facility] Lvl [facility] CHEM PANEL Chloride Lvl 106 95 - 109 06/29 [facility] CHEM PANEL CO2 26 24 - 32 06/29 /2019 [facility] CHEM PANEL Calcium Lvl 8.7 8.5 - 10.5 06/29 [place] [facility] CHEM PANEL AGAP 13.0 10.0 - 06/29 [place] 20.0 [facility] CHEM PANEL eGFR 85 06/29 [facility] Comment: The Medical eGFR is Center calculated [...] PANEL Magnesium 2.4 1.8 - 2.4 06/29 [facility] Lvl [facility] CHEM PANEL Phosphorus 3.4 2.5 - 4.5 06/29 [facility] HEMATOLOGY WBC 6.8 3.7 - 10.4 06/29 /2019 [facility] HEMATOLOGY RBC 3.95 4.70 - 06/29 [place] 6.10 [facility] HEMATOLOGY Hgb 11.9 14.0 - 06/29 [facility] 18.0 [facility] HEMATOLOGY Hct 35.7 42.0 - 06/29 [place] 54.0 [facility] HEMATOLOGY MCV 90.3 80.0 - 06/29 [place] 94.0 [facility] HEMATOLOGY MCH 30.2 27.0 - 06/29 [place] 31.0 [facility] HEMATOLOGY MCHC 33.5 32.0 - 06/29 [place] 36.0 [facility] HEMATOLOGY RDW 14.4 11.5 - 06/29 [place] 14.5 /2019 [facility] HEMATOLOGY Platelet 151 133 - 450 06/[address] HEMATOLOGY MPV 8.0 7.4 - 10.4 06/29 [place] /[address] [place] [address] HEMATOLOGY Segs 68.0 45.0 - 06/29 [place] 75.0 [facility] HEMATOLOGY Lymphocytes 21.0 20.0 - 06/29 [place] 40.0 [facility] HEMATOLOGY Monocytes 9.6 2.0 - 12.0 06/29 [facility] /[address] [place] [address] HEMATOLOGY Eosinophils 0.8 0.0 - 4.0 06/29 [place] /2019 [facility] HEMATOLOGY Basophils 0.6 0.0 - 1.0 06/[address] HEMATOLOGY Neutrophils 4.6 1.5 - 8.1 06/29 [place] # /2019 [facility] HEMATOLOGY Lymphocytes 1.4 1.0 - 5.5 06/29 [place] # /2020 [facility] HEMATOLOGY Monocytes # 0.7 0.0 - 0.8 06/29 [facility] /2020 [facility] HEMATOLOGY Eosinophils 0.1 0.0 - 0.5 06/29 [facility] /2020 [facility] PARATHYROID Ca Ion WB 1.15 1.05 - 06/29 [place] PROFILE 1. [facility] PARATHYROID Ca Norm WB 1.13 1.05 - 06/29 [facility] PROFILE 1.25 [facility] BLOOD BANK ABO/Rh O POS 06/29 [facility] RESULTS /2019 [facility] BLOOD BANK Antibody Negative 06/29 [facility] RESULTS Scrn (06/29/19 11:21 PM) /2019 [facility] Center CARDIAC Troponin-I 0.02 0.00 - 06/29 [facility] ENZYMES 0.40 [facility] HEMATOLOGY Plav Effect 190 06/29 [facility] Plt /2019 [facility] CARDIAC Troponin-I <0.02 0.00 - 06/29 [facility] ENZYMES 0.40 [facility] CHEM PANEL Glucose Lvl 131 70 - 99 06/[address] [place] [address] CHEM PANEL BUN 13 7 - 22 06/[address] [place] [address] CHEM PANEL Creatinine 0.81 0.50 - 06/29 [facility] Lvl 1.40 [facility] CHEM PANEL Sodium Lvl 138 135 - 145 06/29 [facility] CHEM PANEL Potassium 4.1 3.5 - 5.1 06/29 [facility] l [facility] CHEM PANEL Chloride Lvl 107 95 - 109 06/29 [facility] [place] [facility] CHEM PANEL CO2 27 24 - 32 06/29 [facility] CHEM PANEL Calcium Lvl 8.9 8.5 - 10.5 06/29 as [facility] CHEM PANEL AGAP 8.1 10.0 - 06/29 [facility] 20.0 [facility] CHEM PANEL eGFR 79 06/29 [facility] Comment: The Medical eGFR is Center calculated [...] Lactic Acid 1.6 0.5 - 2.2 06/29 [facility] HEMATOLOGY WBC X 10x3 6.7 3.7 - 10.4 06/29 [facility] HEMATOLOGY RBC X 10x6 4.15 4.70 - 06/29 [facility] 6.10 [facility] HEMATOLOGY Hgb 12.5 14.0 - 06/29 [facility] 18.0 [facility] HEMATOLOGY Hct 37.5 42.0 - 06/29 [facility] 54.0 [facility] HEMATOLOGY MCV 90.4 80.0 - 06/29 [place] 94.0 [facility] HEMATOLOGY MCH 30.1 27.0 - 06/29 [facility] 31.0 [facility] HEMATOLOGY MCHC 33.2 32.0 - 06/29 [facility] 36.0 [facility] HEMATOLOGY RDW 14.0 11.5 - 06/29 [facility] 14.5 [facility] HEMATOLOGY Platelet 151 133 - 450 06/[address] HEMATOLOGY MPV 7.2 7.4 - 10.4 06/[address] HEMATOLOGY ACT (TEG) 105 86 - 118 06/29 [facility] HEMATOLOGY [place] 0.5 06/29 [facility] HEMATOLOGY R-time Rapid 0.6 0.4 - 0.7 06/29 [facility] /2019 [facility] HEMATOLOGY K-time Rapid 1.0 0.6 - 2.3 06/[address] HEMATOLOGY Angle Rapid 78 64 - 80 06/[address] HEMATOLOGY Max 67 52 - 71 06/29 [facility]2019 [facility] HEMATOLOGY G-value 10.2 5.0 - 11.6 06/[address] HEMATOLOGY Estimated % 1.2 0.0 - 7.5 06/29 [facility] Lysis Rapid /2019 [facility] HEMATOLOGY Segs 76.9 45.0 - 06/29 [facility] 75.0 [facility] HEMATOLOGY Lymphocytes 14.0 20.0 - 06/29 [facility] 40.0 [facility] HEMATOLOGY Monocytes 8.1 2.0 - 12.0 06/[address] HEMATOLOGY Eosinophils 0.5 0.0 - 4.0 06/29 [facility] /2020 [facility] HEMATOLOGY Basophils 0.5 0.0 - 1.0 06/[address] HEMATOLOGY Neutrophils 5.2 1.5 - 8.1 06/29 [facility] # /2019 [facility] Center HEMATOLOGY Lymphocytes 0.9 1.0 - 5.5 06/29 [place] # /2020 [facility] Center HEMATOLOGY Monocytes # 0.5 0.0 - 0.8 06/29 [facility] /2020 [facility] Pathology Reports No Data Provided for This [...] Denisa Seo MD On 07/15/2019 16:15 :43; [id number] Brain wo contrast CT EXAM: CT BRAIN WITHOUT CONTRAST 06/29/2019 [facility] DATE: 06/29/2019 at 2216 hours Ce nter [...] EXAM: XR RIGHT SHOULDER 3 VIEWS 06/29/2019 [facility] DATE: 06/29/2019 20:16 CDT Center INDICATION: - [...] CT CERVICAL SPINE WITHOUT CONTRAST 0 06/29/2019 [facility] CT DATE: 06/29/2019 19:58 CDT Center INDICATION: Fall and pain, second interpretation requested COMPARISON: None available TECHNIQUE: Noncontrast CT im ages of the cervical spine, obtained at [facility] . Axial, sagittal and coronal images [...] DX EXAM: XR CHEST 1 VIEW 06/29/2019 [facility] edical DATE: 06/29/2019 19:24 CDT Center INDICATION: [...] Source Temperature Oral (F) 98.4 F 07/01/2019 [facility] Heart Rate 62 07/01/2019 [facility] Respitory Rate 18 07/01/2019 [facility] Center Systolic (mm Hg) 120 07/01/2019 [facility] dical Center Diastolic (mm Hg) 60 07/01/2019 [facility] Temperature Oral (F) 98.3 F 07/01/2019 [facility] Heart Rate 65 07/01/2019 [facility] Respitory Rate 18 07/01/2019 [facility] Center Systolic (mm Hg) 121 07/01/2019 [facility] dical Center Diastolic (mm Hg) 64 07/01/2019 [facility] Temperature Oral (F) 98 F 07/01/2019 [facility] Respitory Rate 18 07/01/2019 [facility] Center Systolic (mm Hg) 112 07/01/2019 [facility] dical Center Diastolic (mm Hg) 67 07/01/2019 [facility] Heart Rate 60 07/01/2019 [facility] Height 175.26 cm 06/30/2019 [facility] Weight 89.1 06/30/2019 [facility] BMI Calculated 29.01 06/30/2019 [facility] Center Height 175.26 cm 06/30/2019 [facility] BMI Calculated 29 06/30/2019 [facility] Center Weight 89.091 06/30/2019 [facility] Encounters Location Location Encounter Encounter Reason Attending ADM [place] Stat us Source Details Type Number For Provider Date Date Visit [facility] [id number] Yang 06/29 06/30 [facility] Edi Aguirre /2019 [facility] Procedures No Data Provided for This Section Assessment and Plan No Data Provided for This Section Plan of Care No Data Provided for This Section Social History Social History Date Source Social History TypeResponse 06/30/2019 [facility] Smoking Status Never smoker; Exposure to Tobacco Smoke None; Cigarette Smoking Last 365 Days No; Reg Smoking Cessation Counseling No entered on: 06/29/19 Family History No Data Provided for This Section Advance Directives No Data Provided for This Section Functional Status No Data Provided for This Section
--- OUTSIDE RECORDS SUMMARY | 2020-01-19 20:14 | XMS REPORT | Continuity of Care Document ---
:1930 Author Organization [facility] t Address [address] [place] [address] Care Team Providers Name Role Phone Elías Carcamo Attending Clinician Gavino Aguirre Admitting Clinician Problems Condition Condition Condition Status Onset Resolution Last Treating Co mments Source Name Details Category Date Date Treatment Clinician Date S06.5X0A - Diagnosis Active 2019-07-14 Memoria TRAUM 07-07 09:55:00 l SUBDR HEM S06.5X0A 00:01: Her finney W/O LOSS - TRAUM 00 OF C SUBDR HEM W/O LOSS OF C Active 07/08/2019 [facility] Diagnosis Active 2019-07-07 Mem oria 06-28 21:56:00 l SDH 00:00: [place] 00 Active 06/29/2019 [facility] LIFE Diagnosis Active 2019-06-29 Mem oria FLIGHT 06-28 19:34:00 l TRANSFER LIFE 00:00: Edi FLIGHT 00 TRANSFER Active 06/29/2019 [facility] TRAUM Diagnosis Active 2019-07-07 Mem oria SUBDR HEM 21:56:00 l W LOC OF TRAUM [place] UNSP SUBDR HEM DURATION, W LOC OF UNSP DURATION, Active [facility] Allergies, Adverse Reactions, Alerts This patient has no known allergies or adverse reactions. Social History Smoking Status Start Date Stop Date Source Social History [facility] Medications Ordered Filled Start Stop Current Ordering Indication Dosage Frequency Signature Comments Components Source Medication Medication Date Date Medication? Clinician (SIG) Name Name Levetiracet Yes 500 mg = 1 Memoria am 500 MG 5-21 tab, PO, l Oral Tablet 14:01: Q12H, # 10 Edi 00 tab, 0 Refill(s) heparin No Notes: Memoria 5-21 porcine l 13:00: heparin [place] 00 atorvastati No Notes: Hiren jaime n 5-21 (Same as: l 02:00: Lipitor) Flomax No Notes: Memoria 5-20 (Same As: l 22:00: Flomax) "Do Not Crush" Levetiracet No Notes: Hiren jaime am 500 MG 5-20 (Same l Oral Tablet 14:13: as:Keppra) metoprolol No 50 mg, 1 Mem oria extended 5-20 tab, l release 14:00: Route: PO, Drug form: ERTAB, Q12H, Start date: 06/30/19 9:00:00 CDT, Duration: 30 day, Stop date: 07/29/19 21:00:00 CDT, 0 Lisinopril No Notes: Memor ia 5-20 (Same as: l 14:00: Prinivil, Zestril) Levetiracet No Notes: Hiren jaime am 5-20 Same as l 14:00: Keppra Mix with 100 mL NS, LR or D5W MEDICATION WASTE Product Size: 500 mg Product Wasted: ___ mg Docusate No Notes: Memoria 5-20 (Same as: l 14:00: Colace) (Do Not Crush) sennosides, No Notes: Hiren jaime MCC 5-20 (Same as: l 14:00: Senokot) Lidocaine No Notes: Memori a 0.05 MG/MG 5-20 Apply only l Transdermal 14:00: once for He rmann Patch 00 up to 12 hours in a 24-hour period (12 hours on and 12 hours off). (Same as: Lidoderm) "Remove old patch before applicatio n of new patch" Saline No Notes: Memoria Flush 0.9% 5-20 Same as: l 14:00: BD Posiflush Sterile metoprolol Yes 50 mg = 1 Me moria 50 mg oral 5-20 tab, PO, l tablet, 13:59: Q12H extended 00 release Tamsulosin 2019- Yes 0.4 mg = 1 M emoria hydrochlori 5-20 cap, PO, l de 0.4 MG 13:59: Daily Edi Oral 00 Capsule [Flomax] Metformin Yes 500 mg, Memor ia 5-20 PO, BID l 13:59: [place] 00 atorvastati Yes 40 mg = 1 M emoria n 40 mg 5-20 tab, PO, l oral tablet 13:59: Bedtime Her finney cholecalcif Yes 400 Memori a goldy 400 5-20 IntlUnit = l intl units 13:59: 1 tab, PO, H ermann oral tablet 00 Daily Nitroglycer Yes 0.4 mg = 1 Memoria in 0.4 MG 5-20 tab, SL, l Sublingual 13:59: Q5Min, PRN H ermann Tablet 00 Chest pain, Give up to 3 doses. Call 911 if pain persists. clopidogrel No 75 mg = 1 M emoria 75 mg oral 5-20 tab, PO, l tablet 13:59: Daily Edi Nystatin No Notes: Memoria 100 UNT/MG 5-20 (Same l Topical 05:38: as:Mycosta Herm ricky Powder 00 tin, Nilstat) For external use only. Saline No Notes: Memoria Flush 0.9% 5-20 Same as: l 05:38: BD Edi 00 Posiflush Sterile Potassium 2019- No Notes: Memori a Chloride 5-20 (Same as: l 05:38: KCL) Infuse no faster than 10 mEq/hr if given peripheral ly. sodium No Notes: Memoria phosphate 5-20 Infuse l 05:38: over 4 [place] 00 hour. Do not infuse phosphorou s concurrent ly in the same line as TPN or IVF that contains calcium. For double lumen central lines, phosphorou s may be infused in a separate lumen from TPN. potassium 2019- No Notes: Memori a phosphate 5-20 (Same as: l 05:38: K Edi Phosphate. ) Do not infuse phosphorou s concurrent ly in the same line as TPN or IVF that contains calcium. For double lumen central lines, phosphorou s may be infused in a separate lumen from TPN. 1 mMol phoshate has 1.47 mEq potassium Infuse over 4 hours potassium 2020-0 No Notes: Memori a phosphate-s -20 (Same as: l odium 05:38: Phos-NaK) Edi phosphate 00 Each 1.5 250 mg-280 gm pkt has mg-160 mg 250mg oral powder phosphorou for s. Mix reconstitut w/2.5oz ion water and stir. Magnesium 2020-0 No Notes: Memori a Sulfate -20 WASTE: F/P l 05:38: - Sink; E Edi 00 - Municipal Trash Bin Magnesium 2020-0 No Notes: Memori a Oxide 5-20 (Same as: l 05:38: Mag-Ox [place] 00 400) Magnesium oxide [id number] g elemental magnesium Dose=____m g magnesium oxide (___mg elemental magnesium) Calcium 2019-0 No Notes: Memoria Gluconate -20 WASTE: F/P l 05:38: - Sink; E Edi - Municipal Trash Bin Calcium 2019-0 No Notes: Memoria Carbonate -20 (Same As: l 500 MG 05:38: Tums) Edi Chewable 00 Calcium Tablet Carbonate 500 mg = 200 mg elemental calcium Dose = mg calcium carbonate ( mg elemental calcium) Sodium 2020-0 No 1,000 mL, Memori a Chloride -20 Rate: 50 l 0.9% IV 02:52: ml/hr, [place] 1,000 mL 00 Infuse over: 20 hr, Route: IV, Dosing Weight 89.091 kg, Total Volume: 1,000, Start date: 06/29/19 21:52:00 CDT, Duration: 30 day, Stop date: 07/29/19 21:51:00 CDT, 2.1, m2, 0 Acetaminoph 2020-0 No Notes: Do M emoria en 06-29 not exceed l 02:52: 4 gm/day. Edi 00 (Same as: Tylenol) Levetiracet 2020-0 No 1,000 mg, M emoria am -20 Route: l 02:52: IVPB, [place] 00 ONCE, Dosing Weight 89.091, kg, Start date: 06/29/19 21:52:00 CDT, Stop date: 06/29/19 21:52:00 CDT Bisacodyl 2019-0 No Notes: Memori a 5-20 (Same As: l 02:52: Dulcolax, Bisco-Lax) Ondansetron 2019-0 No Notes: Hiren jaime 5-20 (Same as: l 02:52: Zofran) MEDICATION WASTE Product Size: 4 mg Product Wasted: ___ mg Hydralazine 2019- No Notes: Hiren jaime 5-20 (Same as: l 02:52: Apresoline ) Push over 5 minutes Labetalol No 10 mg, 2 Hiren jaime 5-20 mL, Route: l 02:52: IVP, Drug form: INJ, Q15Min, Dosing Weight 89.091, kg, PRN Hypertensi on, Start date: 06/29/19 21:52:00 CDT, Duration: 30 day, Stop date: 07/29/19 21:51:00 CDT, 0 Saline 2019- No Notes: Memoria Flush 0.9% 5-20 Same as: l 02:52: BD Posiflush Sterile Cardene 40 2019-0 No Notes: Memor ia mg in NS 5-20 (Same as: l 200 mL 00:25: Cardene) Edi (Titrate.) 00 IV 40 mg Keppra 2019-0 No Notes: Memor ia 5-20 MEDICATION l 00:25: WASTE Product Size: 500 mg Product Wasted: ___ mg Acetaminoph 2019- No 650 mg, 2 M emoria en 5-20 tab, l 00:24: Route: PO, Drug form: TAB, ONCE, kg, Priority: STAT, Start date: 06/29/19 19:24:00 CDT, Stop date: 06/29/19 19:24:00 CDT, 0 Vital Signs Vital Name Observation Time Observation Value Comments Source Temperature Oral (F) 2019-07-01 16:43:00 98.4 F [facility] Heart Rate 2019-07-01 16:43:00 [facility] Respitory Rate 2019-07-01 16:43:00 Memori al [place] Systolic (mm Hg) 2019-07-01 16:43:00 Hiren rial [place] Diastolic (mm Hg) 2019-07-01 16:43:00 Mem orial Edi Temperature Oral (F) 2019-07-01 12:45:00 98.3 F [facility] Ed[facility] Heart Rate 2019-07-01 12:45:00 [facility] [place] Respitory Rate 2019-07-01 12:45:00 Memori al Edi Systolic (mm Hg) 2019-07-01 12:45:00 Hiren rial Edi Diastolic (mm Hg) 2019-07-01 12:45:00 Mem orial Edi Temperature Oral (F) 2019-07-01 10:43:00 98 F [facility] [place] Respitory Rate 2019-07-01 10:43:00 Memori al [place] Systolic (mm Hg) 2019-07-01 10:43:00 Hiren rial [place] Diastolic (mm Hg) 2019-07-01 10:43:00 Mem orial [place] Heart Rate 2019-07-01 10:43:00 [facility] Edi Height 2019-06-30 04:56:00 175.26 cm [facility] Weight 2019-06-30 04:56:00 [facility] [place] BMI Calculated 2019-06-30 04:56:00 Memori al [place] Height 2019-06-30 00:16:00 175.26 cm [facility] Edi BMI Calculated 2019-06-30 00:16:00 Memori al Edi Weight 2019-06-30 00:16:00 [facility] [place] Procedures This patient has no known procedures. Encounters Start End Encounter Admission Attending Care Care Encounter Source Date/Time Date/Time Type Type Clinicians Facility Department ID 2019-06-29 2019-07-01 Outpatient [facility] [id number] 19:07:00 11:59:00 Gelacio Mckinley Results Test Description Test Time Test Comments Results Result Comments Source CHEM PANEL 2019-07-01 123 [facility] nn 09:43:00 CHEM PANEL 2019-07-01 19 [facility] nn 09:43:00 CHEM PANEL 2019-07-01 0.74 [facility] [place] nn 09:43:00 CHEM PANEL 2019-07-01 138 [facility] [place] nn 09:43:00 CHEM PANEL 2019-07-01 4.0 [facility] [place] nn 09:43:00 CHEM PANEL 2019-07-01 106 [facility] [place] nn 09:43:00 CHEM PANEL 2019-07-01 24 [facility] [place] nn 09:43:00 CHEM PANEL 2019-07-01 8.7 [facility] [place] nn 09:43:00 CHEM PANEL 2019-07-01 12.0 [facility] [place] nn 09:43:00 CHEM PANEL 2019-07-01 82 [facility] [place] nn 09:43:00 CHEM PANEL 2019-07-01 4.3 [facility] [place] nn 09:43:00 CHEM PANEL 2019-07-01 2.3 [facility] [place] nn 09:43:00 HEMATOLOGY 2019-07-01 5.6 [facility] [place] nn 09:43:00 HEMATOLOGY 2019-07-01 3.94 [facility] [place] nn 09:43:00 HEMATOLOGY 2019-07-01 11.8 [facility] Susna nn 09:43:00 HEMATOLOGY 2019-07-01 35.4 [facility] [place] nn 09:43:00 HEMATOLOGY 2019-07-01 89.8 [facility] [place] nn 09:43:00 HEMATOLOGY 2019-07-01 09:43:00 Test Item Value Reference Range Interpretation Comme nts MCH (test code = MCH) 30.0 pg 27.0-31.0 [facility] CwnztnjHPQWMEUUDX7426-25-60 09:43:0033.4[facility]ann[facility]MATOLOGY 2019-07-01 09:43:0013.9[facility] RkhbpsmSVJSHBGDFI2931-78-17 09:43:38130Rkfbqlte KcdaxjmAGWNIIZUDE4570-51-11 09:43:008.1[facility] EzusckkGLXWDRPEWR3931-02-14 09:43:00Normal (07/01/19 4:43 AM)[facility] ZriruwgPURCBHIRXH0386-84-11 09:43:00 Normal (07/01/19 4:43 AM)[facility] YosbhoxOUNNUMEFHC6666-11-10 09:43:0062.1 [facility] KtkwunvVVUDIRPCRT0021-46-11 09:43:0024.3[facility] HermannHEMATOLOGY 2019-07-01 09:43:0011.1[facility] GmpivblMEQXSHGNMJ2188-25-75 09:43:002.1[facility] SkywnzaBTUDMSFOID0590-14-12 09:43:000.4[facility] MikwctsDEAOSBTPYJ8889-93-54 09:43:003.5[facility] HgqewuyLRRAVOTHWW4062-87-58 09:43:001.4[facility] Edi AMAWHDZEWV9637-17-71 09:43:000.6[facility] LndnetjMUMCIAAEPQ2109-97-30 09:43:000.1 [facility] HermannPARATHYROID QMFYLRR0364-93-14 09:43:001.16[facility] PARATHYROID XYBVWKI6416-97-52 09:43:001.16[facility] HermannCARDIAC ENZYMES 2019-06-30 09:02:000.02[facility] HermannBACTERIAL - AIUHXTQY3711-10-79 06:24:00 Negative (06/30/19 1:24 AM)[facility] HermannCHEM LLROU9747-59-68 06:24:77642 [facility]annCHEM IVGBD9913-49-88 06:24:0013[facility] HermannCHEM PANEL 2019-06-30 06:24:000.69[facility] HermannCHEM BIFGB5127-96-90 06:24:79000Dcijiqdy HermannCHEM TNIZX4417-46-81 06:24:004.0[facility] HermannCHEM SAEZZ8466-56-69 06:24:03284Ndowxkhh HermannCHEM SYPIG0407-81-63 06:24:0026[facility] HermannCHEM WXEUO7938-43-47 06:24:008.7[facility] HermannCHEM LYVAS2053-25-26 06:24:0013.0 [facility] HermannCHEM DYOQY0036-04-35 06:24:0085[facility] HermannCHEM PANEL 2019-06-30 06:24:002.4[facility] HermannCHEM IGFMQ7620-73-41 06:24:003.4[facility] NmsyopvRTSXPVRKTL2422-64-11 06:24:006.8[facility] LysdsbkNXTPZCZJRD6698-92-94 06:24:003.95[facility] KsdzqkoWERWGADXIG0515-18-24 06:24:0011.9[facility] Edi FOWWJVONYO0166-52-58 06:24:0035.7[facility] IveodrpYFFSLJUSAM1588-52-04 06:24:00 90.3[facility] EauqvmpBCORSNVXGL9717-34-79 06:24:00 Test Item Value Reference Range Interpretation Comments MCH (test code = MCH) 30.2 pg 27.0-31.0 [facility] TebcsipNKIKUZPVKQ3269-53-66 06:24:0033.5[facility] HermannHEMATOLOGY 2019-06-30 06:24:0014.4[facility] WjpzacyWUFZOHMGGN2561-83-80 06:24:46471Gemlisps WsqnbjeCJBSMSRPTE5606-10-13 06:24:008.0[facility] DbgckwiZRHMJIIXSI8056-00-40 06:24:0068.0[facility] CgbieugBXGNATGKRF4782-08-23 06:24:0021.0[facility] [place] QXGIFVYUGQ3936-06-59 06:24:009.6[facility] UmkqovuMGIAVMIZGE5466-11-21 06:24:000.8 [facility] CovnnxxODJWGCGYRC3649-01-63 06:24:000.6[facility] HermannHEMATOLOGY 2019-06-30 06:24:004.6[facility] CfuvrybALBGEGBHVI0901-88-56 06:24:001.4[facility] PhxrwbpIJEXDBWISP1785-32-53 06:24:000.7[facility] PhvddtzWPNECLYHDC2303-41-83 06:24:000.1[facility] HermannPARATHYROID DSRYDRR2764-22-43 06:24:001.15[facility] HermannPARATHYROID DWTWCKB5853-04-21 06:24:001.13[facility] HermannBLOOD BANK ZEPWHYZ9416-13-51 04:21:19Negative (06/29/19 11:21 PM)[facility] HermannCARDIAC UQFWBMN5759-08-58 03:41:000.02[facility] YivmbclTIGRRJTNBV2675-34-03 03:41:89098 [facility] HermannCARDIAC GOHDBXC8322-59-54 01:00:00<0.02[facility] HermannCHEM IXOFQ5622-90-08 01:00:28780Fsobgkyt HermannCHEM NKEEQ9888-29-70 01:00:0013 [facility]annCHEM IBOZO2075-90-56 01:00:000.81[facility] HermannCHEM PANEL 2019-06-30 01:00:19468Mmnllzgh HermannCHEM UTEBG2020-52-57 01:00:004.1[facility] HermannCHEM GDKVK9171-02-44 01:00:11408Vbscjxdk HermannCHEM PAGMR1231-74-54 01:00:0027[facility] HermannCHEM OVOSI4334-15-58 01:00:008.9[facility] HermannCHEM RGHHV0601-31-82 01:00:008.1[facility] HermannCHEM OCFSC8421-78-37 01:00:0079 [facility] HermannCHEM PJYZC9869-47-19 01:00:001.6[facility] HermannHEMATOLOGY 2019-06-30 01:00:006.7[facility] WcbpsfmIYSGFEVQDW8318-68-65 01:00:004.15[facility] QoklpnnGTREWOQZMT4777-66-41 01:00:0012.5[facility] ClrfrjwBYJYLWTRWY2077-25-73 01:00:0037.5[facility] GhlgrphCJTHUKUGZR5914-06-06 01:00:0090.4[facility] Edi MKEMQTRICB3088-02-79 01:00:00 Test Item Value Reference Range Interpretation Comments MCH (test code = MCH) 30.1 pg 27.0-31.0 [facility] NcdopulQYOKMJTBHJ8996-67-47 01:00:0033.2[facility] HermannHEMATOLOGY 2019-06-30 01:00:0014.0[facility] JuhwhtbYBBYGSKOAA8328-19-49 01:00:62214Jcjjyqem FqoogdySLMWGSDMWF1106-78-66 01:00:007.2[facility] RhdbjhwFPYWOPIHVI5048-56-18 01:00:00 Test Item Value Reference Range Interpretation Comments ACT (TEG) Rapid (test code = ACT (TEG) 105 s 86-118 Rapid) [facility] CnanddrHEGDEZBBXV7169-61-23 01:00:00 Test Item Value Reference Range Interpretation Comments Split Point Rapid (test code = Split 0.5 min Point Rapid) [facility] JuyjieaVRAVNBSXIA8896-01-12 01:00:00 Test Item Value Reference Range Interpretation Comments R-time Rapid (test code = R-time 0.6 min 0.4-0.7 Rapid) [facility] LmybpqoPDOBPYKQQZ8830-90-41 01:00:00 Test Item Value Reference Range Interpretation Comments K-time Rapid (test code = K-time 1.0 min 0.6-2.3 Rapid) [facility] ClubLudbsyiMWZQJUSUDX8960-26-75 01:00:00 Test Item Value Reference Range Interpretation Comments Angle Rapid (test code = Angle 78 degrees 64-80 Rapid) [facility] ClubMolwnhoWWDJNEVLPV5239-86-84 01:00:00 Test Item Value Reference Range Interpretation Comments Max Amplitude Rapid (test code = Max 67 mm 52-71 Amplitude Rapid) [facility] DcpuoryIJYMDQGIYN3187-61-53 01:00:0010.2[facility] HermannHEMATOLOGY 2019-06-30 01:00:001.2[facility] AakrfewCMCUJRRFFY2029-97-00 01:00:0076.9[facility] ZfxffdnXYHUAPJVKZ9459-01-84 01:00:0014.0[facility] YmvuxzxQTZWGPLDMT2425-46-86 01:00:008.1[facility] NbnujgtYPXEZSTIHD1858-99-61 01:00:000.5[facility] Edi KTLOSYMRQP8896-53-43 01:00:000.5[facility] YolvzerURXOBRNTME1447-19-09 01:00:005.2 [facility] PnjhfyjWEBNZUNIKY7632-54-45 01:00:000.9[facility] HermannHEMATOLOGY 2019-06-30 01:00:000.5[facility] [place]
--- NOTE | 2020-01-20 10:59 | EKG ---
Test Date: 2020-01-19 Test Time: 15:24:40 Head Machinist: LORENZO MEASUREMENT RESULTS: Intervals: Rate: 82 SD: 290 QRSD: 140 QT: 424 QTc: 495 [place]: P: 48 SD: 290 QRS: -70 T: 77 INTERPRETIVE STATEMENTS: Sinus rhythm with 1st degree AV block with premature atrial complexes with aberrant conduction Possible Left atrial enlargement Left axis deviation Right bundle branch block Possible Lateral infarct, age undetermined Inferior infarct, age undetermined Abnormal ECG Compared to ECG 01/01/2020 07:37:11 Aberrant conduction of supraventricular beat(s) now present Myocardial infarct finding still present Electronically Signed On 01-20-20 10:56:32 [employer] by Daniel Carrillo
== END 2020-01-19 18:13 | disposition home or self-care (01) ==
LOC: ER 13:02
DX: I50.20 Unspecified systolic (congestive) heart failure (principal); I10 Essential (primary) hypertension; E11.9 Type 2 diabetes mellitus without complications; Z95.1 Presence of aortocoronary bypass graft; Z95.818 Presence of other cardiac implants and grafts; Z98.890 Other specified postprocedural states; Z79.01 Long term (current) use of anticoagulants; Z79.82 Long term (current) use of aspirin; Z88.8 Allergy status to other drugs, medicaments and biological substances
CPT/HCPCS: 93005; 85025; 80048; 36415; 83735; 85610; 82565; 80076; 84484 ×2; 83880; 71275; 71045; 96374; 99284; Q9967; J1940

== ENCOUNTER 2020-04-02 09:14 | Emergency (ER) | payer OTHER ==
--- OUTSIDE RECORDS SUMMARY | 2020-04-02 09:17 | XMS REPORT | Continuity of Care Document ---
:1930 Author Organization [employer] Care Team Providers Name Role Phone [employer] Unavailable Un available Problems Problem Status Onset Classification Date Comments Sourc e Date Reported S06.5X0A - Active OPID TRAUM SUBDR 0 [place] HEM W/O LOSS OF C SDH Active [address] LIFE FLIGHT Active [facility] TRANSFER [address] [place] [address] TRAUM SUBDR Active [facility] HEM W LOC OF Medical UNSP Center DURATION, Medications Medication Details Route Status Patient Ordering Order Source Instructions Provider Date Levetiracetam 500 500 mg = 1 Active [facility] MG Oral Tablet tab, PO, Q12H, 2019 Nv dical # 10 tab, 0 Center Refill(s) heparin Notes: porcine Inactive [facility] heparin [address] [place] [address] atorvastatin Notes: (Same No Longer [place] as: Lipitor) Active 2020 [facility] Flomax Notes: (Same No Longer [facility] As: Flomax) Active [address] [place] [address] "Do Not Crush" Center Levetiracetam 500 Notes: (Same No Longer [facility] MG Oral Tablet as:Keppra) 2019 Medica l [place] metoprolol 50 mg, 1 tab, [place] extended release Route: PO, Active 2019 Medi ann Drug form: Center ERTAB, Q12H, Start date: 06/30/19 9:00:00 CDT, Duration: 30 day, Stop date: 07/29/19 21:00:00 CDT, 0 Lisinopril Notes: (Same No Longer [facility] as as: Prinivil, 2019 [facility] Zestril) [place] Levetiracetam Notes: Same as Inactive [facility] Keppra Mix 2020 Medical with 100 mL Center NS, LR or D5W MEDICATION WASTE Product Size: 500 mg Product Wasted: ___ mg Docusate Notes: (Same No Longer [place] as: Colace) Active 2020 Medical (Do Not Crush) Center sennosides, MCFP Notes: (Same No Longer [place] as: Senokot) Active 2020 [facility] Lidocaine 0.05 Notes: Apply Inactive [place] MG/MG Transdermal only once for 2019 Medical Patch up to 12 hours Center in a 24-hour period (12 hours on and 12 hours off). (Same as: Lidoderm) "Remove old patch before application of new patch" Saline Flush 0.9% Notes: Same Inactive H [place] as: BD 2019 Medical Posiflush Center Sterile metoprolol 50 mg 50 mg = 1 tab, Active [facility] oral tablet, PO, Q12H 2019 Medical extended release Center Tamsulosin 0.4 mg = 1 Active [facility] hydrochloride 0.4 cap, PO, Daily 2019 Medical MG Oral Capsule Center [Flomax] Metformin 500 mg, PO, Active [facility] BID 2020 [facility] Center atorvastatin 40 40 mg = 1 tab, Active [place] mg oral tablet PO, Bedtime 2019 Medic al Center cholecalciferol 400 IntlUnit = Active [place] 400 intl units 1 tab, PO, 2019 Medica l oral tablet Daily Center Nitroglycerin 0.4 0.4 mg = 1 Active [facility] MG Sublingual tab, SL, 2019 Medical Tablet Q5Min, PRN Center Chest pain, Give up to 3 doses. Call 911 if pain persists. clopidogrel 75 mg 75 mg = 1 tab, No Longer 06/29 [facility] oral tablet PO, Daily Active 2019 [facility] Nystatin 100 Notes: (Same No Longer [place] UNT/MG Topical as:Mycostatin, Active 2019 Me dical Powder Nilstat) For Center external use only. Saline Flush 0.9% Notes: Same No Longer [facility] as: BD Active 2019 Medical Posiflush Center Sterile Potassium Notes: (Same Inactive [facility] Chloride as: KCL) 2020 Medical Infuse no Center faster than 10 mEq/hr if given peripherally. sodium phosphate Notes: Infuse Inactive [place] over 4 hour. 2020 Medical Do not infuse Center phosphorous concurrently in the same line as TPN or IVF that contains calcium. For double lumen central lines, phosphorous may be infused in a separate lumen from TPN. potassium Notes: (Same Inactive [place] phosphate as: K 2019 Medical Phosphate.) Center Do not infuse phosphorous concurrently in the same line as TPN or IVF that contains calcium. For double lumen central lines, phosphorous may be infused in a separate lumen from TPN. 1 mMol phoshate has 1.47 mEq potassium Infuse over 4 hours potassium Notes: (Same Inactive [place] phosphate-sodium as: Phos-NaK) 2019 M edical phosphate 250 Each 1.5 gm Center mg-280 mg-160 mg pkt has 250mg oral powder for phosphorous. reconstitution Mix w/2.5oz water and stir. Magnesium Sulfate Notes: WASTE: Inactive [place] F/P - Sink; E 2019 [facility] Trash Bin Magnesium Oxide Notes: (Same Inactive [place] as: Mag-Ox 2020 Medical 400) Magnesium Center oxide [id number] elemental magnesium Dose=____mg magnesium oxide (___mg elemental magnesium) Calcium Gluconate Notes: WASTE: Inactive [facility] F/P - Sink; E 2019 [facility] Trash Bin Calcium Carbonate Notes: (Same Inactive [place] 500 MG Chewable As: Tums) 2019 Medica [...] 0 Acetaminophen Notes: Do not No Longer [facility] exceed 4 Active 2020 Medical gm/day. (Same Center as: Tylenol) Levetiracetam 1,000 mg, [place]active [place] Route: IVPB, 2019 Medical ONCE, Dosing Center Weight 89.091, kg, Start date: 06/29/19 21:52:00 CDT, Stop date: 06/29/19 21:52:00 CDT Bisacodyl Notes: (Same No Longer s As: Dulcolax, 2019 Medical Bisco-Lax) Center Ondansetron Notes: (Same No Longer [facility] [place] as: Zofran) 2019 Medical MEDICATION Center WASTE Product Size: 4 mg Product Wasted: ___ mg Hydralazine Notes: (Same [place] Long[place] as: 2019 Medical Apresoline) Center Push over 5 minutes Labetalol 10 mg, 2 mL, No Longer [facility] Route: IVP, 2019 Medical Drug form: Center INJ, Q15Min, Dosing Weight 89.091, kg, PRN Hypertension, Start date: 06/29/19 21:52:00 CDT, Duration: 30 day, Stop date: 07/29/19 21:51:00 CDT, 0 Saline Flush 0.9% Notes: Same No Longer [facility] as: BD 2019 Medical Posiflush Center Sterile Cardene 40 mg in Notes: (Same No Longer [facility] NS 200 mL as: Cardene) 2019 Medical (Titrate.) IV 40 Center mg Keppra Notes: Inactive [facility] MEDICATION 2019 Medical WASTE Center Product Size: 500 mg Product Wasted: ___ mg Acetaminophen 650 mg, 2 tab, Inactive [facility] Route: PO, 2019 Medical Drug form: Center TAB, ONCE, kg, Priority: STAT, Start date: 06/29/19 19:24:00 CDT, Stop date: 06/29/19 19:24:00 CDT, 0 Allergies, Adverse Reactions, Alerts No Known Medication Allergies Immunizations No Data Provided for This Section Results Order Name Results Value Reference Date Interpretation Comments Sakina rce Range CHEM PANEL Glucose Lvl 123 70 - 99 06/30 [facility] CHEM PANEL BUN 19 7 - 22 06/30 [facility]2019 [facility] CHEM PANEL Creatinine 0.74 0.50 - 06/30 [facility] Lvl 1.40 [facility] CHEM PANEL Sodium Lvl 138 135 - 145 06/30 [facility] CHEM PANEL Potassium 4.0 3.5 - 5.1 06/30 [facility] CHEM PANEL Chloride Lvl 106 95 - 109 06/[address] [facility] CHEM PANEL CO2 24 24 - 32 06/30 [facility] CHEM PANEL Calcium Lvl 8.7 8.5 - 10.5 06/30 [facility] CHEM PANEL AGAP 12.0 10.0 - 06/30 [facility] 20.0 [facility] CHEM PANEL eGFR 82 06/30 [facility] Comment: The Medical eGFR is Center [...] PANEL Phosphorus 4.3 2.5 - 4.5 06/30 [facility] CHEM PANEL Magnesium 2.3 1.8 - 2.4 06/30 [facility] HEMATOLOGY WBC 5.6 3.7 - 10.4 06/30 2019 [facility] HEMATOLOGY RBC 3.94 4.70 - 06/30 [place] 6.10 [facility] HEMATOLOGY Hgb 11.8 14.0 - 06/30 [facility] 18.0 [facility] HEMATOLOGY Hct 35.4 42.0 - 06/30 [place] 54.0 [facility] HEMATOLOGY MCV 89.8 80.0 - 06/30 [place] 94.0 [facility] HEMATOLOGY MCH 30.0 27.0 - 06/30 [facility] 31.0 [facility] HEMATOLOGY MCHC 33.4 32.0 - 06/30 [facility] 36.0 [facility] HEMATOLOGY RDW 13.9 11.5 - 06/30 [facility] 14.5 [facility] HEMATOLOGY Platelet 131 133 - 450 06/[address] HEMATOLOGY MPV 8.1 7.4 - 10.4 06/[address] HEMATOLOGY RBC Morph Normal Normal 06/30 [facility] (07/01/19 4:43 AM) /2019 [facility] HEMATOLOGY Plt Morph Normal Normal 06/30 [facility] (07/01/19 4:43 AM) /2019 [facility] HEMATOLOGY Segs 62.1 45.0 - 06/30 [facility] 75.0 [facility] HEMATOLOGY Lymphocytes 24.3 20.0 - 06/30 [facility] 40.0 [facility] HEMATOLOGY Monocytes 11.1 2.0 - 12.0 06/[address] HEMATOLOGY Eosinophils 2.1 0.0 - 4.0 06/30 [facility] /2019 [facility] HEMATOLOGY Basophils 0.4 0.0 - 1.0 06/[address] HEMATOLOGY Neutrophils 3.5 1.5 - 8.1 06/30 [facility] HEMATOLOGY Lymphocytes 1.4 1.0 - 5.5 06/30 [facility] /[address] [place] [address] HEMATOLOGY Monocytes # 0.6 0.0 - 0.8 06/30 [facility] /[address] [place] [address] HEMATOLOGY Eosinophils 0.1 0.0 - 0.5 06/30 [facility] PARATHYROID Ca Ion WB 1.16 1.05 - 06/30 [place] PROFILE 1. [facility] PARATHYROID Ca Norm WB 1.16 1.05 - 06/30 [facility] PROFILE 1. [facility] CARDIAC Troponin-I 0.02 0.00 - 06/29 [facility] ENZYMES 0.40 [facility] BACTERIAL - MRSA by PCR Negative 06/29 [facility] SEROLOGY (06/30/19 1:24 AM) /[address] [facility] CHEM PANEL Glucose Lvl 124 70 - 99 06/[address] CHEM PANEL BUN 13 7 - 22 06/[address] CHEM PANEL Creatinine 0.69 0.50 - 06/29 [facility] Lvl 1.40 [facility] CHEM PANEL Sodium Lvl 141 135 - 145 06/29 2019 [facility] CHEM PANEL Potassium 4.0 3.5 - 5.1 06/29 [facility] Lvl [facility] CHEM PANEL Chloride Lvl 106 95 - 109 06/29 [facility] CHEM PANEL CO2 26 24 - 32 06/29 /2019 [facility] CHEM PANEL Calcium Lvl 8.7 8.5 - 10.5 06/29 [facility] CHEM PANEL AGAP 13.0 10.0 - 06/29 [place] 20.0 [facility] CHEM PANEL eGFR 85 06/29 [facility] Comment: The Medical eGFR is Center [...] PANEL Magnesium 2.4 1.8 - 2.4 06/29 [facility] Lvl [facility] CHEM PANEL Phosphorus 3.4 2.5 - 4.5 06/29 [facility] HEMATOLOGY WBC 6.8 3.7 - 10.4 06/29 /2019 [facility] HEMATOLOGY RBC 3.95 4.70 - 06/29 [place] 6.10 [facility] HEMATOLOGY Hgb 11.9 14.0 - 06/29 [facility] 18.0 [facility] HEMATOLOGY Hct 35.7 42.0 - 06/29 [place] 54.0 [facility] HEMATOLOGY MCV 90.3 80.0 - 06/29 [place] 94.0 [facility] HEMATOLOGY MCH 30.2 27.0 - 06/29 [place] 31.0 [facility] HEMATOLOGY MCHC 33.5 32.0 - 06/29 [place] 36.0 [facility] HEMATOLOGY RDW 14.4 11.5 - 06/29 [place] 14.5 /2019 [facility] HEMATOLOGY Platelet 151 133 - 450 06/[address] HEMATOLOGY MPV 8.0 7.4 - 10.4 06/29 [place] /[address] [place] [address] HEMATOLOGY Segs 68.0 45.0 - 06/29 [place] 75.0 /2019 [facility] HEMATOLOGY Lymphocytes 21.0 20.0 - 06/29 [place] 40.0 [facility] HEMATOLOGY Monocytes 9.6 2.0 - 12.0 06/[address] HEMATOLOGY Eosinophils 0.8 0.0 - 4.0 06/[place] /2019 [facility] HEMATOLOGY Basophils 0.6 0.0 - 1.0 06/[address] HEMATOLOGY Neutrophils 4.6 1.5 - 8.1 06/29 [place] # /2019 [facility] HEMATOLOGY Lymphocytes 1.4 1.0 - 5.5 06/29 [place] # /2020 [facility] HEMATOLOGY Monocytes # 0.7 0.0 - 0.8 06/[place] /2020 [facility] HEMATOLOGY Eosinophils 0.1 0.0 - 0.5 06/29 [facility] /2019 [facility] PARATHYROID Ca Ion WB 1.15 1.05 - 06/29 [place] PROFILE 1. [facility] PARATHYROID Ca Norm WB 1.13 1.05 - 06/29 [facility] PROFILE 1. [facility] BLOOD BANK ABO/Rh O POS 06/29 [facility] RESULTS /2019 [facility] BLOOD BANK Antibody Negative 06/29 [facility] RESULTS Scrn (06/29/19 11:21 PM) /2019 [facility] CARDIAC Troponin-I 0.02 0.00 - 06/29 [facility] ENZYMES 0.40 [facility] HEMATOLOGY Plav Effect 190 06/29 [facility] Plt /2019 [facility] CARDIAC Troponin-I <0.02 0.00 - 06/29 [facility] ENZYMES 0.40 [facility] CHEM PANEL Glucose Lvl 131 70 - 99 06/[address] [place] [address] CHEM PANEL BUN 13 7 - 22 06/29 [place] /[facility] CHEM PANEL Creatinine 0.81 0.50 - 06/29 [facility] Lvl 1.40 [facility] CHEM PANEL Sodium Lvl 138 135 - 145 06/29 [facility] CHEM PANEL Potassium 4.1 3.5 - 5.1 06/29 [facility] CHEM PANEL Chloride Lvl 107 95 - 109 06/29 [facility] CHEM PANEL CO2 27 24 - 32 06/29 [facility] CHEM PANEL Calcium Lvl 8.9 8.5 - 10.5 06/29 [facility] CHEM PANEL AGAP 8.1 10.0 - 06/29 [facility] 20.0 [facility] CHEM PANEL eGFR 79 06/29 [facility] Comment: The Medical eGFR is Center [...] Lactic Acid 1.6 0.5 - 2.2 06/[address] [facility] s [facility] HEMATOLOGY WBC X 10x3 6.7 3.7 - 10.4 06/[address] [facility] s [facility] HEMATOLOGY RBC X 10x6 4.15 4.70 - 06/29 [facility] 6.10 [facility] HEMATOLOGY Hgb 12.5 14.0 - 06/29 [facility] 18.0 [facility] HEMATOLOGY Hct 37.5 42.0 - 06/29 [place] 54.0 [facility] HEMATOLOGY MCV 90.4 80.0 - 06/29 [place] 94.0 [facility] HEMATOLOGY MCH 30.1 27.0 - 06/29 [facility] 31.0 [facility] HEMATOLOGY MCHC 33.2 32.0 - 06/29 [facility] 36.0 [facility] HEMATOLOGY RDW 14.0 11.5 - 06/29 [facility] 14.5 [facility] HEMATOLOGY Platelet 151 133 - 450 06/[address] HEMATOLOGY MPV 7.2 7.4 - 10.4 06/[address] HEMATOLOGY ACT (TEG) 105 86 - 118 06/29 [facility]2020 [facility] HEMATOLOGY [place] 0.5 06/29 [facility]2020 [facility] HEMATOLOGY R-time Rapid 0.6 0.4 - 0.7 06/29 [facility] as /2019 [facility] HEMATOLOGY K-time Rapid 1.0 0.6 - 2.3 06/[address] HEMATOLOGY Angle Rapid 78 64 - 80 06/[address] HEMATOLOGY Max 67 52 - 71 06/29 [facility]2019 [facility] HEMATOLOGY G-value 10.2 5.0 - 11.6 06/[address] HEMATOLOGY Estimated % 1.2 0.0 - 7.5 06/29 [place] /2019 [facility] HEMATOLOGY Segs 76.9 45.0 - 06/29 [facility] 75.0 [facility] HEMATOLOGY Lymphocytes 14.0 20.0 - 06/29 [facility] 40.0 [facility] HEMATOLOGY Monocytes 8.1 2.0 - 12.0 06/[address] HEMATOLOGY Eosinophils 0.5 0.0 - 4.0 06/[address] [facility] s /2020 [facility] HEMATOLOGY Basophils 0.5 0.0 - 1.0 06/[address] HEMATOLOGY Neutrophils 5.2 1.5 - 8.1 06/29 [place] # /2019 [facility] HEMATOLOGY Lymphocytes 0.9 1.0 - 5.5 06/29 [place] # /2020 [facility] HEMATOLOGY Monocytes # 0.5 0.0 - 0.8 06/[address] [facility] s /2020 [facility] Pathology Reports No Data Provided for This [...] Denisa Seo MD On 07/15/2019 16:15 :43; [id number] Brain wo contrast CT EXAM: CT BRAIN WITHOUT CONTRAST 06/29/2019 [facility] DATE: 06/29/2019 at 2216 hours Ce nter [...] EXAM: XR RIGHT SHOULDER 3 VIEWS 06/29/2019 [facility] DATE: 06/29/2019 20:16 CDT Center INDICATION: - [...] CT CERVICAL SPINE WITHOUT CONTRAST 0 06/29/2019 [facility] CT DATE: 06/29/2019 19:58 CDT Center INDICATION: Fall and pain, second interpretation requested COMPARISON: None available TECHNIQUE: Noncontrast CT im ages of the cervical spine, obtained at [facility] . Axial, sagittal and coronal images provided. [...] DX EXAM: XR CHEST 1 VIEW 06/29/2019 [facility] edical DATE: 06/29/2019 19:24 CDT Center INDICATION: [...] Source Temperature Oral (F) 98.4 F 07/01/2019 [facility] Heart Rate 62 07/01/2019 [facility] Respitory Rate 18 07/01/2019 [facility] ann Center Systolic (mm Hg) 120 07/01/2019 [facility] [place] [facility] dical Center Diastolic (mm Hg) 60 07/01/2019 [facility] Temperature Oral (F) 98.3 F 07/01/2019 [facility] Heart Rate 65 07/01/2019 [facility] Respitory Rate 18 07/01/2019 [facility] ann Center Systolic (mm Hg) 121 07/01/2019 [facility] [place] [facility] dical Center Diastolic (mm Hg) 64 07/01/2019 [facility] Temperature Oral (F) 98 F 07/01/2019 [facility] Respitory Rate 18 07/01/2019 [facility] ann Center Systolic (mm Hg) 112 07/01/2019 [facility] dical Center Diastolic (mm Hg) 67 07/01/2019 [facility] Heart Rate 60 07/01/2019 [facility] Height 175.26 cm 06/30/2019 [facility] Weight 89.1 06/30/2019 [facility] BMI Calculated 29.01 06/30/2019 [facility] ann Center Height 175.26 cm 06/30/2019 [facility] BMI Calculated 29 06/30/2019 [facility] ann Center Weight 89.091 06/30/2019 [facility] [place] Encounters Location Location Encounter Encounter Reason Attending ADM [place] Stat us Source Details Type Number For Provider Date Date Visit [facility] [id number] [place] 06/29 06/30 [facility] Edi Aguirre /2019 [facility] Procedures No Data Provided for This Section Assessment and Plan No Data Provided for This Section Plan of Care No Data Provided for This Section Social History Social History Date Source Social History TypeResponse 06/30/2019 [facility] Smoking Status Never smoker; Exposure to Tobacco Smoke None; Cigarette Smoking Last 365 Days No; Reg Smoking Cessation Counseling No entered on: 06/29/19 Family History No Data Provided for This Section Advance Directives No Data Provided for This Section Functional Status No Data Provided for This Section
--- OUTSIDE RECORDS SUMMARY | 2020-04-02 09:18 | XMS REPORT | Continuity of Care Document ---
:1930 Author Organization [facility] t Address [address] [place], [place] [address]ricky Sherman [address] [place] [address] Care Team Providers Name Role Phone Jorge Serrano DO Attending Clinician Bassam Taylor MD Attending Clinician Elías Carcamo Attending Clinician Gavino Aguirre Admitting Clinician Problems Condition Condition Condition Status Onset Resolution Last Treating Co mments Source Name Details Category Date Date Treatment Clinician Date S06.5X0A - Diagnosis Active 2019-07-14 Memoria TRAUM 07-07 09:55:00 l SUBDR HEM S06.5X0A 00:01: Her finney W/O LOSS - TRAUM 00 OF C SUBDR HEM W/O LOSS OF C Active 07/08/2019 [facility] Jennifer SDH Diagnosis Active 2019-07-07 Mem oria 06-28 21:56:00 l SDH 00:00: Edi 00 Active 06/29/2019 [facility] LIFE Diagnosis Active 2019-06-29 Mem oria FLIGHT 06-28 19:34:00 l TRANSFER LIFE 00:00: Edi FLIGHT 00 TRANSFER Active 06/29/2019 [facility] TRAUM Diagnosis Active 2019-07-07 Mem oria SUBDR HEM 21:56:00 l W LOC OF TRAUM Edi UNSP SUBDR HEM DURATION, W LOC OF UNSP DURATION, Active [facility] Allergies, Adverse Reactions, Alerts This patient has no known allergies or adverse reactions. Social History Smoking Status Start Date Stop Date Source Social History [facility] Medications Ordered Filled Start Stop Current Ordering Indication Dosage Frequency Signature Comments Components Source Medication Medication Date Date Medication? Clinician (SIG) Name Name Levetiracet Yes 500 mg = 1 Memoria am 500 MG 5-21 tab, PO, l Oral Tablet 14:01: Q12H, # 10 tab, 0 Refill(s) heparin No Notes: Memoria 5-21 porcine l 13:00: heparin atorvastati No Notes: Hiren jaime n 5-21 [...] Not Crush) sennosides, No Notes: Hiren jaime LONG TERM 5-20 (Same as: l 14:00: Senokot) Lidocaine [...] 0.9% 5-20 Same as: l 14:00: BD [place] Posiflush Sterile metoprolol 2019- Yes 50 mg = 1 Me moria 50 mg oral 5-20 tab, PO, l tablet, 13:59: Q12H Edi extended 00 release Tamsulosin 0 Yes 0.4 mg = 1 M emoria hydrochlori 5-20 cap, PO, l de 0.4 MG 13:59: Daily Edi Oral 00 Capsule [Flomax] Metformin Yes 500 mg, Memor ia 5-20 PO, BID l 13:59: [place] 00 atorvastati Yes 40 mg = 1 M emoria n 40 mg 5-20 tab, PO, l oral tablet 13:59: Bedtime Her finney 00 cholecalcif Yes 400 Memori a goldy 400 [...] tab, PO, l tablet 13:59: Daily Edi 00 Nystatin No Notes: Memoria 100 UNT/MG 5-20 (Same l Topical 05:38: as:Mycosta Herm ricky Powder 00 tin, Nilstat) For external use only. Saline No Notes: Memoria Flush 0.9% 5-20 Same as: l 05:38: BD [place] Posiflush Sterile Potassium No Notes: Memori a Chloride 5-20 (Same as: l 05:38: KCL) Infuse no faster than 10 mEq/hr if given peripheral ly. sodium No Notes: Memoria phosphate 5-20 Infuse l 05:38: over 4 Edi 00 hour. Do not infuse phosphorou s concurrent ly in the same line as TPN or IVF that contains calcium. For double lumen central lines, phosphorou s may be infused in a separate lumen from TPN. potassium 2020-0 No Notes: Memori a phosphate 5-20 (Same as: l 05:38: K [place] 00 Phosphate. ) Do not infuse phosphorou s concurrent ly in the same line as TPN or IVF that contains calcium. For double lumen central lines, phosphorou s may be infused in a separate lumen from TPN. 1 mMol phoshate has 1.47 mEq potassium Infuse over 4 hours potassium 2020-0 No Notes: Memori a phosphate-s 5-20 (Same as: l odium 05:38: Phos-NaK) [place] phosphate 00 Each 1.5 250 mg-280 gm pkt has mg-160 mg 250mg oral powder phosphorou for s. Mix reconstitut w/2.5oz ion water and stir. Magnesium 2020-0 No Notes: Memori a Sulfate 5-20 WASTE: F/P l 05:38: - Sink; E [place] 00 - Municipal Trash Bin Magnesium 2020-0 No Notes: Memori a Oxide 5-20 (Same as: l 05:38: Mag-Ox [place] 00 400) Magnesium oxide 193az=006e g elemental magnesium Dose=____m g magnesium oxide (___mg elemental magnesium) Calcium 2020-0 No Notes: Memoria Gluconate 5-20 WASTE: F/P l 05:38: - Sink; E [place] - Municipal Trash Bin Calcium 2020-0 No Notes: Memoria Carbonate 5-20 (Same As: l 500 MG 05:38: Tums) Edi Chewable 00 Calcium Tablet Carbonate 500 mg = 200 mg elemental calcium Dose = mg calcium carbonate ( mg elemental calcium) Sodium 2020-0 No 1,000 mL, Memori a Chloride 5-20 Rate: 50 l 0.9% IV 02:52: ml/hr, Edi 1,000 mL 00 Infuse over: 20 hr, Route: IV, Dosing Weight 89.091 kg, Total Volume: 1,000, Start date: 06/29/19 21:52:00 CDT, Duration: 30 day, Stop date: 07/29/19 21:51:00 CDT, 2.1, m2, 0 Acetaminoph 2020-0 No Notes: Do M emoria en 5-20 not exceed l 02:52: 4 gm/day. (Same as: Tylenol) Levetiracet 2019-0 No 1,000 mg, M emoria am 5-20 Route: l 02:52: IVPB, ONCE, Dosing Weight 89.091, kg, Start date: 06/29/19 21:52:00 CDT, Stop date: 06/29/19 21:52:00 CDT Bisacodyl 2019-0 No Notes: Memori a 5-20 (Same As: l 02:52: Dulcolax, Bisco-Lax) Ondansetron 2019- No Notes: Hiren jaime 5-20 (Same [...] (Same as: l 200 mL 00:25: Cardene) [place] (Titrate.) 00 IV 40 mg Keppra 2019-0 No Notes: Memor ia 5-20 MEDICATION l 00:25: WASTE Product Size: 500 mg Product Wasted: ___ mg Acetaminoph 2019-0 No 650 mg, 2 M emoria en 5-20 tab, l 00:24: Route: PO, Drug form: TAB, ONCE, kg, Priority: STAT, Start date: 06/29/19 19:24:00 CDT, Stop date: 06/29/19 19:24:00 CDT, 0 Vital Signs Vital Name Observation Time Observation Value Comments Source Temperature Oral (F) 2019-07-01 16:43:00 98.4 F [facility] Heart Rate 2019-07-01 16:43:00 [facility] [place] Respitory Rate 2019-07-01 16:43:00 Memori al Edi Systolic (mm Hg) 2019-07-01 16:43:00 Hiren rial Edi Diastolic (mm Hg) 2019-07-01 16:43:00 Mem orial [place] Temperature Oral (F) 2019-07-01 12:45:00 98.3 F [facility] [place] Heart Rate 2019-07-01 12:45:00 [facility] [place] Respitory Rate 2019-07-01 12:45:00 Memori al [place] Systolic (mm Hg) 2019-07-01 12:45:00 Hiren rial Edi Diastolic (mm Hg) 2019-07-01 12:45:00 Mem orial Edi Temperature Oral (F) 2019-07-01 10:43:00 98 F [facility] [place] Respitory Rate 2019-07-01 10:43:00 Memori al Edi Systolic (mm Hg) 2019-07-01 10:43:00 Hiren rial Edi Diastolic (mm Hg) 2019-07-01 10:43:00 Mem orial [place] Heart Rate 2019-07-01 10:43:00 [facility] [place] Height 2019-06-30 04:56:00 175.26 cm [facility] [place] Weight 2019-06-30 04:56:00 [facility] [place] BMI Calculated 2019-06-30 04:56:00 Memori al [place] Height 2019-06-30 00:16:00 175.26 cm [facility]i BMI Calculated 2019-06-30 00:16:00 Memori al [place] Weight 2019-06-30 00:16:00 [facility] [place] Procedures This patient has no known procedures. Encounters Start End Encounter Admission Attending Care Care Encounter Source Date/Time Date/Time Type Type Clinicians Facility Department ID 2020-03-05 2020-03-05 Patient JANESSA Serrano [id number] 00:00:00 00:00:00 Outreach [facility] [id number] [facility] [id number] PAVILLION [id number] 2020-01-21 2020-01-21 Office Brandon NJWOLFGANG [id number] 07:56:06 09:00:36 Visit [facility] [id number] Surgical [id number] Specialti [id number] es [address] 2019-06-29 2019-07-01 [id number] 19:07:00 11:59:00 Gelacio 67 Elías Results Test Description Test Time Test Comments Results Result Comments Source CHEM PANEL 2019-07-01 123 [facility] Susan nn 09:43:00 CHEM PANEL 2019-07-01 19 [facility] Suasn nn 09:43:00 CHEM PANEL 2019-07-01 0.74 [facility] [...] Susan nn 09:43:00 HEMATOLOGY 2019-07-01 11.8 [facility] Susan nn 09:43:00 HEMATOLOGY 2019-07-01 35.4 [facility] Susan nn 09:43:00 HEMATOLOGY 2019-07-01 89.8 [facility] Susan nn 09:43:00 HEMATOLOGY 2019-07-01 09:43:00 Test Item Value Reference Range Interpretation Comme nts MCH (test code = MCH) 30.0 pg 27.0-31.0 [facility] TzsdhgaNQZOQRVQHP0438-23-33 09:43:0033.4[facility] HermannHEMATOLOGY 2019-07-01 09:43:0013.9[facility] MejeufdCAEZBEDQQJ3566-49-11 09:43:81960Lbzlhpgl PmfapowINPVWKPMUB2025-51-62 09:43:008.1[facility] IcmbknqZDHJLYGTZI7196-27-90 09:43:00Normal (07/01/19 4:43 AM)[facility] NfzydbcWXAJMNEWTL2187-17-98 09:43:00 Normal (07/01/19 4:43 AM)[facility] UuwznpuGHKBHFBBFQ5156-41-42 09:43:0062.1 [facility] GaphhkxDTGOOPDQGZ2668-12-99 09:43:0024.3[facility] HermannHEMATOLOGY 2019-07-01 09:43:0011.1[facility] YnhbiweIANHGTVMDU3608-71-01 09:43:002.1[facility] MbazcijAGQXDKSOUG2108-24-41 09:43:000.4[facility] NsfbkaeSUKEXAZAKG9623-47-66 09:43:003.5[facility] LmaectkQYMLNTUXDL2227-40-51 09:43:001.4[facility] Edi KCZNQHEMCW3434-27-22 09:43:000.6[facility] MgbzdykSIXUGUCFWG6798-28-85 09:43:000.1 [facility] HermannPARATHYROID GLXLTUP2267-41-77 09:43:001.16[facility] [place] PARATHYROID LWJZCAZ4338-98-86 09:43:001.16[facility] HermannCARDIAC ENZYMES 2019-06-30 09:02:000.02[facility] HermannBACTERIAL - NHHQSTLJ3409-90-13 06:24:00 Negative (06/30/19 1:24 AM)[facility] HermannCHEM QWHIS9464-12-24 06:24:28401 [facility]annCHEM UBTAC3437-31-68 06:24:0013[facility] HermannCHEM PANEL 2019-06-30 06:24:000.69[facility] HermannCHEM LXLLG6587-53-55 06:24:44975Oqubrfwc HermannCHEM YPEAI9714-82-09 06:24:004.0[facility] HermannCHEM GZQBX4882-79-62 06:24:35088Whayyyor HermannCHEM CWUKL9143-57-35 06:24:0026[facility] HermannCHEM MVZPX0748-32-64 06:24:008.7[facility] HermannCHEM JBDDD5778-35-02 06:24:0013.0 [facility] HermannCHEM HMQUL8122-29-89 06:24:0085[facility] HermannCHEM PANEL 2019-06-30 06:24:002.4[facility] HermannCHEM XGLQB8741-82-37 06:24:003.4[facility] QkmzcfwUVZOTABWCR8918-13-84 06:24:006.8[facility] MarbwjqNVONLBPKTR4031-25-19 06:24:003.95[facility] YgzfswdXJEMGDDAHU4616-80-82 06:24:0011.9[facility] [place] IXTLNJEVVY0838-04-85 06:24:0035.7[facility] OyjlgkjZIRFJQAPPK0081-03-50 06:24:00 90.3[facility] UfrpwuwUMGWODAOQA4035-02-79 06:24:00 Test Item Value Reference Range Interpretation Comments MCH (test code = MCH) 30.2 pg 27.0-31.0 [facility] YwpwhdhBTQLGUFEXC2251-56-39 06:24:0033.5[facility] HermannHEMATOLOGY 2019-06-30 06:24:0014.4[facility] JpprizeULHGNHXJXT3509-38-57 06:24:10220Sinknwol WzmjtryRVDIQRDYFK9773-98-23 06:24:008.0[facility] AwjhczaLGXXBMIFRS3158-24-54 06:24:0068.0[facility] AimatkvTRUHOKTWDD9311-84-76 06:24:0021.0[facility] Edi BIGVNQVVXG6285-27-73 06:24:009.6[facility] XjqtwtrVQJYMPINVE1964-00-32 06:24:000.8 [facility] EfvuvfeIEPICTYAGD7896-93-92 06:24:000.6[facility] HermannHEMATOLOGY 2019-06-30 06:24:004.6[facility] WmfxusxPWQTVCQNOI5483-85-17 06:24:001.4[facility] QbvxpqmWFEIBAQXLP5880-89-49 06:24:000.7[facility] GxoxmzrJAALYMWZDI4680-08-40 06:24:000.1[facility] HermannPARATHYROID SSQYZCE3134-97-53 06:24:001.15[facility] HermannPARATHYROID EPPTOAX6278-59-28 06:24:001.13[facility] HermannBLOOD BANK BYQWHEG4872-37-04 04:21:19Negative (06/29/19 11:21 PM)[facility] HermannCARDIAC ZMJEJKY9660-17-80 03:41:000.02[facility] DhnkdzgZIZLPIXRDP1928-15-46 03:41:17666 [facility] HermannCHEM IUIOT5191-66-01 01:00:0027[facility] HermannCHEM PANEL 2019-06-30 01:00:008.9[facility] HermannCHEM FHALO3392-07-13 01:00:008.1[facility] HermannCHEM OJLRS0826-71-27 01:00:0079[facility] HermannCHEM GPKIW1761-87-94 01:00:001.6[facility] CoinjtdRKLGOHZLKK2376-38-70 01:00:006.7[facility] Edi UGGREHVOGR5201-66-30 01:00:004.15[facility] FypcyyhNZUYQYRRUN0898-97-20 01:00:00 12.5[facility] PnrkyyaIKKKSWCSOE4555-81-87 01:00:0037.5[facility] HermannHEMATOLOGY 2019-06-30 01:00:0090.4[facility] IhyrienNHKKELRMIX5684-97-28 01:00:00 Test Item Value Reference Range Interpretation Comments MCH (test code = MCH) 30.1 pg 27.0-31.0 [facility] WgnazmkTWHLPHHTHD3280-69-91 01:00:0033.2[facility] HermannHEMATOLOGY 2019-06-30 01:00:0014.0[facility] XwceuozZESFEQFSHY6883-40-65 01:00:97768Lopzhbwi WkxuazvROZJSSGHHH6490-50-49 01:00:007.2[facility] XszvdvsCOOGEKAHIR0561-66-67 01:00:00 Test Item Value Reference Range Interpretation Comments ACT (TEG) Rapid (test code = ACT (TEG) 105 s 86-[address]) [facility] GerkhqaQKFLVPUBEW5415-16-77 01:00:00 Test Item Value Reference Range Interpretation Comments Split Point Rapid (test code = Split 0.5 min Point Rapid) [facility] CabpzjhNAOCQUTVEQ9176-69-71 01:00:00 Test Item Value Reference Range Interpretation Comments R-time Rapid (test code = R-time 0.6 min 0.4-0.7 Rapid) [facility] KnwtjiiDITYEWETIR3337-20-30 01:00:00 Test Item Value Reference Range Interpretation Comments K-time Rapid (test code = K-time 1.0 min 0.6-2.3 Rapid) [facility] TpweaijZCQIBYPUPH0497-16-56 01:00:00 Test Item Value Reference Range Interpretation Comments Angle Rapid (test code = Angle 78 degrees 64-80 Rapid) [facility] PodyjloMIDTPUJZGG5647-57-09 01:00:00 Test Item Value Reference Range Interpretation Comments Max Amplitude Rapid (test code = Max 67 mm 52-71 Amplitude Rapid) [facility] LizydgnYUACMPECXY9168-29-62 01:00:0010.2[facility] HermannHEMATOLOGY 2019-06-30 01:00:001.2[facility] DsmagszVLMGTIDLWQ3719-05-03 01:00:0076.9[facility] OglawlkIJJBOTWMSG0025-44-54 01:00:0014.0[facility] RftohohVEQHTQPWDR3239-66-38 01:00:008.1[facility] ZtbxxjfPKVOQNALJC3363-69-78 01:00:000.5[facility] [place] YBCWURPIUK6013-60-11 01:00:000.5[facility] CbgsbykERQOFGOFQL4622-76-32 01:00:005.2 [facility] SuznvryGWVLXGQYJE2410-65-50 01:00:000.9[facility] HermannHEMATOLOGY 2019-06-30 01:00:000.5[facility] HermannCARDIAC CEWEAUN7298-35-30 01:00:00<0.02 [facility] HermannCHEM YNRSR8566-90-11 01:00:16067Csgoxovd HermannCHEM PANEL 2019-06-30 01:00:0013[facility] HermannCHEM RYKRB5463-44-45 01:00:000.81[facility] HermannCHEM OBMOZ9897-95-03 01:00:53528Fvkryvcb HermannCHEM AYOFX4047-00-65 01:00:004.1[facility] HermannCHEM GPRBG8110-28-96 01:00:70790Amqgfwsr Edi
[2020-04-02 11:25] LABS: Absolute Lymphocytes (CBC) 1.2 K/uL (0.7-4.9); Basophils % 0.6 % (0-1.3); Hematocrit 36.4 % (39.6-49.0); Lymphocytes % 18.9 % (15.3-44.8); MPV 8.4 fL (7.6-11.3); RBC Red Blood Cell Count 4.08 M/uL (4.33-5.43)
[2020-04-02 11:26] LABS: Protime INR 1.12
--- NOTE | 2020-04-02 11:38 | RAD REPORT ---
EXAM DESCRIPTION: RAD - Chest Single View - 04/02/2020 11:14 am CLINICAL HISTORY: dizziness, fall, chest pain COMPARISON: January 2020 TECHNIQUE: AP portable chest image was obtained 04/02/2020 11:14 am . FINDINGS: No focal mass or consolidation. Interstitial markings are prominent suspected to be baseli ne. Vasculature within normal limits. Mild cardiomegaly is similar to comparison. A significant degre e of failure or volume overload is doubtful. Mild forms are possible. CABG surgical changes are prese nt. No pneumothorax. Minimal costophrenic angle blunting is present No acute bony abnormality seen. N o acute aortic findings suspected. IMPRESSION: No posttraumatic injury evident in the chest. Chronic cardiovascular findings are present. No gross rib deformity seen. Concerns for rib fracture can be addressed with dedicated rib films or C T chest.
[2020-04-02 11:39] LABS: ALT/SGPT 19 U/L (12-78); AST/SGOT 16 U/L (15-37); Albumin 3.6 g/dL (3.4-5.0); Alkaline Phosphatase 103 U/L (45-117); BUN Blood Urea Nitrogen 17 mg/dL (7-18); Bicarbonate 26 mmol/L (21-32); Bilirubin Direct 0.2 mg/dL (0-0.2); Bilirubin Total 0.5 mg/dL (0.2-1.0); Glucose Level 118 mg/dL (74-106); Magnesium 2.4 mg/dL (1.8-2.4); NT PRO-BNP 2671 pg/mL (<450); Potassium 4.5 mmol/L (3.5-5.1); Protein, Total 7.1 g/dL (6.4-8.2); Sodium Level 141 mmol/L (136-145); Troponin (Emerg Dept Use Only) < 0.02 ng/mL (0.0-0.045)
--- NOTE | 2020-04-02 11:41 | RAD REPORT ---
EXAM DESCRIPTION: RAD - Pelvis - 04/02/2020 11:14 am CLINICAL HISTORY: PAIN, fall, pelvic pain, hip pain COMPARISON: Pelvis dated 12/23/2019 TECHNIQUE: AP imaging of the pelvis was obtained. FINDINGS: Osteopenic changes are present. No fracture of the bony pelvis identified. SI joint degene rative changes are present. Bilateral hip joint changes are present. No hip joint dislocation or prox imal femur fracture. Hardware is in place in the right femur from prior repair. Small free fragment o f the greater trochanter air was present on the prior study. IMPRESSION: Osteopenic, degenerative and postsurgical changes are present as detailed. No acute find ing noted.
--- NOTE | 2020-04-02 11:44 | RAD REPORT ---
EXAM DESCRIPTION: RAD - Hip Right 2 View - 04/02/2020 11:14 am CLINICAL HISTORY: PAIN COMPARISON: Hip Right 2 View dated 12/22/2019 FINDINGS: AP and frog-leg views of the right hip were obtained. Hardware is in place from a prior fracture repair. Small greater trochanter free fragment near the rush perior margin of the hardware is not an acute finding. No dislocation of the femoral head. No fractur e of the proximal femur or right hemipelvis identifiable. Dense arterial tree calcifications are present. No suspicious soft tissue finding. IMPRESSION: Negative right hip examination for acute findings.
--- NOTE | 2020-04-02 12:15 | ER ---
Nurse's Notes [facility] [place], [place] Name: Ronny Burgess Age: 89 yrs Sex: Male : 1930 Arrival Date: 04/02/2020 Time: 09:16 Bed 13 Private MD: Diagnosis: Fall on same level from slipping, tripping and stumbling;Dizziness and giddiness;Contusion of right hip Presentation: 04/02 09:34 Chief complaint: Patient states: fell in kitchen, fell into the table , caught it iw across his back, happened yesterday evening , pt states he got dizzy and then he fell back, has been feeling dizzy like he's gonna fall recently. Care prior to arrival: None. 09:34 Acuity: BERNARDA 3 iw 09:34 Method Of Arrival: Ambulatory iw 09:35 Coronavirus screen: At this time, the client does not indicate any symptoms associated iw with coronavirus-19. Ebola Screen: Patient negative for fever greater than or equal to 101.5 degrees Fahrenheit, and additional compatible Ebola Virus Disease symptoms Patient denies exposure to infectious person. Patient denies travel to an Ebola-affected area in the 21 days before illness onset. No symptoms or risks identified at this time. Initial Sepsis Screen: Does the patient meet any 2 criteria? No. Patient's initial sepsis screen is negative. Does the patient have a suspected source of infection? No. Patient's initial sepsis screen is negative. Risk Assessment: Do you want to hurt yourself or someone else? Patient reports no desire to harm self or others. Onset of symptoms was April 01, 2020. Historical: - Allergies: 09:38 Isosorbide Dinitrate; iw - Home Meds: 09:38 carvedilol 6.25 mg oral tab 1 tab 2 times per day [Active]; Entresto 24-26 mg oral tab iw twice a day [Active]; spironolactone 25 mg Oral tab 1 tab once daily [Active]; furosemide 40 mg Oral tab 1 tab once daily [Active]; tramadol 50 mg Oral tab 1 tab every 4 hours [Active]; atorvastatin 40 mg oral tab once daily [Active]; metformin 500 mg Oral tab 1 tab 2 times per day [Active]; tamsulosin 0.4 mg Oral cp24 2 caps once daily [Active]; - PMHx: 09:38 Diabetes - NIDDM; Hyperlipidemia; Myocardial infarction; iw - PSHx: 09:38 Heart stents; CABG; Knee surgery; hip; iw - Immunization history:: Adult Immunizations up to date. - Social history:: Smoking status: Patient denies any tobacco usage or history of. Screenin:45 Abuse screen: Denies threats or abuse. Denies injuries from another. Nutritional jl7 screening: No deficits noted. Tuberculosis screening: No symptoms or risk factors identified. Fall Risk Fall in past 12 months (25 points). IV access (20 points). Assessment: 10:45 General: Appears in no apparent distress. uncomfortable, Behavior is calm, cooperative, jl7 appropriate for age. Pain: Complains of pain in right mid back and right low back Pain currently is 0 out of 10 on a pain scale. at worst was 5 out of 10 on a pain scale. Neuro: Level of Consciousness is awake, alert, obeys commands, Oriented to person, place, time, situation. Cardiovascular: Patient's skin is warm and dry. Respiratory: Airway is patent Respiratory effort is even, unlabored, Respiratory pattern is regular, symmetrical. GI: Abdomen is round. Derm: Skin is pink, warm \T\ dry. Vital Signs: 09:35 BP 109 / 91; Pulse 77; Resp 16; Temp 98.8; Pulse Ox 99% on R/A; Weight 90.72 kg; Height iw 5 ft. 9 in. (175.26 cm); 11:06 BP 129 / 78; Pulse 76; Resp 16; Temp 98.2; Pulse Ox 100% on R/A; mh5 11:17 BP 110 / 62 Supine; Pulse 73; Resp 22; Pulse Ox 98% on R/A; mh5 11:19 BP 109 / 66 Sitting; Pulse 74; Resp 22; Pulse Ox 100% on R/A; mh5 11:21 BP 116 / 74 Standing; Pulse 82; Resp 20; Pulse Ox 96% on R/A; mh5 09:35 Body Mass Index 29.53 (90.72 kg, 175.26 cm) iw ED Course: 09:16 Patient arrived in ED. ag5 09:35 Triage completed. iw 09:38 Arm band placed on. iw 09:50 Stanislaw Munoz NP is PHCP. pm1 09:50 Toñito Caldwell MD is Attending Physician. pm1 09:59 Tish Cruz, RN is Primary Nurse. jl7 11:04 Patient has correct armband on for positive identification. Bed in low position. Call mh5 light in reach. Side rails up X 1. Adult w/ patient. Warm blanket given. monitoring tech on. Pulse ox on. NIBP on. 11:05 EKG done, by ED staff, reviewed by Toñito Caldwell MD. 5 11:10 Initial lab(s) drawn, by la, sent to lab. Inserted saline lock: 20 gauge in right jl7 forearm, using aseptic technique. Blood collected. 11:15 XRAY Chest (1 view) In Process Unspecified. EDMS 11:15 Hip Right 2 View XRAY In Process Unspecified. EDMS 11:15 Pelvis XRAY In Process Unspecified. EDMS 11:30 Basic Metabolic Panel Sent. 5 12:43 No provider procedures requiring assistance completed. IV discontinued, intact, iw bleeding controlled, No redness/swelling at site. Pressure dressing applied. Administered Medications: No medications were administered Outcome: 12:14 Discharge ordered by MD. pm1 12:43 Discharged to home via wheelchair, with family. iw 12:43 Condition: good 12:43 Discharge instructions given to patient, Instructed on discharge instructions, follow up and referral plans. Demonstrated understanding of instructions, follow-up care, Prescriptions given X 1. 12:43 Patient left the ED. iw Signatures: Dispatcher [employer] Anne Marie Natarajan, GERMAINE HERRON Stanislaw Munoz, ANIMAL IMPERSONATOR ANIMAL IMPERSONATOR pm1 Sylvie Villarreal [facility] Tish Cruz, GERMAINE RN [facility] Juliette Saleem [facility]
--- NOTE | 2020-04-02 12:15 | EDPHYS ---
Physician Documentation [facility] Name: Ronny Burgess Age: 89 yrs Sex: Male : 1930 Arrival Date: 04/02/2020 Time: 09:16 Bed 13 Private MD: ED Physician Toñito Caldwell HPI: 04/02 10:29 This 89 yrs old Male presents to ER via Ambulatory with complaints of Fall pm1 Injury. 10:29 Details of fall: The patient fell from an upright position, while standing. Onset: The pm1 symptoms/episode began/occurred yesterday. Associated injuries: The patient sustained right low back - right posterior iliac crest. Severity of symptoms: in the emergency department the symptoms are unchanged. The patient has experienced similar episodes in the past, a few times. Patient was in his house taking to his daughter. [place] unsteady and fell backwards against his table. Presenting with pain to right iliac crest and right buttocks. No headache, head injury or neck pain. No chest pain or shortness of breath. No N/V/D. Patient reports that he has been unsteady on his feet since having he fractured his hip last year in December. 10:29 Patient was able to get up after his fall and has been walking since the fall. Patient pm1 uses a walker on a regular basis. Historical: - Allergies: 09:38 Isosorbide Dinitrate; iw - Home Meds: 09:38 carvedilol 6.25 mg oral tab 1 tab 2 times per day [Active]; Entresto 24-26 mg oral tab iw twice a day [Active]; spironolactone 25 mg Oral tab 1 tab once daily [Active]; furosemide 40 mg Oral tab 1 tab once daily [Active]; tramadol 50 mg Oral tab 1 tab every 4 hours [Active]; atorvastatin 40 mg oral tab once daily [Active]; metformin 500 mg Oral tab 1 tab 2 times per day [Active]; tamsulosin 0.4 mg Oral cp24 2 caps once daily [Active]; - PMHx: 09:38 Diabetes - NIDDM; Hyperlipidemia; Myocardial infarction; iw - PSHx: 09:38 Heart stents; CABG; Knee surgery; hip; iw - Immunization history:: Adult Immunizations up to date. - Social history:: Smoking status: Patient denies any tobacco usage or history of. ROS: 10:29 Constitutional: Negative for fever, chills, and weight loss, Neck: Negative for injury, pm1 pain, and swelling, Cardiovascular: Negative for chest pain, palpitations, and edema, Respiratory: Negative for shortness of breath, cough, wheezing, and pleuritic chest pain, Abdomen/GI: Negative for abdominal pain, nausea, vomiting, diarrhea, and constipation. 10:29 Skin: Negative for injury, rash, and discoloration, Neuro: Negative for headache, weakness, numbness, tingling, and seizure. 10:29 Back: Positive for of the right low back pain. 10:29 MS/extremity: Positive for right buttock pain, Negative for decreased range of motion, deformity. Exam: 10:29 Constitutional: This is a well developed, well nourished patient who is awake, alert, pm1 and in no acute distress. Head/Face: Normocephalic, atraumatic. Neck: Trachea midline, no thyromegaly or masses palpated, and no cervical lymphadenopathy. Supple, full range of motion without nuchal rigidity, or vertebral point tenderness. No Meningismus. Chest/axilla: Normal chest wall appearance and motion. Nontender with no deformity. No lesions are appreciated. 10:29 Back: No spinal tenderness. No costovertebral tenderness. Full range of motion Skin: Warm, dry with normal turgor. Normal color with no rashes, no lesions, and no evidence of cellulitis. MS/ Extremity: Pulses equal, no cyanosis. Neurovascular intact. Full, normal range of motion. 10:29 Cardiovascular: Exam negative for acute changes, Rate: normal, Rhythm: regular, Pulses: no pulse deficits are appreciated. 10:29 Respiratory: Exam negative for acute changes, respiratory distress, shortness of breath. 10:29 Abdomen/GI: Inspection: abdomen appears normal, Palpation: abdomen is soft and non-tender. 10:29 Musculoskeletal/extremity: tenderness to right buttocks and right posterior iliac crest. 10:29 Neuro: Exam negative for acute changes, Orientation: is normal, Mentation: is normal, Motor: is normal, moves all fours. Vital Signs: 09:35 BP 109 / 91; Pulse 77; Resp 16; Temp 98.8; Pulse Ox 99% on R/A; Weight 90.72 kg; Height iw 5 ft. 9 in. (175.26 cm); 11:06 BP 129 / 78; Pulse 76; Resp 16; Temp 98.2; Pulse Ox 100% on R/A; mh5 11:17 BP 110 / 62 Supine; Pulse 73; Resp 22; Pulse Ox 98% on R/A; mh5 11:19 BP 109 / 66 Sitting; Pulse 74; Resp 22; Pulse Ox 100% on R/A; mh5 11:21 BP 116 / 74 Standing; Pulse 82; Resp 20; Pulse Ox 96% on R/A; mh5 09:35 Body Mass Index 29.53 (90.72 kg, 175.26 cm) iw MDM: 10:10 Patient medically screened. pm1 12:13 Data reviewed: vital signs. Data interpreted: Pulse oximetry: on room air is 96 %. pm1 Interpretation: normal. Counseling: I had a detailed discussion with the patient and/or guardian regarding: the historical points, exam findings, and any diagnostic results supporting the discharge/admit diagnosis, lab results, radiology results, the need for outpatient follow up, to return to the emergency department if symptoms worsen or persist or if there are any questions or concerns that arise at home. 12:13 ED course: No ECG change from 01/19/2020 and 01/01/2020. pm04/02 10:22 Order name: Basic Metabolic Panel pm04/02 10:22 Order name: CBC with Diff; Complete Time: 12:01 pm04/02 10:22 Order name: LFT's; Complete Time: 12: pm04/02 10:22 Order name: Magnesium; Complete Time: 12: pm04/02 10:22 Order name: NT PRO-BNP; Complete Time: 12:01 pm04/02 10:22 Order name: PT-INR; Complete Time: 12: pm04/02 10:22 Order name: Troponin (emerg Dept Use Only); Complete Time: 12: pm04/02 10:22 Order name: XRAY Chest (1 view); Complete Time: 12:01 pm04/02 10:22 Order name: EKG; Complete Time: 10:22 pm04/02 10:22 Order name: Cardiac monitoring; Complete Time: 11:18 pm04/02 10:22 Order name: EKG - Nurse/Tech; Complete Time: 11:18 pm1 04/02 10:22 Order name: Hip Right 2 View XRAY; Complete Time: 12:01 pm1 04/02 10:22 Order name: Pelvis XRAY; Complete Time: 12:01 pm1 04/02 10:22 Order name: Basic Metabolic Panel; Complete Time: 12:01 EDCA 04/02 10:22 Order name: IV Saline Lock; Complete Time: 11:15 pm1 04/02 10:22 Order name: Labs collected and sent; Complete Time: 11:15 pm1 04/02 10:22 Order name: O2 Per Protocol; Complete Time: 11:15 pm1 04/02 10:22 Order name: O2 Sat Monitoring; Complete Time: 11:15 pm1 04/02 10:22 Order name: Orthostatic Blood Pressure; Complete Time: 11:27 pm1 Administered Medications: No medications were administered Disposition: 13:11 Co-signature as Attending Physician, Toñito Caldwell MD. rn Disposition: 04/02/20 12:14 Discharged to Home. Impression: Contusion of right hip, Fall on same level from slipping, tripping and stumbling, Dizziness and giddiness. - Condition is Stable. - Discharge Instructions: Contusion, Dizziness, Fall Prevention in the Home. - Medication Reconciliation Form, Thank You Letter, Antibiotic Education, Prescription Opioid Use form. - Follow up: Emergency Department; When: As needed; Reason: Worsening of condition. Follow up: Private Physician; When: 2 - 3 days; Reason: Recheck today's complaints, Continuance of care, Re-evaluation by your physician. - Problem is new. - Symptoms have improved. Signatures: Dispatcher [employer] Anne Marie Chanel RN RN iw Nieto, Roman, MD MD rn Marinas, Patrick, FIRE PREVENTION CAPTAIN FIRE PREVENTION CAPTAIN pm1 Corrections: (The following items were deleted from the chart) 12:14 12:14 04/02/2020 12:14 Discharged to Home. Impression: Fall on same level from pm1 slipping, tripping and stumbling; Dizziness and giddiness; Contusion of right hip. Condition is Stable. Forms are Medication Reconciliation Form, Thank You Letter, Antibiotic Education, Prescription Opioid Use. Follow up: Emergency Department; When: As needed; Reason: Worsening of condition. Follow up: Private Physician; When: 2 - 3 days; Reason: Recheck today's complaints, Continuance of care, Re-evaluation by your physician. Problem is new. Symptoms have improved. pm1 12:43 12:14 04/02/2020 12:14 Discharged to Home. Impression: Contusion of right hipFall on iw same level from slipping, tripping and stumbling; Dizziness and giddiness. Condition is Stable. Forms are Medication Reconciliation Form, Thank You Letter, Antibiotic Education, Prescription Opioid Use. Follow up: Emergency Department; When: As needed; Reason: Worsening of condition. Follow up: Private Physician; When: 2 - 3 days; Reason: Recheck today's complaints, Continuance of care, Re-evaluation by your physician. Problem is new. Symptoms have improved. pm1
[2020-04-02 12:53] VITALS: TEMP 98.2
[2020-04-02 13:07] VITALS: BP 116/74; O2SAT 96
== END 2020-04-02 12:43 | disposition home or self-care (01) ==
LOC: ER 09:14
DX: S70.01XA Contusion of right hip, initial encounter (principal); W01.190A Fall on same level from slipping, tripping and stumbling with subsequent striking against furniture, initial encounter; Y93.89 Activity, other specified; Y92.9 Unspecified place or not applicable; E78.5 Hyperlipidemia, unspecified; E11.9 Type 2 diabetes mellitus without complications; Z88.8 Allergy status to other drugs, medicaments and biological substances; Z95.1 Presence of aortocoronary bypass graft; Z95.818 Presence of other cardiac implants and grafts
CPT/HCPCS: 36415; 71045; 72170; 80048; 80076; 83735; 83880; 84484; 85025; 85610; 99284

== ENCOUNTER 2020-05-01 10:48 | Emergency (ER) | payer OTHER ==
--- OUTSIDE RECORDS SUMMARY | 2020-05-01 10:52 | XMS REPORT | Continuity of Care Document ---
:1930 Author Organization [facility] t Address [address] [place] [address] [address] [place] [address] Care Team Providers Name Role Phone Jorge [...] l SDH 00:00: Edi 00 Active 06/29/2019 [facility] LIFE Diagnosis Active 2019-06-29 Mem oria FLIGHT 06-28 19:34:00 l TRANSFER LIFE 00:00: Edi FLIGHT 00 TRANSFER Active 06/29/2019 [facility] TRAUM Diagnosis Active 2019-07-07 Mem oria SUBDR HEM 21:56:00 l W LOC OF TRAUM [place] UNSP SUBDR HEM DURATION, W LOC OF UNSP DURATION, Active [facility] Allergies, Adverse Reactions, Alerts This patient has no known allergies or adverse reactions. Social History Smoking Status Start Date Stop Date Source Social History [facility] Medications Ordered Filled Start Stop Current Ordering [...] Not Crush) sennosides, No Notes: Hiren jaime INTERMEDIATE 5-20 (Same as: l 14:00: Senokot) Lidocaine [...] 0.9% 5-20 Same as: l 14:00: BD Edi Posiflush Sterile metoprolol 2019- Yes 50 mg = 1 Me moria 50 mg oral 5-20 tab, PO, l tablet, 13:59: Q12H Edi extended 00 release Tamsulosin 0 Yes 0.4 mg = 1 M emoria hydrochlori 5-20 cap, PO, l de 0.4 MG 13:59: Daily [place] Oral 00 Capsule [Flomax] Metformin Yes 500 mg, Memor ia 5-20 PO, BID l 13:59: Edi 00 atorvastati Yes 40 mg = 1 [...] 5-20 tab, PO, l tablet 13:59: Daily [place] 00 Nystatin No Notes: Memoria 100 UNT/MG 5-20 (Same l Topical 05:38: as:Mycosta Herm ricky Powder 00 tin, Nilstat) For external use only. Saline No Notes: Memoria Flush 0.9% 5-20 Same as: l 05:38: BD [place] Posiflush Sterile Potassium No Notes: Memori a Chloride 5-20 (Same as: l 05:38: KCL) Infuse no faster than 10 mEq/hr if given peripheral ly. sodium No Notes: Memoria phosphate 5-20 Infuse l 05:38: over 4 [place] 00 hour. Do not infuse phosphorou s concurrent ly in the same line as TPN or IVF that contains calcium. For double lumen central lines, phosphorou s may be infused in a separate lumen from TPN. potassium 2020-0 No Notes: Memori a phosphate 5-20 (Same as: l 05:38: K Edi 00 Phosphate. ) Do not infuse phosphorou s concurrent ly in the same line as TPN or IVF that contains calcium. For double lumen central lines, phosphorou s may be infused in a separate lumen from TPN. 1 mMol phoshate has 1.47 mEq potassium Infuse over 4 hours potassium 2020-0 No Notes: Memori a phosphate-s 5-20 (Same as: l odium 05:38: Phos-NaK) [place] phosphate 00 Each 1.5 250 mg-280 gm pkt has mg-160 mg 250mg oral powder phosphorou for s. Mix reconstitut w/2.5oz ion water and stir. Magnesium 2020-0 No Notes: Memori a Sulfate 5-20 WASTE: F/P l 05:38: - Sink; E [place] 00 - Municipal Trash Bin Magnesium 2020-0 No Notes: Memori a Oxide 5-20 (Same as: l 05:38: Mag-Ox [place] 00 400) Magnesium oxide 811ke=941w g elemental magnesium Dose=____m g magnesium oxide (___mg elemental magnesium) Calcium 2020-0 No Notes: Memoria Gluconate 5-20 WASTE: F/P l 05:38: - Sink; E Edi - Municipal Trash Bin Calcium 2020-0 No Notes: Memoria Carbonate 5-20 (Same As: l 500 MG 05:38: Tums) [place] Chewable 00 Calcium Tablet Carbonate 500 mg = 200 mg elemental calcium Dose = mg calcium carbonate ( mg elemental calcium) Sodium 2020-0 No 1,000 mL, Memori a Chloride 5-20 Rate: 50 l 0.9% IV 02:52: ml/hr, [place] 1,000 mL 00 Infuse over: 20 hr, [...] [facility] Heart Rate 2019-07-01 16:43:00 [facility] Respitory Rate 2019-07-01 16:43:00 Memori al Edi Systolic (mm Hg) 2019-07-01 16:43:00 Hiren rial Edi Diastolic (mm Hg) 2019-07-01 16:43:00 Mem orial Edi Temperature Oral (F) 2019-07-01 12:45:00 98.3 F [facility] Heart Rate 2019-07-01 12:45:00 [facility] [place] Respitory Rate 2019-07-01 12:45:00 Memori al [place] Systolic (mm Hg) 2019-07-01 12:45:00 Hiren rial [place] Diastolic (mm Hg) 2019-07-01 12:45:00 Mem orial Edi Temperature Oral (F) 2019-07-01 10:43:00 98 F [facility] Respitory Rate 2019-07-01 10:43:00 Memori al Edi Systolic (mm Hg) 2019-07-01 10:43:00 Hiren rial [place] Diastolic (mm Hg) 2019-07-01 10:43:00 Mem orial Edi Heart Rate 2019-07-01 10:43:00 [facility] [place] Height 2019-06-30 04:56:00 175.26 cm [facility] Weight 2019-06-30 04:56:00 [facility] [place] BMI Calculated 2019-06-30 04:56:00 Memori al Edi Height 2019-06-30 00:16:00 175.26 cm [facility] [place] BMI Calculated 2019-06-30 00:16:00 Memori al [place] Weight 2019-06-30 00:16:00 [facility] [place] Procedures This patient has no known procedures. Encounters Start End Encounter Admission Attending Care Care Encounter Source Date/Time Date/Time Type Type Clinicians Facility Department ID 2020-03-05 2020-03-05 Patient JANESSA Serrano [id number] 00:00:00 00:00:00 Outreach [facility] [id number] [facility] [id number] PAVILLION [id number] 2020-01-21 2020-01-21 Office Brandon ORWOLFGANG [id number] 07:56:06 09:00:36 Visit [facility] [id number] Surgical [id number] Specialti [id number] es 198 Dania 2019-06-29 2019-07-01 [id number] 19:07:00 11:59:00 Gelacio 67 Elías Results Test Description Test Time Test Comments Results Result Comments Source CHEM PANEL 2019-07-01 123 [facility] nn 09:43:00 CHEM PANEL 2019-07-01 19 [facility] nn 09:43:00 CHEM PANEL 2019-07-01 0.74 [facility] nn 09:43:00 CHEM PANEL 2019-07-01 138 [facility] Suasn nn 09:43:00 CHEM PANEL 2019-07-01 4.0 [facility] [...] code = MCH) 30.0 pg 27.0-31.0 [facility] TelskgxSRKKXVQOQP4982-88-76 09:43:0033.4[facility]annHEMATOLOGY 2019-07-01 09:43:0013.9[facility] XoyulbmSKUGYDDLUL1904-35-89 09:43:28349Boovaivj CeduaykQBPSISHAIZ8336-14-67 09:43:008.1[facility] XxlsnypDGIZUNMRAY6898-08-51 09:43:00Normal (07/01/19 4:43 AM)[facility] BcfltplVZIFDCHFCF7978-03-67 09:43:00 Normal (07/01/19 4:43 AM)[facility] OovzammPOVTKCHLVT8340-41-24 09:43:0062.1 [facility] WiularvZWAKNGOUTU4622-95-90 09:43:0024.3[facility]annHEMATOLOGY 2019-07-01 09:43:0011.1[facility] FbzivpeSMNXKZSXMJ4168-76-55 09:43:002.1[facility] DpgjazzOVYJZQOQDE2298-10-76 09:43:000.4[facility] TpygfydCIHBDKPZJF0713-59-34 09:43:003.5[facility] LgurxaqUDPIVCRUBD5737-68-78 09:43:001.4[facility] Edi ORBJGZUGCP5628-81-94 09:43:000.6[facility] KnwzqwuTZASVAIOEQ7046-50-36 09:43:000.1 [facility] HermannPARATHYROID BCJFZWS8072-80-07 09:43:001.16[facility] PARATHYROID YAMVTCU0375-67-99 09:43:001.16[facility] HermannCARDIAC ENZYMES 2019-06-30 09:02:000.02[facility] HermannBACTERIAL - CKRGGUJD5153-14-91 06:24:00 Negative (06/30/19 1:24 AM)[facility] HermannCHEM OFCZT3066-31-18 06:24:77684 [facility]annCHEM ULIUG2464-80-49 06:24:0013[facility] HermannCHEM PANEL 2019-06-30 06:24:000.69[facility] HermannCHEM ACWEL8490-90-58 06:24:10914Cqyhxgmp HermannCHEM AWRPP5982-55-03 06:24:004.0[facility] HermannCHEM HEIUK6463-82-29 06:24:67768Tknfpswy HermannCHEM FKOXF5143-07-31 06:24:0026[facility] HermannCHEM PTFPR9302-83-38 06:24:008.7[facility] HermannCHEM JBXKX1915-66-45 06:24:0013.0 [facility]annCHEM PIXYZ3720-67-59 06:24:0085[facility] HermannCHEM PANEL 2019-06-30 06:24:002.4[facility] HermannCHEM MDWQQ6484-35-41 06:24:003.4[facility] YmolmquEIZPZFAYET7648-80-33 06:24:006.8[facility] KqfphgwQRXLCMJFGK2777-98-54 06:24:003.95[facility] FpnwsaiEONHMETTBF1475-23-57 06:24:0011.9[facility] QZFVVTPLRB9662-43-60 06:24:0035.7[facility] OdjaelmJCLUSOODUO0689-74-10 06:24:00 90.3[facility] FsuuwjuLFSHHGONTY5281-70-43 06:24:00 Test Item Value Reference Range Interpretation Comments MCH (test code = MCH) 30.2 pg 27.0-31.0 [facility] EdqapcuSTZUWLGJQJ2978-82-37 06:24:0033.5[facility] HermannHEMATOLOGY 2019-06-30 06:24:0014.4[facility] XskfqatOTNSEDZCQL1358-82-20 06:24:31790Zwmjwuqn BhmzbzqUOFLYWPYJU4598-19-19 06:24:008.0[facility] GhbyltlIQYKZPKIOT2105-65-97 06:24:0068.0[facility] AnnvnvoOJOZCRAQRE6451-33-61 06:24:0021.0[facility] ZEVBCBNOLL5235-85-54 06:24:009.6[facility] RqgeexgKKUYYPZTHG7171-99-92 06:24:000.8 [facility] NbgzmzzDJRJRYIEVB6276-74-15 06:24:000.6[facility] HermannHEMATOLOGY 2019-06-30 06:24:004.6[facility] DxibzlaSSIKQXXUJE6435-72-50 06:24:001.4[facility] XnrzvalBUBNCKBROC7780-89-19 06:24:000.7[facility] VpbthvtGQIKBSFTDB4530-41-62 06:24:000.1[facility] HermannPARATHYROID DQOWYCF0578-43-93 06:24:001.15[facility] HermannPARATHYROID BMJGTWF9329-42-21 06:24:001.13[facility] HermannBLOOD BANK NLROPMX3394-55-64 04:21:19Negative (06/29/19 11:21 PM)[facility] HermannCARDIAC VMLNFEM9909-00-22 03:41:000.02[facility] CflrwhfYEUBTIFFVC0299-16-23 03:41:86133 [facility]annCHEM UGNPB2061-22-13 01:00:29846Uraiqdeg HermannCHEM PANEL 2019-06-30 01:00:004.1[facility] HermannCHEM RGIZR3684-13-57 01:00:92889Rodgbdvb HermannCHEM MHNEQ2074-45-25 01:00:0027[facility] HermannCHEM WPAUH8963-01-10 01:00:008.9[facility] HermannCHEM VCTPY6172-44-02 01:00:008.1[facility] HermannCHEM AVEOS4415-66-01 01:00:0079[facility] HermannCHEM PWIAC0329-90-38 01:00:001.6 [facility] PpdolufBSIDLMQCFX0410-62-59 01:00:006.7[facility] HermannHEMATOLOGY 2019-06-30 01:00:004.15[facility] MowiuufJLOZTTOTXP4837-71-26 01:00:0012.5[facility] WblhuecDHPVCOTWGF7217-79-75 01:00:0037.5[facility] QxazypiIGSDCZGXSO6007-25-65 01:00:0090.4[facility] OutcmfqXNSMKPNVHH4614-52-08 01:00:00 Test Item Value Reference Range Interpretation Comments MCH (test code = MCH) 30.1 pg 27.0-31.0 [facility] JbollegCJLGRRJAGW9315-70-49 01:00:0033.2[facility] HermannHEMATOLOGY 2019-06-30 01:00:0014.0[facility] VgyyourIRQASPOUQQ9834-25-97 01:00:97922Msfijnjp GljzsltUYMSXUFQUK2841-18-66 01:00:007.2[facility] OqksuodIDFJXVXAOM5278-39-00 01:00:00 Test Item Value Reference Range Interpretation Comments ACT (TEG) Rapid (test code = ACT (TEG) 105 s 86-118 Rapid) [facility] EnmaguiHIQBHVDAVU4534-76-61 01:00:00 Test Item Value Reference Range Interpretation Comments Split Point Rapid (test code = Split 0.5 min Point Rapid) [facility] IzsxncnAHJFEFRING4954-04-21 01:00:00 Test Item Value Reference Range Interpretation Comments R-time Rapid (test code = R-time 0.6 min 0.4-0.7 Rapid) [facility] JvnezuiADDWMGOEJH5871-37-28 01:00:00 Test Item Value Reference Range Interpretation Comments K-time Rapid (test code = K-time 1.0 min 0.6-2.3 Rapid) [facility] OlljhyhEBROGOGGKR8042-29-26 01:00:00 Test Item Value Reference Range Interpretation Comments Angle Rapid (test code = Angle 78 degrees 64-80 Rapid) [facility] NcwzyeuLQNYKQABZG4111-87-60 01:00:00 Test Item Value Reference Range Interpretation Comments Max Amplitude Rapid (test code = Max 67 mm 52-71 Amplitude Rapid) [facility] TjinjqsJOEBMXNOTH9924-55-73 01:00:0010.2[facility] HermannHEMATOLOGY 2019-06-30 01:00:001.2[facility] AdpbsdnRQWYVRSFDJ7736-23-23 01:00:0076.9[facility] OlmigfdWKALPNFCHV4879-03-69 01:00:0014.0[facility] PradfusXYVGGYMSYM9807-50-54 01:00:008.1[facility] TbvanbtOGFZBUBUKP8262-62-82 01:00:000.5[facility] PXWTSOVPMP3226-64-41 01:00:000.5[facility] VeqslvhYQMWAGCMGF0785-99-71 01:00:005.2 [facility] HtpwdvmAWIISGRXRH2510-40-46 01:00:000.9[facility] HermannHEMATOLOGY 2019-06-30 01:00:000.5[facility] HermannCARDIAC JLKMAYN9205-68-53 01:00:00<0.02 [facility] HermannCHEM YORUK4458-64-37 01:00:67674Scatxwpy HermannCHEM PANEL 2019-06-30 01:00:0013[facility] HermannCHEM AJOVA0895-41-98 01:00:000.81[facility]
--- NOTE | 2020-05-01 12:10 | EDPHYS ---
Physician Documentation [facility] Name: Ronny Burgess Age: 89 yrs Sex: Male : 1930 Arrival Date: 05/01/2020 Time: 10:50 Bed 7 Private MD: ED Physician Toñito Caldwell HPI: 05/01 12:03 This 89 yrs old Male presents to ER via Ambulatory with complaints of left rn groin pain, possible hernia. 12:03 The patient presents with abdominal pain left groin. Onset: The symptoms/episode rn began/occurred 3 week(s) ago. The symptoms do not radiate. Associated signs and symptoms: Pertinent negatives: blood in stools, chest pain, constipation, diarrhea, fever, testicular pain, vomiting. The symptoms are described as achy, intermittent. Modifying factors: The symptoms are alleviated by remaining still, supine position, the symptoms are aggravated by movement, touching the area. Severity of pain: At its worst the pain was moderate in the emergency department the pain has improved. The patient has not experienced similar symptoms in the past. Reports 3 weeks of left groin pain, intermittent bulging, goes in and out, worse with exertion and getting out of bed, no new trauma. No bowel or bladder problems. Currently states not bulging or swollen. . Historical: - Allergies: 11:09 Isosorbide Dinitrate; ll1 - PMHx: 11:09 Diabetes - NIDDM; Hyperlipidemia; Myocardial infarction; ll1 - PSHx: 11:09 CABG; Heart stents; Knee surgery; hip; ll1 - Immunization history:: Client reports receiving the 2nd dose of the Covid vaccine, Flu vaccine is up to date. - Social history:: Smoking status: Patient denies any tobacco usage or history of. - Family history:: not pertinent. - Hospitalizations: : No recent hospitalization is reported. ROS: 12:03 Constitutional: Negative for fever, chills, and weight loss, Eyes: Negative for injury, rn pain, redness, and discharge, Neck: Negative for injury, pain, and swelling, Cardiovascular: Negative for chest pain, palpitations, and edema, Respiratory: Negative for shortness of breath, cough, wheezing, and pleuritic chest pain, Abdomen/GI: Negative for nausea, vomiting, diarrhea, and constipation, Back: Negative for injury and pain, : Negative for injury, bleeding, discharge, and swelling, MS/Extremity: Negative for injury and deformity, Skin: Negative for injury, rash, and discoloration, Neuro: Negative for headache, weakness, numbness, tingling, and seizure. 12:03 All other systems are negative. Exam: 12:03 Constitutional: This is a well developed, well nourished patient who is awake, alert, rn and in no acute distress. Cardiovascular: Regular rate and rhythm. No pulse deficits. Respiratory: No increased work of breathing, no retractions or nasal flaring. Abdomen/GI: Soft, non-tender, left groin and inguinal canal unremarkable, no tenderness or mass, no palpable hernia Male : Normal genitalia with no discharge or lesions. Vital Signs: 11:06 BP 104 / 60; Pulse 76; Resp 17; Temp 98.3; Pulse Ox 99% ; Weight 81.65 kg; Height 5 ft. ll1 9 in. (175.26 cm); Pain 5/10; 11:06 Body Mass Index 26.58 (81.65 kg, 175.26 cm) ll1 MDM: 11:54 Patient medically screened. rn 12:03 Differential diagnosis: inguinal hernia, lumbar radiculopathy. Data reviewed: vital rn signs, nurses notes, and as a result, I will discharge patient. Counseling: I had a detailed discussion with the patient and/or guardian regarding: the historical points, exam findings, and any diagnostic results supporting the discharge/admit diagnosis, the need for outpatient follow up, to return to the emergency department if symptoms worsen or persist or if there are any questions or concerns that arise at home. Special discussion: I discussed with the patient/guardian in detail that at this point there is no indication for admission to the hospital. It is understood, however, that if the symptoms persist or worsen the patient needs to return immediately for re-evaluation. ED course: Told patient likely intermittent inguinal hernia, no palpable mass at this moment, no testicular mass or tenderness. Pt is happy with that, and would like to go home. Recommend outpt gen surg f/u and return precautions given/understood. . Administered Medications: No medications were administered Disposition: 05/01/20 12:10 Discharged to Home. Impression: Unilateral inguinal hernia, without obstruction or gangrene, not specified as recurrent. - Condition is Stable. - Discharge Instructions: Hernia, Adult, Inguinal Hernia, Adult. - Medication Reconciliation Form, Thank You Letter, Antibiotic Education, Prescription Opioid Use form. - Follow up: Kingston Coe MD; When: As needed; Reason: Recheck today's complaints, Re-evaluation by your physician. - Problem is an ongoing problem. - Symptoms have improved. Signatures: Toñito Caldwell MD MD rn Baxter, Heather, RN RN hb Lewis, Lynsay, RN RN ll1 Corrections: (The following items were deleted from the chart) 12:06 12:03 Constitutional: This is a well developed, well nourished patient who is awake, rn alert, and in no acute distress. Abdomen/GI: Soft, non-tender, left groin and inguinal canal unremarkable, no tenderness or mass, no palpable hernia Male : Normal genitalia with no discharge or lesions. rn 12:23 12:10 05/01/2020 12:10 Discharged to Home. Impression: Unilateral inguinal hernia, hb without obstruction or gangrene, not specified as recurrent. Condition is Stable. Forms are Medication Reconciliation Form, Thank You Letter, Antibiotic Education, Prescription Opioid Use. Follow up: Kingston Coe; When: As needed; Reason: Recheck today's complaints, Re-evaluation by your physician. Problem is an ongoing problem. Symptoms have improved. rn 12:25 12:23 05/01/2020 12:10 Discharged to Home. Impression: Unilateral inguinal hernia, hb without obstruction or gangrene, not specified as recurrent. Condition is Stable. Discharge Instructions: Hernia, Adult, Inguinal Hernia, Adult. Forms are Medication Reconciliation Form, Thank You Letter, Antibiotic Education, Prescription Opioid Use. Follow up: Kingston Coe; When: As needed; Reason: Recheck today's complaints, Re-evaluation by your physician. Problem is an ongoing problem. Symptoms have improved. hb
--- NOTE | 2020-05-01 12:10 | ER ---
Nurse's Notes [facility] Name: Ronny Burgess Age: 89 yrs Sex: Male : 1930 Arrival Date: 05/01/2020 Time: 10:50 Bed 7 Private MD: Diagnosis: Unilateral inguinal hernia, without obstruction or gangrene, not specified as recurrent Presentation: 05/01 11:06 Chief complaint: Patient states: States he was here last month for a fall. Has had a ll1 knot to L groin area off/on since the fall. States since Friday its been painful, each day getting worse. Worried he has a hernia now. No trouble urinating. No swelling of testicles. No fever. Coronavirus screen: Client denies travel out of the [place] in the last 14 days. At this time, the client does not indicate any symptoms associated with coronavirus-19. Ebola Screen: Patient denies travel to an Ebola-affected area in the 21 days before illness onset. Initial Sepsis Screen: Does the patient meet any 2 criteria? No. Patient's initial sepsis screen is negative. Does the patient have a suspected source of infection? Yes: Other: L groin pain/knot. Risk Assessment: Do you want to hurt yourself or someone else? Patient reports no desire to harm self or others. Onset of symptoms was April 04, 2020. 11:06 Method Of Arrival: Ambulatory [facility] 11:06 Acuity: BERNARDA 3 ll1 Historical: - Allergies: 11:09 Isosorbide Dinitrate; ll1 - PMHx: 11:09 Diabetes - NIDDM; Hyperlipidemia; Myocardial infarction; ll1 - PSHx: 11:09 CABG; Heart stents; Knee surgery; hip; ll1 - Immunization history:: Client reports receiving the 2nd dose of the Covid vaccine, Flu vaccine is up to date. - Social history:: Smoking status: Patient denies any tobacco usage or history of. - Family history:: not pertinent. - Hospitalizations: : No recent hospitalization is reported. Screenin:51 Abuse screen: Denies threats or abuse. Denies injuries from another. Nutritional hb screening: No deficits noted. Tuberculosis screening: No symptoms or risk factors identified. Fall Risk None identified. Assessment: 11:45 General: Appears in no apparent distress. Behavior is calm, cooperative. Pain: Pain hb currently is 0 out of 10 on a pain scale. at worst was 5 out of 10 on a pain scale. Neuro: Level of Consciousness is awake, alert, obeys commands, Oriented to person, place, time, situation. Cardiovascular: Patient's skin is warm and dry. Respiratory: Respiratory effort is even, unlabored, Respiratory pattern is regular, symmetrical. GI: Reports lower abdominal pain. : No signs and/or symptoms were reported regarding the genitourinary system. EENT: No signs and/or symptoms were reported regarding the EENT system. Derm: Skin is pink, warm \T\ dry. Musculoskeletal: No signs and/or symptoms reported regarding the musculoskeletal system. Vital Signs: 11:06 BP 104 / 60; Pulse 76; Resp 17; Temp 98.3; Pulse Ox 99% ; Weight 81.65 kg; Height 5 ft. ll1 9 in. (175.26 cm); Pain 5/10; 11:06 Body Mass Index 26.58 (81.65 kg, 175.26 cm) ll1 ED Course: 10:50 Patient arrived in ED. ds1 11:09 Triage completed. ll1 11:09 Arm band placed on Patient notified of wait time. ll1 11:51 Zulma Lujan RN is Primary Nurse. hb 11:51 Patient has correct armband on for positive identification. Bed in low position. Call hb light in reach. Side rails up X 1. 11:54 Toñito Caldwell MD is Attending Physician. rn 12:09 Kingston Coe MD is Referral Physician. rn 12:24 No provider procedures requiring assistance completed. Patient did not have IV access hb during this emergency room visit. Administered Medications: No medications were administered Outcome: 12:10 Discharge ordered by . rn 12:24 Discharged to home ambulatory. hb 12:24 Condition: stable 12:24 Discharge instructions given to patient, Instructed on discharge instructions, follow up and referral plans. Demonstrated understanding of instructions, follow-up care. 12:25 Patient left the ED. hb Signatures: Pina Kitchen ds1 Toñito Caldwell MD MD rn Baxter, Heather, RN RN hb Lewis, Lynsay, RN RN ll1 Corrections: (The following items were deleted from the chart) 11:10 11:06 Acuity: BERNARDA 4 ll1 ll1
[2020-05-01 12:29] VITALS: BP 104/60; TEMP 98.3; O2SAT 99
== END 2020-05-01 12:25 | disposition home or self-care (01) ==
LOC: ER 10:48
DX: K40.90 Unilateral inguinal hernia, without obstruction or gangrene, not specified as recurrent (principal); Z88.8 Allergy status to other drugs, medicaments and biological substances; E11.9 Type 2 diabetes mellitus without complications; E78.5 Hyperlipidemia, unspecified; I25.2 Old myocardial infarction
CPT/HCPCS: 99281